=== PATIENT | female | born 1995 | race Caucasian/White ===

== ENCOUNTER 2019-03-20 17:41 | Outpatient (CLI) | payer OTHER, SELFPAY ==
[2018-10-11 09:32] VITALS: BMI 29.6
[2019-03-20 17:55] VITALS: BMI 35.3
--- NOTE | 2019-03-21 09:17 | OB.TRI.NOTE ---
History of Present Illness Was patient seen by the physician?: No Reason For Visit: CRAMPING Date of Service: 03/20/19 Final HAYES: 04/11/19 Gestational age: 37 Weeks and 0 Days Allergies animal dander Allergy (Mild, Verified 03/20/19 17:56) Unknown grass pollen Allergy (Mild, Verified 03/20/19 17:56) Unknown amoxicillin Allergy (Verified 03/20/19 17:54) Hives cephalexin [From Keflex] Allergy (Verified 03/20/19 17:54) Vomiting NST - FHR Rate Baby A Baseline: 120 Variability:: Moderate Accelerations:: 15 x 15 Decelerations:: None NST Reactive:: Yes Uterine Activity:: Irritability Impression/Plan Reactive NST for threatened PTL
== END 2019-03-20 18:20 | disposition home or self-care (01) ==
LOC: WPOUT 17:43 → WP 17:43
PROVIDERS: Referring Provider Obstetrics & Gynecology; Visit Provider Obstetrics & Gynecology
DX: O60.03 Preterm labor without delivery, third trimester (principal); Z3A.37 37 weeks gestation of pregnancy
CPT/HCPCS: 59050; 99218; G0378

== ENCOUNTER 2019-04-11 16:00 | Inpatient (IN) | payer OTHER, SELFPAY ==
[2018-10-11 09:32] VITALS: BMI 29.6
[2019-04-11 16:15] VITALS: BMI 34.7
[2019-04-11] MEDS: Lactated Ringers 1,000 ML 50 ML IV (16:25)
[2019-04-11 16:57] LABS: Absolute Lymphocyte Count 2.04 X10^3/uL (0.83-4.51); Absolute Neutrophil Count 10.8 X10^3/uL (2.0-7.7); Basophil# 0.05 X10^3/uL; Basophil% 0.4 % (0-1); Eosinophil# 0.08 X10^3/uL; Eosinophils% 0.6 % (0-5); Hematocrit 34.4 % (37-47); Hemoglobin 11.7 g/dL (12.0-15.0); Lymphocyte # 2.04 X10^3/ul (4.0); Lymphocyte % 14.8 % (19-41); Mean Corpuscular Hgb 29.5 pg (27.0-32.0); Mean Corpuscular Volume 86.9 fL (81-99); Mean Platelet Vol. 10.6 fl (6.2-12.0); Monocyte# 0.75 X10^3/uL; Monocyte% 5.4 % (0-10); NRBC Flagged by Analyzer 0 % (0-5); Neutrophil % 78.3 % (47-70); Platelet Count 191 K/mm3 (150-450); RBC Distribution Width CV 12.5 % (11.6-14.6); RBC Distribution Width SD 39.4 fl (35.1-43.9); Red Blood Count 3.96 M/mm3 (4.2-5.4); White Blood Count 13.8 K/mm3 (4.4-11.0)
[2019-04-11] MEDS: Oxytocin 30 units/NS 500 ml 30 UNITS/500 ML IV.SOLN IV (17:10)
[2019-04-11] MEDS: 0.9% Normal Saline 100 ML IV.SOLN. IY (17:33)
--- NOTE | 2019-04-11 17:38 | HP.PCM_ITS ---
History Date of Admission: 04/11/19 Final HAYES: 04/11/19 Gestational age: 40 Weeks and 0 Days History of this : This is a 23 year-old, G [], P [], at 40 weeks gestational age. Allergies animal dander Allergy (Mild, Verified 04/11/19 16:17) Unknown grass pollen Allergy (Mild, Verified 04/11/19 16:17) Unknown amoxicillin Allergy (Verified 04/11/19 16:17) Hives cephalexin [From Keflex] Allergy (Verified 04/11/19 16:17) Vomiting Home Medications: Home Medications Levothyroxine [Synthroid] 75 mcg PO DAILY 03/20/19 Vits [Prenatabs FA ] 1 tab PO DAILY 03/20/19 Smoking Status: Never smoker NST - FHR Rate Baby A Baseline: 120 Variability:: Moderate Accelerations:: 15 x 15 Decelerations:: Variable NST Reactive:: Yes Uterine Activity:: Irritability History Past Pregnancies: Past Pregnancies Delivery Date Name GA/ Weeks Outcome Route Wt Infant Sex Labor Length Anesthesia Delivery Location Provider FOB Labs: See [facility] H&P Physical Exam General: Alert, Oriented x3 Abdomen: Soft, Non Tender, Non-Distended, Gravid Extremities:: No edema Neurological: Cranial nerves II-XII grossly intact BUILDING ATTENDANT: Normal external genitalia Estimated gestational size: Appropriate for gestational size Cervix Dilation (cm): 1.5 Station: -3 Effacement (%): 70 Assessment/Plan All Active Problems Sinusitis, acute (Acute) This is a 23 year-old, G2, P0010, at 40 weeks gestational age. Admit to L&D Proceed with elective induction. Intracervical méndez placed. On pitocin. GBS negative EFW - less than 4500g, patient with adequate pelvis Pain - epidural as desired
[2019-04-12] MEDS: Nalbuphine 10 MG/ML Ampul IV ×2 (00:04→03:29)
[2019-04-12] MEDS: 0.9% Saline Lock 10 ML Syringe IV ×3 (00:05→04:43)
[2019-04-12] MEDS: Lactated Ringers 500 ML 999 ML IV ×2 (03:25→05:00)
[2019-04-12] MEDS: Ondansetron 4 MG/2 ML Vial IV (04:43)
[2019-04-12] MEDS: Lactated Ringers 1,000 ML 50 ML IV (05:13)
[2019-04-12] MEDS: fentaNYL-bupivacaine (epidural) 100 ML BAG EPIDURAL ×2 (06:13→10:33)
--- NOTE | 2019-04-12 07:22 | NURSING ---
pharmacy contacted to edit order for synthroid placed by this RN . pharmacy informed of verbal order from Dr Barragan for 75 mcg to be taken on mondays and fridays, and 150 mcg to be taken every other day in the AM, while fasting. pharmacy ([facility]) states she is currently editing the order for corrections. this passed along in bedside report to chart RN.
--- NOTE | 2019-04-12 09:03 | PCM.PN.BLA ---
Progress Note S: Patient comfortable with epidural O: cvx - 7//-1 fhts 115 with mod variability, accels tocos Q2-4 min A&P: continue pitocin
[2019-04-12] MEDS: Levothyroxine 150 MCG Tablet PO (09:43)
[2019-04-12] MEDS: Lactated Ringers 1,000 ML 200 ML IV (10:32)
[2019-04-12] MEDS: Oxytocin 30 units/NS 500 ml 30 UNITS/500 ML IV.SOLN 334 UNITS IV (14:40)
[2019-04-12] MEDS: Methylergonovine 0.2 MG/ML Ampul IM (14:55)
--- NOTE | 2019-04-12 15:06 | PCM.OPRPT ---
Vaginal Delivery Maternal Presentation: Elective Induction Method of Induction: Pitocin, Daly Bulb, Amniotomy Amniotic Membrane Rupture Type: Spontaneous Amniotic Fluid Description: Clear Final HAYES: 04/11/19 Gestational age: 40 Weeks and 1 Days Date of Procedure: 04/12/19 Pre-Operative Diagnosis: Elective induction Post-Operative Diagnosis: Same Surgery/ Procedure Performed: Spontaneous Vaginal Delivery Type of Anesthesia: Epidural Description of Procedure: Patient prepped & draped when C/C/+3. She pushed to deliver head. head gently guided to allow delivery of anterior and posterior shoulders. No excess traction placed on head. Body delivered and placed on maternal abdomen. 3VC clamped & cut in delayed fashion. Good uterine tone obtained. Presentation: ROP Placental Delivery Description: Expressed Placenta Disposition: [facility] Cord Vessel Description: 3 Vessels Cord Entanglement: Around neck x 1, loose Drain: Daly to straight drain Estimated Blood Loss: 400ml Infant A gender: Female (1 minute): 8 (5 minute): 9 Episiotomy Description: None Laceration: 1st degree - vaginal - repaired with 3-0 vicryl Medications given after delivery: IV Pitocin Complications: None
[2019-04-12] MEDS: Ibuprofen 600 MG Tablet PO (17:12)
[2019-04-12 18:31] VITALS: BP 113/57; PULSE 61; RESP 16; TEMP 36.6; O2SAT 97
[2019-04-12 20:35] VITALS: BP 120/61; PULSE 68; RESP 16; TEMP 36.1
[2019-04-12] MEDS: Acetaminophen 500 MG Tablet 1000 MG PO (22:36)
[2019-04-13 00:58] VITALS: BP 103/51; PULSE 58; RESP 16; TEMP 36.6
[2019-04-13] MEDS: Ibuprofen 600 MG Tablet PO ×2 (02:05→20:16)
[2019-04-13 04:30] VITALS: BP 98/41; PULSE 62; RESP 16; TEMP 36.4
[2019-04-13 09:00] VITALS: BP 108/69; PULSE 70; RESP 16; TEMP 36.6
[2019-04-13] MEDS: Levothyroxine 150 MCG Tablet PO (09:05)
[2019-04-13 14:50] VITALS: BP 118/70; PULSE 69; RESP 16; TEMP 36.4
--- NOTE | 2019-04-13 17:48 | PCM.PN.OB ---
Subjective: Denies complaints. - Physical Exam Vitals/I&O's: Vital Signs Temp Pulse Resp BP Pulse Ox 97.5 F L 69 16 118/70 97 04/13/19 14:50 04/13/19 14:50 04/13/19 14:50 04/13/19 14:50 04/12/19 18:31 Oxygen Delivery Method Room Air Weight: 189 lb 9.561 oz Body Mass Index (BMI) 34.7 Intake and Output for Last 24 Hours 04/11/19 04/12/19 04/13/19 23:59 23:59 23:59 Intake Total 442.64 / 442.64 5375.84 / 5375.84 Output Total 400 / 400 2100 / 2100 Balance 42.64 / 42.64 3275.84 / 3275.84 General: Alert, Oriented x3 Abdomen: Soft, Non Tender, Non-Distended - ff mid & below umb Extremities: No Calf Tenderness Neurological: Cranial nerves II-XII grossly intact Current Medications Acetaminophen (Tylenol) 1,000 mg PO Q8H PRN PRN PRN Reason: Pain Score 1-3/10 Last Admin: 04/12/19 22:36 Dose: 1,000 mg Documented by: Bisacodyl (Dulcolax) 10 mg RECTAL UD PRN PRN Reason: If no BM Dibucaine (Dibucaine) 1 applic TOPICAL TID PRN PRN; Protocol PRN Reason: Discomfort Hydrocortisone (Hytone) 1 applic TOPICAL TID PRN PRN; Protocol PRN Reason: Discomfort Ibuprofen (Motrin) 600 mg PO Q6H PRN PRN PRN Reason: Pain Score 1-3/10 Last Admin: 04/13/19 02:05 Dose: 600 mg Documented by: Levothyroxine Sodium (Synthroid) 75 mcg PO X1 ONE Stop: 04/14/19 06:01 Methylergonovine Maleate (Methergine) 0.2 mg IM X1 PRN PRN Reason: Excess bleeding/uterine atony Last Admin: 04/12/19 14:55 Dose: 0.2 mg Documented by: Ondansetron HCl (Zofran) 4 mg IV Q4H PRN PRN PRN Reason: Nausea Oxycodone HCl (Oxyir) 5 - 10 mg PO Q4H PRN PRN PRN Reason: Pain Score 4-10/10 Senna/Docusate Sodium (Senokot-S, [place]ore[place]-Colace) 1 - 2 tablet PO DAILY PRN PRN PRN Reason: Constipation Simethicone (Mylicon) 80 mg PO PCHS PRN PRN Reason: Indigestion/Stomach pain Sodium Chloride () 5 - 15 ml IV UD PRN PRN Reason: SALINE FLUSH Medical Necessity - Tobacco Use Smoking Status: Never smoker Assessment/Plan All Active Problems (Last Updated 04/11/19 @ 17:39 by Dariel Barragan) Sinusitis, acute (Acute) PPD#1 Routine care
[2019-04-13 19:54] VITALS: BP 100/45; PULSE 76; RESP 16; TEMP 36.6
[2019-04-13] MEDS: Senna/Docusate Sodium 1 Tablet PO (20:16)
[2019-04-14 02:29] VITALS: BP 110/50; PULSE 70; RESP 18; TEMP 36.3
[2019-04-14] MEDS: Levothyroxine 75 MCG Tablet PO (06:23)
--- NOTE | 2019-04-14 08:48 | PCM.PN.OB ---
Subjective: Doing well per patient and nursing staff. Ambulating and taking PO without difficulty. Voiding and passing flatus. Denies any chest pain, SOB, leg pain, or increased vaginal bleeding. well. Having some nipple soreness, working with for latch. Planning D/C home today. - Physical Exam Vitals/I&O's: Vital Signs Temp Pulse Resp BP Pulse Ox 97.3 F L 70 18 110/50 L 97 04/14/19 02:29 04/14/19 02:29 04/14/19 02:29 04/14/19 02:29 04/12/19 18:31 Oxygen Delivery Method Room Air Weight: 189 lb 9.561 oz Body Mass Index (BMI) 34.7 Intake and Output for Last 24 Hours 04/12/19 04/13/19 04/14/19 23:59 23:59 23:59 Intake Total 5375.84 / 5375.84 Output Total 2100 / 2100 Balance 3275.84 / 3275.84 General: Alert, Oriented x3, Cooperative HEENT: Atraumatic, Normocephalic Neck: Trachea Midline Lungs: Clear to auscultation, Normal air movement, No rhonchi, No wheeze Cardiovascular: Regular rate, Regular Rhythm, No murmurs Abdomen: Bowel Sounds Present, - - Fundus firm 2 below U Extremities: No edema, - - Jayson's negative bilaterally Psych/Mental Status: Normal Affect, Appropriate Current Medications Acetaminophen (Tylenol) 1,000 mg PO Q8H PRN PRN PRN Reason: Pain Score 1-3/10 Last Admin: 04/12/19 22:36 Dose: 1,000 mg Documented by: Bisacodyl (Dulcolax) 10 mg RECTAL UD PRN PRN Reason: If no BM Dibucaine (Dibucaine) 1 applic TOPICAL TID PRN PRN; Protocol PRN Reason: Discomfort Hydrocortisone (Hytone) 1 applic TOPICAL TID PRN PRN; Protocol PRN Reason: Discomfort Ibuprofen (Motrin) 600 mg PO Q6H PRN PRN PRN Reason: Pain Score 1-3/10 Last Admin: 04/13/19 20:16 Dose: 600 mg Documented by: Methylergonovine Maleate (Methergine) 0.2 mg IM X1 PRN PRN Reason: Excess bleeding/uterine atony Last Admin: 04/12/19 14:55 Dose: 0.2 mg Documented by: Ondansetron HCl (Zofran) 4 mg IV Q4H PRN PRN PRN Reason: Nausea Oxycodone HCl (Oxyir) 5 - 10 mg PO Q4H PRN PRN PRN Reason: Pain Score 4-10/10 Senna/Docusate Sodium (Senokot-S, [place]-Colace) 1 - 2 tablet PO DAILY PRN PRN PRN Reason: Constipation Last Admin: 04/13/19 20:16 Dose: 1 tablet Documented by: Simethicone (Mylicon) 80 mg PO PCHS PRN PRN Reason: Indigestion/Stomach pain Sodium Chloride () 5 - 15 ml IV UD PRN PRN Reason: SALINE FLUSH Medical Necessity - Tobacco Use Smoking Status: Never smoker Assessment/Plan All Active Problems (Last Updated 04/11/19 @ 17:39 by Dariel Barragan) Sinusitis, acute (Acute) A: PPD #2 P: 1) Routine care and instructions 2) Nipple cream sent for nipple discomfort. 3) Discharge home today. 4) Follow up at 2 weeks and 6 weeks
[2019-04-14 09:00] VITALS: BP 117/49; PULSE 68; RESP 18; TEMP 36.6
--- NOTE | 2019-04-14 09:02 | DCINST_ITS ---
Discharge Diet: No Restrictions Discharge Activity: Return to Normal Activity, May not drive while taking narcotic pain medications., May Shower, May Take a Tub Bath May resume sexual activity in: 4-6 weeks Weight Bearing Status: Full weight bearing Additional Activity Instructions:: Nothing in the vagina for 4-6 weeks. You may return to work/school in 6 weeks. Call your doctor if your incision/area has: Continuous Slow Oozing, Sudden Increased Bleeding, Increased Pain/ Swelling, Increased Redness, Foul Smelling Discharge Call your doctor if you observe: Fever of 101 or Higher, Inability to urinate, Using more than one pad per hour, Chest pain, Increased palpitations (irregular heartbeat), Calf discomfort, Uncontrolled pain Additional Instructions: If you experience any of the following, contact your healthcare provider. * Bleeding that soaks a pad every hour for 2 hours * Fever 100.4 or higher * Unrelieved incision or abdominal pain * Swelling, redness, discharge or bleeding from your incision or episiotomy site * Your incision begins to separate * Problems urinating (including inability to urinate or burning while urinating). * Visual changes * Severe headache * Flu-like symptoms * Pain or redness in one of both of your breasts * Pain, warmth, tenderness or swelling in your legs, especially the calf area * Frequent nausea and vomiting * Symptoms of depression or anxiety If you experience any of the following, call 911 or go to the nearest Emergency Room. * Chest pain * Problems breathing * Seizure activity * Partial or complete paralysis of a body part, slurred speech, weakness or drooping of the face, or a sudden inability to walk or hold your balance Allergies/Adverse Reactions: Allergies animal dander Allergy (Mild, Verified 04/11/19 16:17) Unknown grass pollen Allergy (Mild, Verified 04/11/19 16:17) Unknown amoxicillin Allergy (Verified 04/11/19 16:17) Hives cephalexin [From Keflex] Allergy (Verified 04/11/19 16:17) Vomiting Medications to take at Discharge Levothyroxine [Synthroid] 75 mcg PO DAILY 03/20/19 Vits [Prenatabs FA ] 1 tab PO DAILY 03/20/19 Fluticasone 0.05% [Flonase Nasal [place]] 1 spray NASAL DAILY 04/11/19 Please Follow Up With: Dariel Barragan When: Call to make an appointment with your doctor in 6 weeks. If you had elevated Blood Pressure or 4th degree laceration you will need to be seen in 2 weeks. Primary Care Physician: Care Physician,No Primary [Primary Care Provider] - Test Results: Test results from this visit will be discussed in further detail at your follow- up appointment, if applicable.
[2019-04-14] MEDS: Ibuprofen 600 MG Tablet PO (09:17)
== END 2019-04-14 12:40 | disposition home or self-care (01) | DRG 807 ==
PROVIDERS: Admitting Provider Obstetrics & Gynecology; Referring Provider Obstetrics & Gynecology; Visit Provider Obstetrics & Gynecology
DX: O70.0 First degree perineal laceration during delivery (principal); Z37.0 Single live birth; O48.0 Post-term pregnancy; O99.52 Diseases of the respiratory system complicating childbirth; J01.90 Acute sinusitis, unspecified; O69.81X0 Labor and delivery complicated by cord around neck, without compression, not applicable or unspecified; Z79.890 Hormone replacement therapy; Z3A.40 40 weeks gestation of pregnancy
CPT/HCPCS: 59025; 59050; 85025; 86850; 86900; 86901; 99218; J7120; A4216; G0378; J2405

== ENCOUNTER → 2019-05-27 08:21 | Outpatient (CLI) | payer OTHER, SELFPAY | PROVIDERS: Referring Provider Obstetrics & Gynecology; Visit Provider Obstetrics & Gynecology | DX: Z39.1 Encounter for care and examination of lactating mother (principal) | CPT/HCPCS: 96152 ==

== ENCOUNTER 2022-07-08 09:05 | Outpatient (CLI) | payer OTHER, SELFPAY ==
[2022-07-08 09:13] VITALS: BMI 35.0
[2022-07-08 09:27] VITALS: BP 109/62; PULSE 88; TEMP 37
[2022-07-08] MEDS: Lactated Ringers 1,000 ML 999 ML IV (09:27)
[2022-07-08 09:31] VITALS: O2SAT 98
[2022-07-08] MEDS: Ondansetron 4 MG/2 ML Vial IV (09:38)
[2022-07-08 09:42] LABS: Absolute Lymphocyte Count 0.48 X10^3/uL (0.83-4.51); Absolute Neutrophil Count 13.9 X10^3/uL (2.0-7.7); Basophil# 0.02 X10^3/uL; Basophil% 0.1 % (0-1); Eosinophil# 0.01 X10^3/uL; Eosinophils% 0.1 % (0-5); Hemoglobin 12.5 g/dL (12.0-15.0); Lymphocyte # 0.48 X10^3/ul (0.83-4.51); Lymphocyte % 3.2 % (19-41); Mean Corp Hgb Conc 33.8 g/dL (32-36); Mean Corpuscular Hgb 29.7 pg (27.0-32.0); Mean Corpuscular Volume 87.9 fL (81-99); Mean Platelet Vol. 10.6 fl (6.2-12.0); Monocyte# 0.44 X10^3/uL; Monocyte% 2.9 % (0-10); NRBC Flagged by Analyzer 0 % (0-5); Neutrophil # 13.91 X10^3/uL (2.7-7.7); POSITIVE DIFFERENTIAL YES; Platelet Count 199 K/mm3 (150-450); RBC Distribution Width CV 13.2 % (11.6-14.6); RBC Distribution Width SD 42.3 fl (35.1-43.9); Red Blood Count 4.21 M/mm3 (4.2-5.4)
[2022-07-08 09:49] LABS: Differential Indicated SCAN CRITERIA MET
[2022-07-08 10:13] LABS: ALB/GLOB Ratio 0.7 RATIO (0.9-2.4); AST(SGOT) 14 U/L (15-37); Alanine Aminotransfer ALT/SGPT 17 U/L (13-56); Alkaline Phosphatase 71 U/L (45-117); Anion Gap 9 (5-15); BUN 10 mg/dL (7-18); BUN/Creat Ratio 18.1 RATIO (10-20); Calcium,Total 9.1 mg/dL (8.5-10.1); Chloride 105 mmol/L (98-107); Creatinine, Serum 0.55 mg/dL (0.55-1.02); Differential Comment SCANNED; EST Glomerular Filtration Rate 140 mL/min (>60); Est Glom Filt Rate - Afr Amer 169 mL/min (>60); Estimated Creatinine Clearance 121.52 ml/min; Globulin 4.3 g/dL (2.2-4.2); Glucose 117 mg/dL (74-106); Potassium 3.5 mmol/L (3.5-5.1); Protein, Total 7.3 g/dL (6.4-8.2); Sodium Level 136 mmol/L (136-145)
[2022-07-08 10:23] LABS: Mucous, Urine 0 SEEN /hpf (<or=2+); Red Blood Cells-Urine 0 SEEN /hpf (0-5)
[2022-07-08 10:34] LABS: Color, Urine Yellow (Yellow); Glucose, Dipstick Normal (Normal); Leukocyte Esterase-Dipstick 25 /ul (Negative); Nitrite-Dipstick Negative (Negative); Occult Blood-Urine Negative /ul (Negative); Protein-Dipstick 30 mg/dl (Negative); Specific Gravity, Urine 1.025 (1.002-1.030); Urine Bilirubin Dipstick Negative (Negative); Urine Clarity Clear (Clear); Urine Urobilinogen Normal (Normal)
[2022-07-08 10:36] LABS: Ketone-Dipstick 150 mg/dl (Negative)
--- NOTE | 2022-07-08 10:45 | OB.TRI.PN ---
Progress Notes Progress Note: at 25 weeks . Presents to labor and delivery with concerns of gastrointestinal illness. Diarrhea 10 times in the last 24 hrs. Having some dizziness. Nausea and emesis x1. Good movement. No vaginal bleeding or leakage of fluid. Laboratory Studies: Laboratory Tests 07/08/22 07/08/22 07/08/22 Range/Units 10:15 09:25 09:25 WBC 15.0 H (4.4-11.0) K/mm3 RBC 4.21 (4.2-5.4) M/mm3 Hgb 12.5 (12.0-15.0) g/dL Hct 37.0 (37-47) % MCV 87.9 (81-99) fL MCH 29.7 (27.0-32.0) pg MCHC 33.8 (32-36) g/dL RDW Std Deviation 42.3 (35.1-43.9) fl RDW Coeff of Silvana 13.2 (11.6-14.6) % Plt Count 199 (150-450) K/mm3 MPV 10.6 (6.2-12.0) fl Immature Gran % (Auto) 0.700 (0.0-0.9) % Neut % (Auto) 93.0 H (47-70) % Lymph % (Auto) 3.2 L (19-41) % [place] % (Auto) 2.9 (0-10) % Eos % (Auto) 0.1 (0-5) % Baso % (Auto) 0.1 (0-1) % Absolute Neuts (auto) 13.9 H (2.0-7.7) X10^3/uL Absolute Lymphs (auto) 0.48 L (0.83-4.51) X10^3/uL Nucleated RBC % 0 (0-5) % Differential Comment SCANNED Sodium 136 (136-145) mmol/L Potassium 3.5 (3.5-5.1) mmol/L Chloride 105 (98-107) mmol/L Carbon Dioxide 22.0 (21.0-32.0) mmol/L Anion Gap 9 (5-15) BUN 10 (7-18) mg/dL Creatinine 0.55 (0.55-1.02) mg/dL Estim Creat Clear Calc 121.52 ml/min Est GFR (MDRD) Af Amer 169 (>60) mL/min Est GFR (MDRD) Non-Af 140 (>60) mL/min BUN/Creatinine Ratio 18.1 (10-20) RATIO Glucose 117 H (74-106) mg/dL Calcium 9.1 (8.5-10.1) mg/dL Total Bilirubin 0.60 (0.20-1.00) mg/dL AST 14 L (15-37) U/L ALT 17 (13-56) U/L Alkaline Phosphatase 71 (45-117) U/L Total Protein 7.3 (6.4-8.2) g/dL Albumin 3.0 L (3.2-5.0) g/dL Globulin 4.3 H (2.2-4.2) g/dL Albumin/Globulin Ratio 0.7 L (0.9-2.4) RATIO Urine Color Yellow (Yellow) Urine Clarity Clear (Clear) Urine pH 6.0 (5.0 - 8.0) Ur Specific [place] 1.025 (1.002-1.030) Urine Protein 30 H (Negative) mg/dl Urine Glucose (UA) Normal (Normal) mg/dl Urine Ketones 150 A* (Negative) mg/dl Urine Occult Blood Negative (Negative) /ul Urine Nitrite Negative (Negative) Urine Bilirubin Negative (Negative) mg/dL Urine Urobilinogen Normal (Normal) mg/dl Ur Leukocyte Esterase 25 H (Negative) /ul FHT 145, no contractions Assessment & Plan (1) Nausea and vomiting: (2) 25 weeks gestation of : (3) Viral illness: PLAN: Plan 1) 1 Liter LR x 1 2) Zofran 4mg IVP x 1. Will send a prescription to pharmacy 3) CMP and CBC 4) Increase hydration slowly. BRAT diet 5) Follow up in one week and to call if no improvement 6) D/C home
[2022-07-08 10:56] LABS: Bacteria 1+ /hpf (None Seen); Squamous Epithelial Cells - UA 5-10 SEEN /hpf (5-10); White Blood Cells 0-5 SEEN /hpf (0-5)
--- NOTE | 2022-07-08 11:20 | PCM.DC.SUM ---
Providers Primary Care Physician: No Primary Care Phys Reason For Visit: DEHYDRATION Medications at Discharge Home Medications levothyroxine 75 mcg tablet 125 mcg PO DAILY hypothryoidism 03/20/19 vits,calcium no.78-iron fumarate-folic acid 29 mg-1 mg tablet 1 tab PO DAILY 03/20/19 fluticasone propionate 50 mcg/actuation nasal spray,suspension 1 spray NASAL DAILY seasonal allergies 04/11/19 cetirizine 10 mg tablet 10 mg PO DAILY Check with primary doctor 07/08/22 ondansetron 4 mg disintegrating tablet 4 mg PO Q8H PRN PRN Nausea #30 tabs 07/08/22 Weight / BMI Weight Weight: 191 lb 12.835 oz Body Mass Index (BMI) 35.0 ABG / Lab / Microbiology Data Result Diagrams: 07/08/22 09:25 07/08/22 09:25 Laboratory: Laboratory Results - last 24 hr 07/08/22 09:25: WBC 15.0 H, RBC 4.21, Hgb 12.5, Hct 37.0, MCV 87.9, MCH 29.7, MCHC 33.8, RDW Std Deviation 42.3, RDW Coeff of Silvana 13.2, Plt Count 199, MPV 10.6, Immature Gran % (Auto) 0.700, Neut % (Auto) 93.0 H, Lymph % (Auto) 3.2 L, [place] % (Auto) 2.9, Eos % (Auto) 0.1, Baso % (Auto) 0.1, Absolute Neuts (auto) 13.9 H, Absolute Lymphs (auto) 0.48 L, Nucleated RBC % 0, Differential Comment SCANNED 07/08/22 09:25: Sodium 136, Potassium 3.5, Chloride 105, Carbon Dioxide 22.0, Anion Gap 9, BUN 10, Creatinine 0.55, Estim Creat Clear Calc 121.52, Est GFR (MDRD) Af Amer 169, Est GFR (MDRD) Non-Af 140, BUN/Creatinine Ratio 18.1, Glucose 117 H, Calcium 9.1, Total Bilirubin 0.60, AST 14 L, ALT 17, Alkaline Phosphatase 71, Total Protein 7.3, Albumin 3.0 L, Globulin 4.3 H, Albumin/Globulin Ratio 0.7 L 07/08/22 10:15: Urine Color Yellow, Urine Clarity Clear, Urine pH 6.0, Ur Specific [place] 1.025, Urine Protein 30 H, Urine Glucose (UA) Normal, Urine Ketones 150 A*, Urine Occult Blood Negative, Urine Nitrite Negative, Urine Bilirubin Negative, Urine Urobilinogen Normal, Ur Leukocyte Esterase 25 H, Urine RBC 0 SEEN, Urine WBC 0-5 SEEN, Ur Squamous Epith Cells 5-10 SEEN, Urine Bacteria 1+, Urine Mucus 0 SEEN Meaningful Use Info Meaningful Use Diagnoses (Choose all that apply): None applicable Discharge Plan Admission Reason For Visit: DEHYDRATION Attending Provider: Sylwia Moore Primary Care Provider: Care Physician,No Primary Discharge Date/Time: 07/08/22 11:50 Instructions Patient Instructions: Kick Counts, ED False Labor, OB Triage: Return to Hospital or Notify Physician if you Experience: Discharge Orders/Prescriptions Prescriptions: New ondansetron 4 mg Tablet,Disintegrating 4 mg PO Q8H PRN PRN (Reason: Nausea) Qty: 30 0RF No Action fluticasone propionate 1 SPRAY spray,suspension 1 spray NASAL DAILY levothyroxine 75 MCG tablet 125 mcg PO DAILY vit,[id number] 1 TABLET tablet 1 tab PO DAILY cetirizine 10 mg Tablet 10 mg PO DAILY Referrals / Follow Up: Care Physician,No Primary [Primary Care Provider] - Disposition Patient Disposition: Home, Self Care
== END 2022-07-08 11:50 | disposition home or self-care (01) ==
LOC: WPOUT 09:11 → WP 09:12
PROVIDERS: Visit Provider Advanced Practice Midwife
DX: O98.52 Other viral diseases complicating childbirth (principal); B34.9 Viral infection, unspecified; O21.9 Vomiting of pregnancy, unspecified; Z3A.25 25 weeks gestation of pregnancy
CPT/HCPCS: 96374; 96361; 36415; 59050; 80053; 81001; 85025; 87086; J7120; J2405

== ENCOUNTER 2022-10-13 07:05 | Inpatient (IN) | payer OTHER, SELFPAY ==
[2022-10-13] VITALS (48 sets, daily range): BP systolic 87–140; BP diastolic 51–92; PULSE 56–180; RESP 16; TEMP 36.3–36.9; O2SAT 83–100; BMI 37.3
[2022-10-13] MEDS: Lactated Ringers 1,000 ML 50 ML IV (07:50)
[2022-10-13 08:07] LABS: Hematocrit 37.2 % (37-47); Hemoglobin 12.3 g/dL (12.0-15.0); Mean Corp Hgb Conc 33.1 g/dL (32-36); Mean Corpuscular Hgb 28.9 pg (27.0-32.0); Mean Corpuscular Volume 87.5 fL (81-99); Mean Platelet Vol. 10.5 fl (6.2-12.0); Platelet Count 165 K/mm3 (150-450); RBC Distribution Width CV 13.8 % (11.6-14.6); RBC Distribution Width SD 43.8 fl (35.1-43.9); Red Blood Count 4.25 M/mm3 (4.2-5.4); White Blood Count 12.5 K/mm3 (4.4-11.0)
[2022-10-13 08:08] LABS: Absolute Lymphocyte Count 1.97 X10^3/uL (0.83-4.51); Absolute Neutrophil Count 9.5 X10^3/uL (2.0-7.7); Basophil# 0.04 X10^3/uL; Basophil% 0.3 % (0-1); Eosinophil# 0.11 X10^3/uL; Eosinophils% 0.9 % (0-5); Lymphocyte # 1.97 X10^3/ul (0.83-4.51); Lymphocyte % 15.7 % (19-41); Monocyte# 0.79 X10^3/uL; Monocyte% 6.3 % (0-10); NRBC Flagged by Analyzer 0 % (0-5); Neutrophil # 9.53 X10^3/uL (2.7-7.7); Neutrophil % 76.2 % (47-70)
[2022-10-13] MEDS: Oxytocin 15 Units/NS 250ml 15 UNITS/250 ML IV.SOLN 2 UNITS IV (08:32)
[2022-10-13] MEDS: 0.9% Normal Saline Single 100 ML IV.SOLN. INTRA-UTER (08:32)
[2022-10-13 08:38] LABS: Syphilis Antibodies Non-reactive
--- NOTE | 2022-10-13 08:59 | HP.PCM.OB_ITS ---
HPI - General General Date of Admission: 10/13/22 Date of Service: 10/13/22 Chief Complaint: induction of labor HPI Narrative NORA GUTIERREZ, is a 27 F who presents para 1-0-1-1 who presents at 39-3/7 weeks for induction of labor. Is an elective induction of labor for maternal discomfort. She is a multigravida with a Carrizales score of 6 or more. She denies any vaginal bleeding or leaking of fluid. She had some irregular contractions last night. This has been located to date by BMI of greater than 35. Estimated weight is less than 4500 g clinically and by ultrasound. Previous obstetrical history includes 1 previous spontaneous and 1 previous live 6 pounds 15 ounces without complications Past medical history significant for hypothyroidism, depression, eating disorder Medications include Synthroid, Flonase as needed and vitamin and MiraLAX as needed Maternal Data Information Final HAYES: 10/13/22 Gestational age: 39 3/7 [facility] Medical History (Updated 10/13/22 @ 09:[address] Noemi Wood MD) Anxiety Depression Encounter for screening for COVID-19 Impacted cerumen of both ears Thyroid disorder Home Medications levothyroxine 75 mcg tablet 125 mcg PO DAILY hypothryoidism 03/20/19 [History Last Taken 10/13/22 06:00] vits,calcium no.78-iron fumarate-folic acid 29 mg-1 mg tablet 1 tab PO DAILY 03/20/19 [History Last Taken 10/12/22 21:00] fluticasone propionate 50 mcg/actuation nasal spray,suspension 1 spray NASAL DAILY seasonal allergies 04/11/19 [History Last Taken 07/07/22 21:00] polyethylene glycol 3350 17 gram/dose oral powder (Miralax) 17 g PO DAILY hx of anal fissure 10/13/22 [History Last Taken Unknown] Allergy/AdvReac Type Severity Reaction Status Date / Time animal dander Allergy Mild Unknown Verified 10/13/22 07:48 grass pollen Allergy Mild Unknown Verified 10/13/22 07:48 amoxicillin Allergy Hives Verified 10/13/22 07:48 cephalexin [From Keflex] Allergy Vomiting Verified 10/13/22 07:48 Social History (Updated 10/11/18 @ 10:43 by Moe DESHPANDECHARLEE) Smoking Status: Never smoker History Elective abortions Hx Para 1 Spontaneous abortions Hx # Term Pregnancies Ectopic pregnancies Hx # Pregnancies Multiple births # of living children ROS Constitutional Constitutional: Denies fatigue, fever(s) or malaise Eyes Eyes: Denies change in vision ENT HEENT: Denies dizziness or headache(s) Cardiovascular Cardiovascular: Denies chest pain, dyspnea or lightheadedness Respiratory/Chest Respiratory/Chest: Denies cough or dyspnea Gastrointestinal Gastrointestinal: Denies change in bowel habits Genitourinary Genitourinary: Denies burning urination or genital lesions Integumentary Integumentary: Denies rash Neurologic Neurologic: Denies confusion, dizziness, headache(s), numbness or weakness Vital Signs Vital Signs Vital Signs: 10/13/22 07:44 10/13/22 07:44 10/13/22 07:44 Temperature Temperature Source Pulse Rate 78 Blood Pressure 114/60 BP Systolic 114 BP Diastolic 60 Pulse Ox 98 10/13/22 07:44 10/13/22 07:44 10/13/22 08:37 Temperature 98.0 F Temperature Source Temporal Pulse Rate Blood Pressure 118/66 BP Systolic 118 BP Diastolic 66 Pulse Ox 10/13/22 08:37 10/13/22 08:36 10/13/22 08:36 Temperature 97.8 F Temperature Source Temporal Pulse Rate 74 Blood Pressure BP Systolic BP Diastolic Pulse Ox Weight Weight: 92.59 kg Body Mass Index (BMI) 37.3 Physical Exam Const alert and no apparent distress General Appearance: cooperative HEENT normocephalic Resp normal respiratory effort Cardio regular rate GI soft to palpation GI Narrative: gravid, nontender, appropriate for gestational age Extremity no calf tenderness General Extremity: edema Skin no wounds Rashes: No rashes noted Psych activity/motor behavior normal Labs Labs Labs: Blood Type O POSITIVE Antibody Screen NEGATIVE Hct 37.2 % (37-47) Hgb 12.3 g/dL (12.0-15.0) Syphilis Total Ab Non-reactive Rhogam given: No Assessment & Plan (1) 39 weeks gestation of : PLAN: 27-year-old 3 para 1 at 39-3/7 weeks for induction of labor. Risk benefits and alternatives to induction labor him discussed with the patient, her questions were answered to her satisfaction she desires to proceed. Estimated weight is less than 4500 g clinically and by ultrasound and pelvis clinically adequate to expect vaginal delivery. Patient may have routine pain relieving options as indicated and desired. Will undergo Daly, Pitocin, artificial rupture membranes as needed induction of labor. Daly was placed over stylette through the internal cervical os in the usual sterile fashion without difficulty. The balloon was inflated to 30 cc and placement over the internal os was confirmed. Patient and fetus tolerated the procedure well. (2) High risk multigravida in third trimester: (3) BMI 35.0-35.9,adult: (4) Maternal obesity syndrome in third trimester:
[2022-10-13] MEDS: LACTATED RINGERS 500 ML 999 ML IV (11:08)
[2022-10-13] MEDS: fentaNYL-bupivacaine (epidural) 100 ML BAG EPIDURAL (11:58)
--- NOTE | 2022-10-13 14:36 | EX.PCM.OBRPT ---
Assessment & Plan (1) (spontaneous vaginal delivery): Maternal Data Information Final HAYES: 10/17/22 Gestational age: 39 3/7 Vaginal Delivery Maternal Presentation Maternal Presentation: Elective Induction Type of Induction: Pitocin, Daly Bulb and Amniotomy Operative Information Date of Procedure: 10/13/22 Pre-Operative Diagnosis: labor Post-Operative Diagnosis: same Surgery / Procedure Performed: Spontaneous Vaginal Delivery Type of Anesthesia: Epidural Special Medications: none Drain: Daly to straight drain Estimated Blood Loss: 300 Time of Delivery: 14:19 Findings Description of Procedure: A vigorous male infant was delivered MIKE over an intact perineum. The remainder the infant was delivered with maternal pushing and gentle traction only in less than 15 seconds. The Pitocin infusion was initiated for active management of the third stage. The cord was clamped and cut cord pulsations ceased. The was attended to by the waiting nursing staff. The placenta was delivered spontaneously and intact. The cervix and vagina were intact. Sponge and needle counts were correct. A vaginal sweep was completed by me. Presentation: MIKE Amniotic Membrane Rupture Type: Artificial Amniotic Fluid Description: Clear Placental Delivery Description: Spontaneous Placenta Disposition: [facility] Cord Vessel Description: 3 Vessels Cord Entanglement: None Infant A Gender: Male ([place]) (1 minute): 9 (5 minute): 9 Delayed Cord Clamping: Yes Post Vaginal Delivery Medications Given After Delivery: IV Pitocin Episiotomy Description: None Laceration: None Complication Complications: None
[2022-10-13] MEDS: Oxytocin 15 Units/NS 250ml 15 UNITS/250 ML IV.SOLN 83 UNITS IV (14:52)
[2022-10-13] MEDS: Ibuprofen 600 MG Tablet PO ×2 (17:13→23:35)
[2022-10-13] MEDS: Acetaminophen 500 MG Tablet 1000 MG PO (21:31)
[2022-10-13] MEDS: Senna/Docusate Sodium 1 Tablet PO (21:31)
[2022-10-13] MEDS: Polyethylene Glycol 3350 17 GM PACKET PO (21:31)
[2022-10-14 03:21] VITALS: O2SAT 97
[2022-10-14 03:22] VITALS: BP 106/65; PULSE 73; PULSE 75; RESP 14; TEMP 36.1; O2SAT 98
[2022-10-14] MEDS: Acetaminophen 500 MG Tablet 1000 MG PO ×2 (03:31→10:12)
[2022-10-14] MEDS: Ibuprofen 600 MG Tablet PO ×2 (06:03→12:13)
[2022-10-14] MEDS: Levothyroxine 125 MCG Tablet PO (06:03)
[2022-10-14 08:37] VITALS: BP 117/70; PULSE 71; RESP 16; TEMP 36.4
--- NOTE | 2022-10-14 10:00 | CASEMGMT ---
Social Work Assessment Labor and Delivery Unit Patient Address: [address] [place] [address] Phone number: [phone] Date of Referral: 10/13/22 Time of Referral:? 15:49 Referred By: Israel Date of Intervention: ??10/14/22 Time of Intervention:? 10 Reason for Referral:? hx mental health History obtained from: medical records and mother of baby (MOB) and father of baby (FOB) Household composition: MOB reports she and Fob own their home with their three year old daughter, Elidia. Patient's parent/guardian status: MOB and FOB, Casimiro, have been together for eight years and four years. FOB is active with NB and previous child and reports no other children, no hx of mental health, AOD or DV concerns. ? Medical History: RODRIGO was engaged in care with [facility] beginning around 4 weeks . RODRIGO has had three pregnancies that resulted in two births, daughter Elidia aged three and NB boy, Wicho, born 10/13/22, Apgars 9/9 and weight was 7 pounds 15 ounces. MOB reports she will be discussing control options at her six week appointment and is planning to continue using the IUD. MOB plans to breast feed NB. ?? Educational Status:? MOB reports bachelor?s degree, no learning concerns. ? 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 FOB is employed daytime babysitter with [employer]. No financial concerns reported. Supplies: MOB reports having all supplies needed including diapers, clothes, bassinet and car seat, no concerns regarding supplies. Childcare/Caregiver(s):? MOB explained their families don?t live close but are in town to visit and provide support. MOB explained they have friends and MOB will be off with until at least February. Transportation: MOB reports having two vehicles and no concerns with access to transportation. ?? Programs/Agencies Involved: No agency involvement, MOB declined referrals?? Children Services/Legal Issues:??? none reported Behavioral Health Issues: MOB reports history of PPD/A after the of her first child, Elidia, however, MOB explained she feels it was situational as the pandemic had just started, their families were unable to travel to visit them and MOB was having financial issues so she had to return to work early. 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 MOB has [facility] two [facility]. MOB explained she has been engaged in monthly sessions due to doctors appointments and her next counseling session is in two weeks. MOB reports no MH medications and plans to continue counseling services. No AOD concerns . Family/Social Stressors:? 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 MOB reports she plans to look into other positions while on maternity leave. MOB and FOB are also discussing moving to [place] within the year to be closer to family. Support Systems: MOB is supported by FOB, their families and friends. Depression/Shaken Baby/Safe Sleeping HALIMA educated MOB on depression/anxiety as well as shaken baby and safe sleep. MOB report NB will be sleeping in a basinet beside their bed but has a crib in his nursey to transition to when he is older. HALIMA provided MOB with educational information as well as resources on the topics. MOB report understanding and voice no other needs. SW encouraged MOB to contact OB or PCP if she is concerned with symptoms. ??? ASSESSMENT:? SW met with MOB and introduced herself and role as [facility] Note Specialist. MOB in agreement to speak with SW with FOB present. SW utilized open and close ended questions to gather information needed for an assessment. MOB report having supplies needed, identified supports and reports no current community agency, declined referrals. MOB report history of anxiety, depression and is engaged in counseling services but not prescribed medications. SW educated MOB on safe sleep, shaken baby and PPD/A. SW also provided local resources for [facility]. HALIMA updated RN of resources provided, no concerns. PLAN:? ?No other services requested or indicated. Kateryna Eden MSW, KARLI
[2022-10-14 12:14] VITALS: BP 127/58; PULSE 76; RESP 16; TEMP 36.7; O2SAT 98
[2022-10-14 12:15] VITALS: BP 127/58; PULSE 54
--- NOTE | 2022-10-14 12:52 | PN.OBGYN_ITS ---
Subjective Subjective Doing well per patient and nursing staff. Ambulating and taking PO without difficulty. Voiding and passing flatus. Pain controlled. , services for assistance. Denies headache, visual changes, chest pain, shortness of breath, leg pain or increased bleeding. Lochia normal. Objective Data Objective Data Vital Signs: Vital Signs Temp Pulse Resp BP Pulse Ox O2 Del Method 98.0 F 54 L 16 127/58 H 98 Room Air 10/14/22 12:14 10/14/22 12:15 10/14/22 12:14 10/14/22 12:15 10/14/22 12:14 10/14/22 12:14 Oxygen Delivery Method Room Air Weight: 204 lb 2 oz Body Mass Index (BMI) 37.3 Intake & Output: Intake and Output for Last 24 Hours 10/12/22 10/13/22 10/14/22 23:59 23:59 23:59 Intake Total 1614.80 / 1614.80 Output Total 1200 / 1200 Balance 414.80 / 414.80 Lab / Micro Data Result Diagrams: 10/13/22 07:41 ROS Constitutional Constitutional: Reports systems reviewed and no addt'l complaints, except as d ocumented; Denies headache(s) Eyes Eyes: Denies acute decrease in peripheral vision, blurry vision or change in vision ENT HEENT: Reports systems reviewed and no addt'l complaints, except as documented Cardiovascular Cardiovascular: Denies chest pain or dizziness Respiratory/Chest Respiratory/Chest: Denies cough, dyspnea, dyspnea on exertion, shortness of breath at rest or shortness of breath with exertion Gastrointestinal Gastrointestinal: Denies abdominal pain, diarrhea, nausea or vomiting Genitourinary Genitourinary: Denies abdominal discomfort Musculoskeletal Musculoskeletal: Denies limited range of motion Integumentary Integumentary: Reports systems reviewed and no addt'l complaints, except as documented Neurologic Neurologic: Reports systems reviewed and no addt'l complaints, except as documented Psychiatric Psychiatric: Reports systems reviewed and no addt'l complaints, except as documented Endocrine Endocrinology: Reports systems reviewed and no addt'l complaints, except as documented Hematologic/Lymphatic Hematologic/Lymphatic: Reports systems reviewed and no addt'l complaints, except as documented Allergic/Immunologic Allergic/Immunologic: Reports systems reviewed and no addt'l complaints, except as documented Physical Exam Const alert and oriented x3 General Appearance: cooperative Orientation / Consciousness: awake, oriented to person, oriented to place and oriented to time Exam Limitations: no limitations HEENT normocephalic Head and Scalp: normal to inspection, normocephalic and atraumatic Face and Sinus: normal facial exam Eyes General Eye: normal appearance of both eyes Neck full ROM Chest Chest: symmetrical chest wall rise Resp normal respiratory effort and normal air movement Auscultation: clear to auscultation bilaterally Cardio regular rate, regular rhythm, S1 normal heart sound, S2 normal heart sound, no murmurs, no rub, no gallops and no clicks GI normal to inspection, nondistended, normoactive bowel sounds and non-tender appearance of the vagina normal Bladder / Kidney Exam: no CVA tenderness Back/Spine normal ROM Extremity normal to inspection and full ROM Skin no rashes or lesions noted Neuro oriented x3, CN's II-XII intact bilaterally and moves all extremities Sensorium / Orientation: awake, alert and oriented to person Motor Exam: clonus absent Deep Tendon Reflexes: Rt Patellar (L4): 2+ and Lt Patellar (L4): 2+ Assessment & Plan (1) (spontaneous vaginal delivery): PLAN: Plan 1) PPD#1 2) Vitals stable 3) 4) D/C home today 5) Follow up in 2 weeks and 6 weeks
--- NOTE | 2022-10-14 12:54 | PCM.DC.SUM ---
Providers Date of Admission: 10/13/22 Primary Care Physician: Deedee Primary Care Phys Reason For Visit: VAG DELIVERY Diagnosis Discharge Diagnosis (1) (spontaneous vaginal delivery): Status: Acute Code(s): O80 - Encounter for full-term uncomplicated delivery Plan 1) PPD#1 2) Vitals stable 3) 4) D/C home today 5) Follow up in 2 weeks and 6 weeks Medications at Discharge Home Medications levothyroxine 75 mcg tablet 125 mcg PO DAILY hypothryoidism 03/20/19 vits,calcium no.78-iron fumarate-folic acid 29 mg-1 mg tablet 1 tab PO DAILY 03/20/19 fluticasone propionate 50 mcg/actuation nasal spray,suspension 1 spray NASAL DAILY seasonal allergies 04/11/19 acetaminophen 500 mg tablet 1,000 mg PO Q6H PRN PRN Pain 1-10 Or Fever #0 tabs 10/14/22 ibuprofen 600 mg tablet 600 mg PO Q6H PRN PRN Pain Score 1-3 #0 tabs 10/14/22 Weight / BMI Weight Weight: 204 lb 2 oz Body Mass Index (BMI) 37.3 ABG / Lab / Microbiology Data Result Diagrams: 10/13/22 07:41 Meaningful Use Info Meaningful Use Diagnoses (Choose all that apply): None applicable Discharge Plan Admission Admit Date/Time: 10/13/22 07:05 Primary Reason for Your Visit: Vaginal Delivery Attending Provider: Noemi Wood Primary Care Provider: Care PhysicianDeedee Primary Discharge Orders/Prescriptions Prescriptions: New acetaminophen 500 mg Tablet 1,000 mg PO Q6H PRN PRN (Reason: Pain 1-10 Or Fever) Qty: 0 0RF ibuprofen 600 mg Tablet 600 mg PO Q6H PRN PRN (Reason: Pain Score 1-3) Qty: 0 0RF Continued fluticasone propionate 1 SPRAY spray,suspension 1 spray NASAL DAILY levothyroxine 75 MCG tablet 125 mcg PO DAILY vit,[id number] 1 TABLET tablet 1 tab PO DAILY Discontinued polyethylene glycol 3350 [Miralax] 17 gram/dose Powder 17 g PO DAILY Referrals / Follow Up: Care Physician,No Primary [Primary Care Provider] - Disposition Disposition (needs filled in before D/C Order can be placed): Home, Self Care
== END 2022-10-14 16:45 | disposition home or self-care (01) | DRG 807 ==
PROVIDERS: Admitting Provider Obstetrics & Gynecology; Visit Provider Obstetrics & Gynecology
DX: O99.214 Obesity complicating childbirth (principal); Z37.0 Single live birth; E66.9 Obesity, unspecified; E03.9 Hypothyroidism, unspecified; O99.284 Endocrine, nutritional and metabolic diseases complicating childbirth; Z3A.39 39 weeks gestation of pregnancy; Z79.890 Hormone replacement therapy; Z79.899 Other long term (current) drug therapy
CPT/HCPCS: 59025; 59050; 85025; 86780; 86850; 86900; 86901; 99221; J7120; G0378

== ENCOUNTER 2024-11-04 07:21 | Inpatient (IN) | payer OTHER, SELFPAY ==
[2024-11-04] VITALS (55 sets, daily range): BP systolic 79–133; BP diastolic 46–88; PULSE 43–187; RESP 16; TEMP 35.7–36.9; O2SAT 94–100; BMI 37.1
--- OUTSIDE RECORDS SUMMARY | 2024-11-04 07:23 | XMS RPT_ITS | CCD ---
Author Organization [facility] Care Team Providers Care Client Reporting Associate Name Role Phone Violetta COST RECORDER.PAPERHANGER ASSISTANT, [facility] Primary Care Provider Care Physician, No Primary Referring Unava ilable Care Physician, No Primary Primary Care Unava ilable Fam LEYVA, Jennifer Attending Unavailable Care Physician, No Primary Primary Care Unava ilable Sylwia Moore Attending Unavailable Care Physician, No Primary Primary Care Unava ilable Celine Vazquez Attending Unavailable Celine Vazquez Admitting Unavailable Sylwia Moore Referring Unavailable Violetta COST RECORDER.PAPERHANGER ASSISTANT, [facility] Primary Care Provider Violetta COST RECORDER.PAPERHANGER ASSISTANT, [facility] Primary Care Provider Argueta COST RECORDER.PAPERHANGER ASSISTANT, Breana Roche Unavailable Yordy Arnett DO Unavailable VIOLETTA, JAYCE Referring Unavailable VIOLETTA, JAYCE Primary Care Unavailable VIOLETTA, JAYCE Primary Care Unavailable VIOLETTA, JAYCE Primary Care Unavailable VALENTIN BLOOD Attending Unavailable SELF Referring Unavailable VIOLETTA, JAYCE Primary Care Unavailable SYLWIA MOORE Attending Unavailable VIOLETTA, JAYCE Primary Care Unavailable LETICIA DOVE Attending Unavailable HELEN PEREZ Referring Unavailable VIOLETTA, JAYCE Primary Care Unavailable JORDIN ISAAC Referring Unavailable JORDIN ISAAC Attending Unavailable CAMILLA AGUILERA Attending Unavailable VIOLETTA, JAYCE Primary Care Unavailable VIOLETTA, JAYCE Primary Care Unavailable ESTER VALENCIA Attending Unavail able VIOLETTA, JAYCE Primary Care Unavailable VIOLETTA, JAYCE Primary Care Unavailable VIOLETTA, JAYCE Referring Unavailable VIOLETTA, JAYCE Primary Care Unavailable CAMILLA AGUILERA Referring Unavailable VIOLETTA, JAYCE Primary Care Unavailable PLOTTS, CAMILLA Attending Unavailable PLOTTS, CAMILLA Referring Unavailable VIOLETTA, JAYCE Referring Unavailable VIOLETTA, JAYCE Primary Care Unavailable VIOLETTA, JAYCE Primary Care Unavailable HELEN PERZE Attending Unavailable VIOLETTA, JAYCE Primary Care Unavailable PLOTTS, CAMILLA Attending Unavailable VIOLETTA, JAYCE Primary Care Unavailable HAJEREMIE, HELEN Referring Unavailable VIOLETTA, JAYCE Primary Care Unavailable FABIOLATS, CAMILLA Attending Unavailable VIOLETTA, JAYCE Attending Unavailable VIOLETTA, JAYCE Primary Care Unavailable CELINE VAZQUEZ Attending Unavailable VIOLETTA, JAYCE Primary Care Unavailable VIOLETTA, JAYCE Primary Care Unavailable BENTON CARCAMO Attending Unavailable VIOLETTA, JAYCE Primary Care Unavailable PLOTTS, CAMILLA Attending Unavailable VIOLETTA, JACYE Referring Unavailable VIOLETTA, JAYCE Primary Care Unavailable VIOLETTA, JAYCE Referring Unavailable VIOLETTA, JAYCE Primary Care Unavailable HELEN PEREZ Attending Unavailable VIOLETTA, JAYCE Primary Care Unavailable VIOLETTA, JAYCE Primary Care Unavailable BENTON CARCAMO Attending Unavailable VIOLETTA, JAYCE Primary Care Unavailable YANY FERNANDEZ Attending Unavailable VIOLETTA, JAYCE Primary Care Unavailable Allergies Allergy Classification Reported Allergen(s) Allergy Type Date of Onset Reaction(s) Facility (20 sources) Amoxicillin; Translations: [AMOXICILLIN] Drug Allergy 11-15-2017 [facility] (20 sources) Cephalexin; Translations: [CEPHALEXIN] Drug Allergy 11-15-2017 Vomiting [facility] (20 sources) Seasonal allergy; Translations: [SEASONAL ALLERGIES] Allergy to substance 11-15-2017 Itching [facility] (2 sources) Grass pollen; Translations: [grass pollen] Allergy to substance 07-08-2022 Unknown [facility] (2 sources) animal dander; Translations: [animal dander] Allergy to substance 07-08-2022 Unknown [facility] (1 source) Amoxicillin Drug Allergy 10-13-2022 [facility] (1 source) Cephalexin Drug Allergy 10-13-2022 [facility] Medications Current Medications Medication Drug Class(es) Dates Sig (Normalized) Sig (Original) aspirin 81 mg oral tablet (20 sources) Platelet Aggregation Inhibitor, Nonsteroidal Anti-inflammatory Drug Start: 05-29-2024 take 1 capsule by mouth once daily aspirin 81 mg cap Indications: Supervision of high risk in second trimester ([facility]) , 16 weeks gestation of ([facility]) , Hypothyroidism affecting in second trimester ([facility]) , Obesity affecting in second trimester, unspecified obesity type ([facility]) Take 81 mg by mouth once daily. 90 capsule 2 05/29/2024 Active azithromycin 250 mg oral tablet (2 sources) Macrolide Antimicrobial Start: 08-14-2022 End: 08-19-2022 azithromycin (ZITHROMAX Z-JOHN) 250 mg tablet Indications: Otalgia of both ears , Bilateral impacted cerumen Take 2 tablets day one, then, 1 tablet daily until gone. 6 tablet 0 08/14/2022 08/19/2022 Active Start: 10-11-2018 End: 10-11-2018 Azithromycin Discontinued 0 PO .COMPLEX 6 October 10, 2018 11:00pm October 11, 2018 8:40am take 500 mg today (day 1), then 250 mg for 4 days (days 2-5) PO Comment on above: Take 2 tablets day o ne, then, 1 tablet daily until gone. cetirizine hydrochloride 10 mg oral tablet (1 source) Histamine-1 Receptor Antagonist Start: take 10 mg by mouth once daily Cetirizine Active 10 MG PO DAILY July 08, 2022 12:00am Docusate (20 sources) docusate sodium (STOOL SOFTENER ORAL) Take by mouth. Active docusate sodium (STOOL SOFTENER ORAL) Take by mouth. 0 Active Comment on above: Take by mouth. ketorolac tromethamine 5 mg/ml ophthalmic solution (7 sources) Nonsteroidal Anti-inflammatory Drug, Cyclooxygenase Inhibitor Start: 08-07-19 take 1 drop(s) into the eye(s) four times daily keTORolac (ACULAR) 0.5 % ophthalmic solution Indications: Irritation of both eyes , Other conjunctivitis of both eyes Use 1 Drop in both eyes four times daily. 5 mL 08/06/2024 Active Lactobacillus acidophilus (20 sources) Lactobacillus acidophilus (PROBIOTIC ACIDOPHILUS ORAL) Take by mouth. Active levothyroxine sodium 0.112 mg oral tablet (20 sources) l-Thyroxine Start: 08-05-19 End: 10-09-19 take 1 tablet by mouth once daily, then take 1 tablet by mouth once daily levothyroxine (SYNTHROID) 112 mcg tablet Indications: Acquired hypothyroidism TAKE 1 TABLET BY MOUTH ONCE DAILY 5 DAYS PER WEEK AND 1 AND 1/2 TABLETS ONCE DAILY 2 DAYS PER WEEK 34 tablet 10/08/2024 Active Start: 05-13-2024 End: 08-04-2024 take 1 tablet by mouth every week, then take 1.5 tablets by mouth every week levothyroxine (SYNTHROID) 112 mcg tablet Indications: Acquired hypothyroidism Take 1 tablet by mouth 5 days per week, take 1.5 tablets 2 days per week 34 tablet 07/14/2024 08/04/2024 Discontinued Start: 04-17-2024 End: 05-13-2024 take 1 tablet by mouth once daily levothyroxine (SYNTHROID) 112 mcg tablet Indications: Acquired hypothyroidism Take 1 tablet by mouth once daily. 30 tablet 2 04/17/2024 05/13/2024 Discontinued (Adjust Sig - Block E-Cancel) Start: 02-08-2023 End: 04-02-2024 take 1 tablet by mouth every week, then take 0.5 tablet by mouth every week levothyroxine (SYNTHROID) 112 mcg tablet Indications: Acquired hypothyroidism Take 1 tablet by mouth five days per week. Take 1/2 tablet by mouth 2 days per week. 14 tablet 02/26/2024 04/02/2024 Discontinued Start: 12-11-2022 End: 02-08-2023 take 1 tablet by mouth once daily levothyroxine (SYNTHROID) 112 mcg tablet Indications: Acquired hypothyroidism Take 1 tablet by mouth once daily. 90 tablet 0 12/11/2022 02/08/2023 Discontinued Start: 05-12-2022 End: 12-11-2022 take 1 tablet by mouth once daily levothyroxine (SYNTHROID) 125 mcg tablet Indications: 17 weeks gestation of , Hypothyroidism, unspecified type Take 1 tablet by mouth once daily. 30 tablet 0 11/10/2022 12/11/2022 Discontinued Start: 03-03-2022 End: 05-12-2022 levothyroxine (SYNTHROID) 11 2 mcg tablet Indications: Acquired hypothyroidism take one tablet once daily 40 tablet 5 03/30/2022 05/12/2022 Discontinued Start: 05-10-2021 End: 03-03-2022 levothyroxine (SYNTHROID) 75 mcg tablet Take one tablet daily; take two tablets on Mondays, Wednesdays and Fridays 40 tablet 5 02/07/2022 03/03/2022 Discontinued Start: 03-20-2019 take 125 ug by mouth once daily Levothyroxine Active 125 MCG PO DAILY March 19, 2019 11:00pm Comment on above: Take 1 tablet by eugene th once daily. Take one tablet sera y; take two tablets on Mondays, Wednesdays and Fridays take one tablet sera y, take two tables on mondays, wednesdays, and fridays take one tablet once daily take 1 tablet by eugene th once daily Take 1 tablet by eugene th five days per week. Take 1/2 tablet by mouth 2 days per week. Magnesium (20 sources) MAGNESIUM ORAL T camila by mouth. Active nitrofurantoin, macrocrystals 25 mg / nitrofurantoin, monohydrate 75 mg oral capsule (1 source) Nitrofuran Antibacterial Start: End: take 1 capsule by mouth twice daily nitrofurantoin monohydrate and macrocrystal (MACROBID) 100 mg capsule Take 1 capsule by mouth two times a day for 5 days. 10 capsule 0 10/16/2023 10/21/2023 Active ondansetron 4 mg disintegrating oral tablet (1 source) Serotonin-3 Receptor Antagonist Start: take 4 mg by mouth every eight hours as needed Ondansetron Active 4 MG PO EVERY 8 HOURS NEEDED July 08, 2022 12:00am oseltamivir 75 mg oral capsule (1 source) Neuraminidase Inhibitor Start: End: take 1 capsule by mouth twice daily oseltamivir (TAMIFLU) 75 mg capsule Indications: Influenza A , 22 weeks gestation of Take 1 capsule by mouth two times a day for 5 days. 10 capsule 07/07/2024 07/12/2024 Active phentermine hydrochloride 37.5 mg oral tablet (13 sources) Sympathomimetic Amine Anorectic Start: End: take 1 tablet by mouth once daily Phentermine HCl 37.5 mg tablet Indications: Obesity, Class II, BMI 35-39.9 , Acquired hypothyroidism Take 1 tablet by mouth once daily for 60 days. BMI 31.83 30 tablet 1 11/08/2023 01/07/2024 Active Start: 07-04-2023 End: 09-01-2023 take 1 tablet by mouth once daily Phentermine HCl 37.5 mg tablet Indications: Obesity, Class II, BMI 35-39.9 , Acquired hypothyroidism Take 1 tablet by mouth once daily for 30 days. BMI 34.28 30 tablet 2 08/02/2023 09/01/2023 Active Start: 05-30-2023 End: 06-29-2023 take 1 tablet by mouth once daily Phentermine HCl 37.5 mg tablet Indications: Obesity, Class II, BMI 35-39.9 , Acquired hypothyroidism Take 1 tablet by mouth once daily for 30 days. BMI 34.28 30 tablet 2 05/30/2023 06/29/2023 Active Start: 04-18-2023 End: 05-18-2023 take 1 tablet by mouth once daily Phentermine HCl 37.5 mg tablet Indications: Obesity, Class II, BMI 35-39.9 , Acquired hypothyroidism Take 1 tablet by mouth once daily for 30 days. 30 tablet 0 04/18/2023 05/18/2023 Active Start: 03-14-2023 End: 04-13-2023 take 1 tablet by mouth once daily Phentermine HCl (ADIPEX-P) 37.5 mg tablet Indications: Obesity, Class II, BMI 35-39.9 , Acquired hypothyroidism Take 1 tablet by mouth once daily for 30 days. BMI 36.65 30 tablet 0 03/14/2023 04/13/2023 Active Comment on above: Take 1 tablet by eugene th once daily for 30 days. BMI 36.65 Take 1 tablet by eugene th once daily for 30 days. Take 1 tablet by eugene th once daily for 30 days. BMI 34.28 Polyethylene Glycols (20 sources) polyethylene gly col 3350 (MIRALAX ORAL) Take by mouth once daily. Active polyethylene gly col 3350 (MIRALAX ORAL) Take by mouth once daily. 0 Active polyethylene gly col 3350 (MIRALAX ORAL) Take by mouth. 0 Active Comment on above: Take by mouth. Take by mouth once d aily. Vit,[id number] (1 source) Start: 03-20-2019 take 1 tablet by mouth once daily Vit,[id number] Active 1 TABLET PO DAILY March 19, 2019 11:00pm prental multivitamin 27 mg iron- 800 mcg tablet (20 sources) take 1 tablet by mouth once daily prental multivitamin 27 mg iron- 800 mcg tablet Take 1 tablet by mouth once daily. Active take 1 tablet by mouth once sera y prental multivitamin 27 mg iron- 800 mcg tablet Take 1 tablet by mouth once daily. 0 Active Comment on above: [facility] sodium chloride 0.111 meq/ml nasal spray (2 sources) Start: 10-12-2021 End: 11-23-2021 sodium chloride (SALINE NASAL) 0.65 % nasal spray Use 2 Sprays in the nose as needed for cold/allergy symptoms. 50 mL 0 10/12/2021 11/23/2021 Discontinued Comment on above: Use 2 Sprays in the nose as needed for cold/allergy symptoms. Completed/Discontinued Medications Medication Drug Class(es) Dates Sig (Normalized) Sig (Original) doxycycline hyclate 100 mg oral capsule (18 sources) Tetracycline-cla ss Drug Start: 09-25-2023 End: 03-27-2024 take 1 capsule by mouth twice daily doxycycline hyclate (VIBRAMYCIN) 100 mg capsule Indications: Ingrowing toenail Take 1 capsule by mouth two times a day. 14 capsule 09/25/2023 03/27/2024 Discontinued Start: 10-12-2021 End: 10-19-2021 take 1 capsule by mouth twice daily doxycycline monohydrate (MONODOX) 100 mg capsule Take 1 capsule by mouth twice daily for 7 days. 14 capsule 0 10/12/2021 10/19/2021 Active Comment on above: Take 1 capsule by mo [facility] twice daily for 7 days. fluticasone propionate 0.05 mg/actuat metered dose nasal spray (20 sources) Corticosteroid Start: 2 End: take 2 spray(s) by mouth once daily fluticasone (FLONASE) 50 mcg/actuation nasal spray Indications: Sinus pain Use 2 Sprays in each nostril once daily. Rinse mouth after use. 1 Each 04/12/2022 04/02/2024 Discontinued (Discontinued by Patient) Start: 10-12-2021 End: 11-23-2021 take 1 spray(s) nasal route once daily at bedtime fluticasone (FLONASE) 50 mcg/actuation nasal spray Use 1 Compton in each nostril daily at bedtime. 15.8 mL 0 10/12/2021 11/23/2021 Discontinued Start: 05-05-2021 End: 10-12-2021 take 2 spray(s) by mouth once daily fluticasone (FLONASE) 50 mcg/actuation nasal spray Use 2 Sprays in each nostril once daily. Rinse mouth after use. 1 Each 0 05/05/2021 10/12/2021 Discontinued (Course of therapy completed) Start: 04-11-2019 Fluticasone Pr opionate Active 1 SPRAY NASAL DAILY April 11, 2019 12:00am Comment on above: Use 2 Sprays in each nostril once daily. Rinse mouth after use. Use 1 Compton in each nostril daily at bedtime. levonorgestrel 0.123495 mg/hr intrauterine system (20 sources) Progestin, Progestin-containing Intrauterine Device Start: 12-11-2022 End: 12-09-2030 levonorgestrel (MIRENA) 21 mcg/24 hours (8 yrs) 52 mg IUD Indications: Encounter for IUD insertion 1 Each by INTRAUTERINE route as directed. 1 Each 12/11/2022 03/27/2024 Discontinued Start: 06-18-2019 End: 09-08-2021 levonorgestrel (MIRENA) 20 m cg/24 hours (5 yrs) 52 mg IUD Indications: Encounter for insertion of mirena IUD , Encounter for IUD insertion 1 Each by INTRAUTERINE route as directed. 1 Each 0 06/18/2019 09/08/2021 Discontinued Comment on above: 1 Each by INTRAUTERI NE route as directed. Lidocaine (20 sources) Antiarrhythmic, Amide Local Anesthetic Start: 11-10-2022 End: 03-27-2024 lidocaine (CPD) 1 application by RECTAL route three times daily as needed. Comments for compounding pharmacy: Compound Nifedipine 0.2%, Diltiazem 2%, and Lidocaine 5% 30 Each 1 11/10/2022 03/27/2024 Discontinued Start: 11-10-2022 lidocaine (CPD ) 1 application by RECTAL route three times daily as needed. Comments for compounding pharmacy: Compound Nifedipine 0.2%, Diltiazem 2%, and Lidocaine 5% 30 Each 1 11/10/2022 Active Comment on above: 1 application by REC NEENA route three times daily as needed. Comments for compounding pharmacy: Compound Nifedipine 0.2%, Diltiazem 2%, and Lidocaine 5% Loratadine (20 sources) End: 04-02-2024 loratadine (CLARITIN ORAL) Take by mouth. 04/02/2024 Discontinued (Discontinued by Patient) loratadine (CLAR ITIN ORAL) Take by mouth. Active loratadine (CLAR ITIN ORAL) Take by mouth. 0 Active Comment on above: Take by mouth. 12 hr loratadine 5 mg / pseudoephedrine sulfate 120 mg extended release oral tablet (1 source) alpha-Adrenergic Agonist Start: 04-11-20 End: 04-14-20 Loratadine-Pseudoep hedrine Discontinued 1 EACH PO DAILY April 11, 2019 12:00am April 14, 2019 9:00am naproxen 500 mg oral tablet (2 sources) Nonsteroidal Anti-inflammatory Drug Start: 09-05-19 End: 09-19-19 take 1 tablet by mouth twice daily at mealtime naproxen (NAPROSYN) 500 mg tablet Indications: Ingrown toenail Take 1 tablet by mouth two times a day with meals for 14 days. Take with food. 28 tablet 09/05/2023 09/19/2023 Comment on above: Take 1 tablet by eugene th two times a day with meals for 14 days. Take with food. Problems Active Problems Problem Classification Problem Date Documented Da te Episodic/Chronic Anal and rectal conditions (3 sources) Anal fissure; Translations: [Anal fissure, unspecified] Episodic Contraceptive and procreative management (18 sources) Patient encounter status; Translations: [Encounter for removal of intrauterine contraceptive device] Episodic Immunizations and screening for infectious disease (3 sources) Needs influenza immunization; Translations: [Encounter for immunization] Episodic Inflammation; infection of eye (except that caused by tuberculosis or sexually transmitteddisease) (1 source) Bilateral conjunctivitis; Translations: [Other conjunctivitis] 08-06-2024 Episodic Influenza (2 sources) Influenza due to Influenza A virus; Translations: [Influenza due to other identified influenza virus with other respiratory manifestations] 07-07-2024 Episodic Menstrual disorders (1 source) Missed period; Translations: [Irregular menstruation, unspecified] Chronic Open wounds of extremities (1 source) Open wound of toe; Translations: [Unspecified open wound of unspecified toe(s) without damage to nail, initial encounter] 10-09-2023 Episodic Other and unspecified benign neoplasm (2 sources) Neuroma; Translations: [Benign neoplasm of peripheral nerves and autonomic nervous system, unspecified] 09-25-2023 Episodic Other complications of (20 sources) Maternal obesity complicating , childbirth and the puerperium, antepartum; Translations: [Obesity complicating , second trimester] Onset: 12-21-2022 Chronic Other complications of (20 sources) Obesity; Translations: [Obesity complicating , unspecified trimester] Onset: 12-21-2022 Chronic Other complications of (1 source) Obesity complicating , third trimester; Translations: [Obesity affecting in third trimester, unspecified obesity type (HCC)] Onset: 10-29-2024 Chronic Other complications of (1 source) Obesity complicating , second trimester; Translations: [Obesity affecting in second trimester, unspecified obesity type] Onset: 05-29-2024 Chronic Other complications of (1 source) Pain in female pelvis; Translations: [Other specified related conditions, unspecified trimester] Episodic Other complications of (20 sources) High risk ; Translations: [Supervision of high risk , unspecified, unspecified trimester] Onset: 04-02-2024 Episodic Other complications of (1 source) Hypothyroidism in ; Translations: [Endocrine, nutritional and metabolic diseases complicating , second trimester] 05-29-2024 Episodic Other complications of (1 source) Supervision of high risk , unspecified, third trimester; Translations: [Supervision of high risk in third trimester (HCC)] Onset: 10-29-2024 Episodic Other connective tissue disease (3 sources) Pain in left foot; Translations: [Pain in left foot] 09-05-2023 Episodic Other connective tissue disease (1 source) Metatarsalgia of left foot; Translations: [Metatarsalgia, left foot] 09-06-2023 Episodic Other ear and sense organ disorders (1 source) Impacted cerumen; Translations: [Impacted cerumen, bilateral] 05-30-2021 Episodic Other ear and sense organ disorders (1 source) Bilateral earache; Translations: [Otalgia, bilateral] Episodic Other ear and sense organ disorders (1 source) Impacted cerumen of bilateral ears; Translations: [Impacted cerumen, bilateral] Episodic Other ear and sense organ disorders (1 source) Ear pressure sensation; Translations: [Other specified disorders of ear, bilateral] 03-27-2024 Episodic Other eye disorders (1 source) Inflammatory disorder of the eye; Translations: [Other specified disorders of eye and adnexa] 08-06-2024 Episodic Other gastrointestinal disorders (1 source) Diarrhea, unspecified; Translations: [Diarrhea, unspecified] Onset: 11-01-2022 Episodic Other nutritional; endocrine; and metabolic disorders (5 sources) Obese class II; Translations: [Obesity, unspecified] 04-18-2023 Chronic Other skin disorders (4 sources) Ingrowing toenail; Translations: [Ingrowing nail] 09-05-2023 Episodic Other upper respiratory infections (3 sources) Acute sinusitis; Translations: [Other acute sinusitis] Episodic Otitis media and related conditions (1 source) Bilateral chronic serous otitis; Translations: [Chronic serous otitis media, bilateral] 03-27-2024 Chronic Residual codes; unclassified (2 sources) Gestation period, 7 weeks; Translations: [Less than 8 weeks gestation of ] Episodic Residual codes; unclassified (2 sources) Gestation period, 11 weeks; Translations: [11 weeks gestation of ] Episodic Residual codes; unclassified (1 source) Gestation period, 15 weeks; Translations: [15 weeks gestation of ] Episodic Residual codes; unclassified (4 sources) Gestation period, 17 weeks; Translations: [17 weeks gestation of ] Episodic Residual codes; unclassified (2 sources) Gestation period, 19 weeks; Translations: [19 weeks gestation of ] Episodic Residual codes; unclassified (1 source) Gestation period, 23 weeks; Translations: [23 weeks gestation of ] Episodic Residual codes; unclassified (2 sources) Gestation period, 28 weeks; Translations: [28 weeks gestation of ] Episodic Residual codes; unclassified (2 sources) Gestation period, 30 weeks; Translations: [30 weeks gestation of ] Episodic Residual codes; unclassified (2 sources) Gestation period, 32 weeks; Translations: [32 weeks gestation of ] Episodic Residual codes; unclassified (2 sources) Gestation period, 34 weeks; Translations: [34 weeks gestation of ] Episodic Residual codes; unclassified (1 source) Gestation period, 36 weeks; Translations: [36 weeks gestation of ] Episodic Residual codes; unclassified (2 sources) Gestation period, 37 weeks; Translations: [37 weeks gestation of ] Episodic Residual codes; unclassified (3 sources) Gestation period, 38 weeks; Translations: [38 weeks gestation of ] Episodic Residual codes; unclassified (1 source) Gestation period, 8 weeks; Translations: [8 weeks gestation of ] 04-02-2024 Episodic Residual codes; unclassified (2 sources) Gestation period, 12 weeks; Translations: [12 weeks gestation of ] 04-30-2024 Episodic Residual codes; unclassified (1 source) Gestation period, 16 weeks; Translations: [16 weeks gestation of ] 05-29-2024 Episodic Residual codes; unclassified (2 sources) Gestation period, 20 weeks; Translations: [20 weeks gestation of ] 06-27-2024 Episodic Residual codes; unclassified (1 source) Gestation period, 22 weeks; Translations: [22 weeks gestation of ] 07-07-2024 Episodic Residual codes; unclassified (1 source) Gestation period, 24 weeks; Translations: [24 weeks gestation of ] 07-24-2024 Episodic Residual codes; unclassified (1 source) 38 weeks gestation of ; Translations: [38 weeks gestation of (HCC)] Onset: 10-29-2024 Episodic Residual codes; unclassified (1 source) 37 weeks gestation of ; Translations: [37 weeks gestation of (HCC)] Onset: 10-22-2024 Episodic Residual codes; unclassified (1 source) 36 weeks gestation of ; Translations: [36 weeks gestation of (HCC)] Onset: 10-16-2024 Episodic Residual codes; unclassified (1 source) 34 weeks gestation of ; Translations: [34 weeks gestation of (HCC)] Onset: 10-01-2024 Episodic Residual codes; unclassified (1 source) 32 weeks gestation of ; Translations: [32 weeks gestation of (HCC)] Onset: 09-16-2024 Episodic Residual codes; unclassified (2 sources) 24 weeks gestation of ; Translations: [24 weeks gestation of (HCC)] Onset: 07-24-2024 Episodic Thyroid disorders (20 sources) Hypothyroidism; Translations: [Hypothyroidism, unspecified] Onset: 07-18-2018 07-18-2018 Chronic Unclassified (20 sources) [facility] - [facility] Onset: 04-02-2024 04-02-2024 Unclassified (20 sources) Education - [place] Onset: 04-02-2024 04-02-2024 Urinary tract infections (1 source) Acute cystitis; Translations: [Acute cystitis with hematuria] 10-16-2023 Episodic Past or Other Problems Problem Classification Problem Date Documented Da te Episodic/Chronic E Codes: Fall (20 sources) Fall; Translations: [Unspecified fall, initial encounter] Onset: 5 06-23-2024 Episodic Other complications of (20 sources) H/O: miscarriage; Translations: [Supervision of with other poor reproductive or obstetric history, unspecified trimester] Onset: 9 Resolved: 9 Episodic Other complications of (20 sources) size does not accord with dates; Translations: [Uterine size-date discrepancy, unspecified trimester] Onset: 9 Resolved: 9 10-16-2018 Episodic Other complications of (20 sources) Fatigue during ; Translations: [ related exhaustion and fatigue, first trimester] Onset: 4 04-02-2024 Episodic Other complications of (2 sources) Supervision of high risk , unspecified, second trimester; Translations: [Supervision of high risk in second trimester ([facility])] Onset: Episodic Other gastrointestinal disorders (20 sources) H/O: gastrointestinal disease; Translations: [Personal history of other diseases of the digestive system] Onset: 2 02-23-2022 Episodic Other nutritional; endocrine; and metabolic disorders (20 sources) H/O: thyroid disorder; Translations: [Personal history of other endocrine, nutritional and metabolic disease] Onset: 9 Resolved: 5 08-08-2018 Episodic Other and delivery including normal (15 sources) Normal ; Translations: [Encounter for supervision of other normal , first trimester] Onset: 3 Episodic Residual codes; unclassified (20 sources) Family history of hereditary disease; Translations: [Family history of other specified conditions] Onset: 9 08-08-2018 Episodic Residual codes; unclassified (1 source) 16 weeks gestation of ; Translations: [16 weeks gestation of ] Onset: 5 Episodic Residual codes; unclassified (1 source) 12 weeks gestation of ; Translations: [12 weeks gestation of ] Onset: 4 Episodic Screening and history of mental health and substance abuse codes (20 sources) H/O: depression; Translations: [Personal history of other mental and behavioral disorders] Onset: 9 08-08-2018 Episodic Results Test Name Value Interpretation Reference Range Facil ity URINE OB DIP B/Oon 5 Glucose Ql (U) Negative Neg mg/dL [facility] Interpretation and review of laboratory results Normal [facility] Protein.monoclonal (U) [Mass/Vol] Negative Neg mg/dL [facility] ROUTINE, GROUP B ST REPTOCOCCUS BY PCRon 10-16-2024 ROUTINE, GROUP B STREPTOCOCCUS BY PCR Not detected Normal [facility] Comment on above: Performed By: #### G BPCR ####[facility] LAB[facility] [id number] [place] [address] [place] CBC W Auto Differential pane l (Bld)on 08-22-2024 Basophils (Bld) [#/Vol] 0.04 10*3/uL Normal <0.11 [facility] Comment on above: Order Comment: Speci men Type: BLOOD SPECIMENOrdering Facility: [facility] Address: [address] [place] [address] Performed By: #### 5 7021-8 ####[facility] [id number] [place] [address] [place] Basophils/100 WBC (Bld) 0.4 % Normal C [facility] Comment on above: Order Comment: Speci men Type: BLOOD SPECIMENOrdering Facility: [facility] Address: [address] [place] [address] Performed By: #### 5 7021-8 ####[facility] [id number] [place] [address] [place] Differential cell count method Nom (Bld) Auto Normal [facility] Comment on above: Order Comment: Speci men Type: BLOOD SPECIMENOrdering Facility: [facility] Address: [address] [place] [address] Performed By: #### 5 7021-8 ####[facility] [id number] [place] [address] [place] Eosinophils (Bld) [#/Vol] 0.19 10*3/uL Normal <0.46 [facility] Comment on above: Order Comment: Speci men Type: BLOOD SPECIMENOrdering Facility: [facility] Address: [address] [place] [address] Performed By: #### 5 7021-8 ####[facility] [id number] [place] [address] [place] Eosinophils/100 WBC (Bld) 1.7 % Normal [facility] Comment on above: Order Comment: Speci men Type: BLOOD SPECIMENOrdering Facility: [facility] Address: [address] [place] [address] Performed By: #### 5 7021-8 ####[facility] [id number] [place] [address] [place] Erythrocyte distribution width (RBC) [Ratio] 13.2 % Normal 11.5-15.0 [facility] Comment on above: Order Comment: Speci men Type: BLOOD SPECIMENOrdering Facility: [facility] Address: [address] [place] [address] Performed By: #### 5 7021-8 ####[facility] [id number] [place] [address] [place] Hematocrit (Bld) [Volume fraction] 34.1 % Low 36.0-46.0 [facility] Comment on above: Order Comment: Speci men Type: BLOOD SPECIMENOrdering Facility: [facility] Address: [address] [place] [address] Performed By: #### 5 7021-8 ####[facility] [id number] [place] [address] [place] Hemoglobin (Bld) [Mass/Vol] 11.7 g/dL Normal 11.5-15.5 [facility] Comment on above: Order Comment: Speci men Type: BLOOD SPECIMENOrdering Facility: [facility] Address: [address] [place] [address] Performed By: #### 5 7021-8 ####[facility] [id number] [place] [address] [place] Immature granulocytes (Bld) [#/Vol] 0.07 10*3/uL Normal <0.10 [facility] Comment on above: Order Comment: Speci men Type: BLOOD SPECIMENOrdering Facility: [facility] Address: [address] [place] [address] Performed By: #### 5 7021-8 ####[facility] [id number] [place] [address] [place] Immature granulocytes/100 WBC (Bld) 0.6 % Normal [facility] Comment on above: Order Comment: Speci men Type: BLOOD SPECIMENOrdering Facility: [facility] Address: [address] [place] [address] Performed By: #### 5 7021-8 ####[facility] [id number] [place] [address] [place] Lymphocytes (Bld) [#/Vol] 1.57 10*3/uL Normal 1.00-4.00 [facility] Comment on above: Order Comment: Speci men Type: BLOOD SPECIMENOrdering Facility: [facility] Address: [address] [place] [address] Performed By: #### 5 7021-8 ####[facility] [id number] [address] [place] Lymphocytes/100 WBC (Bld) 13.8 % Normal [facility] Comment on above: Order Comment: Speci men Type: BLOOD SPECIMENOrdering Facility: [facility] Address: [address] [place] [address] Performed By: #### 5 7021-8 ####[facility] [id number] [place] [address] [place] MCH (RBC) [Entitic mass] 30.0 pg Normal 26.0-34.0 [facility] Comment on above: Order Comment: Speci men Type: BLOOD SPECIMENOrdering Facility: [facility] Address: [address] [place] [address] Performed By: #### 5 7021-8 ####[facility] [id number] [place] [address] [place] MCHC (RBC) [Mass/Vol] 34.3 g/dL Normal 30.5-36.0 [facility] Comment on above: Order Comment: Speci men Type: BLOOD SPECIMENOrdering Facility: [facility] Address: [address] [place] [address] Performed By: #### 5 7021-8 ####[facility] [id number] [place] [address] [place] MCV (RBC) [Entitic vol] 87.4 fL Normal 80.0-100.0 C [facility] Comment on above: Order Comment: Speci men Type: BLOOD SPECIMENOrdering Facility: [facility] Address: [address] [place] [address] Performed By: #### 5 7021-8 ####[facility] [id number] [place] [address] [place] Monocytes (Bld) [#/Vol] 0.64 10*3/uL Normal <0.87 [facility] Comment on above: Order Comment: Speci men Type: BLOOD SPECIMENOrdering Facility: [facility] Address: [address] [place] [address] Performed By: #### 5 7021-8 ####[facility] [id number] [place] [address] [place] Monocytes/100 WBC (Bld) 5.6 % Normal C [facility] Comment on above: Order Comment: Speci men Type: BLOOD SPECIMENOrdering Facility: [facility] Address: [address] [place] [address] Performed By: #### 5 7021-8 ####[facility]ENTEREDUARDA [id number] [place] [address] [place] Neutrophils (Bld) [#/Vol] 8.90 10*3/uL High 1.45-7.50 [facility] Comment on above: Order Comment: Speci men Type: BLOOD SPECIMENOrdering Facility: [facility] Address: [address] [place] [address] Performed By: #### 5 7021-8 ####[facility]ENTEREDUARDLIA [id number] [place] [address] [place] Neutrophils/100 WBC (Bld) 77.9 % Normal [facility] Comment on above: Order Comment: Speci men Type: BLOOD SPECIMENOrdering Facility: [facility] Address: [address] [place] [address] Performed By: #### 5 7021-8 ####[facility]EDUARDLIA [id number] [place] [address] [place] Nucleated RBC (Bld) [#/Vol] 10*3/uL Normal <0.01 [facility] Comment on above: Order Comment: Speci men Type: BLOOD SPECIMENOrdering Facility: [facility] Address: [address] [place] [address] Performed By: #### 5 7021-8 ####[facility] [id number] [place] [address] [place] Nucleated RBC/100 WBC (Bld) [Ratio] 0.0 /100 WBC Normal [facility] Comment on above: Order Comment: Speci men Type: BLOOD SPECIMENOrdering Facility: [facility] Address: [address] [place] [address] Performed By: #### 5 7021-8 ####[facility] [id number] [place] [address] [place] Platelet mean volume (Bld) [Entitic vol] 10.2 fL Normal 9.0-12.7 [facility] Comment on above: Order Comment: Speci men Type: BLOOD SPECIMENOrdering Facility: [facility] Address: [address] [place] [address] Performed By: #### 5 7021-8 ####[facility] [id number] [place] [address] [place] Platelets (Bld) [#/Vol] 190 10*3/uL Normal 150-400 [facility] Comment on above: Order Comment: Speci men Type: BLOOD SPECIMENOrdering Facility: [facility] Address: [address] [place] [address] Performed By: #### 5 7021-8 ####[facility] [id number] [place] [address] [place] RBC (Bld) [#/Vol] 3.90 10*6/uL Normal 3.90-5.20 [facility] Comment on above: Order Comment: Speci men Type: BLOOD SPECIMENOrdering Facility: [facility] Address: [address] [place] [address] Performed By: #### 5 7021-8 ####[facility] [id number] [place] [address] [place] WBC (Bld) [#/Vol] 11.41 10*3/uL High 3.70-11.00 [facility] Comment on above: Order Comment: Speci men Type: BLOOD SPECIMENOrdering Facility: [facility] Address: [address] [place] [address] Performed By: #### 5 7021-8 ####[facility] [id number] [place] [address] [place] GESTATIONAL GLUCOSE SCREEN, 1-HOUR, 50 GRAM, NON-FASTINGon 08-22-2024 Glucose [Mass/Vol] 116 mg/dL Normal 74-134 [facility] Comment on above: Order Comment: Speci men Type: BLOOD SPECIMENOrdering Facility: [facility] Address: [address] [place] [address] Result Comment: [facility] Congress of Obstetricians and Gynecologists (Maninder/Josesito) guidelines state a gestational diabetes mellitus positive screen is made, in women not previously diagnosed with overt diabetes, when the 1 hr plasma glucose level is equal to or above 140 mg/dL. [facility] Used [employer] Sales Representative and [facility] [employer] recommends a 135 mg/dL cutoff. Performed By: #### G LTGST ####[facility] [id number] [place] [address] [place] Reagin and Treponema pallidu m IgG and IgM [Interp]on 08-22-2024 T. pallidum IgG+IgM IA Ql (S) Non-Reactive Normal Nonreactive [facility] Comment on above: Order Comment: Speci men Type: BLOOD SPECIMEN [facility] Address: [address] [place] [address] Performed By: #### 7 3752-8 #### [facility] CLIA [id number] [address] [place] [address] [place] Reagin+T pallidum IgG+IgM Se rPl-Impon 08-22-2024 Reagin and Treponema pallidum IgG and IgM [Interp] Cannot exclude recent Treponemal infection if specimen collected within 7-10 days after appearance of suspect lesions or 2-3 weeks after an exposure. Clinical correlation is required. Normal [facility] Comment on above: Order Comment: Speci men Type: BLOOD SPECIMEN [facility] Address: [address] [place] [address] Performed By: #### 7 3752-8 #### [facility] CLIA [id number] [address] [place] [address] [place] T4 Free SerPl-mCncon 025 Free T4 [Mass/Vol] 1.1 ng/dL Normal 0.9-1.7 [facility] Comment on above: Order Comment: Speci men Type: BLOOD SPECIMEN [facility] Address: [address] [place] [address] Performed By: #### 1 6128-1 #### [facility] CLIA [id number] [address] [place] [address] [place] TSH SerPl-aCncon 08-22-2024 TSH Qn 3.320 m[IU]/L Normal 0.270-4.200 [facility] Comment on above: Order Comment: Speci men Type: BLOOD SPECIMEN [facility] Address: [address] [place] [address] Result Comment: If t he patient is , TSH reference range varies by gestational period: First Trimester (weeks 9-12): 0.180-2.990 mIU/L Second Trimester: 0.110-3.980 mIU/L Third Trimester: 0.480-4.710 mIU/L Matthew Sommer et al. A Practical Approach for the Verifications and Determination of Site- and Trimester-Specific Reference Intervals for Thyroid Function tests in . Thyroid, 2019:29:3:412-420. Sanju Horowitz, et al. 2017 Guidelines of the [place] [employer] for the Diagnosis and Management of Thyroid Disease during and the . Thyroid, 2017:27:3:315-389. Performed By: #### 1 6128-1 #### [facility] CLIA [id number] [address] [place] [address] [place] SEQUENTIAL SCN SECOND TRIMon 07-24-2024 AFP [Mass/Vol] 133.0 ng/mL Normal [facility] Comment on above: Order Comment: Speci men Type: BLOOD SPECIMEN [facility] Address: [address] [place] [address] Performed By: #### 1 6128-1 #### [facility] CLIA [id number] [address] [place] [address] [place] AFP adjusted [MoM] 1.97 Normal [facility] Comment on above: Order Comment: Speci men Type: BLOOD SPECIMEN [facility] Address: [address] [place] [address] Performed By: #### 1 6128-1 #### [facility] CLIA [id number] [address] [place] [address] [place] [age] Normal [facility] Comment on above: Order Comment: Speci men Type: BLOOD SPECIMEN [facility] Address: [address] [place] [address] Performed By: #### 1 6128-1 #### [facility] CLIA [id number] [address] [place] [address] [place] Collection date (Specimen) Date: Normal [facility] Comment on above: Order Comment: Speci men Type: BLOOD SPECIMEN [facility] Address: [address] [place] [address] Result Comment: 06/29 Performed By: #### 1 6128-1 #### [facility] CLIA [id number] [address] [place] [address] [place] E3.unconjugated [Mass/Vol] 2.93 ng/mL Normal [facility] Comment on above: Order Comment: Speci men Type: BLOOD SPECIMEN [facility] Address: [address] [place] [address] Performed By: #### 1 6128-1 #### [facility] CLIA [id number] [address] [place] [address] [place] E3.unconjugated adjusted [MoM] See Comments Normal [facility] Comment on above: Order Comment: Speci men Type: BLOOD SPECIMEN [facility] Address: [address] [place] [address] Performed By: #### 1 6128-1 #### [facility] CLIA [id number] [address] [place] [address] [place] Rump length US 57.7 mm Normal [facility] Comment on above: Order Comment: Speci men Type: BLOOD SPECIMEN [facility] Address: [address] [place] [address] Performed By: #### 1 6128-1 #### [facility] CLIA [id number] [address] [place] [address] [place] Nuchal fold [Multiple of the median] Thickness US 1.26 Normal [facility] Comment on above: Order Comment: Speci men Type: BLOOD SPECIMEN [facility] Address: [address] [place] [address] Performed By: #### 1 6128-1 #### [facility] CLIA [id number] [address] [place] [address] [place] Nuchal fold Thickness US 1.7 mm Normal [facility] Comment on above: Order Comment: Speci men Type: BLOOD SPECIMEN [facility] Address: [address] [place] [address] Performed By: #### 1 6128-1 #### [facility] CLIA [id number] [address] [place] [address] [place] First and Second trimester integrated maternal screen [Interp] Comment Normal [facility] Comment on above: Order Comment: Speci men Type: BLOOD SPECIMEN [facility] Address: [address] [place] [address] Result Comment: Scre en Negative for Open Spina Bifida. Comment Screen Negative for Down syndrome Comment Screen Negative for Trisomy 18 Performed By: #### 1 6128-1 #### [facility] CLIA [id number] [address] [place] [address] [place] FIRST TRIMESTER SAMPLE Comment Normal [facility] Comment on above: Order Comment: Speci men Type: BLOOD SPECIMEN [facility] Address: [address] [place] [address] Performed By: #### 1 6128-1 #### [facility] CLIA [id number] [address] [place] [address] [place] Gestational age 22.6 weeks Normal [facility] Comment on above: Order Comment: Speci men Type: BLOOD SPECIMEN [facility] Address: [address] [place] [address] Performed By: #### 1 6128-1 #### [facility] CLIA [id number] [address] [place] [address] [place] HCG adjusted [MoM] See Comments Normal [facility] Comment on above: Order Comment: Speci men Type: BLOOD SPECIMEN [facility] Address: [address] [place] [address] Performed By: #### 1 6128-1 #### [facility] CLIA [id number] [address] [place] [address] [place] HCG Qn 7.0 IU/mL Normal [facility] Comment on above: Order Comment: Speci men Type: BLOOD SPECIMEN [facility] Address: [address] [place] [address] Performed By: #### 1 6128-1 #### [facility] CLIA [id number] [address] [place] [address] [place] Inhibin A [Mass/Vol] 195.1 pg/mL Normal [facility] Comment on above: Order Comment: Speci men Type: BLOOD SPECIMEN [facility] Address: [address] [place] [address] Performed By: #### 1 6128-1 #### [facility] CLIA [id number] [address] [place] [address] [place] Inhibin A adjusted [MoM] See Comments Normal [facility] Comment on above: Order Comment: Speci men Type: BLOOD SPECIMEN [facility] Address: [address] [place] [address] Performed By: #### 1 6128-1 #### [facility] CLIA [id number] [address] [place] [address] [place] Insulin dependent diabetes mellitus Ql Comment Normal [facility] Comment on above: Order Comment: Speci men Type: BLOOD SPECIMEN [facility] Address: [address] [place] [address] Result Comment: Not provided. Not adjusted for insulin dependent diabetes. Performed By: #### 1 6128-1 #### [facility] CLIA [id number] [address] [place], [place] [id number] [place] Laboratory comment Danilo (Report) Comment Normal [facility] Comment on above: Order Comment: Speci men Type: BLOOD SPECIMEN [facility] Address: [address] [place] [address] Result Comment: Clin ical information is missing. Maternal weight, race, diabetic status and type are used to calculate risks for Down syndrome, trisomy 18 and/or open spina bifida. When not provided, defaults of 150 pounds, non-, non-IDDM and weaver gestation are used. For a revised risk assessment, please contact the number listed below with the missing information. The second trimester specimen was obtained at a gestational age >21.9 weeks. The risk assessment for Trisomy 18 and/or Down Syndrome is based on maternal age and first trimester markers only. The detection rate is decreased. Open Spina Bifida screening is performed between 15.0 and 23.9 weeks gestation. The [place] [employer] recommends that all women be counseled regarding the differences between screening and invasive diagnostic testing. This is a corrected report. The previously reported result(s) were: Test Result Date First Reported Updates reported on: 07/29/2024 10:34 AM Results 07/28/2024 3:03 PM Report This is an amended/corrected report. Performed By: #### 1 6128-1 #### [facility] CLIA [id number] [address] [place] [address] [place] Mother's race Normal [facility] Comment on above: Order Comment: Speci men Type: BLOOD SPECIMEN [facility] Address: [address] [place] [address] Performed By: #### 1 6128-1 #### [facility] CLIA [id number] [address] [place] [address] [place] Neural tube defect risk Qn (fetus) Screening Risk: Normal [facility] Comment on above: Order Comment: Speci men Type: BLOOD SPECIMEN [facility] Address: [address] [place] [address] Result Comment: 1 in 810 Performed By: #### 1 6128-1 #### [facility] CLIA [id number] [address] [place] [address] [place] NOTE: Comment Normal [facility] Comment on above: Order Comment: Speci men Type: BLOOD SPECIMEN [facility] Address: [address] [place] [address] Result Comment: Edwige rivas verify all clinical data used in this risk assessment and call [phone] with any corrections. Dilcia Montgomery, Ph.D., [facility] Director References: Available upon request Open Spina Bifida (OSB) MoM Cutoffs Weaver 2.5 Black 2.8 IDD 2.0 Twins 4.5 Risk Cutoffs Down Syndrome (DS) cutoff 1:270 Trisomy 18 (T18) cutoff 1:100 For further inquiries contact [employer] Customer Service at [phone]. This test was developed and its performance characteristics determined by [employer]. It has not been cleared or approved by the Food and Drug Administration. Performed By: #### 1 6128-1 #### [facility] CLIA [id number] [address] [place] [address] [place] Number of fetuses by US 1 Normal C [facility] Comment on above: Order Comment: Speci men Type: BLOOD SPECIMEN Ordering Facility: [facility] Address: [address] [place] [address] Performed By: #### 1 6128-1 #### [facility] CLIA [id number] [address] [place] [address] [place] associated plasma protein A [Mass/Vol] 2348.6 ng/mL Normal [facility] Comment on above: Order Comment: Speci men Type: BLOOD SPECIMEN Ordering Facility: [facility] Address: [address] [place] [address] Performed By: #### 1 6128-1 #### [facility] CLIA [id number] [address] [place] [address] [place] associated plasma protein A adjusted [MoM] 3.27 Normal [facility] Comment on above: Order Comment: Speci men Type: BLOOD SPECIMEN Ordering Facility: [facility] Address: [address] [place] [address] Performed By: #### 1 6128-1 #### [facility] CLIA [id number] [address] [place] [address] [place] RESULTS Comment Normal [facility] Comment on above: Order Comment: Speci men Type: BLOOD SPECIMEN Ordering Facility: [facility] Address: [address] [place] [address] Result Comment: The MOM and risk factors of this report have been modified based on new information supplied to us by the client or their designated medical claims representative. Performed By: #### 1 6128-1 #### [facility] CLIA [id number] [address] [place] [address] [place] SECOND TRIMESTER SAMPLE Comment Normal C [facility] Comment on above: Order Comment: Speci men Type: BLOOD SPECIMEN Ordering Facility: [facility] Address: [address] [place] [address] Performed By: #### 1 6128-1 #### [facility] CLIA [id number] [address] [place] [address] [place] Intelligence Chief [Identifier] [id number] Normal [facility] Comment on above: Order Comment: Speci men Type: BLOOD SPECIMEN Ordering Facility: [facility] Address: [address] [place] [address] Performed By: #### 1 6128-1 #### [facility] CLIA [id number] [address] [place] [address] [place] Trisomy 18 risk Based on maternal age Qn (fetus) Age Risk: Normal [facility] Comment on above: Order Comment: Speci men Type: BLOOD SPECIMEN Ordering Facility: [facility] Address: [address] [place] [address] Result Comment: [id number] Performed By: #### 1 6128-1 #### [facility] CLIA [id number] [address] [place] [address] [place] Trisomy 18 risk Qn (fetus) Screening Risk: Normal [facility] Comment on above: Order Comment: Speci men Type: BLOOD SPECIMEN Ordering Facility: [facility] Address: [address] [place] [address] Result Comment: <1 i n [id number] Performed By: #### 1 6128-1 #### [facility] CLIA [id number] [address] [place] [address] [place] Trisomy 21 risk Based on maternal age Qn (fetus) Age Risk: Normal [facility] Comment on above: Order Comment: Speci men Type: BLOOD SPECIMEN Ordering Facility: [facility] Address: [address] [place] [address] Result Comment: Performed By: #### 1 6128-1 #### [facility] CLIA [id number] [address] [place] [address] [place] Trisomy 21 risk Qn (fetus) Screening Risk: Normal [facility] Comment on above: Order Comment: Speci men Type: BLOOD SPECIMEN Ordering Facility: [facility] Address: [address] [place] [address] Result Comment: <1 [place] n [id number] Performed By: #### 1 6128-1 #### [facility] CLIA [id number] [address] [place] [address] [place] Ultrasound date Date: Normal [facility] Comment on above: Order Comment: Speci men Type: BLOOD SPECIMEN Ordering Facility: [facility] Address: [address] [place] [address] Result Comment: 04/27 Performed By: #### 1 6128-1 #### [facility] CLIA [id number] [address] [place] [address] [place] T4 Free SerPl-mCncon 025 Free T4 [Mass/Vol] 1.0 ng/dL Normal 0.9-1.7 [facility] Comment on above: Order Comment: Cheo lara Type: BLOOD SPECIMEN Ordering Facility: [facility] Address: [address] [place] [address] Performed By: #### 1 6128-1 #### [facility] CLIA [id number] [address] [place] [address] [place] TSH SerPl-aCncon 07-24-2024 TSH Qn 3.010 m[IU]/L Normal 0.270-4.200 [facility] Comment on above: Order Comment: Cheo lara Type: BLOOD SPECIMEN Ordering Facility: [facility] Address: [address] [place] [address] Result Comment: If t he patient is , TSH reference range varies by gestational period: First Trimester (weeks 9-12): 0.180-2.990 mIU/L Second Trimester: 0.110-3.980 mIU/L Third Trimester: 0.480-4.710 mIU/L Matthew Sommer et al. A Practical Approach for the Verifications and Determination of Site- and Trimester-Specific Reference Intervals for Thyroid Function tests in . Thyroid, 2019:29:3:412-420. Sanju Horowitz, et al. 2017 Guidelines of the [place] [employer] Association for the Diagnosis and Management of Thyroid Disease during and the . Thyroid, 2017:27:3:315-389. Performed By: #### 1 6128-1 #### [facility] CLIA [id number] [address] [place] [address] [place] CNOVon 07-07-2024 CNOV Office Visit (UCWSTR) VEGA SINCLAIR ([id number]) 1995 F Date Time Provider Department 07/07/24 9:00 AM [facility] During your visit today, we recorded the following information about you: Temperature Pulse Respiration Blood pressure 98.5 degrees 83/minute 18/minute 110/64 Weight 87.6 kg Pj Benjamin MD 07/07/2024 9:42 AM Signed Patient presents with: Cough: Cough, sinus, congestion, cough, ST, VÁSQUEZ and chills x 3 days HPI: Feeling sick since last night. Nasal congestion has been chronic during ; cough started 2 days ago. Positive symptoms: Cough, Sore throat, Sinus pressure, Nasal Congestion, Rhinorrhea, Chills, Malaise, Headache, Fatigue, dyspnea Negative symptoms: Vomiting, Diarrhea, OTC: claritin, saline 22 weeks . MEDICATIONS: Current Outpatient Medications Medication Sig aspirin 81 mg cap Take 81 mg by mouth once daily. levothyroxine (SYNTHROID) 112 mcg tablet Take 1 tablet by mouth 5 days per week, take 1.5 tablets 2 days per week Lactobacillus acidophilus (PROBIOTIC ACIDOPHILUS ORAL) Take by mouth. MAGNESIUM ORAL Take by mouth. prental multivitamin 27 mg iron- 800 mcg tablet Take 1 tablet by mouth once daily. polyethylene glycol 3350 (MIRALAX ORAL) Take by mouth once daily. docusate sodium (STOOL SOFTENER ORAL) Take by mouth. No current facility-administere d medications for this visit. ALLERGIES: ALLERGIES Allergen Reactions Amoxicillin Hives Keflex [Cephalexin] Vomiting Seasonal Allergies Itching VITALS: BP 110/64 Pulse 83 Temp 36.9 ?C (98.5 ?F) Resp 18 Wt 87.6 kg (193 lb 2 oz) LMP 02/05/2024 (Exact Date) SpO2 100% BMI 34.01 kg/m? PHYSICAL EXAM: GEN: mildly ill appearing HEENT: PERRL, EOMI, conjunctiva clear Ears: canals with small soft cerumen. TMs without erythema, bulge, or effusion Sinuses: non-tender frontal sinus, non-tender maxillary sinuses Throat: moist mucous membranes, mild erythema, no exudate Neck: supple, no thyromegaly, no lymphadenopathy HEART: regular rate, regular rhythm, no murmurs LUNGS: clear to auscultation, no wheezes or crackles, no increased WOB ASSESSMENT/PLAN: 1. Influenza A - ICD9: 487.1, ICD10: J10.1 (primary diagnosis) 2. Influenza-like illness - ICD9: 487.1, ICD10: J11.1 3. 22 weeks gestation of - ICD9: V22.2, ICD10: Z3A.22 - INFLUENZA AANDB MOLECULAR (POC) - Influenza A positive. - OSELTAMIVIR 75 MG CAPSULE - Discussed supportive care treatment with rest, OB approved cough medicine, and analgesia. Pj Benjamin MD Allergies As of Date: 07/07/2024 Noted Allergy Reaction AMOXICILLIN 11/15/2017 4 - Hives KEFLEX (CEPHALEXIN) 11/15/2017 11 - Vomiting SEASONAL ALLERGIES 11/15/2017 9 - Itching Date Reviewed: 07/07/2024 Reviewed by: Marce Sandoval LPN - Fully Assessed Reason for Visit: Cough [28] Cmt: Cough, sinus, congestion, cough, ST, VÁSQUEZ and chills x 3 days Primary Visit Diagnosis:Influenza A [J10.1] Other Visit Diagnoses:Influenza- like illness [J11.1] 22 weeks gestation of [Z3A.22] Order(s):INFLUENZA AANDB MOLECULAR (POC) [4322359] Order #: [id number] #:[id number] oseltamivir (TAMIFLU) 75 mg capsuleTake 1 capsule by mouth two times a day for 5 days.Disp: 10 capsuleRfl: 0 Prescriptions as of 07/07/2024 - oseltamivir (TAMIFLU) 75 mg capsule Take 1 capsule by mouth two times a day for 5 days. - aspirin 81 mg cap Take 81 mg by mouth once daily. - levothyroxine (SYNTHROID) 112 mcg tablet Take 1 tablet by mouth 5 days per week, take 1.5 tablets 2 days per week - Lactobacillus acidophilus (PROBIOTIC ACIDOPHILUS ORAL) Take by mouth. - MAGNESIUM ORAL Take by mouth. - prental multivitamin 27 mg iron- 800 mcg tablet Take 1 tablet by mouth once daily. - polyethylene glycol 3350 (MIRALAX ORAL) Take by mouth once daily. - docusate sodium (STOOL SOFTENER ORAL) Take by mouth. Problem List As Of Date 07/07/2024 Noted Resolved Hypothyroidism [E03.9] 07/18/2018 Current in first trimester with histo*08/08/2018 10/16/2018 History of thyroid disorder [Z86.39] 08/08/2018 History of depression [Z86.59] 08/08/2018 Family history of genetic disease [Z84.89] 08/08/2018 size inconsistent with dates [O26.849] 08/22/2018 10/16/2018 History of depression [Z87.59, Z86.5*02/23/2022 History of bulimia [Z86.59] 02/23/2022 History of anal fissures [Z87.19] 02/23/2022 Obesity complicating , second trimeste*12/21/2022 related exhaustion and fatigue, first*04/02/2024 Supervision of high risk in second tr*04/02/2024 Fall [W19.XXXA] 06/23/2024 Prescriptions ordered this encounter Disp Refills Start End OSELTAMIVIR 75 MG CAPSULE 10 c* 0 07/07/2024 07/12/2024 Route: ORAL Sig: Take 1 capsule by mouth two times a day for 5 days. Letter Text Encounter Number: (more content not included)... Normal [facility] INFLUENZA A&B MOLECULAR (POC )on 07-07-2024 Flu A (POCT) Positive Abnormal Negative [facility] Comment on above: Location:[address], [address] Interpretation and review of laboratory results Abnormal [facility] Procedural Control Valid [facility] Location:[address] POINT OF CARE [facility] Examination level ultrasound on 06-27-2024 Indication Detailed anatomic survey Maternal obesity, BMI >30 Impression REMOTE READ The patient is referred for a detailed anatomic survey. - Single, live, intrauterine . - biometry is consistent with the established gestational age. - No malformations were visualized on a complete detailed anatomic survey. - The amniotic fluid volume is normal amount. - The placenta is anterior, fundal. - The Transabdominal cervical length measures 45.7 mm with no evidence of funneling or other dynamic changes. - Not all structural malformations can be detected by ultrasound examination. Recommendations Additional follow-up as clinically indicated. Maternal Assessment Height 158 cm Height (ft) 5 ft Height (in) 2 in Physical Exam Initial weight (lb) 173 lb Initial BMI 31.63 kg/m Maternal assessment other: 4 Para 2 Method Transabdominal ultrasound examination. View: Adequate visualization Weaver . Number of fetuses: 1 Dating LMP on: 02/05/2024 GA by LMP 20 w + 3 d HAYES by LMP: 11/11/2024 GA by prior assessment 20 w + 3 d HAYES by prior assessment: 11/11/2024 Ultrasound examination on: 06/27/2024 GA by U/S based upon: AC, BPD, Femur, HC GA by U/S 20 w + 6 d HAYES by U/S: 11/08/2024 Assigned: based on stated HAYES, selected on 06/27/2024 Assigned GA 20 w + 3 d Assigned HAYES: 11/11/2024 General Evaluation Cardiac activity present. FHR 148 bpm. movements: present. Presentation: cephalic Placenta: Placental site: anterior, fundal Umbilical cord: Cord vessels: 3 vessel cord Amniotic fluid: Amount of AF: normal amount. MVP 5.8 cm Growth Overview Exam date GA BPD (mm) HC (mm) AC (mm) FL (mm) HL (mm) EFW (g) 06/27/2024 20w 3d 48.2 56% 180.4 51% 163.4 75% 33.9 72% 31.1 47% 389 73% Biometry Standard BPD 48.2 mm 20w 4d 56% Hadlock OFD 64.0 mm 20w 3d 72% Nicolaides HC 180.4 mm 20w 3d 51% Tito Cerebellum tr 19.8 mm 19w 1d 24% Hill Nuchal fold 4.8 mm AC 163.4 mm 21w 3d 75% Hadlock Femur 33.9 mm 20w 6d 72% Tito Humerus 31.1 mm 20w 2d 47% Tito EFW 389 g 20w 6d 73% Hadlock EFW (lb) 0 lb EFW (oz) 14 oz EFW by: Hadlock (HC-AC-FL) [employer] Systems Management Consultant 6.1 mm CM 4.1 mm 19% Nicolaides Extremities / Bony Struc FL / HC 0.19 55% Hadlock Other Structures FHR 148 bpm Anatomy Cranium: normal Lateral ventricles: normal Choroid plexus: normal Midline falx: normal Cavum septi pellucidi: normal Cerebellum: normal Cisterna magna: normal Head / Neck Vermis: normal Neck: normal Nuchal fold: normal Lips: normal Profile: normal Nose: normal Face Maxilla: normal Mandible: normal Orbits: normal Lens: normal 4-chamber view: normal RVOT view: normal LVOT view: normal 3-vessel view: normal 3-srtdpq-ljbyytp view: normal Heart / Thorax Situs: situs solitus (normal) Aortic arch view: normal SVC: normal IVC: normal Cardiac axis: normal Rt lung: normal Lt lung: normal Diaphragm: normal Cord insertion: normal Stomach: normal Kidneys: normal Bladder: normal Genitals: normal Abdomen Abdom. wall: normal Cervical spine: normal Thoracic spine: normal Lumbar spine: normal Sacral spine: normal Arms: normal Legs: normal Rt upper arm: normal Rt forearm: normal Rt hand: normal Rt fingers: normal Lt upper arm: normal Lt forearm: normal Lt hand: normal Lt fingers: normal Rt upper leg: normal Rt lower leg: normal Rt foot: normal Lt upper leg: normal Lt lower leg: normal Lt foot: normal Gender: Unspecified Wants to know sex: no Maternal Structures Uterus / Cervix Uterus: Visualized Cervix: Visualized Approach: Transabdominal Cervical length 45.7 mm Other: Patient declined transvaginal ultrasound for cervical length. Ovaries / Tubes / Adnexa Rt ovary: Visualized Lt ovary: Not visualized Performed By: Heather Palma RDMS, RVT Read By: Karolina Laguna M.D. MATERNAL MEDICINE [facility] Radiology Study observation (narrative) [facility] T4 Free SerPl-mCncon 025 Free T4 [Mass/Vol] 1.1 ng/dL Normal 0.9-1.7 [facility] Comment on above: Order Comment: Speci men Type: BLOOD SPECIMENOrdering Facility: [facility] Address: [address] [place] [address] Performed By: #### 3 024-7, 3016-3 ####[facility] [id number] [place] [address] [place] TSH SerPl-aCncon 06-27-2024 TSH Qn 2.560 m[IU]/L Normal 0.270-4.200 [facility] Comment on above: Order Comment: Speci men Type: BLOOD SPECIMENOrdering Facility: [facility] Address: [address] [place] [address] Result Comment: If t he patient is , TSH reference range varies by gestational period: First Trimester (weeks 9-12): 0.180-2.990 mIU/L Second Trimester: 0.110-3.980 mIU/L Third Trimester: 0.480-4.710 mIU/L Matthew Sommer et al. A Practical Approach for the Verifications and Determination of Site- and Trimester-Specific Reference Intervals for Thyroid Function tests in . Thyroid, 2019:29:3:412-420. Sanju Horowitz, et al. 2017 Guidelines of the [place] Thyroid Association for the Diagnosis and Management of Thyroid Disease during and the . Thyroid, 2017:27:3:315-389. Performed By: #### 3 024-7, 3016-3 ####[facility] [id number] LATASHASharon [facility] [id number] [id number] [place] [facility] Michael 06-23-2024 CNPN Telephone (OBGYWM) VEGA SINCLAIR ([id number]) 1995 F Date Time Provider Department 06/23/24 SYLWIA MOORE During your visit today, we recorded the following information about you: Yany Montejo RN 06/23/2024 8:17 AM Signed 19w6d Patient tripped fell on Sunday in a parking lot while in [place], [place]. Her right hand and knee took the brunt of the fall. States it happened so quick she wasn't sure if her abdomen was impacted. Had a ÁVSQUEZ afterwards. Having some mild discomfort around her umbilicus, but no cramping, bleeding, or leaking of fluid. Her sister is a Family Med physician and went over things with her. Patient has an anatomy on 06/27 and wanted to make sure that we didn't need to see her sooner. EVELYNE Lisa Jessica, APRN.MARIA LUISA 06/23/2024 1:47 PM Signed If thinks she hit her abdomen we can see her but if not ok to wait till appointment on 06/27. If increased pain, bleeding or discomfort to come for visit. DUSTY Ba Lindsey, RN 06/23/2024 2:03 PM Signed Patient called and notified of below. Patient states the right side of her abdomen is sore today and she does believe she hit her abdomen when she fell. Appointment given per request. Heather Roche RN Allergies As of Date: 06/23/2024 Noted Allergy Reaction AMOXICILLIN 11/15/2017 4 - Hives KEFLEX (CEPHALEXIN) 11/15/2017 11 - Vomiting SEASONAL ALLERGIES 11/15/2017 9 - Itching Date Reviewed: 05/29/2024 Reviewed by: Helen Preez APRN.PAPERHANGER ASSISTANT - Fully Assessed Reason for Visit: OB Fall [Other] Prescriptions as of 06/23/2024 - aspirin 81 mg cap Take 81 mg by mouth once daily. - levothyroxine (SYNTHROID) 112 mcg tablet Take 1 tablet by mouth 5 days per week, take 1.5 tablets 2 days per week - Lactobacillus acidophilus (PROBIOTIC ACIDOPHILUS ORAL) Take by mouth. - MAGNESIUM ORAL Take by mouth. - prental multivitamin 27 mg iron- 800 mcg tablet Take 1 tablet by mouth once daily. - polyethylene glycol 3350 (MIRALAX ORAL) Take by mouth once daily. - docusate sodium (STOOL SOFTENER ORAL) Take by mouth. Problem List As Of Date 06/23/2024 Noted Resolved Hypothyroidism [E03.9] 07/18/2018 Current in first trimester with histo*08/08/2018 10/16/2018 History of thyroid disorder [Z86.39] 08/08/2018 History of depression [Z86.59] 08/08/2018 Family history of genetic disease [Z84.89] 08/08/2018 size inconsistent with dates [O26.849] 08/22/2018 10/16/2018 History of depression [Z87.59, Z86.5*02/23/2022 History of bulimia [Z86.59] 02/23/2022 History of anal fissures [Z87.19] 02/23/2022 Obesity complicating , second trimeste*12/21/2022 related exhaustion and fatigue, first*04/02/2024 Supervision of high risk in second tr*04/02/2024 Encounter Status:Closed by HEATHER ROCHE on 06/23/24 [facility] CNPAlthea 05-30-2024 CNPN Telephone (OBGYWM) VEGA SINCLAIR ([id number]) 1995 F Date Time Provider Department 05/30/24 HELEN PEREZ During your visit today, we recorded the following information about you: Guillaume Conteh MA 05/30/2024 9:00 AM Signed PA requested for patients Aspirin, submitted and received response from patients insurance that PA was denied. Guillaume Conteh MA Allergies As of Date: 05/30/2024 Noted Allergy Reaction AMOXICILLIN 11/15/2017 4 - Hives KEFLEX (CEPHALEXIN) 11/15/2017 11 - Vomiting SEASONAL ALLERGIES 11/15/2017 9 - Itching Date Reviewed: 05/29/2024 Reviewed by: Helen Perez APRN.PAPERHANGER ASSISTANT - Fully Assessed Reason for Visit: Insurance Authorization [[id number]] Prescriptions as of 05/30/2024 - aspirin 81 mg cap Take 81 mg by mouth once daily. - levothyroxine (SYNTHROID) 112 mcg tablet Take 1 tablet by mouth 5 days per week, take 1.5 tablets 2 days per week - Lactobacillus acidophilus (PROBIOTIC ACIDOPHILUS ORAL) Take by mouth. - MAGNESIUM ORAL Take by mouth. - prental multivitamin 27 mg iron- 800 mcg tablet Take 1 tablet by mouth once daily. - polyethylene glycol 3350 (MIRALAX ORAL) Take by mouth once daily. - docusate sodium (STOOL SOFTENER ORAL) Take by mouth. Problem List As Of Date 05/30/2024 Noted Resolved Hypothyroidism [E03.9] 07/18/2018 Current in first trimester with histo*08/08/2018 10/16/2018 History of thyroid disorder [Z86.39] 08/08/2018 History of depression [Z86.59] 08/08/2018 Family history of genetic disease [Z84.89] 08/08/2018 size inconsistent with dates [O26.849] 08/22/2018 10/16/2018 History of depression [Z87.59, Z86.5*02/23/2022 History of bulimia [Z86.59] 02/23/2022 History of anal fissures [Z87.19] 02/23/2022 Obesity complicating , second trimeste*12/21/2022 related exhaustion and fatigue, first*04/02/2024 Supervision of high risk in second tr*04/02/2024 Encounter Status:Closed by GUILLAUME CONTEH on 05/30/24 [facility] 05-13-2024 [facility]MONIKA[facility] VEGA SINCLAIR ([id number]) 1995 F Date Time Provider Department 05/13/24 [facility] During your visit today, we recorded the following information about you: Jayce Shipley APRN.PAPERHANGER ASSISTANT 05/13/2024 7:28 AM Signed Please let her know that her Tsh level is at the higher end of normal and I would like to increase her levothyroxine a little bit. Then continue with our normal monthly checks. She'll continue with the levothyroxine 112mg pills, but I would like her to take 1 pill 5 days/week and 1.5 pills 2 days/week. The following approved medication requests have been transmitted electronically. Requested Prescriptions Signed Prescriptions Disp Refills levothyroxine (SYNTHROID) 112 mcg tablet 34 tablet 0 Sig: Take 1 tablet by mouth 5 days per week, take 1.5 tablets 2 days per week Authorizing Provider: JAYCE SHIPLEY APRN.CNP Holiday, [place], [place] 05/13/2024 7:32 AM Signed Pt informed via [employer] message Juliet Lanier MA Allergies As of Date: 05/13/2024 Noted Allergy Reaction AMOXICILLIN 11/15/2017 4 - Hives KEFLEX (CEPHALEXIN) 11/15/2017 11 - Vomiting SEASONAL ALLERGIES 11/15/2017 9 - Itching Date Reviewed: 04/30/2024 Reviewed by: Guillaume Conteh MA - Fully Assessed Reason for Visit: Results [95] Visit Diagnosis:Acquired hypothyroidism [E03.9] Order(s):levothyroxi ne (SYNTHROID) 112 mcg tabletTake 1 tablet by mouth 5 days per week, take 1.5 tablets 2 days per weekDisp: 34 tabletRfl: 0 Prescriptions as of 05/13/2024 - levothyroxine (SYNTHROID) 112 mcg tablet Take 1 tablet by mouth 5 days per week, take 1.5 tablets 2 days per week - Lactobacillus acidophilus (PROBIOTIC ACIDOPHILUS ORAL) Take by mouth. - MAGNESIUM ORAL Take by mouth. - prental multivitamin 27 mg iron- 800 mcg tablet Take 1 tablet by mouth once daily. - polyethylene glycol 3350 (MIRALAX ORAL) Take by mouth once daily. - docusate sodium (STOOL SOFTENER ORAL) Take by mouth. Problem List As Of Date 05/13/2024 Noted Resolved Hypothyroidism [E03.9] 07/18/2018 Current in first trimester with histo*08/08/2018 10/16/2018 History of thyroid disorder [Z86.39] 08/08/2018 History of depression [Z86.59] 08/08/2018 Family history of genetic disease [Z84.89] 08/08/2018 Patient request for diagnostic testing [Z01.89] 08/08/2018 size inconsistent with dates [O26.849] 08/22/2018 10/16/2018 History of depression [Z87.59, Z86.5*02/23/2022 History of bulimia [Z86.59] 02/23/2022 History of anal fissures [Z87.19] 02/23/2022 Pre-op evaluation [Z01.818] 12/21/2022 Obese [E66.9] 12/21/2022 related exhaustion and fatigue, first*04/02/2024 Supervision of high risk in first tri*04/02/2024 Prescriptions ordered this encounter Disp Refills Start End LEVOTHYROXINE 112 MCG TABLET 34 t* 0 05/13/2024 Class: Med Update Sig: Take 1 tablet by mouth 5 days per week, take 1.5 tablets 2 days per week Medications Discontinued During This Encounter Prescriptions - levothyroxine (SYNTHROID) 112 mcg tablet (Discontinued) Take 1 tablet by mouth once daily. Encounter Status:Closed by JAYCE SHIPLEY on 05/13/24 Normal [facility] SEQUENTIAL SCN FIRST TRIMTOMMY Rodriguez 05-12-[birth year]24 [age] Normal [facility] Comment on above: Order Comment: Speci men Type: BLOOD SPECIMENOrdering Facility: [facility] Address: [address] [place] [address] Performed By: #### S EQ1 ####[facility] LABCLIA [id number] [place] [address] [place] Rump length US 57.7 mm Normal [facility] Comment on above: Order Comment: Speci men Type: BLOOD SPECIMENOrdering Facility: [facility] Address: [address] [place] [address] Performed By: #### S EQ1 ####[facility] LABCLIA [id number] [place] [address] Nuchal fold [Multiple of the median] Thickness US 1.26 Normal [facility] Comment on above: Order Comment: Speci men Type: BLOOD SPECIMENOrdering Facility: [facility] Address: [address] [place] [address] Performed By: #### S EQ1 ####[facility] LABCLIA [id number] [place] [address] Nuchal fold Thickness US 1.7 mm Normal [facility] Comment on above: Order Comment: Speci men Type: BLOOD SPECIMENOrdering Facility: [facility] Address: [address] [place] [address] Performed By: #### S EQ1 ####[facility] LABCLIA [id number] [place] [address] First and Second trimester integrated maternal screen [Interp] Comment Normal [facility] Comment on above: Order Comment: Speci men Type: BLOOD SPECIMENOrdering Facility: [facility] Address: [address] [place] [address] Result Comment: The risk for Down syndrome is less than the 1:45 cutoff. Comment The risk for trisomy 18 is less than the 1:100 cutoff. Performed By: #### S EQ1 ####[facility] LABCLIA [id number] [place] [address] Gestational age 12.1 weeks Normal [facility] Comment on above: Order Comment: Speci men Type: BLOOD SPECIMENOrdering Facility: [facility] Address: [address] [place] [address] Performed By: #### S EQ1 ####[facility] LABCLIA [id number] [place] [address] HCG adjusted [MoM] 0.56 Normal [facility] Comment on above: Order Comment: Speci men Type: BLOOD SPECIMENOrdering Facility: [facility] Address: [address] [place] [address] Performed By: #### S EQ1 ####[facility] LABCLIA [id number] [place] [address] HCG Qn 50.7 IU/mL Normal [facility] Comment on above: Order Comment: Speci men Type: BLOOD SPECIMENOrdering Facility: [facility] Address: [address] [place] [address] Performed By: #### S EQ1 ####[facility] LABCLIA [id number] [place] [address] Laboratory comment Danilo (Report) Comment Normal [facility] Comment on above: Order Comment: Speci men Type: BLOOD SPECIMENOrdering Facility: [facility] Address: [address] [place] [address] Result Comment: Edwige rivas submit a second trimester sample between 15.0 - 21.9 weeks gestation to complete risk assessment for Down syndrome, trisomy 18 and open spina bifida. The [place] [employer] recommends that all women be counseled regarding the differences between screening and invasive diagnostic testing. Performed By: #### S EQ1 ####[facility] LABCLIA [id number] [place] [address] Mother's race Normal [facility] Comment on above: Order Comment: Speci men Type: BLOOD SPECIMENOrdering Facility: [facility] Address: [address] [place] [address] Performed By: #### S EQ1 ####[facility] LABCLIA [id number] [place] [id number] NOTE: Comment Normal [facility] Comment on above: Order Comment: Speci jane Type: BLOOD SPECIMENOrdering Facility: [facility] Address: [address] [place] [address] Result Comment: Edwige rivas verify all clinical data used in this risk assessment and call [phone] with any corrections. Dilcia Montgomery, Ph.D., [facility] Director References: Available upon request Open Spina Bifida (OSB) MoM Cutoffs Weaver 2.5 Black 2.8 IDD 2.0 Twins 4.5 Risk Cutoffs Down Syndrome (DS) cutoff 1:270 Trisomy 18 (T18) cutoff 1:100 For further inquiries contact [employer] Customer Service at [phone]. This test was developed and its performance characteristics determined by [employer]. It has not been cleared or approved by the Food and Drug Administration. Performed By: #### S EQ1 ####[facility] LABCLIA [id number] [place] [address] Number of fetuses by US 1 Normal [facility] Comment on above: Order Comment: Speci men Type: BLOOD SPECIMENOrdering Facility: [facility] Address: [address] [place] [address] Performed By: #### S EQ1 ####[facility] LABCLIA [id number] [place] [address] associated plasma protein A [Mass/Vol] 2348.6 ng/mL Normal [facility] Comment on above: Order Comment: Speci men Type: BLOOD SPECIMENOrdering Facility: [facility] Address: [address] [place] [address] Performed By: #### S EQ1 ####[facility] LABCLIA [id number] [place] [address] associated plasma protein A adjusted [MoM] 3.27 Normal [facility] Comment on above: Order Comment: Speci men Type: BLOOD SPECIMENOrdering Facility: [facility] Address: [address] [place] [address] Performed By: #### S EQ1 ####[facility] LABCLIA [id number] [place] [address] RESULTS Report Normal [facility] Comment on above: Order Comment: Speci men Type: BLOOD SPECIMENOrdering Facility: [facility] Address: [address] [place] [address] Performed By: #### S EQ1 ####[facility] LABCLIA [id number] [place] [address] Intelligence Chief [Identifier] [id number] Normal [facility] Comment on above: Order Comment: Speci men Type: BLOOD SPECIMENOrdering Facility: [facility] Address: [address] [place] [address] Performed By: #### S EQ1 ####[facility] LABCLIA [id number] [place] [address] SUBMIT PART 2 SAMPLE USING Date: Normal [facility] Comment on above: Order Comment: Speci men Type: BLOOD SPECIMENOrdering Facility: [facility] Address: [address] [place] [address] Result Comment: Sequ ential 2 Test Code [id number] Based on gest age provided, draw sample after: 06/01/2024 Performed By: #### S EQ1 ####[facility] LABCLIA [id number] [place] [address] Trisomy 18 risk Based on maternal age Qn (fetus) Age Risk: Normal [facility] Comment on above: Order Comment: Speci men Type: BLOOD SPECIMENOrdering Facility: [facility] Address: [address] [place] [address] Result Comment: 1 in 9 Performed By: #### S EQ1 ####[facility] LABCLIA [id number] [place] [address] Trisomy 18 risk Qn (fetus) Screening Risk: Normal [facility] Comment on above: Order Comment: Speci men Type: BLOOD SPECIMENOrdering Facility: [facility] Address: [address] [place] [address] Result Comment: <1 [place] [id number] Performed By: #### S EQ1 ####[facility] LABCLIA [id number] [place] [address] Trisomy 21 risk Based on maternal age Qn (fetus) Age Risk: Normal [facility] Comment on above: Order Comment: Speci men Type: BLOOD SPECIMENOrdering Facility: [facility] Address: [address] [place] [address] Result Comment: in Performed By: #### S EQ1 ####[facility] LABCLIA [id number] [place] [address] Trisomy 21 risk Qn (fetus) Screening Risk: Normal [facility] Comment on above: Order Comment: Speci men Type: BLOOD SPECIMENOrdering Facility: [facility] Address: [address] [place] [address] Result Comment: <1 [place] [id number] Performed By: #### S EQ1 ####[facility] LABCLIA [id number] [place] [address] Ultrasound date Date: Normal [facility] Comment on above: Order Comment: Speci men Type: BLOOD SPECIMENOrdering Facility: [facility] Address: [address] [place] [address] Result Comment: 04/27 Performed By: #### S EQ1 ####[facility] LABCLIA [id number] [place] [address] T4 Free SerPl-mCncon 024 Free T4 [Mass/Vol] 1.2 ng/dL Normal 0.9-1.7 [facility] Comment on above: Order Comment: Speci men Type: BLOOD SPECIMENOrdering Facility: [facility] Address: [address] [place] [address] [place] [address] Performed By: #### 3 016-3, 302-7 ####[facility] LABCLIA [id number] [address] STATES OF [facility] TSH SerPl-aCncon 05-12-2024 TSH Qn 3.020 m[IU]/L Normal 0.270-4.200 [facility] Comment on above: Order Comment: Speci men Type: BLOOD SPECIMENOrdering Facility: [facility] Address: [address] [place] [address] Result Comment: If t he patient is , TSH reference range varies by gestational period: First Trimester (weeks 9-12): 0.180-2.990 mIU/L Second Trimester: 0.110-3.980 mIU/L Third Trimester: 0.480-4.710 mIU/L Matthew Sommer et al. A Practical Approach for the Verifications and Determination of Site- and Trimester-Specific Reference Intervals for Thyroid Function tests in . Thyroid, 2019:29:3:412-420. Sanju E, et al. 2017 Guidelines of the [place] [employer] for the Diagnosis and Management of Thyroid Disease during and the . Thyroid, 2017:27:3:315-389. Performed By: #### 3 016-3, 3024-7 ####[facility] LABCLIA [id number] [place] [id number] [place] CNCOon 05-01-2024 CNCO Letter Text Normal [facility] nuchal translucency me asured by on 04-30-2024 Indication First trimester anatomic survey Maternal obesity, BMI >30 Impression REMOTE READ The patient is referred for a first trimester anatomy scan including nuchal translucency measurement as clinically indicated. - Single, live, intrauterine . - [place] rump length measurement is consistent with the established gestational age. - No malformations visualized on a complete first trimester anatomic assessment. - The nuchal translucency measurement is 1.7 mm. - Not all structural malformations can be detected by ultrasound examination. Maternal Structures: Right Ovary: Size 27 mm x 17 mm x 12 mm Recommendations - A standard anatomic survey at 16 weeks can be offered and a detailed exam at 20 weeks is recommended for increased risk. Maternal Assessment Height 158 cm Height (ft) 5 ft Height (in) 2 in Physical Exam Initial weight (lb) 173 lb Initial BMI 31.63 kg/m Maternal assessment other: 4 Para 2 Method Transabdominal ultrasound examination Weaver . Number of fetuses: 1 Dating LMP on: 02/05/2024 GA by LMP 12 w + 1 d HAYES by LMP: 11/11/2024 GA by prior assessment 12 w + 1 d HAYES by prior assessment: 11/11/2024 Ultrasound examination on: 04/30/2024 GA by U/S based upon: CRL GA by U/S 12 w + 2 d HAYES by U/S: 11/10/2024 Assigned: based on stated HAYES, selected on 04/30/2024 Assigned GA 12 w + 1 d Assigned HAYES: 11/11/2024 General Evaluation Cardiac activity present Placenta: anterior Cord vessels: 3 vessel cord Amniotic fluid: normal amount Biometry Standard FHR 164 bpm CRL 57.7 mm 12w 2d 48% Hadlock NT 1.70 mm First Trimester Anatomy Calvarium: normal Falx cerebri: normal Choroid plexus: normal Profile: normal Nasal bone: normal Retronasal triangle: normal Maxilla: normal Mandible: normal Nuchal translucency: Unremarkable Situs: normal Cardiac position: normal Cardiac axis: normal 4-chamber view: normal 4-chamber view with color: normal [id number] view: normal Abdominal cord insertion: normal Stomach: normal Kidneys: normal Bladder: normal Color doppler of perivesical umbilical arteries: normal Vertebral alignment: normal Arms: normal Hands: normal Legs: normal Feet: normal Maternal Structures Uterus / Cervix Uterus: Visualized Uterus length 182 mm Uterus width 100 mm Uterus height 65 mm Uterus Vol 619.2 cm Ovaries / Tubes / Adnexa Rt ovary: Visualized Rt ovary D1 27 mm Rt ovary D2 17 mm Rt ovary D3 12 mm Rt ovary Vol 2.9 cm Lt ovary: Not visualized Performed By: Heather Palma, DIONICIO, RVT Read By: Karolina Laguna M.D. MATERNAL MEDICINE [facility] Radiology Study observation (narrative) [facility] Bacteria Ur Culton Bacteria identified Cx Nom (U) CULTURE, URINE: No growth (<1,000 CFU/ml) Normal [facility] Comment on above: Performed By: #### 6 30-4 ####[facility] LABCLIA [id number] [place] [address] [place] C. trachomatis+N. gonorrhoea e DNA DEVONTE+probe Ql (Unsp spec)on 04-02-2024 C. trachomatis rRNA DEVONTE+probe Ql (Unsp spec) Negative Normal Negative for Chlamydia trachomatis by amplificaton [facility] Comment on above: Order Comment: Speci men Type: SWABOrdering Facility: [facility] Address: [address] [place] [address] Performed By: #### 3 6902-5 ####[facility] LABCLIA [id number] [place] [address] [place] N. gonorrhoeae rRNA DEVONTE+probe Ql (Unsp spec) Negative Normal Negative for Neisseria gonorrhoeae by amplification [facility] Comment on above: Order Comment: Speci men Type: SWABOrdering Facility: [facility] Address: [address] [place] [address] Performed By: #### 3 6902-5 ####[facility] LABCLIA [id number] [place] [address] [place] HBV surface Ag Ser Qlon 11- HBV surface Ag Ql (S) Negative Normal Negative [facility] Comment on above: Order Comment: Speci men Type: BLOOD SPECIMENOrdering Facility: [facility] Address: [address] [place] [address] Performed By: #### 3 1201-7, 14258-4, 5-3 ####[facility] LABCLIA [id number] [place] [address] [place] HCV Ab Ser Qlon 04-02-2024 HCV Ab Ql (S) Negative Normal Negative [facility] Comment on above: Order Comment: Speci men Type: BLOOD SPECIMEN [facility] Address: [address] [place] [address] Result Comment: The result suggests no evidence of active infection with Hepatitis C virus. Should recent infection be suspected, repeat testing may be considered 4-6 weeks after this draw. Performed By: #### 1 6128-1 #### [facility] CLIA [id number] [address] [place] [address] [place] HIV 1+2 Ab IA Qlon HIV 1 and 2 Ab IA.rapid Nom (S/P/Bld) Normal [facility] Comment on above: Order Comment: Speci men Type: BLOOD SPECIMENOrdering Facility: [facility] Address: [address] [place] [address] Result Comment: Test not indicated. Performed By: #### 3 1201-7, 87250-3, 53 ####[facility] LABCLIA [id number] [place] [address] [place] HIV 1+2 Ab+HIV1 p24 Ag IA Ql Non-Reactive Normal Nonreactive [facility] Comment on above: Order Comment: Speci men Type: BLOOD SPECIMENOrdering Facility: [facility] Address: [address] [place] [address] Performed By: #### 3 1201-7, 81282-0, 5-3 ####[facility] LABCLIA [id number] [place] HIV immunoassay testing algorithm interpretation (S/P/Bld) [Interp] Normal [facility] Comment on above: Order Comment: Speci men Type: BLOOD SPECIMENOrdering Facility: [facility] Address: [address] [place] [address] Result Comment: No e vidence of HIV-1 or HIV-2 infection. Should recent infection be suspected, repeat testing may be considered 2-3 weeks after this draw. [place] Rev. Code 3701.243(E): This information has been disclosed to you from confidential records protected from disclosure by state law. ???You shall make no further disclosure of this information without the specific, written, and informed release of the individual to whom it pertains or as otherwise permitted by state law. A general authorization for the release of medical or other information is not sufficient for the purpose of the release of HIV test results or diagnoses. Performed By: #### 3 1201-7, 30304-3, 5195-3 ####[facility] LABCLIA [id number] [address] [place] No Panel Informationon 04-02 Interpretation and review of laboratory results Normal [facility] RUBELLA IGG ANTIBODYon 04-02 RUBELLA IGG AB, QUAL Positive Normal Positive [facility] Comment on above: Order Comment: Speci men Type: BLOOD SPECIMEN [facility] Address: [address] [place] [address] Result Comment: The result suggests recent or past exposure to Rubella virus or history of Rubella vaccination. Positive result may also be seen due to presence of passively-transferred antibodies. Please correlate with patient's history. Performed By: #### 1 6128-1 #### [facility] CLIA [id number] [address] [place] [address] [place] Reagin and Treponema pallidu m IgG and IgM [Interp]on 04-02-2024 T. pallidum IgG+IgM IA Ql (S) Non-Reactive Normal Nonreactive [facility] Comment on above: Order Comment: Speci men Type: BLOOD SPECIMENOrdering Facility: [facility] Address: [address] [place] [address] Performed By: #### 3 1201-7, 45282-6, 5195-3 ####[facility] LABCLIA [id number] [place] [address] [place] Reagin+T pallidum IgG+IgM Se rPl-Impon 04-02-2024 Reagin and Treponema pallidum IgG and IgM [Interp] Cannot exclude recent Treponemal infection if specimen collected within 7-10 days after appearance of suspect lesions or 2-3 weeks after an exposure. Clinical correlation is required. Normal [facility] Comment on above: Order Comment: Speci men Type: BLOOD SPECIMENOrdering Facility: [facility] Address: [address] [place] [address] Performed By: #### 3 1201-7, 54804-8, 5195-3 ####[facility] LABCLIA [id number] [place] [address] [place] T4 FREE/FREE THYROXINEon Free T4 [Mass/Vol] 1.5 ng/dL 0.9 - 1.7 ng/dL [facility] T4 Free [facility]-ncon 024 Free T4 [Mass/Vol] 1.5 ng/dL Normal 0.9-1.7 [facility] Comment on above: Order Comment: Speci men Type: BLOOD SPECIMENOrdering Facility: [facility] Address: [address] [place] [address] Performed By: #### 3 016-3, 3024-7 ####[facility] LABCLIA [id number] [place] [address] [place] THYROID STIMULATING HORMONEo n 04-02-2024 TSH Qn 1.460 m[IU]/L [facility] Comment on above: If the patient is pr egnant, TSH reference range varies by gestational period: First Trimester (weeks 9-12): 0.180-2.990 mIU/L Second Trimester: 0.110-3.980 mIU/L Third Trimester: 0.480-4.710 mIU/L Matthew Sommer et al. A Practical Approach for the Verifications and Determination of Site- and Trimester-Specific Reference Intervals for Thyroid Function tests in . Thyroid, 2019:29:3:412-420. Sanju Horowitz et al. 2017 Guidelines of the [place] Thy[employer] Association for the Diagnosis and Management of Thyroid Disease during and the . Thyroid, 2017:27:3:315-389. TSH SerPl-aCncon 04-02-2024 TSH Qn 1.460 m[IU]/L Normal 0.270-4.200 [facility] Comment on above: Order Comment: Cheo lara Type: BLOOD SPECIMENOrdering Facility: [facility] Address: [address] [place] [address] Result Comment: If t he patient is , TSH reference range varies by gestational period: First Trimester (weeks 9-12): 0.180-2.990 mIU/L Second Trimester: 0.110-3.980 mIU/L Third Trimester: 0.480-4.710 mIU/L Matthew Sommer et al. A Practical Approach for the Verifications and Determination of Site- and Trimester-Specific Reference Intervals for Thyroid Function tests in . Thyroid, 2019:29:3:412-420. Sanju Horowitz et al. 2017 Guidelines of the [place] Thy[employer] Association for the Diagnosis and Management of Thyroid Disease during and the . Thyroid, 2017:27:3:315-389. Performed By: #### 3 016-3, 3024-7 ####[facility] LABCLIA [id number] [place] [address] [place] TYPE + SCREEN PRENATALon ABO O Normal [facility] Comment on above: Order Comment: Cheo lara Type: BLOOD SPECIMENOrdering Facility: [facility] Address: [address] [place] [address] Performed By: #### T SPN ####[facility] BLOOD BANKCLIA [id number] [place] [address] [place] Rh Nom (Bld) Positive Normal [facility] Comment on above: Order Comment: Speci men Type: BLOOD SPECIMENOrdering Facility: [facility] Address: [address] [place] [address] [place] [address] Performed By: #### T SPN ####[facility] BANKCLIA [id number] [address] [place] TYPE AND SCREEN EXPIRATION 04/05/2024 23:59 Normal [facility] Comment on above: Order Comment: Speci men Type: BLOOD SPECIMENOrdering Facility: [facility] Address: [address] [place], [place] [address] [address] Performed By: #### T SPN ####[facility] BLOOD BANKCLIA [id number] [address] CNOVon 03-27-2024 [facility] DOTTIE,VEGA Ruff ([id number]) 1995 F Date Time Provider Department 03/27/24 7:40 AM [facility] During your visit today, we recorded the following information about you: Pulse Respiration Blood pressure Weight 64/minute 16/minute 118/78 79.4 kg Height 1.605 m Jayce Shipley APRN.PAPERHANGER ASSISTANT 04/03/2024 8:01 AM Signed Chief Complaint Patient presents with: Physical: Bon ear pain, sinus/allergies, early , check thyroid. Taking levo 1 tab daily started 03/15 Vega Estradaon is a 28 year old female who presents here today for Above Complaints. New -this will be her 3rd child, is due in October. Is very fatigued. Had her IUD removed in January-not 100% sure of LMP d/t IUD present-was a little bit of a surprise that it happened so quickly. Bilateral chronic ear pain. Mother has hx of needing to have her sinuses cleared out. Claritin D does help. Gets intermittent pain like an ear infection but is more just adjustment of the fluid in her ears. Claritin does help a little bit. Has never had tubes in her ears before, but as a child had chronic strep and ear infections. Past medical history, appointments, medications, allergies reviewed. Previous Medical History PAST MEDICAL HISTORY Diagnosis Date Anal fissure Anemia Bulimia Gallstone Hypothyroidism Mental disorder depression Previous Surgical History PAST SURGICAL HISTORY Procedure Laterality Date NAIL REMOVAL PROCEDURE (W NOTE) PAST SURGICAL HISTORY OF wisdom teeth SPHINCTEROTOMY 12/2022 TONSILLECTOMY AND ADENOIDECTOMY HX childhood Family History FAMILY HISTORY Problem Relation Age of Onset Migraines Mother Anxiety disorder Mother anxiety/depression Hypertension Father Anxiety disorder Sister anxiety depression Anxiety disorder Sister anxiety /depression No Known Problems Maternal Grandmother Prostate Cancer Maternal Grandfather Thyroid Paternal Grandmother No Known Problems Paternal Grandfather other (digeorge) Other No Known Problems Daughter Patient Allergies ALLERGIES Allergen Reactions Amoxicillin Hives Keflex [Cephalexin] Vomiting Seasonal Allergies Itching Current Medications Current Outpatient Medications on File Prior to Visit Medication Sig Lactobacillus acidophilus (PROBIOTIC ACIDOPHILUS ORAL) Take by mouth. levothyroxine (SYNTHROID) 112 mcg tablet Take 1 tablet by mouth five days per week. Take 1/2 tablet by mouth 2 days per week. (Patient taking differently: Take 1 tablet by mouth five days per week. Take 1/2 tablet by mouth 2 days per week.) MAGNESIUM ORAL Take by mouth. fluticasone (FLONASE) 50 mcg/actuation nasal spray Use 2 Sprays in each nostril once daily. Rinse mouth after use. prental multivitamin 27 mg iron- 800 mcg tablet Take 1 tablet by mouth once daily. polyethylene glycol 3350 (MIRALAX ORAL) Take by mouth once daily. docusate sodium (STOOL SOFTENER ORAL) Take by mouth. loratadine (CLARITIN ORAL) Take by mouth. No current facility-administere d medications on file prior to visit. Social History Social History Tobacco Use Smoking status: Never Smokeless tobacco: Never Vaping Use Vaping status: Never Used Substance Use Topics Alcohol use: Not Currently Comment: Socially Drug use: No Review of Symptoms REVIEW OF SYSTEMS See HPI, otherwise negative EXAM: BP 118/78 (BP Site: Left Arm, BP Position: Sitting, BP Cuff Size: Regular Adult) Pulse 64 Resp 16 Ht 160.5 cm (5' 3.19) Wt 79.4 kg (175 lb 0.7 oz) LMP 02/05/2024 (Exact Date) SpO2 100% BMI 30.82 kg/m? General Appearance: Well appearing, alert, in no acute distress, well-hydrated, well nourished.. Ears: clear fluid bubbles posterior to bilateral TMs. Neck: Supple, no adenopathy; thyroid symmetric, normal size, no bruits. Lungs: Lungs clear to auscultation. No wheezing, rhonchi, rales.. Heart: RRR without murmur, gallop, or rubs. No ectopy. Psychiatric: pleasant, cooperative. Health Maintenance List Depression Screening Never done Anxiety Screening Never done Hepatitis B Vaccine(1 of 3 - 19+ 3-dose series) Never done Influenza Vaccine(1) due on 01/27/2024 Covid-19 Vaccine(2023- season) due on 01/27/2024 Cervical Cancer Screening due on 06/01/2024 Annual PCP Team Chronic Disease Visit due on 03/27/2025 DTaP,Tdap,Td Vaccine(4 - Td or Tdap) due on 07/27/2032 Hepatitis C Screening Completed HIV Screening Completed HPV Vaccine Aged Out Data reviewed Previous records, office notes ASSESSMENT/PLAN: 1. Early stage of - ICD9: V22.2, ICD10: Z34.90 (primary diagnosis) Will monitor her thyroid on a monthly basis throughout . - HCG QUANTITATIVE - THYROID STIMULATING HORMONE - T4 FREE/FREE THYROXINE 2. Acquired hypothyroidism - ICD9: 244.9, ICD10: E03.9 Will monitor her thy (more content not included)... Normal [facility] CBC panel Auto (Bld)on 03-15 Erythrocyte distribution width (RBC) [Ratio] 12.6 % Normal 11.5-15.0 [facility] Comment on above: Order Comment: Speci men Type: BLOOD SPECIMEN Ordering Facility: [facility] Address: [address] [place] [address] Performed By: #### 1 6128-1 #### [facility] CLIA [id number] [address] [place] [address] [place] [address] [place] Hematocrit (Bld) [Volume fraction] 40.3 % Normal 36.0-46.0 [facility] Comment on above: Order Comment: Speci men Type: BLOOD SPECIMEN Ordering Facility: [facility] Address: [address] [place] [address] Performed By: #### 1 6128-1 #### [facility] CLIA [id number] [address] [place] [address] [place] Hemoglobin (Bld) [Mass/Vol] 13.6 g/dL Normal 11.5-15.5 [facility] Comment on above: Order Comment: Speci men Type: BLOOD SPECIMEN Ordering Facility: [facility] Address: [address] [place] [address] Performed By: #### 1 6128-1 #### [facility] CLIA [id number] [address] [place] [address] [place] MCH (RBC) [Entitic mass] 29.4 pg Normal 26.0-34.0 [facility] Comment on above: Order Comment: Speci men Type: BLOOD SPECIMEN Ordering Facility: [facility] Address: [address] [place] [address] Performed By: #### 1 6128-1 #### [facility] CLIA [id number] [address] [place] [address] [place] MCHC (RBC) [Mass/Vol] 33.7 g/dL Normal 30.5-36.0 [facility] Comment on above: Order Comment: Speci men Type: BLOOD SPECIMEN Ordering Facility: [facility] Address: [address] [place] [address] Performed By: #### 1 6128-1 #### [facility] CLIA [id number] [address] [place] [address] [place] MCV (RBC) [Entitic vol] 87.0 fL Normal 80.0-100.0 C [facility] Comment on above: Order Comment: Speci men Type: BLOOD SPECIMEN Ordering Facility: [facility] Address: [address] [place] [address] Performed By: #### 1 6128-1 #### [facility] CLIA [id number] [address] [place] [address] [place] Nucleated RBC (Bld) [#/Vol] 10*3/uL Normal <0.01 [facility] Comment on above: Order Comment: Speci men Type: BLOOD SPECIMEN Ordering Facility: [facility] Address: [address] [place] [address] Performed By: #### 1 6128-1 #### [facility] CLIA [id number] [address] [place] [address] [place] Platelet mean volume (Bld) [Entitic vol] 10.8 fL Normal 9.0-12.7 [facility] Comment on above: Order Comment: Speci men Type: BLOOD SPECIMEN Ordering Facility: [facility] Address: [address] [place] [address] Performed By: #### 1 6128-1 #### [facility] CLIA [id number] [address] [place] [address] [place] Platelets (Bld) [#/Vol] 227 10*3/uL Normal 150-400 [facility] Comment on above: Order Comment: Speci men Type: BLOOD SPECIMEN Ordering Facility: [facility] Address: [address] [place] [address] Performed By: #### 1 6128-1 #### [facility] CLIA [id number] [address] [place] [address] [place] RBC (Bld) [#/Vol] 4.63 10*6/uL Normal 3.90-5.20 [facility] Comment on above: Order Comment: Speci men Type: BLOOD SPECIMEN Ordering Facility: [facility] Address: [address] [place] [address] Performed By: #### 1 6128-1 #### [facility] CLIA [id number] [address] [place], [place] [address] [address] [place] WBC (Bld) [#/Vol] 6.11 10*3/uL Normal 3.70-11.00 [facility] Comment on above: Order Comment: Speci men Type: BLOOD SPECIMEN Ordering Facility: [facility] Address: [address] [place] [address] Performed By: #### 1 6128-1 #### [facility] CLIA [id number] [address] [place] [address] [place] CNPAlthea 03-15-2024 JEREL Telephone (MONIKA) VEGA SINCLAIR ([id number]) 1995 F Date Time Provider Department 03/15/24 JAYCE SHIPLEY During your visit today, we recorded the following information about you: Naima Hardin RN 03/15/2024 8:59 AM Addendum Pt called in and reports she was supposed to see Jayce Shipley NP on 03/06/24. Her appointment was moved to 03/27/24. Pt was given a weeks worth of Synthroid to get her through until appointment, but now is out. Pt states she is and doesn't want to be out in her early . Pt is asking for another 2 weeks of Synthroid be sent in for her. Pt just got her labs done today, so couldn't make adjustments. Please call and advise. Naima Hardin RN 03/15/2024 9:[address] Yordy Arnett and let her know Pts situations she gave the verbal order to call in Synthroid 112 mcg Take 1 tablet by mouth five days per week. Take 1/2 tablet by mouth 2 days per week. She said to call in 30 tablets with no refills. Called Marianne at [facility] and gave her providers verbal orders for Synthroid. Called and let Pt know that medication was called in. Allergies As of Date: 03/15/2024 Noted Allergy Reaction AMOXICILLIN 11/15/2017 4 - Hives KEFLEX (CEPHALEXIN) 11/15/2017 11 - Vomiting SEASONAL ALLERGIES 11/15/2017 9 - Itching Date Reviewed: 02/21/2024 Reviewed by: Guillaume Conteh MA - Fully Assessed Reason for Visit: Medication Problem [65] Visit Diagnosis:Acquired hypothyroidism [E03.9] Prescriptions as of 03/15/2024 - levothyroxine (SYNTHROID) 112 mcg tablet Take 1 tablet by mouth five days per week. Take 1/2 tablet by mouth 2 days per week. - MAGNESIUM ORAL Take by mouth. - doxycycline hyclate (VIBRAMYCIN) 100 mg capsule Take 1 capsule by mouth two times a day. - levonorgestrel (MIRENA) 21 mcg/24 hours (8 yrs) 52 mg IUD 1 Each by INTRAUTERINE route as directed. - lidocaine (CPD) 1 application by RECTAL route three times daily as needed. Comments for compounding pharmacy: Compound Nifedipine 0.2%, Diltiazem 2%, and Lidocaine 5% - fluticasone (FLONASE) 50 mcg/actuation nasal spray Use 2 Sprays in each nostril once daily. Rinse mouth after use. - prental multivitamin 27 mg iron- 800 mcg tablet Take 1 tablet by mouth once daily. - polyethylene glycol 3350 (MIRALAX ORAL) Take by mouth once daily. - docusate sodium (STOOL SOFTENER ORAL) Take by mouth. - loratadine (CLARITIN ORAL) Take by mouth. Problem List As Of Date 03/15/2024 Noted Resolved Hypothyroidism [E03.9] 07/18/2018 Current in first trimester with histo*08/08/2018 10/16/2018 History of thyroid disorder [Z86.39] 08/08/2018 History of depression [Z86.59] 08/08/2018 Family history of genetic disease [Z84.89] 08/08/2018 Patient request for diagnostic testing [Z01.89] 08/08/2018 size inconsistent with dates [O26.849] 08/22/2018 10/16/2018 History of depression [Z87.59, Z86.5*02/23/2022 History of bulimia [Z86.59] 02/23/2022 History of anal fissures [Z87.19] 02/23/2022 Pre-op evaluation [Z01.818] 12/21/2022 Obese [E66.9] 12/21/2022 Encounter Status:Closed by NAIMA HARDIN on 03/15/24 Normal [facility] Comprehensive metabolic 2000 panelon 03-15-2024 Albumin [Mass/Vol] 4.2 g/dL Normal 3.9-4.9 [facility] Comment on above: Order Comment: Speci men Type: BLOOD SPECIMEN Ordering Facility: [facility] Address: [address] [place] [address] Performed By: #### 1 6128-1 #### [facility] CLIA [id number] [address] [place] [address] [place] ALP [Catalytic activity/Vol] 57 U/L Normal 34-123 [facility] Comment on above: Order Comment: Speci men Type: BLOOD SPECIMEN Ordering Facility: [facility] Address: [address] [place] [address] Performed By: #### 1 6128-1 #### [facility] CLIA [id number] [address] [place] [address] [place] ALT [Catalytic activity/Vol] 24 U/L Normal 7-38 [facility] Comment on above: Order Comment: Speci men Type: BLOOD SPECIMEN Ordering Facility: [facility] Address: [address] [place] [address] Performed By: #### 1 6128-1 #### [facility] CLIA [id number] [address] [place] [address] [place] Anion gap [Moles/Vol] 9 mmol/L Normal 8-15 [facility] Comment on above: Order Comment: Speci men Type: BLOOD SPECIMEN Ordering Facility: [facility] Address: [address] [place] [address] Performed By: #### 1 6128-1 #### [facility] CLIA [id number] [address] [place] [address] [place] AST [Catalytic activity/Vol] 22 U/L Normal 13-35 [facility] Comment on above: Order Comment: Speci men Type: BLOOD SPECIMEN Ordering Facility: [facility] Address: [address] [place] [address] Performed By: #### 1 6128-1 #### [facility] CLIA [id number] [address] [place] [address] [place] Bilirubin [Mass/Vol] 0.4 mg/dL Normal 0.2-1.3 [facility] Comment on above: Order Comment: Speci men Type: BLOOD SPECIMEN Ordering Facility: [facility] Address: [address] [place] [address] Performed By: #### 1 6128-1 #### [facility] CLIA [id number] [address] [place] [address] [place] Calcium [Mass/Vol] 9.4 mg/dL Normal 8.5-10.2 [facility] Comment on above: Order Comment: Speci men Type: BLOOD SPECIMEN Ordering Facility: [facility] Address: [address] [place] [address] Performed By: #### 1 6128-1 #### [facility] CLIA [id number] [address] [place] [address] [place] Chloride [Moles/Vol] 103 mmol/L Normal 98-107 [facility] Comment on above: Order Comment: Speci men Type: BLOOD SPECIMEN Ordering Facility: [facility] Address: [address] [place] [address] Performed By: #### 1 6128-1 #### [facility] CLIA [id number] [address] [place] [address] [place] CO2 [Moles/Vol] 22 mmol/L Normal 22-30 [facility] Comment on above: Order Comment: Speci men Type: BLOOD SPECIMEN Ordering Facility: [facility] Address: [address] [place] [address] Performed By: #### 1 6128-1 #### [facility] CLIA [id number] [address] [place] [address] [place] Creatinine [Mass/Vol] 0.67 mg/dL Normal 0.58-0.96 [facility] Comment on above: Order Comment: Speci men Type: BLOOD SPECIMEN Ordering Facility: [facility] Address: [address] [place] [address] Performed By: #### 1 6128-1 #### [facility] CLIA [id number] [address] [place] [address] [place] Creatinine and Glomerular filtration rate.predicted panel (S/P/Bld) 122 mL/min/1.73m??? Normal >=60 [facility] Comment on above: Order Comment: Speci men Type: BLOOD SPECIMEN Ordering Facility: [facility] Address: [address] [place] [address] Result Comment: Katelyn mated Glomerular Filtration Rate (eGFR) is calculated using the 2020 CKD-EPI creatinine equation. This equation utilizes serum creatinine, sex, and age as parameters. The creatinine assay has traceable calibration to isotope dilution-mass spectrometry. Refer to KDIGO guidelines for clinical interpretation. In patients with unstable renal function, e.g. those with acute kidney injury, the eGFR may not accurately reflect actual GFR. Performed By: #### 1 6128-1 #### [facility] CLIA [id number] [address] [place] [address] [place] Glucose [Mass/Vol] 90 mg/dL Normal 74-99 [facility] Comment on above: Order Comment: Speci men Type: BLOOD SPECIMEN Ordering Facility: [facility] Address: [address] [place] [address] Result Comment: The [place] Diabetes Association (ADA) provides guidance for cutoff values for fasting glucose and random glucose. The ADA defines fasting as no caloric intake for at least 8 hours. Fasting plasma glucose results between 100 to 125 mg/dL indicate increased risk for diabetes (prediabetes). Fasting plasma glucose results greater than or equal to 126 mg/dL meet the criteria for diagnosis of diabetes. In the absence of unequivocal hyperglycemia, results should be confirmed by repeat testing. In a patient with classic symptoms of hyperglycemia or hyperglycemic crisis, random plasma glucose results greater than or equal to 200 mg/dL meet the criteria for diagnosis of diabetes. Reference: Standards of Medical Care in Diabetes 2016, [place] Diabetes Association. Diabetes Care. 2016.39(Suppl 1). Performed By: #### 1 6128-1 #### [facility] CLIA [id number] [address] [place] [address] [place] Potassium [Moles/Vol] 4.2 mmol/L Normal 3.7-5.1 [facility] Comment on above: Order Comment: Speci men Type: BLOOD SPECIMEN Ordering Facility: [facility] Address: [address] [place] [address] Performed By: #### 1 6128-1 #### [facility] CLIA [id number] [address] [place] [address] [place] Protein [Mass/Vol] 7.2 g/dL Normal 6.3-8.0 [facility] Comment on above: Order Comment: Speci men Type: BLOOD SPECIMEN Ordering Facility: [facility] Address: [address] [place] [address] Performed By: #### 1 6128-1 #### [facility] CLIA [id number] [address] [place] [address] [place] Sodium [Moles/Vol] 134 mmol/L Low 136-144 [facility] Comment on above: Order Comment: Speci men Type: BLOOD SPECIMEN Ordering Facility: [facility] Address: [address] [place] [address] Performed By: #### 1 6128-1 #### [facility] CLIA [id number] [address] [place] [address] [place] Urea nitrogen [Mass/Vol] 11 mg/dL Normal 7-21 [facility] Comment on above: Order Comment: Cheo lara Type: BLOOD SPECIMEN Ordering Facility: [facility] Address: [address] [place] [address] Performed By: #### 1 6128-1 #### [facility] CLIA [id number] [address] [place] [address] [place] HbA1c (Bld)on 03-15-2024 Average glucose Estimated from glycated hemoglobin (Bld) [Mass/Vol] 100 mg/dL Normal [facility] Comment on above: Order Comment: Cheo lara Type: BLOOD SPECIMENOrdering Facility: [facility] Address: [address] [place] [address] Result Comment: eAG: (Estimated average glucose) is a calculated value from HgbA1c and is medical claims representative of the average blood glucose level in the last 2-3 month period. Performed By: #### 5 5454-3 ####[facility] [id number] [place] [address] [place] HbA1c (Bld) [Mass fraction] 5.1 % Normal 4.3-5.6 [facility] Comment on above: Order Comment: Cheo lara Type: BLOOD SPECIMENOrdering Facility: [facility] Address: [address] [place] [address] Result Comment: [place] Diabetes Association guidelines indicate that patients with HgbA1c in the range 5.7-6.4% are at increased risk for development of diabetes, and intervention by lifestyle modification may be beneficial. HgbA1c greater or equal to 6.5% is considered diagnostic of diabetes. Performed By: #### 5 5454-3 ####[facility] [id number] [place] [address] [place] Lipid 1996 panelon 4 Cholesterol [Mass/Vol] 145 mg/dL Normal <200 [facility] Comment on above: Order Comment: Speci men Type: BLOOD SPECIMENOrdering Facility: [facility] Address: [address] [place] [address] Result Comment: <200 mg/dL, Desirable 200-239 mg/dL, Borderline high >239 mg/dL, High Performed By: #### 2 4331-1, 79244-6, 3015-3 ####[facility] [id number] [facility] [place] [address] [place] Cholesterol in HDL [Mass/Vol] 55 mg/dL Normal >39 [facility] Comment on above: Order Comment: Speci men Type: BLOOD SPECIMENOrdering Facility: [facility] Address: [address] [place] [address] Result Comment: 40-5 9 mg/dL, Acceptable >59 mg/dL, High: Negative risk factor for coronary heart disease <40 mg/dL, Low: Positive risk factor for coronary heart disease Performed By: #### 2 4331-1, 51247-4, 3 ####[facility] [id number] [facility] [address] [place] Cholesterol in LDL [Mass/Vol] 80 mg/dL Normal <100 [facility] Comment on above: Order Comment: Speci men Type: BLOOD SPECIMENOrdering Facility: [facility] Address: [address] [place] [address] Result Comment: <100 mg/dL, Optimal 100-129 mg/dL, Near optimal/above optimal 130-159 mg/dL, Borderline high 160-189 mg/dL, High >189 mg/dL, Very high Secondary prevention optimal LDL Cholesterol levels are recommended to be < 70 mg/dL Performed By: #### 2 4331-1, 85129-2, 3015-3 ####[facility] [id number] [facility] [address] [address] [place] Cholesterol in LDL/Cholesterol in HDL [Mass ratio] 1.45 {ratio} Normal <2.54 [facility] Comment on above: Order Comment: Leydai men Type: BLOOD SPECIMENOrdering Facility: [facility] Address: [address] [place] [address] Result Comment: Yuliana mc: 1. National Cholesterol Education Program ATP III Guideline At-A-Glance Quick Desk Reference: National Heart, Lung, and Blood Blue Bell. National Institutes of Health. 2001: NIH Publication No. 01-3305. 2. An International Atherosclerosis Society position paper: global recommendations for the management of dyslipidemia: executive summary, Atherosclerosis. 2014: 232(2):410-413. Performed By: #### 2 4331-1, 47648-5, 6-3 ####[facility] [id number] [place] [address] [place] Cholesterol in VLDL [Mass/Vol] 10 mg/dL Normal <30 [facility] Comment on above: Order Comment: Leydai men Type: BLOOD SPECIMENOrdering Facility: [facility] Address: [address] [place] [address] Performed By: #### 2 4331-1, 63532-6, 3015-3 ####[facility] [id number] [place] [address] [place] Cholesterol non HDL [Mass/Vol] 90 mg/dL Normal <130 [facility] Comment on above: Order Comment: Cheo lara Type: BLOOD SPECIMENOrdering Facility: [facility] Address: [address] [place] [address] Result Comment: <130 mg/dL, Optimal 130-159 mg/dL, Near optimal/above optimal 160-189 mg/dL, Borderline high 190-219 mg/dL, High >219 mg/dL, Very high Secondary prevention optimal non HDL Cholesterol levels are recommended to be <100 mg/dL Performed By: #### 2 4331-1, 51756-8, 6-3 ####[facility] [id number] [address] [address] [place] Cholesterol.total/Sadaf sterol in HDL [Mass ratio] 2.64 {ratio} Normal <5.10 [facility] Comment on above: Order Comment: Speci men Type: BLOOD SPECIMENOrdering Facility: [facility] Address: [address] [place] [address] Performed By: #### 2 4331-1, 95837-7, 3 ####[facility] [id number] [place] [address] [place] FASTING TIME 14 hrs Normal [facility] Comment on above: Order Comment: Speci men Type: BLOOD SPECIMENOrdering Facility: [facility] Address: [address] [place] [address] Performed By: #### 2 4331-1, , 3 ####[facility] [id number] [place] [address] [place] Triglyceride [Mass/Vol] 48 mg/dL Normal <150 [facility] Comment on above: Order Comment: Speci men Type: BLOOD SPECIMENOrdering Facility: [facility] Address: [address] [place] [address] Result Comment: <150 mg/dL, Normal 150-199 mg/dL, Borderline high 200-499 mg/dL, High >499 mg/dL, Very high Performed By: #### 2 4331-1, 81282-2, 3 ####[facility] [id number] [place] [address] [place] TSH SerPl-aCncon 03-15-2024 TSH Qn 2.350 m[IU]/L Normal 0.270-4.200 [facility] Comment on above: Order Comment: Speci men Type: BLOOD SPECIMENOrdering Facility: [facility] Address: [address] [place] [address] Result Comment: If t he patient is , TSH reference range varies by gestational period: First Trimester (weeks 9-12): 0.180-2.990 mIU/L Second Trimester: 0.110-3.980 mIU/L Third Trimester: 0.480-4.710 mIU/L Matthew Sommer et al. A Practical Approach for the Verifications and Determination of Site- and Trimester-Specific Reference Intervals for Thyroid Function tests in . Thyroid, 2019:29:3:412-420. Sanju Horowitz, et al. 2017 Guidelines of the [place] Thyroid Association for the Diagnosis and Management of Thyroid Disease during and the . Thyroid, 2017:27:3:315-389. Performed By: #### 2 4331-1, 71806-0, 3016-3 ####[facility] [id number] [address] [facility] CNOVon 02-21-2024 CNOV Office Visit (OBGYWM) VEGA SINCLAIR ([id number]) 1995 F Date Time Provider Department 02/21/24 4:00 PM CAMILLA AGUILERA OBESTELLE During your visit today, we recorded the following information about you: Blood pressure Weight Height Last Period 110/68 78.9 kg 1.575 m 02/05/24 Camilla Aguilera APRN.CNM 02/21/2024 4:33 PM Signed Algebra Teacher offered: Patient declines. Ferrari is a 28 year old who presents for an annual gynecologic exam without complaints. Menses: cycles every month but very light. 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 PAST MEDICAL HISTORY Diagnosis Date Anal fissure Anemia Bulimia Gallstone Hypothyroidism Mental disorder depression PAST SURGICAL HISTORY Procedure Laterality Date PAST SURGICAL HISTORY OF wisdom teeth SPHINCTEROTOMY 12/2022 TONSILLECTOMY AND ADENOIDECTOMY HX childhood FAMILY HISTORY Problem Relation Age of Onset Migraines Mother Anxiety disorder Mother anxiety/depression Hypertension Father Anxiety disorder Sister anxiety depression Anxiety disorder Sister anxiety /depression No Known Problems Maternal Grandmother Prostate Cancer Maternal Grandfather Thyroid Paternal Grandmother No Known Problems Paternal Grandfather other (digeorge) Other No Known Problems Daughter SOCIAL HISTORY Social History Tobacco Use Smoking status: Never Smokeless tobacco: Never Vaping Use Vaping status: Never Used Substance Use Topics Alcohol use: Not Currently Comment: Socially Drug use: No REVIEW OF SYSTEMS Abdomen: No abdominal pain, nausea, vomiting, diarrhea, or constipation. No bloating, early satiety, indigestion, or increased flatulence. Bladder: No dysuria, gross hematuria, urinary frequency, urinary urgency, or incontinence. Breast: No breast lumps, nipple d/c, overlying skin changes, redness or skin retraction. Allergies and current medication updated:Yes SENSITIVE EXAM: The sensitive examination was discussed with the Patient or Patient's Authorized 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 Strategist. As applicable, any other physician, advance practice provider, medical student, or other health professional student that will be observing or involved in the sensitive examination for educational or training purposes was discussed with the Patient or Authorized 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 Strategist. The Patient or Authorized 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 Strategist has agreed to proceed with the sensitive examination. (Sensitive examination includes inspection and/or palpation of the breasts, pelvis, prostate and anorectal regions). EXAM: LMP 12/25/2022 GENERAL: pleasant, female in no apparent distress HEENT: Normocephalic, atraumatic, mucus membranes moist, and no lesions NECK: Supple and full range of motion DERMATOLOGY: Normal and without lesions BREAST: soft, non-tender, symmetric, no dominant mass, normal nipple-areolar complex, no lymphadenopathy, no nipple discharge, and fibrocystic changes CHEST: Normal inspiratory effort ABDOMEN: soft, non-tender, and no masses PELVIC: external genitalia normal, normal Bartholin's glands, urethra, [place]'s glands, no vulvar lesions, no cervical lesions, good vaginal support, physiologic discharge present, normal appearing perineal body and perianal region BIMANUAL: uterus normal size, shape and consistency, no adnexal masses, non-tender, and no cervical motion tenderness RECTOVAGINAL: deferred. NEURO: alert and oriented x3,exam grossly non-focal EXTREMITIES: normal ASSESSMENT/PLAN: 1) Health maintenance: Pap/HPV up to date. Nutrition, exercise and routine health maintenance exams reviewed. 2) Contraception: none. Desires Taking vitamin 3) STD screening: Declined STD check. 4) Follow up one year or sooner as needed Camilla Aguilera APRN.CNM Allergies As of Date: 02/21/2024 Noted Allergy Reaction AMOXICILLIN 11/15/2017 4 - Hives KEFLEX (CEPHALEXIN) 11/15/2017 11 - Vomiting SEASONAL ALLERGIES 11/15/2017 9 - Itching Date Reviewed: 02/21/2024 Reviewed by: Guillaume Conteh MA - Fully Assessed Reason for Visit: Well Woman [1463] Primary Visit Diagnosis:Encounter for gynecological examination (general) (routine) without abnormal findings [Z01.419] Prescriptions as of 02/21/2024 - MAGNESIUM ORAL Take by mouth. - levothyroxine (SYNTHROID) 112 mcg tablet Take 1 tablet by mouth five days per week. Take 1/2 tablet by mouth 2 day (more content not included)... Normal [facility] CNOVon 02-12-2024 CNOV Office Visit (PODIWS) VEGA SINCLAIR ([id number]) 1995 F Date Time Provider Department 02/12/24 3:45 PM JORDIN ISAAC PODIWS During your visit today, we recorded the following information about you: Radha Alvarez LPN 02/12/2024 7:06 PM Signed AMB ROOMING INTAKE FLOWSHEET DATA Patient presents with: Left Foot - Established Patient, Follow Up, Ingrown Toenail Right Foot - Established Patient, Follow Up, Ingrown Toenail EDU Ragland Amelia, LPN 02/12/2024 4:33 PM Signed Post-Op Nail Instructions Minimize activity until the anesthesia wears off (about 2-8 hours). Increase activity to tolerance Remove bandage tomorrow Soak affected toe/foot in epsom salts for 15-20 minutes twice daily After soaking, apply antibiotic ointment (OTC Neosporin) to affected toe and re bandage OTC Ibuprofen if having pain, provided you have no allergies or intolerance to NSAIDS Mild drainage, redness, and blood is expected, but if you expeirence severe pain, increase in drainage, swelling, or red streaking please contact our office immediately Feel free to contact office as well if you have any questions/concerns [phone], ask for Podiatry Nurse Naima Haro RN 02/12/2024 7:06 PM Signed UNIVERSAL PROTOCOL / SAFETY CHECKLIST Procedure to be Performed: Partial nail chemical matrixectomy of bilateral hallux medial and lateral nail border Sign In: A Moment of CARE was completed. Personnel directly involved with the procedure wore the appropriate PPE (Personal Protective Equipment). Special equipment: nail kit Patient/Surrogate Stated/Verified: PATIENT VERIFIED(optional for EMERGENT procedures): Patient name, Date of , Relevant allergies, and The intended procedure Time Out Communication: Intended patient and procedure match the source documents. Consent documented and matches the intended procedure. No relevant labs, photos, and/or imaging studies were applicable for review. Correct side/site marked and visible. Medications required for procedure verified. No fire risk assessment and interventions applicable. No implant(s) inserted. Sign Out: SIGN OUT (optional for EMERGENT procedures): No specimen collected. All instruments, equipment, possible retained foreign bodies accounted for. Post-procedure follow-up management communicated and Plan of Care Visit completed when applicable. EVELYNE ReyesCarlita carterew 02/12/2024 7:06 PM Signed FOLLOW UP PODIATRIC OFFICE VISIT Chief Complaint: This 28 year old who presents for follow up:b/l hallux ingrowing toenail Patient presents to clinic for follow-up b/l hallux ingrowing toenail. She complains of pain to medial and lateral nail border of b/l hallux. She is interested in doing a procedure to b/l hallux medial and lateral nail border PAIN EVALUATION No data found in the last 1 encounters. No results found for: HBA1C PCP: Jayce Shipley APRN.CNP PAST MEDICAL HISTORY Diagnosis Date Anal fissure Anemia Bulimia Gallstone Hypothyroidism Mental disorder depression Current Outpatient Medications Medication Sig levothyroxine (SYNTHROID) 112 mcg tablet Take 1 tablet by mouth five days per week. Take 1/2 tablet by mouth 2 days per week. doxycycline hyclate (VIBRAMYCIN) 100 mg capsule Take 1 capsule by mouth two times a day. (Patient not taking: Reported on 10/09/2023) levonorgestrel (MIRENA) 21 mcg/24 hours (8 yrs) 52 mg IUD 1 Each by INTRAUTERINE route as directed. lidocaine (CPD) 1 application by RECTAL route three times daily as needed. Comments for compounding pharmacy: Compound Nifedipine 0.2%, Diltiazem 2%, and Lidocaine 5% (Patient not taking: Reported on 03/12/2023) fluticasone (FLONASE) 50 mcg/actuation nasal spray Use 2 Sprays in each nostril once daily. Rinse mouth after use. prental multivitamin 27 mg iron- 800 mcg tablet Take 1 tablet by mouth once daily. polyethylene glycol 3350 (MIRALAX ORAL) Take by mouth once daily. docusate sodium (STOOL SOFTENER ORAL) Take by mouth. loratadine (CLARITIN ORAL) Take by mouth. No current facility-administere d medications for this visit. ALLERGIES Allergen Reactions Amoxicillin Hives Keflex [Cephalexin] Vomiting Seasonal Allergies Itching PAST SURGICAL HISTORY Procedure Laterality Date PAST SURGICAL HISTORY OF wisdom teeth SPHINCTEROTOMY 12/2022 TONSILLECTOMY AND ADENOIDECTOMY HX childhood Physical Exam: OBJECTIVE: Constitutional: Pt is a well developed 28 year old female who is alert, oriented, cooperative and in no apparent distress. Eyes: Following during examination. No redness or drainage. Respiratory: RR normal and nonlabored. Even breathing. No evidence of distress. Psychology: Patient is engaged during conversation. Normal affect and mood. Does not appear depressed or anxious. Vascular: DP and PT pu (more content not included)... Normal [facility] CNOVon 02-08-2024 CNOV Office Visit (OBGYWM) VEGA SINCLAIR ([id number]) 1995 F Date Time Provider Department 02/08/24 4:00 PM BENTON CARCAMO OBGYWSaran During your visit today, we recorded the following information about you: Blood pressure Weight 98/58 78.9 kg Benton Carcamo MD 02/08/2024 4:17 PM Signed Vega presents for removal of IUD due to desire for . UNIVERSAL PROTOCOL / SAFETY CHECKLIST Procedure to be Performed: IUD removal Sign In: A Moment of CARE was completed. Personnel directly involved with the procedure wore the appropriate PPE (Personal Protective Equipment). Patient/Surrogate Stated/Verified: PATIENT VERIFIED(optional for EMERGENT procedures): Patient name, Date of , Relevant allergies, and The intended procedure Time Out Communication: Intended patient and procedure match the source documents. Consent documented and matches the intended procedure. Sign Out: SIGN OUT (optional for EMERGENT procedures): No specimen collected. All instruments, equipment, possible retained foreign bodies accounted for. Post-procedure follow-up management communicated and Plan of Care Visit completed when applicable. Benton Carcamo MD PROCEDURE: Speculum placed in vagina, IUD string visualized and grasped with ring forceps. ASSESSMENT/PLAN: IUD removed without difficulty, intact, and patient tolerated procedure well. Contraception plans: none Reviewed pre-conception guidelines including folic acid supplementation. Benton Carcamo MD Referring Provider: CAMILLA AGUILERA [[id number]] Allergies As of Date: 02/08/2024 Noted Allergy Reaction AMOXICILLIN 11/15/2017 4 - Hives KEFLEX (CEPHALEXIN) 11/15/2017 11 - Vomiting SEASONAL ALLERGIES 11/15/2017 9 - Itching Date Reviewed: 02/08/2024 Reviewed by: Benton Carcamo MD - Fully Assessed Reason for Visit: IUD Removal [1950] Primary Visit Diagnosis:Encounter for IUD removal [Z30.432] Prescriptions as of 02/08/2024 - levothyroxine (SYNTHROID) 112 mcg tablet Take 1 tablet by mouth five days per week. Take 1/2 tablet by mouth 2 days per week. - doxycycline hyclate (VIBRAMYCIN) 100 mg capsule Take 1 capsule by mouth two times a day. - levonorgestrel (MIRENA) 21 mcg/24 hours (8 yrs) 52 mg IUD 1 Each by INTRAUTERINE route as directed. - lidocaine (CPD) 1 application by RECTAL route three times daily as needed. Comments for compounding pharmacy: Compound Nifedipine 0.2%, Diltiazem 2%, and Lidocaine 5% - fluticasone (FLONASE) 50 mcg/actuation nasal spray Use 2 Sprays in each nostril once daily. Rinse mouth after use. - prental multivitamin 27 mg iron- 800 mcg tablet Take 1 tablet by mouth once daily. - polyethylene glycol 3350 (MIRALAX ORAL) Take by mouth once daily. - docusate sodium (STOOL SOFTENER ORAL) Take by mouth. - loratadine (CLARITIN ORAL) Take by mouth. Problem List As Of Date 02/08/2024 Noted Resolved Hypothyroidism [E03.9] 07/18/2018 Current in first trimester with histo*08/08/2018 10/16/2018 History of thyroid disorder [Z86.39] 08/08/2018 History of depression [Z86.59] 08/08/2018 Family history of genetic disease [Z84.89] 08/08/2018 Patient request for diagnostic testing [Z01.89] 08/08/2018 size inconsistent with dates [O26.849] 08/22/2018 10/16/2018 History of depression [Z87.59, Z86.5*02/23/2022 History of bulimia [Z86.59] 02/23/2022 History of anal fissures [Z87.19] 02/23/2022 Pre-op evaluation [Z01.818] 12/21/2022 Obese [E66.9] 12/21/2022 Encounter Status:Closed by BENTON CARCAMO on 02/08/24 [facility] Michael 02-04-2024 JEREL Telephone (OBGYWM) VEGA SINCLAIR ([id number]) 1995 F Date Time Provider Department 02/04/24 CAMILLA AGUILERA During your visit today, we recorded the following information about you: Marcia Mccord RN 02/04/2024 2:20 PM Signed Patient scheduled for annual with 02/21/24. She also wants her IUD removed to try to conceive again. Asking if you can do at her annual appt or if this needs to be separate? Please file order. EVELYNE Beach Trisha, RN 02/04/2024 2:57 PM Signed Please file order so she can schedule. EVELYNE Beach Courtney, APRN.[facility] 02/04/2024 4:02 PM Signed Order placed! Thank you. Camilla Aguilera APRN.[facility] Marcia Mccord RN 02/04/2024 4:11 PM Signed Left message for patient to call office or check Logentries message. Marcia Mccord RN Allergies As of Date: 02/04/2024 Noted Allergy Reaction AMOXICILLIN 11/15/2017 4 - Hives KEFLEX (CEPHALEXIN) 11/15/2017 11 - Vomiting SEASONAL ALLERGIES 11/15/2017 9 - Itching Date Reviewed: 10/16/2023 Reviewed by: Tristian Kirk APRN.PAPERHANGER ASSISTANT - Fully Assessed Reason for Visit: Patient Question [1477] Primary Visit Diagnosis:Encounter for IUD removal [Z30.432] Order(s):REMOVE INTRAUTERINE DEVICE [2139033] Order #: [id number] Prescriptions as of 02/04/2024 - levothyroxine (SYNTHROID) 112 mcg tablet Take 1 tablet by mouth five days per week. Take 1/2 tablet by mouth 2 days per week. - doxycycline hyclate (VIBRAMYCIN) 100 mg capsule Take 1 capsule by mouth two times a day. - levonorgestrel (MIRENA) 21 mcg/24 hours (8 yrs) 52 mg IUD 1 Each by INTRAUTERINE route as directed. - lidocaine (CPD) 1 application by RECTAL route three times daily as needed. Comments for compounding pharmacy: Compound Nifedipine 0.2%, Diltiazem 2%, and Lidocaine 5% - fluticasone (FLONASE) 50 mcg/actuation nasal spray Use 2 Sprays in each nostril once daily. Rinse mouth after use. - prental multivitamin 27 mg iron- 800 mcg tablet Take 1 tablet by mouth once daily. - polyethylene glycol 3350 (MIRALAX ORAL) Take by mouth once daily. - docusate sodium (STOOL SOFTENER ORAL) Take by mouth. - loratadine (CLARITIN ORAL) Take by mouth. Problem List As Of Date 02/04/2024 Noted Resolved Hypothyroidism [E03.9] 07/18/2018 Current in first trimester with histo*08/08/2018 10/16/2018 History of thyroid disorder [Z86.39] 08/08/2018 History of depression [Z86.59] 08/08/2018 Family history of genetic disease [Z84.89] 08/08/2018 Patient request for diagnostic testing [Z01.89] 08/08/2018 size inconsistent with dates [O26.849] 08/22/2018 10/16/2018 History of depression [Z87.59, Z86.5*02/23/2022 History of bulimia [Z86.59] 02/23/2022 History of anal fissures [Z87.19] 02/23/2022 Pre-op evaluation [Z01.818] 12/21/2022 Obese [E66.9] 12/21/2022 Encounter Status:Closed by CAMILLA AGUILERA on 02/04/24 Normal [facility] ABSCESS AND WOUND CULTURE WI TH GRAM STAINOrdered By: Meredith Woodruff on 09-28-2023 Bacteria identified Cx Nom (Wound) Moderate Staphylococcus lugdunensis Abnormal [facility] Bacteria identified Cx Nom (Wound) Rare Aeromonas hydrophila Abnormal [facility] Comment on above: No further workup Bacteria identified Cx Nom (Wound) Few skin su [facility] Bacteria identified Cx Nom ( Wound)Ordered By: Meredith Woodruff on 09-28-2023 Interpretation and review of laboratory results Abnormal [facility] Microscopic observation Smear Nom (Unsp spec) Positive Abnormal [facility] Microscopic observation Smear Nom (Unsp spec) No Polymorphonuclear Leukocytes Abnormal [facility] This test was developed and its performance characteristics determined by the [facility]'s [facility] [place] ([facility] It has not been cleared or approved by the FDA. [facility] is regulated under CLIA as qualified to perform high-complexity testing. This test is used for clinical purposes. It should not be regarded as investigational or for research. [facility] XR Toes - left 3 Viewson IMPRESSION: No acute osseous abnormality [employer] Account Manager: PSCGaetano Transcribe Date/Time: Sep 28 2023 4:25P Dictated by : EVELIA IRVING MD This examination was interpreted and the report reviewed and electronically signed by: EVELIA IRVING MD on Sep 28 2023 4:26PM [facility] DIVISION OF RADIOLOGY * * *Final Report* * * DATE OF EXAM: Sep 25 2023 10:29AM [id number] - XR TOE 3V AP/LAT/OBL LT / PROCEDURE REASON: Ingrowing toenail * * * * Physician Interpretation * * * * EXAMINATION: XR TOE 3V AP/LAT/OBL LT CLINICAL HISTORY: Left first toe pain Technique: XR TOE 3V AP/LAT/OBL LT -- LEFT with 3 views on 3 images Comparison: X-ray left foot 09/05/2023 RESULT: No acute fracture or dislocation. Joint spaces are maintained. No periarticular erosions. DIVISION OF RADIOLOGY Provider, [facility] [place] - 09/28/2023 * * *Final Report* * * DATE OF EXAM: Sep 25 2023 10:29AM [id number] - XR TOE 3V AP/LAT/OBL LT / PROCEDURE REASON: Ingrowing toenail * * * * Physician Interpretation * * * * EXAMINATION: XR TOE 3V AP/LAT/OBL LT CLINICAL HISTORY: Left first toe pain Technique: XR TOE 3V AP/LAT/OBL LT -- LEFT with 3 views on 3 images Comparison: X-ray left foot 09/05/2023 RESULT: No acute fracture or dislocation. Joint spaces are maintained. No periarticular erosions. IMPRESSION IMPRESSION: No acute osseous abnormality [employer] Account Manager: PSCB Transcribe Date/Time: Sep 28 2023 4:25P Dictated by : EVELIA IRVING MD This examination was interpreted and the report reviewed and electronically signed by: EVELIA IRVING MD on Sep 28 2023 4:26PM EST [facility] XR Toes - left 3 ViewsOrdere d By: Cc Provider on 09-28-2023 [facility] XR Toes - left 3 Viewson Radiology Study observation (narrative) [facility] XR Foot - bilateral AP and L ateral and obliqueon 09-05-2023 IMPRESSION: No acute radiographic abnormalities seen in the bilateral feet. [employer] Account Manager: PSCB Transcribe Date/Time: Sep 05 2023 1:13P Dictated by : JOE YUNG MD This examination was interpreted and the report reviewed and electronically signed by: JOE YUNG MD on Sep 05 2023 1:23PM [facility] DIVISION OF RADIOLOGY * * *Final Report* * * DATE OF EXAM: Sep 05 2023 1:12PM [id number] - XR FOOT 3V AP/LAT/OBL BON / PROCEDURE REASON: Foot pain, left * * * * Physician Interpretation * * * * EXAM TITLE: XR FOOT 3V AP/LAT/OBL BON EXAM DATE/TIME: 09/05/2023 1:12 PM COMPARISON: None CLINICAL INDICATION/HISTORY: Injury. TECHNIQUE: AP, lateral and oblique views of both feet are presented. FINDINGS: No acute fractures or subluxations are noted. No bony erosions are seen. The joint spaces are well preserved. The mineralization of the bones is normal. There is no significant soft tissue swelling. DIVISION OF RADIOLOGY Provider, [facility] [place] - 09/05/2023 * * *Final Report* * * DATE OF EXAM: Sep 05 2023 1:12PM [id number] - XR FOOT 3V AP/LAT/OBL BON / PROCEDURE REASON: Foot pain, left * * * * Physician Interpretation * * * * EXAM TITLE: XR FOOT 3V AP/LAT/OBL BON EXAM DATE/TIME: 09/05/2023 1:12 PM COMPARISON: None CLINICAL INDICATION/HISTORY: Injury. TECHNIQUE: AP, lateral and oblique views of both feet are presented. FINDINGS: No acute fractures or subluxations are noted. No bony erosions are seen. The joint spaces are well preserved. The mineralization of the bones is normal. There is no significant soft tissue swelling. IMPRESSION IMPRESSION: No acute radiographic abnormalities seen in the bilateral feet. [employer] Account Manager: PSCB Transcribe Date/Time: Sep 05 2023 1:13P Dictated by : JOE YUNG MD This examination was interpreted and the report reviewed and electronically signed by: JOE YUNG MD on Sep 05 2023 1:23PM EST [facility] Radiology Study observation (narrative) [facility] XR Foot - bilateral AP and L ateral and obliqueOrdered By: Ccf Provider on 09-05-2023 [facility] STREP A MOLECULAR (POC)on Procedural Control Valid [facility] Strep A (POCT) Negative Negative [facility] HCG QUAL UR B/Oon 12-11-2022 status Negative neg - pos [facility] Quality Check Yes [facility] MR/BMS.BBCon 10-16-2022 MR/BMS.BBC [facility] [address] [place] [address] OFFICE VISIT Date of Service: 10/16/22 MR#: [id number] Acct: [id number] Name: VEGA SINCLAIR Rep #: [id number] : 1995 Provider: AUTUMN malin Age/Sex: 27/F [place] [facility] [place] Status: Signed Intake Vital Signs 10/13/22 07:23 10/16/22 16:36 Height 5 ft 2 in 5 ft 2 in Intake Visit Reasons: assessment Chief Complaint: assessment, nipple pain Accompanied by: Allergies animal dander Allergy (Mild, Verified 10/13/22 07:48) Unknown grass pollen Allergy (Mild, Verified 10/13/22 07:48) Unknown amoxicillin Allergy (Verified 10/13/22 07:48) Hives cephalexin [From Keflex] Allergy (Verified 10/13/22 07:48) Vomiting : Yes PFSH PFSH Medical History (Updated 10/13/22 @ 14:[address] Celine Vazquez MD) Anxiety Depression Encounter for screening for COVID-19 Impacted cerumen of both ears Thyroid disorder Social History (Updated 10/11/18 @ 10:43 by Moe DESHPANDE, PA) Smoking Status: Never smoker History Elective abortions Hx Para 1 Spontaneous abortions Hx # Term Pregnancies Ectopic pregnancies Hx # Pregnancies Multiple births # of living children HPI HPI HPI: VEGA SINCLAIR, is a 27 F who presents to the office today for assessment, nipple pain. History provided by the patient. ROS ROS Const Constitutional: Denies fever(s) or lethargy : Denies nipple discharge Skin Skin/Breast: Denies breast pain, breast skin changes or nipple discharge Details: brestfeeding q2-3 hours, 30 minutes per side, feels like breasts are starting to get heavier, baby is tongue/lip tied and patient having discomfort with nursing, worse at the start of the feed but slightly improves as the feed continue- but still painful, other child was lip/tongue tied and had extended pain and decreased supply Exam Maternal Assessment Breast Assessment Bilateral Breasts: Soft Nipple Assessment Bilateral Nipples: Everted Areolar Tissue Areolar Tissue: Pliable Assessment Baby Feeding History Is your baby latching onto the breast: Yes Number of Breast Feedings in 24 hours: 8-12 Minutes per breast: First Breast: 30 Minutes per breast: Second Breast: 30 Supplements Supplement Type:: None Breast Pumping Type of Breast Pump: [place], Spectra, [place] Frequency: has not started pumping Goals Breast Feeding Goals: Exclusive Exam Const General: comfortable and no acute distress Orientation: alert and oriented x3 Chest Breast inspection: normal inspection of the breasts Breast palpation: normal palpation of the breasts Other: bilateral nipples reddened Resp Effort Inspection: normal respiratory effort Skin General: no rashes or lesions noted Psych Appearance: grossly normal Mental Status: mental status grossly normal Affect: normal affect Assessment and Plan Assessment and Plan (1) nipple pain: Plan: Assisted patient to get deeper latch for baby to prevent further nipple breakdown. Will refer to dentist Dr. Obrien - que to get in EDUIN for nipple pain/transfer concerns. Can order combination cream as needed. Follow up if no improvement or for any new/worsening symptoms. (2) Care and examination of lactating mother: Plan: Educated on feeding on demand, pumping, ways to help milk supply. Follow up after tongue tie procedure or sooner as needed. Coding Level of Care Code Off vis,est,level 3 Diagnoses nipple pain O92.29 Care and examination of lactating mother Z39.1 11/06/22 1245 Date Jennifer Otto INSTRUMENT REPAIRER [employer] INSTRUMENT REPAIRER [employer]-C Cosigner Signature: Date (if applicable) CC: Normal [facility] CBC W/Diff, Automatedon 05- Absolute Lymph 1.97 X10 3/uL Normal 0.83-4.51 [facility] Comment on above: Performed By: #### L 100.0100, BTS #### [facility] [address] [place], [address] Absolute Neut 9.5 X10 3/uL High 2.0-7.7 [facility] Comment on above: Performed By: #### L 100.0100, BTS #### [facility] [address] [place], [address] Basophils/100 WBC (Bld) 0.3 % Normal 0-1 [facility] Comment on above: Performed By: #### L 100.0100, BTS #### [facility] [address] [place], [address] Eosinophils/100 WBC (Bld) 0.9 % Normal 0-5 [facility] Comment on above: Performed By: #### L 100.0100, BTS #### [facility] [address] [place], [address] IG% 0.600 Normal 0.0-0.9 [facility] Comment on above: Result Comment: IG% - Immature Granulocytes (promyelocytes, myelocytes and metamyelocytes) > 1% indicates that a LEFT SHIFT is Present. Performed By: #### L 100.0100, BTS #### [facility] [address] [place], [address] Lymphocytes/100 WBC (Bld) 15.7 % Low 19-41 [facility] Comment on above: Performed By: #### L 100.0100, BTS #### [facility] [address] [place], [address] Monocytes/100 WBC (Bld) 6.3 % Normal 0-10 [facility] Comment on above: Performed By: #### L 100.0100, BTS #### [facility] [address] [place], [address] Neutrophils/100 WBC (Bld) 76.2 % High 47-70 [facility] Comment on above: Performed By: #### L 100.0100, BTS #### [facility] [address] [place], [address] Nucleated RBC (Bld) [#/Vol] 0 10*3/uL Normal 0-5 [facility] Comment on above: Performed By: #### L 100.0100, BTS #### [facility] [address] [place], [address] Erythrocyte distribution width (RBC) [Ratio] 13.8 % Normal 11.6-14.6 [facility] Comment on above: Performed By: #### L 100.0100, BTS #### [facility] [address] [place], [address] Hematocrit (Bld) [Volume fraction] 37.2 % Normal 37-47 [facility] Comment on above: Performed By: #### L 100.0100, BTS #### [facility] [address] [place], [address] Hemoglobin (Bld) [Mass/Vol] 12.3 g/dL Normal 12.0-15.0 [facility] Comment on above: Performed By: #### L 100.0100, BTS #### [facility] [address] [place], [address] MCH (RBC) [Entitic mass] 28.9 pg Normal 27.0-32.0 [facility] Comment on above: Performed By: #### L 100.0100, BTS #### [facility] [address] [place], [address] MCHC (RBC) [Mass/Vol] 33.1 g/dL Normal 32-36 [facility] Comment on above: Performed By: #### L 100.0100, BTS #### [facility] [address] [place], [address] MCV (RBC) [Entitic vol] 87.5 fL Normal 81-99 [facility] Comment on above: Performed By: #### L 100.0100, BTS #### [facility] [address] [place], [address] Platelet mean volume (Bld) [Entitic vol] 10.5 fL Normal 6.2-12.0 [facility] Comment on above: Performed By: #### L 100.0100, BTS #### [facility] [address] [place], [address] Platelets (Bld) [#/Vol] 165 10*3/uL Normal 150-450 [facility] Comment on above: Performed By: #### L 100.0100, BTS #### [facility] [address] [place], [address] RBC (Bld) [#/Vol] 4.25 10*6/uL Normal 4.2-5.4 [facility] Comment on above: Performed By: #### L 100.0100, BTS #### [facility] [address] [place], [address] RDW SD 43.8 fl Normal 35.1-43.9 [facility] Comment on above: Performed By: #### L 100.0100, BTS #### [facility] [address] [place], [address] WBC (Bld) [#/Vol] 12.5 10*3/uL High 4.4-11.0 [facility] Comment on above: Performed By: #### L 100.0100, BTS #### [facility] [address] [place], [address] H AND P Exam - OB/GYNon 09-25 H&P Exam - [employer]IG[employer]TE [employer]ACHINE F[employer]ER [facility] Medical Records Department [address] [address] H P Exam - [employer] 10/13/22 0859 MR#: [id number] Acct: [id number] Name: VEGA SINCLAIR Rep #: [id number] : 1995 27 From: Celine Vazquez MD PCP: Care Physician,No Primary Status:ADM IN Location: [place] [id number] HPI - General General Date of Admission: 10/13/22 Date of Service: 10/13/22 Chief Complaint: induction of labor HPI Narrative VEGA SINCLAIR, is a 27 F who presents para 1-0-1-1 who presents at 39-3/7 weeks for induction of labor. Is an elective induction of labor for maternal discomfort. She is a multigravida with a Carrizales score of 6 or more. She denies any vaginal bleeding or leaking of fluid. She had some irregular contractions last night. This has been located to date by BMI of greater than 35. Estimated weight is less than 4500 g clinically and by ultrasound. Previous obstetrical history includes 1 previous spontaneous and 1 previous live 6 pounds 15 ounces without complications Past medical history significant for hypothyroidism, depression, eating disorder Medications include Synthroid, Flonase as needed and vitamin and MiraLAX as needed Maternal Data Information Final HAYES: 10/13/22 Gestational age: 39 3/7 [facility] Medical History (Updated 10/13/22 @ 09:[address] Celine Vazquez MD) Anxiety Depression Encounter for screening for COVID-19 Impacted cerumen of both ears Thyroid disorder Home Medications levothyroxine 75 mcg tablet 125 mcg PO DAILY hypothryoidism 03/20/19 [History Last Taken 10/13/22 06:00] vits,calcium no.78-iron fumarate-folic acid 29 mg-1 mg tablet 1 tab PO DAILY 03/20/19 [History Last Taken 10/12/22 21:00] fluticasone propionate 50 mcg/actuation nasal spray,suspension 1 spray NASAL DAILY seasonal allergies 04/11/19 [History Last Taken 07/07/22 21:00] polyethylene glycol 3350 17 gram/dose oral powder (Miralax) 17 g PO DAILY hx of anal fissure 10/13/22 [History Last Taken Unknown] Allergy/AdvReac Type Severity Reaction Status Date / Time animal dander Allergy Mild Unknown Verified 10/13/22 07:48 grass pollen Allergy Mild Unknown Verified 10/13/22 07:48 amoxicillin Allergy Hives Verified 10/13/22 07:48 cephalexin [From Keflex] Allergy Vomiting Verified 10/13/22 07:48 Social History (Updated 10/11/18 @ 10:43 by Moe DESHPANDE, PA) Smoking Status: Never smoker History Elective abortions Hx Para 1 Spontaneous abortions Hx # Term Pregnancies Ectopic pregnancies Hx # Pregnancies Multiple births # of living children ROS Constitutional Constitutional: Denies fatigue, fever(s) or malaise Eyes Eyes: Denies change in vision ENT HEENT: Denies dizziness or headache(s) Cardiovascular Cardiovascular: Denies chest pain, dyspnea or lightheadedness Respiratory/Chest Respiratory/Chest: Denies cough or dyspnea Gastrointestinal Gastrointestinal: Denies change in bowel habits Genitourinary Genitourinary: Denies burning urination or genital lesions Integumentary Integumentary: Denies rash Neurologic Neurologic: Denies confusion, dizziness, headache(s), numbness or weakness Vital Signs Vital Signs Vital Signs: 10/13/22 07:44 10/13/22 07:44 10/13/22 07:44 Temperature Temperature Source Pulse Rate 78 Blood Pressure 114/60 BP Systolic 114 BP Diastolic 60 Pulse Ox 98 10/13/22 07:44 10/13/22 07:44 10/13/22 08:37 Temperature 98.0 F Temperature Source Temporal Pulse Rate Blood Pressure 118/66 BP Systolic 118 BP Diastolic 66 Pulse Ox 10/13/22 08:37 10/13/22 08:36 10/13/22 08:36 Temperature 97.8 F Temperature Source Temporal Pulse Rate 74 Blood Pressure BP Systolic BP Diastolic Pulse Ox Weight Weight: 92.59 kg Body Mass Index (BMI) 37.3 Physical Exam Const alert and no apparent distress General Appearance: cooperative HEENT normocephalic Resp normal respiratory effort Cardio regular rate GI soft to palpation GI Narrative: gravid, nontender, appropriate for gestational age Extremity no calf tenderness General Extremity: edema Skin no wounds Rashes: No rashes noted Psych activity/motor behavior normal Labs Labs Labs: Blood Type O POSITIVE Antibody Screen NEGATIVE Hct 37.2 % (37-47) Hgb 12.3 g/dL (12.0-15.0) Syphilis Total Ab Non-reactive Rhogam given: No Assessment Plan (1) 39 weeks gestation of : PLAN: 27-year-old 3 para 1 at 39-3/7 weeks for induction of labor. Risk benefits and alternatives to induction labor him discussed with the patient, her questions were answered to her satisfact (more content not included)... Normal [facility] L509.8000on 10-13-2022 Syphilis Abs Non-Reactive Normal [facility] Comment on above: Performed By: #### L 509.8000 #### [facility] [address] [place], [address] Operative Reporton 3 Operative Report [facility] Medical Records Department [address] [place] [address] Operative Report 10/13/22 1436 MR#: [id number] Acct: [id number] Name: VEGA SINCLAIR Rep #: [id number] : 1995 27 From: Celine Vazquez MD PCP: Care Physician,No Primary Status:ADM IN Location: [id number] Assessment Plan (1) (spontaneous vaginal delivery): Maternal Data Information Final HAYES: 10/17/22 Gestational age: 39 3/7 Vaginal Delivery Maternal Presentation Maternal Presentation: Elective Induction Type of Induction: Pitocin, Daly Bulb and Amniotomy Operative Information Date of Procedure: 10/13/22 Pre-Operative Diagnosis: labor Post-Operative Diagnosis: same Surgery / Procedure Performed: Spontaneous Vaginal Delivery Type of Anesthesia: Epidural Special Medications: none Drain: Daly to straight drain Estimated Blood Loss: 300 Time of Delivery: 14:19 Findings Description of Procedure: A vigorous male infant was delivered MIKE over an intact perineum. The remainder the was delivered with maternal pushing and gentle traction only in less than 15 seconds. The Pitocin infusion was initiated for active management of the third stage. The cord was clamped and cut cord pulsations ceased. The infant was attended to by the waiting nursing staff. The placenta was delivered spontaneously and intact. The cervix and vagina were intact. Sponge and needle counts were correct. A vaginal sweep was completed by me. Presentation: MIKE Amniotic Membrane Rupture Type: Artificial Amniotic Fluid Description: Clear Placental Delivery Description: Spontaneous Placenta Disposition: [facility] Cord Vessel Description: 3 Vessels Cord Entanglement: None Infant A Gender: Male ([place]) (1 minute): 9 (5 minute): 9 Delayed Cord Clamping: Yes Post Vaginal Delivery Medications Given After Delivery: IV Pitocin Episiotomy Description: None Laceration: None Complication Complications: None 10/13/22 1439 Cosigner Signature (if applicable): CC: Dr. Celine Vazquez MD; No Primary Care Physician Signed [facility] Type AND Screenon 10-13-2022 Ab SCREEN GEL PENDING [facility] Comment on above: Order Comment: Labor Performed By: #### L 100.0100, BTS #### [facility] [address] [place], [place], [address] ABO and Rh group Nom (Bld) Blood group O Rh(D) positive [facility] Comment on above: Order Comment: Labor Performed By: #### L 100.0100, BTS #### [facility] [address] [place], [place], [address] URINE OB DIP B/Oon 3 Glucose Ql (U) Negative Neg mg/dL [facility] Protein.monoclonal (U) [Mass/Vol] Negative Neg mg/dL [facility] URINE OB DIP B/Oon 3 Glucose Ql (U) Negative Neg mg/dL [facility] Protein.monoclonal (U) [Mass/Vol] Negative Neg mg/dL [facility] URINE OB DIP B/Oon 3 Glucose Ql (U) Negative Neg mg/dL [facility] Protein.monoclonal (U) [Mass/Vol] Negative Neg mg/dL [facility] URINE OB DIP B/Oon 3 Glucose Ql (U) Negative Neg mg/dL [facility] Protein.monoclonal (U) [Mass/Vol] Negative Neg mg/dL [facility] OBSTETRIC ULTRASOUND WHIon 0 08-24-2022 [facility] URINE OB DIP B/Oon 3 Glucose Ql (U) Negative Neg mg/dL [facility] Protein.monoclonal (U) [Mass/Vol] Negative Neg mg/dL [facility] URINE OB DIP B/Oon 3 Glucose Ql (U) Negative Neg mg/dL [facility] Protein.monoclonal (U) [Mass/Vol] Negative Neg mg/dL [facility] CBC W/Diff, Automatedon 06-28 PATH REV N/A Normal [facility] Comment on above: Result Comment: AMENDED REPORT 07/09/22 0013 PATH REV previously reported as: September tristan Performed By: #### L 100.0100 #### [facility] [address] [address] [facility] [address] [place], [place], [id number] Urine Cultureon 07-09-2022 URC Culture exhibits no growth. Normal [facility] Comment on above: Performed By: #### M 100.2200 #### [facility] [address] [place], [place], [id number] Absolute lymphocyte countOrd ered By: Sylwia Moore on 07-08-2022 Lymphocytes Auto (Unsp spec) [#/Vol] 0.48 10*3/uL 0.83-4.51 [facility] Basophil percentageOrdered B y: Sylwia Moore on 07-08-2022 Basophil percentage 0-5 SEEN /hpf 0-5 [facility] Basophils/100 WBC (Bld) 0.1 % 0-1 [facility] Bilirubin [Mass/Vol] 0.60 mg/dL 0.20-1.00 [facility] Comment on above: For patients on eltr ombopag therapy, use of Dimension Garvin TBIL is not recommended. Chloride [Moles/Vol] 105 mmol/L 98-107 [facility] Eosinophils/100 WBC (Bld) 0.1 % 0-5 [facility] Glucose [Mass/Vol] 117 mg/dL 74-106 [facility] Comment on above: Fasting Glucose resu lt from 100 to 125 mg/dL suggests IMPAIRED HOMEOSTASIS per A.D.A. criteria. Neutrophils (Bld) [#/Vol] 13.9 10*3/uL 2.0-7.7 [facility] Neutrophils/100 WBC (Bld) 93.0 % 47-70 [facility] Potassium [Moles/Vol] 3.5 mmol/L 3.5-5.1 [facility] Protein [Mass/Vol] 7.3 g/dL 6.4-8.2 [facility] Sodium [Moles/Vol] 136 mmol/L 136-145 [facility] WBC (Bld) [#/Vol] 15.0 10*3/uL 4.4-11.0 [facility] Bilirubin Test strip Ql (U)O rdered By: Sylwia Moore on 07-08-2022 Bilirubin Ql (U) Negative Negative [facility] Blood erythrocytes count (nu mber/volume)Ordered By: Sylwia Moore on 07-08-2022 RBC (Bld) [#/Vol] 4.21 10*6/uL 4.2-5.4 [facility] Blood hemoglobin measurement (mass/volume)Ordered By: Sylwia Moore on 07-08-2022 Hemoglobin (Bld) [Mass/Vol] 12.5 g/dL 12.0-15.0 [facility] Blood lymphocytes/100 leukoc ytesOrdered By: Sylwia Moore on 07-08-2022 Lymphocytes/100 WBC (Bld) 3.2 % 19-41 [facility] Blood manual differential co mment interpretation (narrative result)Ordered By: Sylwia Moore on 07-08-2022 Manual differential comment Danilo (Bld) [Interp] SCANNED [facility] Blood monocytes/100 leukocyt esOrdered By: Sylwia Moore on 07-08-2022 Monocytes/100 WBC (Bld) 2.9 % 0-10 [facility] Blood platelet mean volumeOr dered By: Sylwia Moore on 07-08-2022 Platelet mean volume (Bld) [Entitic vol] 10.6 fL 6.2-12.0 [facility] Comprehensive Metabolic Prof ilon 07-08-2022 Albumin [Mass/Vol] 3.0 g/dL Low 3.2-5.0 [facility] Comment on above: Performed By: #### L 400.0001, L500.4050 #### [facility] [address] [place], [address] Albumin/Globulin [Mass ratio] 0.7 {ratio} Low 0.9-2.4 [facility] Comment on above: Performed By: #### L 400.0001, L500.4050 #### [facility] [address] [place], [address] ALK P 71 U/L Normal 45-117 [facility] Comment on above: Performed By: #### L 400.0001, L500.4050 #### [facility] [address] [place], [address] ALT [Catalytic activity/Vol] 17 U/L Normal 13-56 [facility] Comment on above: Performed By: #### L 400.0001, L500.4050 #### [facility] [address] [place], [address] AST [Catalytic activity/Vol] 14 U/L Low 15-37 [facility] Comment on above: Performed By: #### L 400.0001, L500.4050 #### [facility] [address] [place], [address] Bilirubin [Mass/Vol] 0.60 mg/dL Normal 0.20-1.00 [facility] Comment on above: Result Comment: For patients on eltrombopag therapy, use of Dimension Garvin TBIL is not recommended. Performed By: #### L 400.0001, L500.4050 #### [facility] [address] [place], [address] BUN/CRE 18.1 RATIO Normal 10-20 [facility] Comment on above: Performed By: #### L 400.0001, L500.4050 #### [facility] [address] [place], [address] CA,Total 9.1 mg/dL Normal 8.5-10.1 [facility] Comment on above: Performed By: #### L 400.0001, L500.4050 #### [facility] [address] [place], [address] Chloride [Moles/Vol] 105 mmol/L Normal 98-107 [facility] Comment on above: Performed By: #### L 400.0001, L500.4050 #### [facility] [address] [place], [address] CO2 [Moles/Vol] 22.0 mmol/L Normal 21.0-32.0 [facility] Comment on above: Performed By: #### L 400.0001, L500.4050 #### [facility] [address] [place], [address] Creatinine [Mass/Vol] 0.55 mg/dL Normal 0.55-1.02 [facility] Comment on above: Result Comment: The validity of the calculated GFR GFRAA in patients over 70 years has not been determined. Clinical correlation is essential. Performed By: #### L 400.0001, L500.4050 #### [facility] [address] [place], [address] ECRCL 121.52 ml/min Normal [facility] Comment on above: Performed By: #### L 400.0001, L500.4050 #### [facility] [address] [place], [address] EST GFR - AA 169 mL/min Normal >60 [facility] Comment on above: Result Comment: Afri can Uzbek GFR Calc Performed By: #### L 400.0001, L500.4050 #### [facility] [address] [place], [address] GAP 9 Normal 5-15 [facility] Comment on above: Performed By: #### L 400.0001, L500.4050 #### [facility] [address] [place], [address] GFR/1.73 sq M.predicted among non-blacks MDRD (S/P/Bld) [Vol rate/Area] 140 mL/min/{1.73_m2} Normal >60 [facility] Comment on above: Result Comment: Non- GFR Calc Performed By: #### L 400.0001, L500.4050 #### [facility] [address] [place], [address] Globulin (S) [Mass/Vol] 4.3 g/dL High 2.2-4.2 [facility] Comment on above: Performed By: #### L 400.0001, L500.4050 #### [facility] [address] [place], [address] Glucose [Mass/Vol] 117 mg/dL High 74-106 [facility] Comment on above: Result Comment: Fast ing Glucose result from 100 to 125 mg/dL suggests IMPAIRED HOMEOSTASIS per A.D.A. criteria. Performed By: #### L 400.0001, L500.4050 #### [facility] [address] [place], [address] Potassium [Moles/Vol] 3.5 mmol/L Normal 3.5-5.1 [facility] Comment on above: Performed By: #### L 400.0001, L500.4050 #### [facility] [address] [place], [address] Sodium [Moles/Vol] 136 mmol/L Normal 136-145 [facility] Comment on above: Performed By: #### L 400.0001, L500.4050 #### [facility] [address] [place], [address] T PROT 7.3 g/dL Normal 6.4-8.2 [facility] Comment on above: Performed By: #### L 400.0001, L500.4050 #### [facility] [address] [place], [address] Urea nitrogen [Mass/Vol] 10 mg/dL Normal 7-18 [facility] Comment on above: Performed By: #### L 400.0001, L500.4050 #### [facility] [address] [place], [address] Determination of erythrocyte mean corpuscular volume (MCV)Ordered By: Sylwia Moore on 07-08-2022 MCV (RBC) [Entitic vol] 87.9 fL 81-99 [facility] Hematocrit Auto (Bld) [Volum e fraction]Ordered By: Sylwia Moore on 07-08-2022 Hematocrit (Bld) [Volume fraction] 37.0 % 37-47 [facility] Ketones Test strip Ql (U)Ord ered By: Sylwia Moore on 07-08-2022 Ketones Ql (U) 150 mg/dl Negative [facility] Comment on above: CRITICAL VALUE *HCRI TICAL VALUE VERIFIED. CALLED TO FRANCHESKA BRUMFIELD07/08/22 Donald Pruitt.RESULTS READ BACK BY SAME . Laboratory - Chemistry and C hemistry - challengeOrdered By: Sylwia Moore on 07-08-2022 ALP [Catalytic activity/Vol] 71 U/L 45-117 [facility] ALT [Catalytic activity/Vol] 17 U/L 13-56 [facility] CO2 [Moles/Vol] 22.0 mmol/L 21.0-32.0 [facility] Globulin (S) [Mass/Vol] 4.3 g/dL 2.2-4.2 [facility] Urea nitrogen/Creatinine [Mass ratio] 18.1 mg/mg 10-20 [facility] - Hematology and Cell countsOrdered By: Sylwia Moore on 07-08-2022 Erythrocyte distribution width (RBC) [Entitic vol] 42.3 fL 35.1-43.9 [facility] Erythrocyte distribution width (RBC) [Ratio] 13.2 % 11.6-14.6 [facility] Immature granulocytes/100 WBC (Bld) 0.700 % 0.0-0.9 [facility] Comment on above: IG% - Immature Granu locytes (promyelocytes, myelocytes and metamyelocytes) > 1% indicates that a LEFT SHIFT is Present. MCH (RBC) [Entitic mass] 29.7 pg 27.0-32.0 [facility] Nucleated RBC/100 WBC (Bld) [Ratio] 0 % 0-5 [facility] MCHC Auto (RBC) [Mass/Vol]Or dered By: Sylwia Moore on 07-08-2022 MCHC (RBC) [Mass/Vol] 33.8 g/dL 32-36 [facility] Mucus LM Ql (Urine sed)Order ed By: Sylwia Moore on 07-08-2022 Mucus Ql (Urine sed) 0 SEEN /hpf [facility] Nitrite Test strip Ql (U)Ord ered By: Sylwia Moore on 07-08-2022 Nitrite Ql (U) Negative Negative [facility] No Panel InformationOrdered By: Sylwia Moore on 07-08-2022 Estimated Creatinine Clearance Calc 121.52 ml/min [facility] Estimated GFR (MDRD) Amer 169 mL/min >60 [facility] Comment on above: GFR Calc Estimated GFR (MDRD) Non-Af Amer 140 mL/min >60 [facility] Comment on above: Non- GFR Calc OB Triage Progress Noteon OB Triage Progress Note [facility] Medical Records Department [address] [facility] [place] [address] OB Triage Progress Note 07/08/22 1045 MR#: [id number] Acct: [id number] Name: VEGA SINCLAIR Rep #: [id number] : 1995 26 From: Sylwia Moore CNM PCP: Care Physician,No Primary Status:DEP CLI Y DOS: Location: [facility] Progress Notes Progress Note: at 25 weeks . Presents to labor and delivery with concerns of gastrointestinal illness. Diarrhea 10 times in the last 24 hrs. Having some dizziness. Nausea and emesis x1. Good movement. No vaginal bleeding or leakage of fluid. Laboratory Studies: Laboratory Tests 07/08/22 07/08/22 07/08/22 Range/Units 10:15 09:25 09:25 WBC 15.0 H (4.4-11.0) K/mm3 RBC 4.21 (4.2-5.4) M/mm3 Hgb 12.5 (12.0-15.0) g/dL Hct 37.0 (37-47) % MCV 87.9 (81-99) fL MCH 29.7 (27.0-32.0) pg MCHC 33.8 (32-36) g/dL RDW Std Deviation 42.3 (35.1-43.9) fl RDW Coeff of Silvana 13.2 (11.6-14.6) % Plt Count 199 (150-450) K/mm3 MPV 10.6 (6.2-12.0) fl Immature Gran % (Auto) 0.700 (0.0-0.9) % Neut % (Auto) 93.0 H (47-70) % Lymph % (Auto) 3.2 L (19-41) % [place] % (Auto) 2.9 (0-10) % Eos % (Auto) 0.1 (0-5) % Baso % (Auto) 0.1 (0-1) % Absolute Neuts (auto) 13.9 H (2.0-7.7) X10 3/uL Absolute Lymphs (auto) 0.48 L (0.83-4.51) X10 3/uL Nucleated RBC % 0 (0-5) % Differential Comment SCANNED Sodium 136 (136-145) mmol/L Potassium 3.5 (3.5-5.1) mmol/L Chloride 105 (98-107) mmol/L Carbon Dioxide 22.0 (21.0-32.0) mmol/L Anion Gap 9 (5-15) BUN 10 (7-18) mg/dL Creatinine 0.55 (0.55-1.02) mg/dL Estim Creat Clear Calc 121.52 ml/min Est GFR (MDRD) Af Amer 169 (>60) mL/min Est GFR (MDRD) Non-Af 140 (>60) mL/min BUN/Creatinine Ratio 18.1 (10-20) RATIO Glucose 117 H (74-106) mg/dL Calcium 9.1 (8.5-10.1) mg/dL Total Bilirubin 0.60 (0.20-1.00) mg/dL AST 14 L (15-37) U/L ALT 17 (13-56) U/L Alkaline Phosphatase 71 (45-117) U/L Total Protein 7.3 (6.4-8.2) g/dL Albumin 3.0 L (3.2-5.0) g/dL Globulin 4.3 H (2.2-4.2) g/dL Albumin/Globulin Ratio 0.7 L (0.9-2.4) RATIO Urine Color Yellow (Yellow) Urine Clarity Clear (Clear) Urine pH 6.0 (5.0 - 8.0) Ur Specific Seymour 1.025 (1.002-1.030) Urine Protein 30 H (Negative) mg/dl Urine Glucose (UA) Normal (Normal) mg/dl Urine Ketones 150 A* (Negative) mg/dl Urine Occult Blood Negative (Negative) /ul Urine Nitrite Negative (Negative) Urine Bilirubin Negative (Negative) mg/dL Urine Urobilinogen Normal (Normal) mg/dl Ur Leukocyte Esterase 25 H (Negative) /ul FHT 145, no contractions Assessment Plan (1) Nausea and vomiting: (2) 25 weeks gestation of : (3) Viral illness: PLAN: Plan 1) 1 Liter LR x 1 2) Zofran 4mg IVP x 1. Will send a prescription to pharmacy 3) CMP and CBC 4) Increase hydration slowly. BRAT diet 5) Follow up in one week and to call if no improvement 6) D/C home 07/09/22 0954 Date Sylwia Moore CNM Cosigner Signature (if applicable): Date _ CC: MARIA LUISA Moore; No Primary Care Physician Signed Normal [facility] Platelets bldOrdered By: Aurora Moore on 07-08-2022 Platelets (Bld) [#/Vol] 199 10*3/uL 150-450 [facility] Protein Test strip Ql (U)Ord ered By: Sylwia Moore on 07-08-2022 Protein Ql (U) 30 mg/dl Negative [facility] Serum or plasma albumin henry urement (mass/volume)Ordered By: Sylwia Moore on 07-08-2022 Albumin [Mass/Vol] 3.0 g/dL 3.2-5.0 [facility] Serum or plasma albumin/glob ulin mass ratioOrdered By: Sylwia Moore on 07-08-2022 Albumin/Globulin [Mass ratio] 0.7 {ratio} 0.9-2.4 [facility] Serum or plasma calcium henry urement (mass/volume)Ordered By: Sylwia Moore on 07-08-2022 Calcium [Mass/Vol] 9.1 mg/dL 8.5-10.1 [facility] Serum or plasma creatinine m easurement (mass/volume)Ordered By: Sylwia Moore on 07-08-2022 Creatinine [Mass/Vol] 0.55 mg/dL 0.55-1.02 [facility] Comment on above: The validity of the calculated GFR & GFRAA in patients over 70 years has not been determined. Clinical correlation is essential. Serum or plasma urea nitroge n measurement (mass/volume)Ordered By: Sylwia Moore on 07-08-2022 Urea nitrogen [Mass/Vol] 10 mg/dL 7-18 [facility] Squamous epithelial cells de tection in urine sediment by light microscopyOrdered By: Sylwia Moore on 07-08-2022 Epithelial cells.squamous LM Ql (Urine sed) 5-10 SEEN /hpf 5-10 [facility] Thin prep Papanicolaou smear with manual screeningOrdered By: Sylwia Moore on 07-08-2022 Thin prep Papanicolaou smear with manual screening 14 U/L 15-37 [facility] Thin prep Papanicolaou smear with manual screening 9 5-15 [facility] Urinalysis, Completeon 07-08 BACTERIA 1+ /hpf Normal None Seen [facility] Comment on above: Order Comment: CARLOS CTOR TO SPECIFY Performed By: #### L 400.0001, L500.4050 #### [facility] [address] [place], [address] EPI,SQUAMOUS 5-10 SEEN Normal 5-10 [facility] Comment on above: Order Comment: CARLOS CTOR TO SPECIFY Performed By: #### L 400.0001, L500.4050 #### [facility] [address] [place], [address] WBC 0-5 SEEN Normal 0-5 [facility] Comment on above: Order Comment: CARLOS CTOR TO SPECIFY Performed By: #### L 400.0001, L500.4050 #### [facility] [address] [place], [address] Mucus Ql (Urine sed) 0 SEEN Normal [facility] Comment on above: Order Comment: CARLOS CTOR TO SPECIFY Performed By: #### L 400.0001, L500.4050 #### [facility] [address] [place], [address] RBC 0 SEEN Normal 0-5 [facility] Comment on above: Order Comment: CARLOS CTOR TO SPECIFY Performed By: #### L 400.0001, L500.4050 #### [facility] [address] [place], [address] Urine blood detectionOrdered By: Sylwia Moore on 07-08-2022 RBC Ql (U) Negative Negative [facility] RBC Ql (U) 0 SEEN /hpf 0-5 [facility] Urine clarityOrdered By: Aurora Moore on 07-08-2022 Clarity (U) Clear Clear [facility] Urine color determinationOrd ered By: Sylwia Moore on 07-08-2022 Color (U) Yellow Yellow [facility] Urine glucose detectionOrder ed By: Sylwia Moore on 07-08-2022 Glucose Ql (U) Normal mg/dl Normal [facility] Urine leukocyte esterase det ection by dipstickOrdered By: Sylwia Moore on 07-08-2022 Leukocyte esterase Test strip Ql (U) 25 /ul Negative [facility] Urine pHOrdered By: Sylwia Moore on 07-08-2022 pH (U) 6.0 [pH] 5.0 - 8.0 [facility] Urine sediment bacteria coun t by microscopy (number/high power field)Ordered By: Sylwia Moore on 07-08-2022 Bacteria LM.HPF (Urine sed) [#/Area] 1 /[HPF] None Seen [facility] Urine specific gravity measu rementOrdered By: Sylwia Moore on 07-08-2022 Specific gravity (U) [Rel density] 1.025 1.002-1.030 [facility] Urobilinogen Auto test strip Ql (U)Ordered By: Sylwia Moore on 07-08-2022 Urobilinogen Ql (U) Normal mg/dl Normal [facility] URINE OB DIP B/Oon 3 Glucose Ql (U) Negative Neg mg/dL [facility] Protein.monoclonal (U) [Mass/Vol] Negative Neg mg/dL [facility] OBSTETRIC ULTRASOUND WHIon 1 [facility] URINE OB DIP B/Oon 2 Glucose Ql (U) Negative Neg mg/dL [facility] Protein.monoclonal (U) [Mass/Vol] Negative Neg mg/dL [facility] URINE OB DIP B/Oon 2 Glucose Ql (U) Negative Neg mg/dL [facility] Protein.monoclonal (U) [Mass/Vol] Negative Neg mg/dL [facility] NUCHAL TRANSLUCENCY WHIon [facility] URINE OB DIP B/Oon 2 Glucose Ql (U) Negative Neg mg/dL [facility] Protein.monoclonal (U) [Mass/Vol] Negative Neg mg/dL [facility] URINE CULTUREon 03-04-2022 Bacteria identified Cx Nom (U) <10,000 CFU/ml Normal urogenital su [facility] C. trachomatis+N. gonorrhoea e DNA DEVONTE+probe Ql (Unsp spec)on 03-03-2022 C. trachomatis DNA DEVONTE+probe Ql (Unsp spec) Negative Negative for Chlamydia trachomatis by amplificaton [facility] N. gonorrhoeae DNA DEVONTE+probe Ql (Unsp spec) Negative Negative for Neisseria gonorrhoeae by amplification [facility] Vital Signs Date Time Vital Sign Value Performing Clinician Facility 10-29-2024 16:22-0400 Body mass index (BMI) [Ratio] 35.75 kg/m2 Ester Bartlett MD Work Phone: [facility] 10-29-2024 16:22-0400 Body weight 92.08 kg Ester Bartlett MD Work Phone: [facility] 10-29-2024 16:22-0400 Diastolic blood pressure 78 mm[Hg] Ester Bartlett MD Work Phone: [facility] 10-29-2024 16:22-0400 Systolic blood pressure 106 mm[Hg] Ester Bartlett MD Work Phone: [facility] 10-22-2024 16:13-0400 Body mass index (BMI) [Ratio] 35.57 kg/m2 Celine Vazquez MD Work Phone: [facility] 10-22-2024 16:13-0400 Body weight 91.63 kg Celine Vazquez MD Work Phone: [facility] 10-22-2024 16:13-0400 Diastolic blood pressure 62 mm[Hg] Celine Vazquez MD Work Phone: [facility] 10-22-2024 16:13-0400 Systolic blood pressure 108 mm[Hg] Celine Vazquez MD Work Phone: [facility] 10-01-2024 15:59-0400 Body mass index (BMI) [Ratio] 35.08 kg/m2 Yany Fernandez MD Work Phone: [facility] 10-01-2024 15:59-0400 Body weight 90.36 kg Yany Fernandez MD Work Phone: [facility] 10-01-2024 15:59-0400 Diastolic blood pressure 60 mm[Hg] Yany Fernandez MD Work Phone: [facility] 10-01-2024 15:59-0400 Systolic blood pressure 112 mm[Hg] Yany Fernandez MD Work Phone: [facility] 09-16-2024 15:54-0400 Body mass index (BMI) [Ratio] 35.75 kg/m2 Benton Carcamo MD Work Phone: [facility] 09-16-2024 15:54-0400 Body weight 92.08 kg Benton Carcamo MD Work Phone: [facility] 09-16-2024 15:54-0400 Diastolic blood pressure 60 mm[Hg] Benton Carcamo MD Work Phone: [facility] 09-16-2024 15:54-0400 Systolic blood pressure 102 mm[Hg] Benton Carcamo MD Work Phone: [facility] 09-02-2024 15:17-0400 Body mass index (BMI) [Ratio] 35.04 kg/m2 Sylwia Moore APRN.CNM Work Phone: [facility] 09-02-2024 15:17-0400 Body weight 90.27 kg Sylwia Oscar COST RECORDER.CNM Work Phone: [facility] 09-02-2024 15:17-0400 Diastolic blood pressure 60 mm[Hg] Sylwia Moore COST RECORDER.CNM Work Phone: [facility] 09-02-2024 15:17-0400 Systolic blood pressure 104 mm[Hg] Sylwia Moore COST RECORDER.CNM Work Phone: [facility] 08-22-2024 11:46-0400 Body mass index (BMI) [Ratio] 34.34 kg/m2 Valentin Blood MD Work Phone: [facility] 08-22-2024 11:46-0400 Body weight 88.45 kg Valentin Blood MD Work Phone: [facility] 08-22-2024 11:46-0400 Diastolic blood pressure 64 mm[Hg] Valentin Blood MD Work Phone: [facility] 08-22-2024 11:46-0400 Systolic blood pressure 110 mm[Hg] Valentin Blood MD Work Phone: [facility] 07-24-2024 16:11-0500 Body weight 79.8336 kg [facility] Comment on above: Order Comment: Specimen Type: BLOOD SPEC IMEN Ordering Facility: [facility] Address: [address] [place] [address] Performed By: #### 1 [id number] #### [facility] CLIA [id number] [address] [place] [address] [place] 07-24-2024 15:50-0500 Body mass index (BMI) [Ratio] 34.86 kg/m2 Helen Perez COST RECORDER.PAPERHANGER ASSISTANT Work Phone: [facility] 07-24-2024 15:50-0500 Body weight 89.81 kg Helen Perez COST RECORDER.PAPERHANGER ASSISTANT Work Phone: [facility] 07-24-2024 15:50-0500 Diastolic blood pressure 60 mm[Hg] Helen Hajeremie COST RECORDER.PAPERHANGER ASSISTANT Work Phone: [facility] 07-24-2024 15:50-0500 Systolic blood pressure 106 mm[Hg] Helen Haury COST RECORDER.PAPERHANGER ASSISTANT Work Phone: [facility] 07-07-2024 09:01-0500 Body mass index (BMI) [Ratio] 34.01 kg/m2 jP Benjamin MD Work Phone: [facility] 07-07-2024 09:01-0500 Body temperature 98.49 [degF] Pj Benjamin MD Work Phone: [facility] 07-07-2024 09:01-0500 Body weight 87.6 kg Pj Benjamin MD Work Phone: [facility] 07-07-2024 09:01-0500 Diastolic blood pressure 64 mm[Hg] Pj Benjamin MD Work Phone: [facility] 07-07-2024 09:01-0500 Heart rate 83 /min Pj Benjamin MD Work Phone: [facility] 07-07-2024 09:01-0500 Respiratory rate 18 /min Pj Benjamin MD Work Phone: [facility] 07-07-2024 09:01-0500 SaO2% (BldA) [Mass fraction] 100 % Pj Benjamin MD Work Phone: [facility] 07-07-2024 09:01-0500 Systolic blood pressure 110 mm[Hg] Pj Herrera Work Phone: [facility] 06-27-2024 11:30-0500 Body mass index (BMI) [Ratio] 33.1 kg/m2 Leticia Dove MD Work Phone: [facility] 06-27-2024 11:30-0500 Body weight 85.28 kg Leticia Dove MD Work Phone: [facility] 06-27-2024 11:30-0500 Diastolic blood pressure 60 mm[Hg] Leticia Dove MD Work Phone: [facility] 06-27-2024 11:30-0500 Systolic blood pressure 100 mm[Hg] Leticia Dove MD Work Phone: [facility] 06-23-2024 14:48-0500 Body mass index (BMI) [Ratio] 33.81 kg/m2 Camilla Aguilera APRN.CNM Work Phone: [facility] 06-23-2024 14:48-0500 Body weight 87.09 kg Camilla Aguilera APRN.CNM Work Phone: [facility] 06-23-2024 14:48-0500 Diastolic blood pressure 72 mm[Hg] Camilla Plotts COST RECORDER.CNM Work Phone: [facility] 06-23-2024 14:48-0500 Systolic blood pressure 98 mm[Hg] Camilla Plotts COST RECORDER.CNM Work Phone: [facility] 05-29-2024 08:46-0500 Body mass index (BMI) [Ratio] 33.1 kg/m2 Helen Haury COST RECORDER.PAPERHANGER ASSISTANT Work Phone: [facility] 05-29-2024 08:46-0500 Body weight 85.28 kg Helen Haury COST RECORDER.PAPERHANGER ASSISTANT Work Phone: [facility] 05-29-2024 08:46-0500 Diastolic blood pressure 64 mm[Hg] Helen Haury COST RECORDER.PAPERHANGER ASSISTANT Work Phone: [facility] 05-29-2024 08:46-0500 Systolic blood pressure 104 mm[Hg] Helen Haury COST RECORDER.PAPERHANGER ASSISTANT Work Phone: [facility] 05-12-2024 16:16-0500 Body weight 79.8336 kg JAYCE SHIPLEY [facility] Comment on above: Order Comment: Specimen Type: BLOOD SPEC IMENOrdering Facility: [facility] Address: [address] [place] [address] Performed By: #### S EQ1 ####[facility] [id number] [place] [address] 04-30-2024 11:18-0500 Body mass index (BMI) [Ratio] 30.99 kg/m2 Camilla Plotts COST RECORDER.CNM Work Phone: [facility] 04-30-2024 11:18-0500 Body weight 79.83 kg Camilla Plotts COST RECORDER.CNM Work Phone: [facility] 04-30-2024 11:18-0500 Diastolic blood pressure 66 mm[Hg] Camilla Plotts COST RECORDER.CNM Work Phone: [facility] 04-30-2024 11:18-0500 Systolic blood pressure 98 mm[Hg] Camilla Plotts COST RECORDER.CNM Work Phone: [facility] 04-02-2024 08:42-0500 Body mass index (BMI) [Ratio] 30.53 kg/m2 Camilla Plotts COST RECORDER.CNM Work Phone: [facility] 04-02-2024 08:42-0500 Body weight 78.65 kg Camilla Plotts COST RECORDER.CNM Work Phone: [facility] 04-02-2024 08:42-0500 Diastolic blood pressure 62 mm[Hg] Camilla Plotts COST RECORDER.CNM Work Phone: [facility] 04-02-2024 08:42-0500 Systolic blood pressure 108 mm[Hg] Camilla Plotts COST RECORDER.CNM Work Phone: [facility] 03-27-2024 07:54-0400 Body height 160.5 cm Jayce Violetta COST RECORDER.PAPERHANGER ASSISTANT Work Phone: [facility] 03-27-2024 07:54-0400 Body mass index (BMI) [Ratio] 30.82 kg/m2 Jayce Violetta COST RECORDER.PAPERHANGER ASSISTANT Work Phone: [facility] 03-27-2024 07:54-0400 Body weight 79.4 kg Jayce Violetta COST RECORDER.PAPERHANGER ASSISTANT Work Phone: [facility] 03-27-2024 07:54-0400 Diastolic blood pressure 78 mm[Hg] Jayce Stutzma n COST RECORDER.PAPERHANGER ASSISTANT Work Phone: [facility] 03-27-2024 07:54-0400 Heart rate 64 /min Jayce Violetta COST RECORDER.PAPERHANGER ASSISTANT Work Phone: [facility] 03-27-2024 07:54-0400 Respiratory rate 16 /min Jayce Violetta COST RECORDER.PAPERHANGER ASSISTANT Work Phone: [facility] 03-27-2024 07:54-0400 SaO2% (BldA) [Mass fraction] 100 % Jaycestuart Zuñigaman COST RECORDER.PAPERHANGER ASSISTANT Work Phone: [facility] 03-27-2024 07:54-0400 Systolic blood pressure 118 mm[Hg] Jaycebrennen Zuñigaman COST RECORDER.PAPERHANGER ASSISTANT Work Phone: [facility] 02-21-2024 16:07-0400 Body height 157.5 cm Camilla Plotts COST RECORDER.CNM Work Phone: [facility] 02-21-2024 16:07-0400 Body mass index (BMI) [Ratio] 31.83 kg/m2 Camilla Plotts COST RECORDER.CNM Work Phone: [facility] 02-21-2024 16:07-0400 Body weight 78.93 kg Camilla Plotts COST RECORDER.CNM Work Phone: [facility] 02-21-2024 16:07-0400 Diastolic blood pressure 68 mm[Hg] Camilla Plotts COST RECORDER.CNM Work Phone: [facility] 02-21-2024 16:07-0400 Systolic blood pressure 110 mm[Hg] Camilla Plotts COST RECORDER.CNM Work Phone: [facility] 02-08-2024 15:57-0400 Body mass index (BMI) [Ratio] 31.83 kg/m2 Benton Carcamo MD Work Phone: [facility] 02-08-2024 15:57-0400 Body weight 78.93 kg Benton Carcamo MD Work Phone: [facility] 02-08-2024 15:57-0400 Diastolic blood pressure 58 mm[Hg] Benton Carcamo MD Work Phone: [facility] 02-08-2024 15:57-0400 Systolic blood pressure 98 mm[Hg] Benton Carcamo MD Work Phone: [facility] 09-05-2023 12:07-0400 Body weight 78.93 kg Jaycestuart Shipley COST RECORDER.PAPERHANGER ASSISTANT Work Phone: [facility] 09-05-2023 12:07-0400 Diastolic blood pressure 80 mm[Hg] Jayce Stutzma n COST RECORDER.PAPERHANGER ASSISTANT Work Phone: [facility] 09-05-2023 12:07-0400 Heart rate 78 /min Jayce Violetta COST RECORDER.PAPERHANGER ASSISTANT Work Phone: [facility] 09-05-2023 12:07-0400 Respiratory rate 16 /min Jayce Violetta COST RECORDER.PAPERHANGER ASSISTANT Work Phone: [facility] 09-05-2023 12:07-0400 SaO2% (BldA) [Mass fraction] 100 % Jayce Violetta COST RECORDER.PAPERHANGER ASSISTANT Work Phone: [facility] 09-05-2023 12:07-0400 Systolic blood pressure 110 mm[Hg] Jayce Violetta COST RECORDER.PAPERHANGER ASSISTANT Work Phone: [facility] 03-12-2023 12:34-0400 Body temperature 97.81 [degF] Sylwia William COST RECORDER.PAPERHANGER ASSISTANT Work Phone: [facility] 03-12-2023 12:34-0400 Body weight 90.9 kg Sylwia William COST RECORDER.PAPERHANGER ASSISTANT Work Phone: [facility] 03-12-2023 12:34-0400 Diastolic blood pressure 60 mm[Hg] Sylwia William COST RECORDER.PAPERHANGER ASSISTANT Work Phone: [facility] 03-12-2023 12:34-0400 Heart rate 70 /min Sylwia William COST RECORDER.PAPERHANGER ASSISTANT Work Phone: [facility] 03-12-2023 12:34-0400 Respiratory rate 21 /min Sylwia William COST RECORDER.PAPERHANGER ASSISTANT Work Phone: [facility] 03-12-2023 12:34-0400 SaO2% (BldA) [Mass fraction] 98 % Sylwia William COST RECORDER.PAPERHANGER ASSISTANT Work Phone: [facility] 03-12-2023 12:34-0400 Systolic blood pressure 96 mm[Hg] Sylwia William COST RECORDER.PAPERHANGER ASSISTANT Work Phone: [facility] 12-21-2022 10:33-0400 Body height 157.5 cm [facility] 12-21-2022 10:33-0400 Body weight 88.45 kg [facility] 12-14-2022 11:29-0400 Body height 157.5 cm Jamar Malin MD Work Phone: [facility] 12-14-2022 11:29-0400 Body weight 88.45 kg Jamar Malin MD Work Phone: [facility] 12-14-2022 11:29-0400 Diastolic blood pressure 77 mm[Hg] Jamar Herrera Work Phone: [facility] 12-14-2022 11:29-0400 Heart rate 65 /min Jamar Malin MD Work Phone: [facility] 12-14-2022 11:29-0400 Respiratory rate 16 /min Jamar Malin MD Work Phone: [facility] 12-14-2022 11:29-0400 Systolic blood pressure 116 mm[Hg] Jamar Malin MD Work Phone: [facility] 12-11-2022 12:23-0400 Diastolic blood pressure 76 mm[Hg] Madison Eric COST RECORDER.PAPERHANGER ASSISTANT Work Phone: [facility] 12-11-2022 12:23-0400 Heart rate 70 /min Madison Eric COST RECORDER.PAPERHANGER ASSISTANT Work Phone: [facility] 12-11-2022 12:23-0400 SaO2% (BldA) [Mass fraction] 97 % Madison Askov COST RECORDER.PAPERHANGER ASSISTANT Work Phone: [facility] 12-11-2022 12:23-0400 Systolic blood pressure 102 mm[Hg] Madison Askov COST RECORDER.PAPERHANGER ASSISTANT Work Phone: [facility] 12-11-2022 11:40-0400 Body weight 89.81 kg Madison Askov COST RECORDER.PAPERHANGER ASSISTANT Work Phone: [facility] 11-24-2022 10:39-0400 Body height 157.5 cm Camilla Aguilera COST RECORDER.CNM Work Phone: [facility] 11-24-2022 10:39-0400 Body weight 88 kg Camilla Aguilera COST RECORDER.CNM Work Phone: [facility] 11-24-2022 10:39-0400 Diastolic blood pressure 62 mm[Hg] Camilla Aguilera COST RECORDER.CNM Work Phone: [facility] 11-24-2022 10:39-0400 Systolic blood pressure 104 mm[Hg] Camilla Aguilera COST RECORDER.CNM Work Phone: [facility] 11-10-2022 15:13-0400 Body weight 86.95 kg Benton Carcamo MD Work Phone: [facility] 11-10-2022 15:13-0400 Diastolic blood pressure 72 mm[Hg] Benton Carcamo MD Work Phone: [facility] 11-10-2022 15:13-0400 Systolic blood pressure 98 mm[Hg] Benton Carcamo MD Work Phone: [facility] 10-09-2022 16:19-0400 Body weight 94.35 kg Ester Bartlett MD Work Phone: [facility] 10-09-2022 16:19-0400 Diastolic blood pressure 80 mm[Hg] Ester Bartlett MD Work Phone: [facility] 10-09-2022 16:19-0400 Systolic blood pressure 122 mm[Hg] Ester Bartlett MD Work Phone: [facility] 10-05-2022 16:26-0400 Body weight 93.89 kg Celine Vazquez MD Work Phone: [facility] 10-05-2022 16:26-0400 Diastolic blood pressure 70 mm[Hg] Celine Vazquez MD Work Phone: [facility] 10-05-2022 16:26-0400 Systolic blood pressure 102 mm[Hg] Celine Vazquez MD Work Phone: [facility] 09-28-2022 16:12-0400 Body weight 94.8 kg Benton Carcamo MD Work Phone: [facility] 09-28-2022 16:12-0400 Diastolic blood pressure 74 mm[Hg] Benton Carcamo MD Work Phone: [facility] 09-28-2022 16:12-0400 Systolic blood pressure 112 mm[Hg] Benton Carcamo MD Work Phone: [facility] 09-20-2022 16:25-0400 Body weight 94.8 kg Celine Vazquez MD Work Phone: [facility] 09-20-2022 16:25-0400 Diastolic blood pressure 72 mm[Hg] Celine Vazquez MD Work Phone: [facility] 09-20-2022 16:25-0400 Systolic blood pressure 106 mm[Hg] Celine Vazquez MD Work Phone: [facility] 09-07-2022 15:55-0400 Body weight 92.08 kg Camilla Plotts COST RECORDER.CNM Work Phone: [facility] 09-07-2022 15:55-0400 Diastolic blood pressure 60 mm[Hg] Camilla Plotts COST RECORDER.CNM Work Phone: [facility] 09-07-2022 15:55-0400 Systolic blood pressure 96 mm[Hg] Camilla Plotts COST RECORDER.CNM Work Phone: [facility] 08-14-2022 07:47-0400 Body temperature 97.59 [degF] Jayce Violetta COST RECORDER.PAPERHANGER ASSISTANT Work Phone: [facility] 08-14-2022 07:47-0400 Body weight 91.26 kg Jayce Shipley COST RECORDER.PAPERHANGER ASSISTANT Work Phone: [facility] 08-14-2022 07:47-0400 Diastolic blood pressure 64 mm[Hg] Jayce Munson n COST RECORDER.PAPERHANGER ASSISTANT Work Phone: [facility] 08-14-2022 07:47-0400 Heart rate 92 /min Jayce Shipley COST RECORDER.PAPERHANGER ASSISTANT Work Phone: [facility] 08-14-2022 07:47-0400 Respiratory rate 16 /min Jayce Shipley COST RECORDER.PAPERHANGER ASSISTANT Work Phone: [facility] 08-14-2022 07:47-0400 SaO2% (BldA) [Mass fraction] 99 % Jayce Shipley COST RECORDER.PAPERHANGER ASSISTANT Work Phone: [facility] 08-14-2022 07:47-0400 Systolic blood pressure 110 mm[Hg] Jayce Shipley COST RECORDER.PAPERHANGER ASSISTANT Work Phone: [facility] 08-10-2022 16:02-0400 Body weight 90.22 kg Ester Bartlett MD Work Phone: [facility] 08-10-2022 16:02-0400 Diastolic blood pressure 72 mm[Hg] Ester Bartlett MD Work Phone: [facility] 08-10-2022 16:02-0400 Systolic blood pressure 118 mm[Hg] Ester Bartlett MD Work Phone: [facility] 07-27-2022 09:19-0500 Body weight 90.72 kg Celine Vazquez MD Work Phone: [facility] 07-27-2022 09:19-0500 Diastolic blood pressure 62 mm[Hg] Celine Vazquez MD Work Phone: [facility] 07-27-2022 09:19-0500 Systolic blood pressure 100 mm[Hg] Celine Vazquez MD Work Phone: [facility] 07-08-2022 09:31-0500 SaO2% (BldA) [Mass fraction] 98 % [facility] 07-08-2022 09:27-0500 Body temperature 98.6 [degF] [facility] 07-08-2022 09:27-0500 Diastolic blood pressure 62 mm[Hg] [facility] 07-08-2022 09:27-0500 Heart rate 88 /min [facility] 07-08-2022 09:27-0500 Systolic blood pressure 109 mm[Hg] [facility] 07-08-2022 09:13-0500 Body height 157.48 cm [facility] 07-08-2022 09:130500 Body mass index (BMI) [Ratio] 35 kg/m2 [facility] 07-08-2022 09:13-0500 Body weight 87 kg [facility] 06-23-2022 13:[id number] Body weight 90.99 kg Camilla Aguilera COST RECORDER.CNM Work Phone: [facility] 06-23-2022 13:03-0500 Diastolic blood pressure 68 mm[Hg] Camilla Plotchelle COST RECORDER.CNM Work Phone: [facility] 06-23-2022 13:03-0500 Systolic blood pressure 102 mm[Hg] Camilla Aguilera COST RECORDER.CNM Work Phone: [facility] 05-25-2022 15:00-0500 Body weight 88 kg Benton Carcamo MD Work Phone: [facility] 05-25-2022 15:00-0500 Diastolic blood pressure 62 mm[Hg] Benton Carcamo MD Work Phone: [facility] 05-25-2022 15:00-0500 Systolic blood pressure 98 mm[Hg] Benton Carcamo MD Work Phone: [facility] 04-27-2022 16:20-0500 Body weight 87.64 kg Leticia Dove MD Work Phone: [facility] 04-27-2022 16:20-0500 Diastolic blood pressure 70 mm[Hg] Leticia Dove MD Work Phone: [facility] 04-27-2022 16:20-0500 Systolic blood pressure 102 mm[Hg] Leticia Dove MD Work Phone: [facility] 03-30-2022 09:01-0400 Body weight 82.28 kg Leticia Dove MD Work Phone: [facility] 03-30-2022 09:01-0400 Diastolic blood pressure 68 mm[Hg] Leticia Dove MD Work Phone: [facility] 03-30-2022 09:01-0400 Systolic blood pressure 100 mm[Hg] Leticia Dove MD Work Phone: [facility] 03-02-2022 15:06-0400 Body height 157.5 cm Leticia Dove MD Work Phone: [facility] 03-02-2022 [id number] Body weight 83.1 kg Leticia Dove MD Work Phone: [facility] 03-02-2022 15:[id number] Diastolic blood pressure 62 mm[Hg] Leticia Dove MD Work Phone: [facility] 03-02-2022 15:060400 Systolic blood pressure 102 mm[Hg] Leticia Dove MD Work Phone: [facility] Encounters Encounter Date Encounter Type Care Provider Facility Start: 10-29-2024 End: 10-29-2024 Patient encounter procedure Ester Bartlett MD Work Phone: OB/Gynecology Comment on above: Supervision of high risk in third trimester (HCC) (Primary Dx); Hypothyroidism, unspecified type; Obesity affecting in third trimester, unspecified obesity type (HCC); 38 weeks gestation of (HCC) Start: 10-29-2024 End: 10-29-2024 ambulatory ESTER BARTLETT Facility:[facility] Start: 10-22-2024 End: 10-22-2024 Patient encounter procedure Celine Vazquez MD Work Phone: OB/Gynecology Comment on above: Supervision of high risk in third trimester (HCC) (Primary Dx); Hypothyroidism, unspecified type; Obesity affecting in third trimester, unspecified obesity type (HCC); 37 weeks gestation of (HCC) Start: 10-22-2024 End: 10-22-2024 ambulatory CELINE VAZQUEZ Facility:[facility] Start: 10-16-2024 End: 10-16-2024 [facility] Start: 10-08-2024 End: 10-08-2024 Refill Breana Argueta APRN.PAPERHANGER ASSISTANT Work Phone: [facility] Comment on above: Refill Request Start: 10-01-2024 End: 10-01-2024 Patient encounter procedure Yany Fernandez MD Work Phone: OB/Gynecology Comment on above: 34 weeks gestation o f (HCC) (Primary Dx); Supervision of high risk in third trimester (HCC); Hypothyroidism, unspecified type Start: 10-01-2024 End: 10-01-2024 [facility] Facility:[facility] Start: 09-16-2024 End: 09-16-2024 [facility] Facility:[facility] Start: 09-16-2024 End: 09-16-2024 Patient encounter procedure Benton Carcamo MD Work Phone: OB/Gynecology Comment on above: 32 weeks gestation o f (HCC) (Primary Dx); Supervision of high risk in third trimester (HCC); Obesity affecting in third trimester, unspecified obesity type (HCC) Start: 09-04-2024 End: 09-05-2024 Refill Breana Argueta APRN.PAPERHANGER ASSISTANT Work Phone: [facility] Comment on above: Refill Request Start: 09-02-2024 End: 09-02-2024 [facility] Facility:[facility] Start: 09-02-2024 End: 09-02-2024 Patient encounter procedure Sylwia Moore APRN.CNM Work Phone: OB/Gynecology Comment on above: Supervision of high risk in third trimester (HCC) (Primary Dx); 30 weeks gestation of (HCC); Hypothyroidism, unspecified type; Obesity affecting in third trimester, unspecified obesity type (HCC); History of depression Start: 08-22-2024 End: 08-22-2024 Patient encounter procedure Valentin Blood MD Work Phone: OB/Gynecology Comment on above: Supervision of high risk in third trimester (Primary Dx); Need for vaccination; Hypothyroidism, unspecified type; 28 weeks gestation of Start: 08-22-2024 End: 08-22-2024 [facility] Facility:[facility] Start: 08-06-2024 End: 08-06-2024 Telemedicine consultation with patient Rehan Muñoz ISRRAEL.PAPERHANGER ASSISTANT Work Phone: Telemedicine Comment on above: Irritation of both e yes (Primary Dx); Other conjunctivitis of both eyes Start: 08-06-2024 End: 08-06-2024 [facility] Facility:[facility] Start: 08-03-2024 End: 08-04-2024 Refill Breana Argueta APRN.CNP Work Phone: [facility] [place] Comment on above: Refill Request Start: 07-28-2024 End: 09-27-2024 Follow-up encounter Helen Perez APRN.CNP Work Phone: OB/Gynecology Start: 07-25-2024 End: 09-24-2024 Follow-up encounter Jayce Shipley APRN.CNP Work Phone: [facility] [place] Start: 07-24-2024 End: 07-24-2024 [facility] Start: 07-24-2024 End: 07-24-2024 Patient encounter procedure Helen Perez APRN.PAPERHANGER ASSISTANT Work Phone: OB/Gynecology Comment on above: Supervision of high risk in second trimester (Primary Dx); 24 weeks gestation of ; Hypothyroidism, unspecified type; Obesity affecting in second trimester, unspecified obesity type Start: 07-14-2024 End: 07-14-2024 Refill Jayce Shipley APRN.PAPERHANGER ASSISTANT Work Phone: [facility] [place] Comment on above: Refill Request Start: 07-07-2024 End: 07-07-2024 ambulatory [facility] Facility:[facility] Start: 07-07-2024 End: 07-07-2024 Patient encounter procedure Pj Benjamin MD Work Phone: [facility] Comment on above: Influenza A (Primary Dx); Influenza-like illness; 22 weeks gestation of Start: 06-27-2024 End: 06-27-2024 [facility] Start: 06-27-2024 End: 06-27-2024 [facility] Start: 06-27-2024 End: 06-27-2024 Patient encounter procedure [employer] [facility] Comment on above: Encounter for anatomic survey (Primary Dx); 20 weeks gestation of ; Obesity affecting in second trimester, unspecified obesity type Supervision of high risk in second trimester (Primary Dx); 20 weeks gestation of ; Obesity affecting in second trimester, unspecified obesity type; Hypothyroidism, unspecified type Start: 06-23-2024 End: 06-23-2024 [facility] Start: 06-23-2024 End: 06-23-2024 Patient encounter procedure Camilla Aguilera APRN.CNM Work Phone: OB/Gynecology Comment on above: Supervision of high risk in second trimester (Primary Dx); 19 weeks gestation of ; Fall, initial encounter Start: 06-23-2024 End: 06-23-2024 Telephone encounter Sylwia Moore APRN.CNM Work Phone: OB/Gynecology Comment on above: OB Fall Start: 05-30-2024 End: 05-30-2024 Telephone encounter Helen Perez APRN.PAPERHANGER ASSISTANT Work Phone: OB/Gynecology Comment on above: Insurance Authorizat ion Start: 05-29-2024 End: 05-29-2024 [facility] Start: 05-29-2024 End: 05-29-2024 Patient encounter procedure Helen Perez APRN.PHI Work Phone: OB/Gynecology Comment on above: Supervision of high risk in second trimester (Primary Dx); 16 weeks gestation of ; Hypothyroidism affecting in second trimester; Obesity affecting in second trimester, unspecified obesity type Start: 05-13-2024 End: 05-13-2024 Telephone encounter Jayce Shipley APRN.CNP Work Phone: [facility] [place] Comment on above: Results Start: 05-12-2024 End: 05-12-2024 [facility] Start: 04-30-2024 End: 04-30-2024 [facility] Start: 04-30-2024 End: 04-30-2024 Patient encounter procedure Camilla Aguilera COST RECORDER.MARIA LUISA Work Phone: OB/Gynecology Comment on above: Acquired hypothyroid ism (Primary Dx); Supervision of high risk in second trimester; 12 weeks gestation of Encounter for antena neena screening for malformation using ultrasound (Primary Dx); Encounter for (NT) nuchal translucency scan; 12 weeks gestation of Start: 04-17-2024 End: 04-17-2024 Refill Jayce Shipley APRN.CNP Work Phone: [facility] Comment on above: Refill Request Start: 04-02-2024 End: 04-02-2024 [facility] Start: 04-02-2024 End: 04-02-2024 Patient encounter procedure Camilla Aguilera COST RECORDER.MARIA LUISA Work Phone: OB/Gynecology Comment on above: with uncer tain dates in first trimester (Primary Dx); 8 weeks gestation of ; History of thyroid disorder; related exhaustion and fatigue, first trimester; Acquired hypothyroidism; Supervision of high risk in first trimester; History of depression Start: 03-27-2024 End: 03-27-2024 [facility] Start: 03-27-2024 End: 03-27-2024 Office outpatient visit 25 minutes Jayce Shipley APRN.CNP Work Phone: [facility] [place] Comment on above: Early stage of pregn irene (Primary Dx); Acquired hypothyroidism; Bilateral chronic serous otitis media; Ear pressure, bilateral; Encounter for screening examination for other mental health and behavioral disorders; Screening for depression; Encounter for immunization Start: 03-15-2024 End: 03-15-2024 Telephone encounter Jayce Shipley APRN.CNP Work Phone: [facility] [place] Comment on above: Medication Problem Start: 03-15-2024 End: 03-15-2024 ambulatory [facility] Facility[facility] Start: 03-15-2024 Encounter for genera l adult medical examination without abnormal findings JAYCE SHIPLEY [facility] Start: 02-26-2024 End: 02-26-2024 Patient encounter status Jayce Shipley APRN.CNP Work Phone: [facility] Start: 02-26-2024 End: 02-26-2024 Refill Jayce Shipley APRN.CNP Work Phone: [facility] Comment on above: Refill Request; Lab Orders Start: 02-25-2024 End: 02-26-2024 Refill Breana Argueta APRN.CNP Work Phone: [facility] Comment on above: Refill Request Start: 02-21-2024 End: 02-21-2024 [facility] Start: 02-21-2024 Encounter for gynecological examination (general) (routine) without abnormal findings [facility] Start: 02-21-2024 End: 02-21-2024 Patient encounter procedure Camilla Aguilera COST RECORDER.CNSaran Work Phone: OB/Gynecology Comment on above: Encounter for gyneco logical examination (general) (routine) without abnormal findings (Primary Dx) Start: 02-21-2024 End: 02-21-2024 Patient encounter status Camilla Aguilera APRN.CNM Work Phone: [facility] Start: 02-12-2024 End: 02-12-2024 ambulatory [facility] Facility:[facility] Start: 02-12-2024 End: 02-12-2024 Patient encounter procedure Jordin Isaac Work Phone: Podiatry Comment on above: Ingrowing toenail (P rimary Dx) Start: 02-08-2024 End: 02-08-2024 ambulatory JAYEC SHIPLEY Facility:[facility] Start: 02-08-2024 End: 02-08-2024 Patient encounter procedure Benton Carcamo MD Work Phone: OB/Gynecology Comment on above: Encounter for IUD re moval (Primary Dx) Start: 02-06-2024 End: 02-06-2024 ambulatory Benton Carcamo MD Work Phone: OB/Gynecology Comment on above: IUD removal Start: 02-04-2024 End: 02-04-2024 Telephone encounter Camilla Plotchelle MONTANO Work Phone: OB/Gynecology Comment on above: Patient Question Start: 11-08-2023 Refill Breana Argueta APRN.PAPERHANGER ASSISTANT Work Phone: [facility] [place] Comment on above: Refill Request Start: 10-28-2023 Refill Breana Argueta COST RECORDER.PAPERHANGER ASSISTANT Work Phone: [facility] [place] Comment on above: Refill Request Start: 10-16-2023 End: 10-16-2023 Telemedicine consultation with patient Tristian Kirk COST RECORDER.PAPERHANGER ASSISTANT Work Phone: Telemedicine Comment on above: Acute cystitis with hematuria (Primary Dx) Start: 10-09-2023 End: 10-09-2023 Refill Jayce Shipley APRN.PAPERHANGER ASSISTANT Work Phone: [facility] [place] Comment on above: Refill Request Open wound of toe, i nitial encounter (Primary Dx); Neuroma Start: 09-25-2023 End: 09-25-2023 Subsequent hospital visit by physician Rod [facility] [place] Velásquez Work Phone: Radiology Comment on above: Ingrowing toenail [L 60.0] Start: 09-25-2023 End: 09-25-2023 Patient encounter procedure Jordin Isaac Work Phone: Podiatry Comment on above: Neuroma (Primary Dx) ; Foot pain, left; Ingrowing toenail Start: 09-05-2023 End: 09-05-2023 Subsequent hospital visit by physician [facility] [place] Work Phone: Radiology Comment on above: Foot pain, left [M79 .672] Start: 09-05-2023 End: 09-05-2023 Patient encounter procedure Jayce Shipley COST RECORDER.PAPERHANGER ASSISTANT Work Phone: [facility] Comment on above: Foot pain, left (Leandra mansi Dx); Metatarsalgia of left foot; Ingrown toenail Start: 08-02-2023 Refill Yordy Quan son DO Work Phone: [facility] [place] Comment on above: Refill Request Start: 07-02-2023 Refill Jayce seals COST RECORDER.PAPERHANGER ASSISTANT Work Phone: [facility] [place] Comment on above: Refill Request Start: 06-29-2023 Refill Breana Argueta COST RECORDER.PAPERHANGER ASSISTANT Work Phone: [facility] [place] Comment on above: Refill Request Start: 04-17-2023 Refill Jayce seals COST RECORDER.PAPERHANGER ASSISTANT Work Phone: [facility] [place] Comment on above: Refill Request Start: 03-19-2023 Refill Jayce seals COST RECORDER.PAPERHANGER ASSISTANT Work Phone: [facility] [place] Comment on above: Refill Request Start: 03-13-2023 ambulatory Jayce seals COST RECORDER.PAPERHANGER ASSISTANT Work Phone: [facility] [place] Comment on above: Weight management Start: 03-12-2023 End: 03-12-2023 Patient encounter procedure Sylwia William COST RECORDER.PAPERHANGER ASSISTANT Work Phone: [facility] Comment on above: URI, acute (Primary Dx) Start: 02-08-2023 Telephone encounter Jayce Daily COST RECORDER.PAPERHANGER ASSISTANT Work Phone: [facility] [place] Comment on above: Results Start: 12-21-2022 End: 12-[facility] Start: 12-21-2022 End: 12-21-2022 ambulatory [facility] Pre Anesthesia Comment on above: Pre-op evaluation (P rimary Dx); Acquired hypothyroidism; History of depression; Obesity, unspecified classification, unspecified obesity type, unspecified whether serious comorbidity present Start: 12-21-2022 End: 12-21-2022 [facility] Start: 12-14-2022 End: 12-14-2022 Orders Only Jamar Malin MD Work Phone: Colorectal Surgery Comment on above: Anal fissure (Primar y Dx) Start: 12-11-2022 End: 12-11-2022 ambulatory Fatimah Do MD Work Phone: Endocrinology Comment on above: Acquired hypothyroid ism (Primary Dx) Start: 12-11-2022 End: 12-11-2022 Telemedicine consultation with patient Fatimah Do MD Work Phone: [facility] Start: 12-11-2022 End: 12-11-2022 Patient encounter procedure Madison Reyes COST RECORDER.PAPERHANGER ASSISTANT Work Phone: OB/Gynecology Comment on above: Encounter for IUD in sertion (Primary Dx) Start: 12-06-2022 Refill Sylwia Moore COST RECORDER.CNM Work Phone: OB/Gynecology Comment on above: Refill Request Start: 11-24-2022 End: 11-24-2022 Patient encounter procedure Camilla Aguilera COST RECORDER.CNM Work Phone: OB/Gynecology Comment on above: care and examination (Primary Dx); Encounter for IUD insertion; care and examination of lactating mother; Anal fissure Start: 11-10-2022 End: 11-10-2022 Patient encounter procedure Benton Carcamo MD Work Phone: OB/Gynecology Comment on above: Anal fissure (Primar y Dx) Start: 11-09-2022 Refill Leticia Herrera Work Phone: OB/Gynecology Comment on above: Refill Request Start: 11-07-2022 Telephone encounter Jamar caro MD Work Phone: Colorectal Surgery Comment on above: Returning Patient's Call Start: 10-27-2022 End: 10-27-2022 Patient encounter procedure Sylwia Moore APRN.CNM Work Phone: OB/Gynecology Comment on above: Encounter for screen ing for maternal depression (Primary Dx); Lactating mother Start: 10-16-2022 End: 10-17-2022 ambulatory No Primary Care Physician [facility] Start: 10-13-2022 End: 10-14-2022 Evaluation and management of inpatient No Primary Care Physician Facility:[facility] Start: 10-09-2022 End: 10-09-2022 Patient encounter procedure Ester Bartlett MD Work Phone: OB/Gynecology Comment on above: Encounter for superv ision of other normal in third trimester (Primary Dx); 38 weeks gestation of Start: 10-05-2022 End: 10-05-2022 Patient encounter procedure Celine Vazquez MD Work Phone: OB/Gynecology Comment on above: Encounter for superv ision of other normal in third trimester (Primary Dx); 38 weeks gestation of Start: 09-28-2022 End: 09-28-2022 Patient encounter procedure Benton Carcamo MD Work Phone: OB/Gynecology Comment on above: 37 weeks gestation o f (Primary Dx); Encounter for supervision of other normal , third trimester Start: 09-21-2022 Telephone encounter Celine Vazquez MD Work Phone: OB/Gynecology Comment on above: FMLA Paperwork Start: 09-20-2022 End: 09-20-2022 Patient encounter procedure Celine Vazquez MD Work Phone: OB/Gynecology Comment on above: 36 weeks gestation o f (Primary Dx); Obesity complicating , third trimester; Encounter for supervision of other normal , third trimester Start: 09-07-2022 End: 09-07-2022 Patient encounter procedure Camilla Plotts COST RECORDER.CNM Work Phone: OB/Gynecology Comment on above: 34 weeks gestation o f (Primary Dx); Obesity complicating , third trimester Start: 08-24-2022 End: 08-24-2022 Patient encounter procedure Karolina Laguna MD Work Phone: Maternal Medicine Comment on above: Obesity in (Primary Dx); 32 weeks gestation of Start: 08-24-2022 Telephone encounter Celine Vazquez MD Work Phone: OB/Gynecology Comment on above: Breast Pump Start: 08-14-2022 End: 08-14-2022 Patient encounter procedure Jayce Shipley APRN.PAPERHANGER ASSISTANT Work Phone: Family [facility] Comment on above: Otalgia of both ears (Primary Dx); Bilateral impacted cerumen Start: 08-10-2022 End: 08-10-2022 Patient encounter procedure Ester Bartlett MD Work Phone: OB/Gynecology Comment on above: Encounter for superv ision of other normal in third trimester (Primary Dx); Obesity in ; 30 weeks gestation of Start: 08-10-2022 ambulatory Jayce seals APRN.PAPERHANGER ASSISTANT Work Phone: [facility] Comment on above: Ear pain Start: 08-05-2022 Refill Leticia Herrera Work Phone: OB/Gynecology Comment on above: Refill Request Start: 07-27-2022 End: 07-27-2022 Patient encounter procedure Celine Vazquez MD Work Phone: OB/Gynecology Comment on above: 28 weeks gestation o f (Primary Dx); Encounter for supervision of other normal in third trimester; Need for vaccination Start: 07-08-2022 End: 07-08-2022 ambulatory No Primary Care Physician Facility:[facility] Start: 07-08-2022 End: 07-08-2022 ambulatory [facility] Work Phone: Start: 07-08-2022 End: 07-08-2022 Patient encounter procedure [facility] Start: 06-23-2022 End: 06-23-2022 Patient encounter procedure Camilla Aguilera COST RECORDER.CNM Work Phone: OB/Gynecology Comment on above: 23 weeks gestation o f (Primary Dx) Start: 05-25-2022 End: 05-25-2022 Patient encounter procedure Benton Carcamo MD Work Phone: OB/Gynecology Comment on above: Encounter for superv ision of other normal in second trimester (Primary Dx); 19 weeks gestation of Start: 05-25-2022 End: 05-25-2022 Patient encounter procedure Arvind Goff MD Work Phone: Maternal Medicine Comment on above: Encounter for anatomic survey (Primary Dx); History of miscarriage, currently ; 7 weeks gestation of ; Obesity complicating , second trimester Start: 05-12-2022 ambulatory Leticia Herrera Work Phone: OB/Gynecology Comment on above: Thyroid medicine Start: 05-12-2022 Telephone encounter Sylwia carrillo COST RECORDER.CNM Work Phone: OB/Gynecology Comment on above: Question (OB Questio n) Start: 04-27-2022 End: 04-27-2022 Patient encounter procedure Leticia Dove MD Work Phone: OB/Gynecology Comment on above: 15 weeks gestation o f (Primary Dx); History of miscarriage, currently Start: 03-31-2022 Telephone encounter Karolina torres MD Work Phone: Maternal Medicine Comment on above: First Seq Results Start: 03-30-2022 End: 03-30-2022 Patient encounter procedure Leticia Dove MD Work Phone: OB/Gynecology Comment on above: 11 weeks gestation o f (Primary Dx); History of miscarriage, currently ; Encounter for screening for nuchal translucency; Acquired hypothyroidism Encounter for (NT) n uchal translucency scan (Primary Dx); History of miscarriage, currently ; 11 weeks gestation of Start: 03-03-2022 Orders Only Fatimah Carlos ms, MD Work Phone: Endocrinology Comment on above: Acquired hypothyroid ism (Primary Dx) Results, Lab Start: 03-02-2022 End: 03-02-2022 Patient encounter procedure Leticia Dove MD Work Phone: OB/Gynecology Comment on above: 7 weeks gestation of (Primary Dx); History of miscarriage, currently ; Need for influenza vaccination; Encounter for supervision of other normal in first trimester Start: 02-23-2022 End: 02-23-2022 [facility] Work Phone: [facility] Comment on above: Supervision of high risk , antepartum (Primary Dx); History of thyroid disorder; History of depression; History of depression; History of bulimia; History of anal fissures; Patient request for diagnostic testing Start: 02-23-2022 End: 02-23-2022 Patient requested procedure Nurse [facility] Work Phone: [facility] Work Phone: Start: 02-23-2022 Telephone encounter Ester Bartlett MD Work Phone: OB/Gynecology Comment on above: Patient Update Start: 02-08-2022 ambulatory Leticia Herrera Work Phone: OB/Gynecology Comment on above: bloodwork Start: 02-07-2022 Orders Only Fatimah Carlos ms, MD Work Phone: Endocrinology Comment on above: Acquired hypothyroid ism (Primary Dx) Start: 11-23-2021 End: 11-23-2021 ambulatory Madison Eric COST RECORDER.PAPERHANGER ASSISTANT Work Phone: OB/Gynecology Comment on above: Encounter for contra ceptive management, unspecified type (Primary Dx) Start: 11-23-2021 End: 11-23-2021 Telemedicine consultation with patient Madison Eric COST RECORDER.PAPERHANGER ASSISTANT Work Phone: [facility] Start: 10-12-2021 ambulatory Meet Mayorga COST RECORDER.PAPERHANGER ASSISTANT Work Phone: Telemedicine Comment on above: Acute non-recurrent sinusitis of other sinus (Primary Dx) Start: 09-08-2021 End: 09-08-2021 Patient encounter procedure Madison Reeys APRN.PAPERHANGER ASSISTANT Work Phone: OB/Gynecology Comment on above: Encounter for IUD re moval (Primary Dx) Procedures Date Procedure Procedure Detail Performing Clinician Start: 10-29-2024 Urnls dip stick/tabl et rgnt non-auto w/o micrscp Ester Malinda Bartlett MD Work Phone: Start: 07-07-2024 INFLUENZA A&B MOLECU LAR (POC) Pj Benjamin MD Work Phone: Start: 06-27-2024 Us preg uterus after 1st trimest 1/ gestation Helen Perez COST RECORDER.PAPERHANGER ASSISTANT Work Phone: Start: 04-30-2024 Us nuchal corbin slucency 1st gestation Camilla Aguilera COST RECORDER.CNM Work Phone: Start: 04-02-2024 Antibody screen JAYCE SHIPLEY Comment on above: Order Comment: Speci men Type: BLOOD SPECIMENOrdering Facility: [facility] Address: [address] [place] [address] Performed By: #### T SPN ####CC MAIN BLOOD BANKCLIA [id number] [place] [address] [place] Start: 03-27-2024 Adult depression scr eening assessment Camilla Aguilera COST RECORDER.CNM Work Phone: Start: 09-25-2023 Cul bact xcpt urine blood/stool aerobic isol Jordin Testrake Work Phone: Start: 09-05-2023 Radex foot complete minimum 3 views Jayce Shipley COST RECORDER.PAPERHANGER ASSISTANT Work Phone: Start: 03-12-2023 STREP A MOLECULAR (POC) Sylwia William COST RECORDER.PAPERHANGER ASSISTANT Work Phone: Start: 12-11-2022 Urine test visual color cmprsn meths Madison Hernandezcalf COST RECORDER.PAPERHANGER ASSISTANT Work Phone: Start: 10-09-2022 URINE OB DIP B/O Ester Bartlett MD Work Phone: Start: 10-05-2022 URINE OB DIP B/O Monica Vazquez MD Work Phone: Start: 09-28-2022 URINE OB DIP B/O Benton Carcamo MD Work Phone: Start: 09-20-2022 URINE OB DIP B/O Monica Vazquez MD Work Phone: Start: 08-24-2022 Us preg uterus after 1st trimest 05/28 gestation Ester Bartlett MD Work Phone: Start: 08-10-2022 URINE OB DIP B/O Ester Bartlett MD Work Phone: Start: 07-27-2022 URINE OB DIP B/O Woodyc eleni Vazquez MD Work Phone: Start: 06-23-2022 URINE OB DIP B/O Jamel Aguilera COST RECORDER.CNM Work Phone: Start: 05-25-2022 Us preg uterus after 1st trimest / gestation Leticia Dove MD Work Phone: Start: 05-25-2022 URINE OB DIP B/O Benton Carcamo MD Work Phone: Start: 04-27-2022 URINE OB DIP B/O Leticia quiles MD Work Phone: Start: 03-30-2022 URINE OB DIP B/O Leticia quiles MD Work Phone: Start: 03-30-2022 Us nuchal corbin slucency 1st gestation Leticia Dove MD Work Phone: Start: 03-02-2022 Iadna chlamydia trac homatis amplified probe tq Leticia Dove MD Work Phone: Start: 03-02-2022 INFLUENZA VACCINE QUADRIVALENT 6 MO - 64 YRS IM Leticia Dove MD Work Phone: Plan of Treatment Date Care Activity Detail Author Start: 08-22-2034 Urine microalbumin profile DTaP,Tdap,Td Vaccine (5 - Td or Tdap) [facility] Start: 07-27-2032 Urine microalbumin profile [facility] Start: 01-24-2029 Urine microalbumin profile DTAP,TDAP,TD (2 - Td or Tdap) [facility] Start: 03-27-2025 Annual PCP Team Chronic Disease Visit Annual PCP Team Chronic Disease Visit [facility] Start: 03-27-2025 Anxiety Screening Anxiety Screening [facility] Start: 03-27-2025 Depression Screening Depression Screening [facility] Start: 11-10-2024 End: 11-10-2024 Patient encounter procedure 11/10/2024 4:30 PM EDT Routine Office Visit OB/Gynecology [address] [place] [address] Sylwia Moore APRN.CNM [address] [place] [address] OB OB/Gynecology Comment on above: OB Start: 11-05-2024 End: 11-05-2024 Patient encounter procedure 11/05/2024 4:30 PM EDT Routine Office Visit OB/Gynecology [address] [place] [address] Sylwia Moore APRN.CNM [address] [place] [address] (Fax) OB OB/Gynecology Comment on above: OB Start: 11-05-2024 End: 11-05-2024 Patient encounter procedure 11/05/2024 11:15 AM EDT Routine Office Visit OB/Gynecology [address] [place] [address] Camilla Aguilera APRN.CNM [address] [place] [address] (Fax) OB OB/Gynecology Comment on above: OB Start: 10-29-2024 End: 10-29-2024 Patient encounter procedure 10/29/2024 4:20 PM EDT Routine Office Visit OB/Gynecology [address] [place] [address] Ester Valencia MD [address] [place] [address] OB OB/Gynecology Comment on above: OB Start: 10-22-2024 End: 10-22-2024 Patient encounter procedure 10/22/2024 4:20 PM EDT Routine Office Visit OB/Gynecology [address] [place] [address] Celine Vazquez MD [address] [place] [address] OB OB/Gynecology Comment on above: OB Start: 10-16-2024 End: 10-16-2024 Patient encounter procedure 10/16/2024 8:00 AM EDT Routine Office Visit OB/Gynecology [address] [place] [address] Camilla Aguilera APRN.CNM [address] [place] [address] OB OB/Gynecology Comment on above: OB Start: 10-15-2024 End: 10-15-2024 Patient encounter procedure 10/15/2024 4:30 PM EDT Routine Office Visit OB/Gynecology [address] [place] [address] Sylwia Moore APRN.CNM [address] [place] [address] OB OB/Gynecology Comment on above: OB Start: 10-01-2024 End: 10-01-2024 Patient encounter procedure 10/01/2024 4:00 PM EDT Routine Office Visit OB/Gynecology [address] [place] [address] Yany Fernandez MD [address] [place] [address] OB OB/Gynecology Comment on above: OB Start: 09-16-2024 End: 09-16-2024 Patient encounter procedure 09/16/2024 3:50 PM EDT Routine Office Visit OB/Gynecology [address] [place] [address] Benton Carcamo MD [address] [place] [address] (Fax) OB OB/Gynecology Comment on above: OB Start: 09-04-2024 Annual PCP Team Chronic Disease Visit Annual PCP Team Chronic Disease Visit [facility] Start: 09-02-2024 End: 09-02-2024 Patient encounter procedure 09/02/2024 3:15 PM EDT Routine Office Visit OB/Gynecology [address] [place] [address] Sylwia Moore APRN.CNM [address] [place] [address] (Fax) OB OB/Gynecology Comment on above: OB Start: 08-20-2024 End: 08-20-2024 Patient encounter procedure 08/20/2024 1:40 PM EDT Routine Office Visit OB/Gynecology [address] [place] [address] Ester Valencia MD [address] [place] [address] OB Routine OB/Gynecology Comment on above: OB Routine Start: 07-24-2024 End: 07-24-2024 Patient encounter procedure 07/24/2024 3:45 PM EST Routine Office Visit OB/Gynecology [address] [place] [address] Helen Perez, COST RECORDER.PAPERHANGER ASSISTANT [address] [place] [address] OB Routine OB/Gynecology Comment on above: OB Routine Start: 07-24-2024 End: 10-23-2024 ANEMIA REFLEX PANEL ANEMIA REFLEX PANEL Lab Routine Supervision of high risk in second trimester 24 weeks gestation of Expected: 07/24/2024, Expires: 10/23/2024 [facility] Comment on above: Expected: 07/24/2024, Expires: Start: 07-24-2024 End: 07-24-2025 GESTATIONAL GLUCOSE SCREEN, 1-HOUR, 50 GRAM, NON-FASTING GESTATIONAL GLUCOSE SCREEN, 1-HOUR, 50 GRAM, NON-FASTING Lab Routine Supervision of high risk in second trimester 24 weeks gestation of Expected: 07/24/2024, Expires: 07/24/2025 [facility] Work Phone: Comment on above: Expected: 07/24/2024, Expires: Start: 07-24-2024 End: 10-23-2024 SEQUENTIAL [facility] Comment on above: Expected: 07/24/2024, Expires: Start: 07-24-2024 End: 07-24-2025 SYPHILIS TREPONEMAL W/REFLEX SYPHILIS TREPONEMAL W/REFLEX Lab Routine Supervision of high risk in second trimester 24 weeks gestation of Expected: 07/24/2024, Expires: 07/24/2025 [facility] Comment on above: Expected: 07/24/2024, Expires: Start: 07-24-2024 End: 10-23-2024 Thyrotropin [Units/volume] in Serum or Plasma THYROID STIMULATING HORMONE Lab Routine Hypothyroidism, unspecified type Expected: 07/24/2024, Expires: 10/23/2024 [facility] Comment on above: Expected: 07/24/2024, Expires: Start: 07-24-2024 End: 10-23-2024 Thyroxine (T4) free [Mass/volume] in Serum or Plasma T4 FREE/FREE THYROXINE Lab Routine Hypothyroidism, unspecified type Expected: 07/24/2024, Expires: 10/23/2024 [facility] Comment on above: Expected: 07/24/2024, Expires: Start: 06-27-2024 End: 06-27-2024 Patient encounter procedure [facility] Comment on above: Anatomy Anatomy/OB Start: 06-01-2024 PAP TESTING PAP TESTING [facility] Start: 06-01-2024 Screening for malignant neoplasm of cervix [facility] Start: 05-30-2024 Annual PCP Team Chronic Disease Visit Annual PCP Team Chronic Disease Visit [facility] Start: 05-29-2024 End: 05-29-2025 OBSTETRIC ULTRASOUND WHI OBSTETRIC ULTRASOUND WHI Anc Imaging Routine Supervision of high risk in second trimester 16 weeks gestation of Expected: 05/29/2024, Expires: 05/29/2025 [facility] Work Phone: Comment on above: Expected: 05/29/2024, Expires: Start: 05-29-2024 End: 05-29-2024 Patient encounter procedure 05/29/2024 8:45 AM EST Routine Office Visit OB/Gynecology [address] [place], [place] [id number] Helen Perez APRN.PAPERHANGER ASSISTANT [address] [place] [address] OB OB/Gynecology Comment on above: OB Start: 04-30-2024 End: 07-30-2024 SEQUENTIAL SCN FIRST TRIMESTER SEQUENTIAL SCN FIRST TRIMESTER Lab Routine Acquired hypothyroidism Supervision of high risk in second trimester 12 weeks gestation of Expected: 04/30/2024, Expires: 07/30/2024 [facility] Work Phone: Comment on above: Expected: 04/30/2024, Expires: Start: 04-30-2024 End: 07-30-2024 SEQUENTIAL SCN SECOND TRIM SEQUENTIAL SCN SECOND TRIM Lab Routine Acquired hypothyroidism Supervision of high risk in second trimester 12 weeks gestation of Expected: 04/30/2024, Expires: 07/30/2024 [facility] Comment on above: Expected: 04/30/2024, Expires: Start: 04-30-2024 End: 04-30-2024 Patient encounter procedure Maternal Medicine Comment on above: Nuchal Nuchal/ est New OB Start: 04-23-2024 End: 04-23-2024 Patient encounter procedure Maternal Medicine Comment on above: Nuchal Nuchal/ est New OB Start: 04-02-2024 End: 07-02-2024 Hepatitis B virus surface Ag [Presence] in Serum [facility] Comment on above: Expected: 04/02/2024, Expires: Start: 04-02-2024 End: 07-02-2024 Hepatitis C virus Ab [Presence] in Serum [facility] Comment on above: Expected: 04/02/2024, Expires: Start: 04-02-2024 End: 07-02-2024 HIV 1+2 Ab [Presence] in Serum or Plasma by Immunoassay [facility] Comment on above: Expected: 04/02/2024, Expires: Start: 04-02-2024 End: 04-02-2025 NUCHAL TRANSLUCENCY WHI NUCHAL TRANSLUCENCY WHI Anc Imaging Routine with uncertain dates in first trimester Expected: 04/02/2024, Expires: 04/02/2025 [facility] Comment on above: Expected: 04/02/2024, Expires: Start: 04-02-2024 End: 07-02-2024 RUBELLA IGG ANTIBODY [facility] Comment on above: Expected: 04/02/2024, Expires: Start: 04-02-2024 End: 07-02-2024 SYPHILIS TREPONEMAL W/REFLEX [facility] Comment on above: Expected: 04/02/2024, Expires: Start: 04-02-2024 End: 07-02-2024 TYPE + SCREEN [facility] Comment on above: Expected: 04/02/2024, Expires: Start: 04-02-2024 End: 04-02-2024 Patient encounter procedure 04/02/2024 8:45 AM EST Initial Office Visit OB/Gynecology [address] [place] [address] Camilla Aguilera APRN.CN [address] [place] [address] NOB - LMP around 02/04 OB/Gynecology Comment on above: NOB - LMP around 02/04 Start: 03-27-2024 End: 06-26-2024 Choriogonadotropin.beta subunit [Units/volume] in Serum or Plasma HCG QUANTITATIVE Lab Routine Early stage of Expected: 03/27/2024, Expires: 06/26/2024 [facility] Work Phone: Comment on above: Expected: 03/27/2024, Expires: Start: 03-27-2024 End: 03-27-2024 Patient encounter procedure 03/27/2024 7:40 AM EDT Office Visit Family [facility] [address] [facility] [place] [address] Jayce Shipley, COST RECORDER.PAPERHANGER ASSISTANT [address] [place] [address] pysical check thyroid [facility] Comment on above: pysical check thyroid Start: 03-06-2024 End: 03-06-2024 Patient encounter procedure 03/06/2024 7:40 AM EDT Office Visit [facility] [address] [facility] [place] [address] Jayce Shipley, COST RECORDER.PAPERHANGER ASSISTANT [address] [facility] [address] Check thyroid levels and check up [facility] Comment on above: Check thyroid levels and check up Start: 02-26-2024 End: 05-27-2024 CBC panel - Blood by Automated count COMPLETE BLOOD COUNT Lab Routine Well adult exam Expected: 02/26/2024, Expires: 05/27/2024 [facility] Comment on above: Expected: 02/26/2024, Expires: Start: 02-26-2024 End: 05-27-2024 Comprehensive metabolic 2000 panel - Serum or Plasma COMPREHENSIVE METABOLIC PANEL Lab Routine Well adult exam Expected: 02/26/2024, Expires: 05/27/2024 [facility] Work Phone: Comment on above: Expected: 02/26/2024, Expires: Start: 02-26-2024 End: 05-27-2024 Hemoglobin A1c in Blood HEMOGLOBIN A1C Lab Routine Well adult exam Expected: 02/26/2024, Expires: 05/27/2024 [facility] Comment on above: Expected: 02/26/2024, Expires: 4 Start: 02-26-2024 End: 05-27-2024 Lipid 1996 panel - Serum or Plasma LIPID PANEL BASIC Lab Routine Well adult exam Expected: 02/26/2024, Expires: 05/27/2024 [facility] Comment on above: Expected: 02/26/2024, Expires: Start: 02-26-2024 End: 05-27-2024 Thyrotropin [Units/volume] in Serum or Plasma THYROID STIMULATING HORMONE Lab Routine Acquired hypothyroidism Well adult exam Expected: 02/26/2024, Expires: 05/27/2024 [facility] Comment on above: Expected: 02/26/2024, Expires: Start: 02-21-2024 End: 02-21-2024 Patient encounter procedure 02/21/2024 4:00 PM EDT Office Visit OB/Gynecology [address] [place] [address] Camilla Aguilera APRN.[facility] [address] [place] [address] annual OB/Gynecology Comment on above: annual Start: 02-12-2024 End: 02-12-2024 Patient encounter procedure Podiatry Comment on above: 4mo follow up 4mo follow up Proced ure [facility] Start: 02-08-2024 End: 02-08-2024 Patient encounter procedure 02/08/2024 4:00 PM EDT Office Visit OB/Gynecology [address] [place] [address] Benton Carcamo MD [address] [place] [address] IUD removal OB/Gynecology Comment on above: IUD removal Start: 02-08-2024 Annual PCP Team Chronic Disease Visit Annual PCP Team Chronic Disease Visit [facility] Start: 02-08-2024 Covid-19 Vaccine () Covid-19 Vaccine () [facility] Comment on above: Postponed from 01/26/2023 (Declined at t his time) Start: 02-08-2024 Covid-19 Vaccine (4 - Pfizer series) Covid-19 Vaccine (4 - Pfizer series) [facility] Comment on above: Postponed from 06/30/2021 (Declined at t his time) Start: 01-27-2024 Covid-19 Vaccine () Covid-19 Vaccine () [facility] Start: 01-27-2024 Covid-19 Vaccine () Covid-19 Vaccine () [facility] Start: 01-27-2024 Influenza vaccination [facility] Start: 10-09-2023 End: 10-09-2023 Patient encounter procedure 10/09/2023 11:15 AM EDT Office Visit Podiatry [address] [place] [address] Jordin Isaac [address] [place] [address] 2 week follow up Podiatry Comment on above: 2 week follow up Start: 08-15-2023 ANNUAL PCP TEAM CHRONIC DISEASE VISIT ANNUAL PCP TEAM CHRONIC DISEASE VISIT [facility] Start: 05-28-2023 Behavioral Health Screening Behavioral Health Screening [facility] Start: 05-28-2023 Depression Assessment Depression Assessment [facility] Start: 05-10-2023 End: 07-10-2023 Thyrotropin [Units/volume] in Serum or Plasma TSH BLD Lab Routine Acquired hypothyroidism Expected: 05/10/2023, Expires: 07/10/2023 [facility] Work Phone: Comment on above: Expected: 05/10/2023, Expires: 4 Start: 05-10-2023 End: 07-10-2023 Thyroxine (T4) free [Mass/volume] in Serum or Plasma T4 FREE/FREE THYROX Lab Routine Acquired hypothyroidism Expected: 05/10/2023, Expires: 07/10/2023 [facility] Work Phone: Comment on above: Expected: 05/10/2023, Expires: 4 Start: 05-10-2023 End: 07-10-2023 Triiodothyronine (T3) [Mass/volume] in Serum or Plasma T3 BLD Lab Routine Acquired hypothyroidism Expected: 05/10/2023, Expires: 07/10/2023 [facility] Work Phone: Comment on above: Expected: 05/10/2023, Expires: 4 Start: 01-26-2023 Influenza vaccination [facility] Start: 01-22-2023 End: 03-24-2023 Thyrotropin [Units/volume] in Serum or Plasma TSH BLD Lab Routine Acquired hypothyroidism Expected: 01/22/2023, Expires: 03/24/2023 [facility] Work Phone: Comment on above: Expected: 01/22/2023, Expires: 3 Start: 01-22-2023 End: 03-24-2023 Thyroxine (T4) free [Mass/volume] in Serum or Plasma T4 FREE/FREE THYROX Lab Routine Acquired hypothyroidism Expected: 01/22/2023, Expires: 03/24/2023 [facility] Work Phone: Comment on above: Expected: 01/22/2023, Expires: 3 Start: 08-10-2022 End: 08-11-2023 OBSTETRIC ULTRASOUND WHI OBSTETRIC ULTRASOUND WHI Anc Imaging Routine 30 weeks gestation of Encounter for supervision of other normal in third trimester Obesity in Expected: 08/10/2022, Expires: 08/11/2023 [facility] Work Phone: Comment on above: Expected: 08/10/2022, Expires: 4 Start: 07-27-2022 End: 07-28-2023 OBSTETRIC ULTRASOUND WHI OBSTETRIC ULTRASOUND WHI Anc Imaging Routine 28 weeks gestation of Expected: 07/27/2022, Expires: 07/28/2023 [facility] Work Phone: Comment on above: Expected: 07/27/2022, Expires: 4 Start: 07-08-2022 [facility] Start: 07-08-2022 Auscultation of the heart [facility] Start: 07-08-2022 Nonstress test [facility] Start: 07-08-2022 Obstetric monitoring [facility] Start: 07-08-2022 Vital signs measurements [facility] Start: 07-08-2022 [facility] Start: 07-08-2022 Patient discharge [facility] Start: 06-23-2022 End: 08-23-2022 CBC W Auto Differential panel - Blood CBC + DIFF Lab Routine 23 weeks gestation of Expected: 06/23/2022, Expires: 08/23/2022 [facility] Work Phone: Comment on above: Expected: 06/23/2022, Expires: 3 Start: 06-23-2022 End: 08-23-2022 GEST GLUC SCREEN, 1-HR, 50 GM, NON-FASTING GEST GLUC SCREEN, 1-HR, 50 GM, NON-FASTING Lab Routine 23 weeks gestation of Expected: 06/23/2022, Expires: 08/23/2022 [facility] Work Phone: Comment on above: Expected: 06/23/2022, Expires: 3 Start: 06-23-2022 End: 08-23-2022 SYPHILIS TOTAL W/REFLEX SYPHILIS TOTAL W/REFLEX Lab Routine 23 weeks gestation of Expected: 06/23/2022, Expires: 08/23/2022 [facility] Work Phone: Comment on above: Expected: 06/23/2022, Expires: 3 Start: 05-28-2022 DEPRESSION ASSESSMENT DEPRESSION ASSESSMENT [facility] Start: 04-14-2022 End: 06-14-2022 Thyrotropin [Units/volume] in Serum or Plasma TSH BLD Lab Routine Acquired hypothyroidism Expected: 04/14/2022, Expires: 06/14/2022 [facility] Work Phone: Comment on above: Expected: 04/14/2022, Expires: 3 Start: 04-14-2022 End: 06-14-2022 Thyroxine (T4) free [Mass/volume] in Serum or Plasma T4 FREE/FREE THYROX Lab Routine Acquired hypothyroidism Expected: 04/14/2022, Expires: 06/14/2022 [facility] Work Phone: Comment on above: Expected: 04/14/2022, Expires: 3 Start: 04-13-2022 End: 06-08-2022 SEQUENTIAL SCRN SCND TRIMESTER SEQUENTIAL SCRN SCND TRIMESTER Lab Routine Encounter for screening for nuchal translucency Expected: 04/13/2022 (Approximate), Expires: 06/08/2022 [facility] Work Phone: Comment on above: Expected: 04/13/2022 (Approximate), Expi res: 06/08/2022 Start: 03-30-2022 End: 05-30-2022 SEQUENTIAL SCRN FRST TRIMESTER [facility] Work Phone: Comment on above: Expected: 03/30/2022, Expires: 3 Start: 03-02-2022 End: 05-02-2022 CBC panel - Blood by Automated count CBC Lab Routine History of miscarriage, currently 7 weeks gestation of Expected: 03/02/2022, Expires: 05/02/2022 [facility] Work Phone: Comment on above: Expected: 03/02/2022, Expires: 2 Start: 03-02-2022 End: 05-02-2022 Hepatitis B virus surface Ab [Presence] in Serum by Immunoassay HEP B SURF AG SCRN Lab Routine History of miscarriage, currently 7 weeks gestation of Expected: 03/02/2022, Expires: 05/02/2022 [facility] Work Phone: Comment on above: Expected: 03/02/2022, Expires: 2 Start: 03-02-2022 End: 05-02-2022 Hepatitis C virus Ab [Presence] in Serum HEP C AB IA W/CONF SCRN Lab Routine History of miscarriage, currently 7 weeks gestation of Expected: 03/02/2022, Expires: 05/02/2022 [facility] Work Phone: Comment on above: Expected: 03/02/2022, Expires: 2 Start: 03-02-2022 End: 05-02-2022 HIV 1+2 Ab [Presence] in Serum or Plasma by Immunoassay HIV 1 2 COMBO(AG/AB),WITH REFLEX TO DIFFERENTIATION Lab Routine History of miscarriage, currently 7 weeks gestation of Expected: 03/02/2022, Expires: 05/02/2022 [facility] Work Phone: Comment on above: Expected: 03/02/2022, Expires: 2 Start: 03-02-2022 End: 03-02-2023 NUCHAL TRANSLUCENCY WHI NUCHAL TRANSLUCENCY WHI Anc Imaging Routine History of miscarriage, currently 7 weeks gestation of Expected: 03/02/2022, Expires: 03/02/2023 [facility] Work Phone: Comment on above: Expected: 03/02/2022, Expires: 3 Start: 03-02-2022 End: 03-02-2023 OBSTETRIC ULTRASOUND WHI OBSTETRIC ULTRASOUND WHI Anc Imaging Routine History of miscarriage, currently 7 weeks gestation of Expected: 03/02/2022, Expires: 03/02/2023 [facility] Work Phone: Comment on above: Expected: 03/02/2022, Expires: 3 Start: 03-02-2022 End: 05-02-2022 RUBELLA IGG AB RUBELLA IGG AB Lab Routine History of miscarriage, currently 7 weeks gestation of Expected: 03/02/2022, Expires: 05/02/2022 [facility] Work Phone: Comment on above: Expected: 03/02/2022, Expires: 2 Start: 03-02-2022 End: 05-02-2022 SYPHILIS TOTAL W/REFLEX SYPHILIS TOTAL W/REFLEX Lab Routine History of miscarriage, currently 7 weeks gestation of Expected: 03/02/2022, Expires: 05/02/2022 [facility] Work Phone: Comment on above: Expected: 03/02/2022, Expires: 2 Start: 03-02-2022 End: 05-02-2022 TYPE + SCREEN TYPE + SCREEN Blood Bank Routine History of miscarriage, currently 7 weeks gestation of Expected: 03/02/2022, Expires: 05/02/2022 [facility] Work Phone: Comment on above: Expected: 03/02/2022, Expires: 2 Start: 02-23-2022 End: 04-25-2022 Choriogonadotropin.beta subunit [Units/volume] in Serum or Plasma HCG QUANTITATIVE Lab Routine History of miscarriage, currently Expected: 02/23/2022, Expires: 04/25/2022 [facility] Work Phone: Comment on above: Expected: 02/23/2022, Expires: 2 Start: 02-08-2022 End: 04-10-2022 Choriogonadotropin.beta subunit [Units/volume] in Serum or Plasma HCG QUANTITATIVE Lab Routine Missed menses Expected: 02/08/2022, Expires: 04/10/2022 [facility] Work Phone: Comment on above: Expected: 02/08/2022, Expires: 2 Start: 01-26-2022 Influenza vaccination [facility] Start: 06-30-2021 COVID-19 VACCINE (4 - Booster for Pfizer series) COVID-19 VACCINE (4 - Booster for Pfizer series) [facility] Start: 06-30-2021 COVID-19 VACCINE (4 - Pfizer series) COVID-19 VACCINE (4 - Pfizer series) [facility] Start: 05-28-2021 DEPRESSION ASSESSMENT DEPRESSION ASSESSMENT [facility] Start: 06-25-2020 ANNUAL PCP TEAM CHRONIC DISEASE VISIT ANNUAL PCP TEAM CHRONIC DISEASE VISIT [facility] Start: 2013 Hepatitis B Vaccine (1 of 3 - 19+ 3-dose series) Hepatitis B Vaccine (1 of 3 - 19+ 3-dose series) [facility] Start: 2012 Anxiety Screening Anxiety Screening [facility] Start: 2012 Depression Screening Depression Screening [facility] Start: 2012 HEPATITIS C SCREENING HEPATITIS C SCREENING [facility] Start: 2006 Adult depression screening assessment DEPRESSION SCREENING [facility] Start: 1994 HEPATITIS B (1 of 3 - 3-dose series) HEPATITIS B (1 of 3 - 3-dose series) [facility] Start: 1994 Hepatitis B Vaccine (1 of 3 - 3-dose series) Hepatitis B Vaccine (1 of 3 - 3-dose series) [facility] Bacteria identified in Urine by Culture Urine Culture [facility] Bacteria identified in Urine by Culture URINE CULTURE Microbiology Routine with uncertain dates in first trimester 04/02/2024 9:48 AM [facility] Chlamydia trachomatis+Neisseria gonorrhoeae DNA [Presence] in Unspecified specimen by DEVONTE with probe detection GONORRHEA/CHLAMYDIA NAAT Lab Routine with uncertain dates in first trimester 04/02/2024 9:48 AM [facility] Insertion intrauteri ne device iud INSERT INTRAUTERINE DEVICE Procedures Routine care and examination Encounter for IUD insertion care and examination of lactating mother Ordered: 11/24/2022 [facility] Work Phone: Comment on above: Ordered: 11/24/2022 Patient Education Kick Counts ED False Labor OB Triage: Return to Hospital or Notify Physician if you Experience: [facility] Work Phone: Patient referral [facility] Work Phone: POC PACU NURSE ULTRASOUND POC PACU NURSE ULTRASO UND Anc Imaging Routine with uncertain dates in first trimester Ordered: 04/02/2024 [facility] Work Phone: Comment on above: Ordered: 04/02/2024 Removal intrauterine device iud REMOVE INTRAUTERINE DEVICE Procedures Routine Encounter for IUD removal Ordered: 02/04/2024 [facility] Work Phone: Comment on above: Ordered: 02/04/2024 ROUTINE, GR OUP B STREP PCR ROUTINE, GROUP B STREP PCR Microbiology Routine 36 weeks gestation of Obesity complicating , third trimester Encounter for supervision of other normal , third trimester Ordered: 09/20/2022 [facility] Work Phone: Comment on above: Ordered: 09/20/2022 End: 02-07-2023 Thyrotropin [Units/volume] in Serum or Plasma TSH BLD Lab Routine Acquired hypothyroidism Once per month for 10 Occurrences starting 02/07/2022 until 02/07/2023 [facility] Work Phone: Comment on above: Once per month for 10 Occurrences starti ng 02/07/2022 until 02/07/2023 End: 03-03-2023 Thyrotropin [Units/volume] in Serum or Plasma TSH BLD Lab Routine Acquired hypothyroidism Once per month for 10 Occurrences starting 03/03/2022 until 03/03/2023 [facility] Work Phone: Comment on above: Once per month for 10 Occurrences starti ng 03/03/2022 until 03/03/2023 End: 05-12-2023 Thyrotropin [Units/volume] in Serum or Plasma TSH BLD Lab Routine 17 weeks gestation of Hypothyroidism, unspecified type Once per month for 4 Occurrences starting 05/12/2022 until 05/12/2023 [facility] Work Phone: Comment on above: Once per month for 4 Occurrences startin g 05/12/2022 until 05/12/2023 End: 03-27-2025 Thyrotropin [Units/volume] in Serum or Plasma THYROID STIMULATING HORMONE Lab Routine Early stage of Acquired hypothyroidism Once per month for 12 Occurrences starting 03/27/2024 until 03/27/2025, 1 completed [facility] Comment on above: Once per month for 12 Occurrences starti ng 03/27/2024 until 03/27/2025, 1 completed End: 02-07-2023 Thyroxine (T4) free [Mass/volume] in Serum or Plasma T4 FREE/FREE THYROX Lab Routine Acquired hypothyroidism Once per month for 10 Occurrences starting 02/07/2022 until 02/07/2023 [facility] Work Phone: Comment on above: Once per month for 10 Occurrences starti ng 02/07/2022 until 02/07/2023 End: 03-03-2023 Thyroxine (T4) free [Mass/volume] in Serum or Plasma T4 FREE/FREE THYROX Lab Routine Acquired hypothyroidism Once per month for 10 Occurrences starting 03/03/2022 until 03/03/2023 [facility] Work Phone: Comment on above: Once per month for 10 Occurrences starti ng 03/03/2022 until 03/03/2023 End: 03-27-2025 Thyroxine (T4) free [Mass/volume] in Serum or Plasma T4 FREE/FREE THYROXINE Lab Routine Early stage of Acquired hypothyroidism Once per month for 12 Occurrences starting 03/27/2024 until 03/27/2025, 1 completed [facility] Comment on above: Once per month for 12 Occurrences starti ng 03/27/2024 until 03/27/2025, 1 completed URINE OB DIP B/O URINE OB DIP B/ O Lab Routine Supervision of high risk in third trimester (HCC) Hypothyroidism, unspecified type Obesity affecting in third trimester, unspecified obesity type (HCC) 37 weeks gestation of (HCC) Ordered: 10/22/2024 [facility] Work Phone: Comment on above: Ordered: 10/22/2024 XR Toes - left 3 Views XR TOE AP /LAT/OBL LEFT Radiology Routine Ingrowing toenail 09/25/2023 10:29 AM EDT [facility] Work Phone[facility] Immun[facility] Immunization Date Immunization Notes Care Provider Joey hall 08-22-2024 tetanus toxoid, reduced diphtheria toxoid, and acellular pertussis vaccine, adsorbed Valentin Blood MD Work Phone: [facility] 03-27-2024 influenza, seasonal, injectable, preservative free Valentin Blood MD Work Phone: [facility] 07-27-2022 tetanus toxoid, reduced diphtheria toxoid, and acellular pertussis vaccine, adsorbed Celine Vazquez MD Work Phone: [facility] 03-02-2022 influenza, injectabl e, quadrivalent, contains preservative Fatimah Do MD Work Phone: [facility] 03-02-2022 influenza virus vaccine, unspecified formulation Jayce Violetta COST RECORDER.PAPERHANGER ASSISTANT Work Phone: [facility] 02-28-2019 Influenza virus vaccine [facility] 02-28-2019 influenza, seasonal, injectable, preservative free Valentin Blood MD Work Phone: [facility] 02-20-2019 tetanus toxoid, reduced diphtheria toxoid, and acellular pertussis vaccine, adsorbed [facility] 02-07-2019 influenza, injectabl e, quadrivalent, contains preservative Madison Askov COST RECORDER.PAPERHANGER ASSISTANT Work Phone: [facility] 01-24-2019 tetanus toxoid, reduced diphtheria toxoid, and acellular pertussis vaccine, adsorbed Madison Eric COST RECORDER.PAPERHANGER ASSISTANT Work Phone: [facility] NEGATED: Highlighted row has not occurred!02-07-2023 hepatitis B vaccine, adult dosage Jayce Violetta COST RECORDER.PAPERHANGER ASSISTANT Work Phone: [facility] Work Phone: Comment on above: Deferred: Postponed NEGATED: Highlighted row has not occurred!02-07-2023 influenza, injectable, quadrivalent, contains preservative Jayce Violetta COST RECORDER.PAPERHANGER ASSISTANT Work Phone: [facility] Work Phone: Comment on above: Deferred: Postponed Payers Date Payer Category Payer Self-pay [id number] 2019 Private Health Insurance MMO SUP [employer] PPO [id number] 2019 Unknown MMO MMO [employer]US [id number] 2019-Present [phone] [address] [place] [id number] PPO [id number] 2019 Unknown [id number] 2019 Unknown [id number] Unknown [id number] Unknown [id number] Unknown [id number] Social History Date Type Detail Facility Start: 07-18-2018 End: 03-02-2022 Tobacco smoking status NHIS Never smoked tobacco [facility] Start: 07-18-2018 End: 03-02-2022 Tobacco use and exposure Smokeless tobacco non-user [facility] Start: 09-08-2021 End: 10-22-2024 Alcohol intake Ex-drinker (finding) [facility] Start: 07-18-2018 History SDOH Alcohol Comment Socially [facility] Start: 1995 Sex Assigned At Not on file [facility] Start: 08-29-2021 End: 04-12-2022 Exposure to SARS-CoV-2 (event) Not sure [facility] Start: 02-23-2022 Education 17 [facility] Start: 01-24-2022 [facility] Start: 05-30-2021 Tobacco smoking stat us [facility] Unknown if ever smoked [facility] Start: 1995 Sex Assigned At Female W [facility] Start: 11-24-2022 End: 02-07-2023 History of Social function [facility] Start: 11-24-2022 End: 02-07-2023 Tobacco use panel [facility] National Score (1-10 0), lower number is lower risk 70 [facility] Goals Date Patient Goal Desired Activity /State Personal health goal Personal health goal Clinical Notes 08-22-2018 to 10-31-2024 Quick Notes - Ester Valencia MD - 10/29/2024 4:37 PM EDTPrenatal Quick Notes - Ester Valencia MD - 10/29/2024 4:37 PM EDTPatient InstructionsPatient Instructions Note Date & Type Note Facility 10-31-2024 Note HNO ID: [id number] Author: NAIMA GREY MA Service: ? Author Type: Branch Office Manager Type: Progress Notes Filed: 10/31/2024 10:10 Note Text: POPULATION HEALTH NAVIGATION OUTREACH Action/FYI 2nd attempt: Called and left message to call back. Reason for Outreach Medicaid OB/Peds Care Gaps due: N/A Patient Contacted: Unable or unnecessary to reach patient: Unable to reach patient Left message Navigation Signature: Naima Turner MA October 31, 2024 10:10 AM [facility] 10-29-2024 Progress note Formatting of t his note might be different from the original. DM-Pt doing well. Denies vaginal Bleeding, Leaking fluid, or regular Contractions. Pt reports good movement Physical Exam: Gen: female in no apparent distress Abd: soft, Gravid. Non tender to palpation. See flow sheet Participation of a fellow, resident, medical student, or advanced practice provider student in performing the sensitive examination was discussed with the patient or authorized medical claims representative. The patient or authorized medical claims representative has agreed to proceed with the sensitive examination. @ 38.1 weeks Assessment & Plan Supervision of high risk in third trimester (HCC) Orders: URINE OB DIP B/O Hypothyroidism, unspecified type Orders: URINE OB DIP B/O Obesity affecting in third trimester, unspecified obesity type (HCC) Orders: URINE OB DIP B/O 38 weeks gestation of (HCC) - kick counts and labor reviewed IOL scheduled 39 week patient request Orders: URINE OB DIP B/O Ester Schultz MD [facility] 10-29-2024 Miscellaneous Notes DM-Pt doing well. Denies vaginal Bleeding, Leaking fluid, or regular Contractions. Pt reports good movement Physical Exam: Gen: female in no apparent distress Abd: soft, Gravid. Non tender to palpation. See flow sheet Participation of a fellow, resident, medical student, or advanced practice provider student in performing the sensitive examination was discussed with the patient or authorized medical claims representative. The patient or authorized medical claims representative has agreed to proceed with the sensitive examination. @ 38.1 weeks Assessment & Plan Supervision of high risk in third trimester (HCC) Orders: URINE OB DIP B/O Hypothyroidism, unspecified type Orders: URINE OB DIP B/O Obesity affecting in third trimester, unspecified obesity type (HCC) Orders: URINE OB DIP B/O 38 weeks gestation of (HCC) - kick counts and labor reviewed IOL scheduled 39 week patient request Orders: URINE OB DIP B/O Ester Schultz MD documented in this encounter [facility] 10-29-2024 Instructions Markell Peterson MA - 10/29/2024 4:18 PM EDT SEQUENTIAL SCREENINGS The [facility] offers sequential screenings for women who are interested in screenings for chromosomal abnormalities and certain defects during a . The sequential screen combines ultrasound and blood tests to determine the risk of chromosomal abnormalities, including Down's Syndrome (Trisomy 21) and Trisomy 18, as well as open neural tube defects including spina bifida. Ultrasound examination is performed between 11 weeks and 13 weeks gestational age. Blood tests are drawn after the ultrasound and again later in the between 15 and 21 weeks gestational age. Please let your physician know if you are interested in this testing. It will require an appointment with our cath lab radiology technician. This is not an ultrasound performed by a physician in our office during a routine visit. SIGNS AND SYMPTOMS OF LABOR 1. Contractions every 10 minutes or more often 2. Clear, pink, or brownish fluid (water) leaking from vagina 3. Feeling that baby is pushing down, pressure 4. Low, dull backache 5. Cramps that feel like a period 6. Cramps with or without diarrhea If you notice any of the above symptoms, contact our office at [phone] and ask to speak with a nurse. After hours, you can call doctors registry at [phone] OR call [facility] at [phone] and ask to have the doctor instructional design specialist paged. If you consider this an emergency, dial [phone] or go to your nearest emergency department. NEED HELP? Are you dealing with a violent or abusive relationship? Are you a victim of rape or sexual assult? Call [facility] ([place]) 24 hour Crisis Hotline: 459.330.3160 or 870-377-2159. MANUAL Your Guide to a Healthy manual is now on-line. Visit [email or web address] to download your free copy documented in this encounter [facility] 10-29-2024 Note HNO ID: [id number] Author: NAIMA GREY MA Service: ? Author Type: Branch Office Manager Type: Progress Notes Filed: 10/29/2024 08:30 Note Text: POPULATION HEALTH NAVIGATION OUTREACH Action/ 1st attempt: Called and left message to call back to discuss mason tender restoration labor. message sent. Reason for Outreach Medicaid OB/Peds Care Gaps due: N/A Patient Contacted: Unable or unnecessary to reach patient: Unable to reach patient Left message [employer] message sent Navigation Signature: Naima Turner MA October 29, 2024 8:30 AM [facility] 10-29-2024 Note Patient Outreach (NE TNAV) VEGA SINCLAIR ([id number]) 1995 F Date Time Provider Department 10/29/24 NAIMA GREY During your visit today, we recorded the following information about you: Naima Grey MA 10/29/2024 8:30 AM Signed POPULATION HEALTH NAVIGATION OUTREACH Action/ 1st attempt: Called and left message to call back to discuss mason tender restoration labor. message sent. Reason for Outreach Medicaid OB/Peds Care Gaps due: N/A Patient Contacted: Unable or unnecessary to reach patient: Unable to reach patient Left message [employer] message sent Navigation Signature: Naima Turner MA October 29, 2024 8:30 AM Naima Grey MA 10/31/2024 10:10 AM Signed POPULATION HEALTH NAVIGATION OUTREACH Action/ 2nd attempt: Called and left message to call back. Reason for Outreach Medicaid OB/Peds Care Gaps due: N/A Patient Contacted: Unable or unnecessary to reach patient: Unable to reach patient Left message Navigation Signature: Naima Turner MA October 31, 2024 10:10 AM Allergies As of Date: 10/29/2024 Noted Allergy Reaction AMOXICILLIN 11/15/2017 4 - Hives KEFLEX (CEPHALEXIN) 11/15/2017 11 - Vomiting SEASONAL ALLERGIES 11/15/2017 9 - Itching Date Reviewed: 10/29/2024 Reviewed by: Markell Peterson MA - Fully Assessed Reason for Visit: Population Health Navigation Outreach [3910] Cmt: Ob/peds Prescriptions as of 10/31/2024 - levothyroxine (SYNTHROID) 112 mcg tablet TAKE 1 TABLET BY MOUTH ONCE DAILY 5 DAYS PER WEEK AND 1 AND 1/2 TABLETS ONCE DAILY 2 DAYS PER WEEK - aspirin 81 mg cap Take 81 mg by mouth once daily. - Lactobacillus acidophilus (PROBIOTIC ACIDOPHILUS ORAL) Take by mouth. - MAGNESIUM ORAL Take by mouth. - prental multivitamin 27 mg iron- 800 mcg tablet Take 1 tablet by mouth once daily. - polyethylene glycol 3350 (MIRALAX ORAL) Take by mouth once daily. - docusate sodium (STOOL SOFTENER ORAL) Take by mouth. Problem List As Of Date 10/29/2024 Noted Resolved Hypothyroidism [E03.9] 07/18/2018 Current in first trimester with histo*08/08/2018 10/16/2018 History of thyroid disorder [Z86.39] 08/08/2018 09/02/2024 History of depression [Z86.59] 08/08/2018 Family history of genetic disease [Z84.89] 08/08/2018 size inconsistent with dates [O26.849] 08/22/2018 10/16/2018 History of depression [Z87.59, Z86.5*02/23/2022 History of bulimia [Z86.59] 02/23/2022 History of anal fissures [Z87.19] 02/23/2022 Obesity complicating , second trimeste*12/21/2022 related exhaustion and fatigue, first*04/02/2024 Supervision of high risk in second tr*04/02/2024 Fall [W19.XXXA] 06/23/2024 Encounter Status:Closed by NAIMA GREY on 10/29/24 [facility] 10-22-2024 Progress note Formatting of t his note might be different from the original. RR- VB No. LOF No. CTXS intermittent. Movement: present. Other c/o: lots of pressure Medication list reviewed. SENSITIVE EXAM: Sensitive exam not performed. Physical Exam See Flow Sheet Abd: soft, nontender, gravid Ext: edema: Trace A/P 37w1d Estimated Date of Delivery: 11/11/24 Assessment & Plan Supervision of high risk in third trimester (HCC) Orders: URINE OB DIP B/O Hypothyroidism, unspecified type Orders: URINE OB DIP B/O Obesity affecting in third trimester, unspecified obesity type (HCC) Orders: URINE OB DIP B/O 37 weeks gestation of ([facility]) Orders: URINE OB DIP B/O Celine Vazquez M.D. \ [facility] 10-22-2024 Miscellaneous Notes RR- VB No. LOF No. CTXS intermittent. Movement: present. Other c/o: lots of pressure Medication list reviewed. SENSITIVE EXAM: Sensitive exam not performed. Physical Exam See Flow Sheet Abd: soft, nontender, gravid Ext: edema: Trace A/P 37w1d Estimated Date of Delivery: 11/11/24 Assessment & Plan Supervision of high risk in third trimester (HCC) Orders: URINE OB DIP B/O Hypothyroidism, unspecified type Orders: URINE OB DIP B/O Obesity affecting in third trimester, unspecified obesity type ([facility]) Orders: URINE OB DIP B/O 37 weeks gestation of ([facility]) Orders: URINE OB DIP B/O Celine Vazquez M.D. \ documented in this encounter [facility] 10-22-2024 Instructions Wanda Lim MA - 10/22/2024 4:14 PM EDT SEQUENTIAL SCREENINGS The [facility] offers sequential screenings for women who are interested in screenings for chromosomal abnormalities and certain defects during a . The sequential screen combines ultrasound and blood tests to determine the risk of chromosomal abnormalities, including Down's Syndrome (Trisomy 21) and Trisomy 18, as well as open neural tube defects including spina bifida. Ultrasound examination is performed between 11 weeks and 13 weeks gestational age. Blood tests are drawn after the ultrasound and again later in the between 15 and 21 weeks gestational age. Please let your physician know if you are interested in this testing. It will require an appointment with our cath lab radiology technician. This is not an ultrasound performed by a physician in our office during a routine visit. SIGNS AND SYMPTOMS OF LABOR 1. Contractions every 10 minutes or more often 2. Clear, pink, or brownish fluid (water) leaking from vagina 3. Feeling that baby is pushing down, pressure 4. Low, dull backache 5. Cramps that feel like a period 6. Cramps with or without diarrhea If you notice any of the above symptoms, contact our office at [phone] and ask to speak with a nurse. After hours, you can call doctors registry at [phone] OR call [facility] at [phone] and ask to have the doctor instructional design specialist paged. If you consider this an emergency, dial [phone] or go to your nearest emergency department. NEED HELP? Are you dealing with a violent or abusive relationship? Are you a victim of rape or sexual assult? Call [facility] ([place]) 24 hour Crisis Hotline: 868.150.6756 or 380-421-5500. MANUAL Your Guide to a Healthy manual is now on-line. Visit [email or web address] to download your free copy documented in this encounter [facility] 10-08-2024 Telephone encounter Note Prescription Refill Information The patient has been identified by name and date of : Yes Caregiver verified no other encounters exist for this prescription request: Yes Caregiver confirmed with patient/requestor that no other refills are due, in the near future, with this provider at this time: Yes The last office visit in the department: 03/27/24 Does the patient have a future office visit with this provider/department: No Requested Prescriptions Pending Prescriptions Disp Refills levothyroxine (SYNTHROID) 112 mcg tablet [Pharmacy Med Name: LEVOTHYROXINE 112 MCG TABLET] 34 tablet 0 Sig: TAKE 1 TABLET BY MOUTH ONCE DAILY 5 DAYS PER WEEK AND 1 AND 1/2 TABLETS ONCE DAILY 2 DAYS PER WEEK Allison Thrasher MA October 08, 2024 1:50 PM [facility] 10-08-2024 Miscellaneous Notes Prescription Refill Information The patient has been identified by name and date of : Yes Caregiver verified no other encounters exist for this prescription request: Yes Caregiver confirmed with patient/requestor that no other refills are due, in the near future, with this provider at this time: Yes The last office visit in the department: 03/27/24 Does the patient have a future office visit with this provider/department: No Requested Prescriptions Pending Prescriptions Disp Refills levothyroxine (SYNTHROID) 112 mcg tablet [Pharmacy Med Name: LEVOTHYROXINE 112 MCG TABLET] 34 tablet 0 Sig: TAKE 1 TABLET BY MOUTH ONCE DAILY 5 DAYS PER WEEK AND 1 AND 1/2 TABLETS ONCE DAILY 2 DAYS PER WEEK Allison Thrasher MA October 08, 2024 1:50 PM documented in this encounter [facility] 10-01-2024 Progress note Formatting of t his note might be different from the original. S: Vega Sinclair is a 29 year old female who presents at 11/11/2024, by Last Menstrual Period for a routine visit. Denies headache, visual changes, chest pain, shortness of breath, vaginal bleeding, leakage of fluid, or dysuria. Feeling well, no complaints. Good movement, No contractions O: See flow sheet Gen: No apparent distress Abd: Gravid, nontender ASSESSMENT/PLAN: 1. 34 weeks gestation of ([facility]) - ICD9: V22.2, ICD10: Z3A.34 (primary diagnosis) PTL precautions 2. Supervision of high risk in third trimester ([facility]) - ICD9: V23.9, ICD10: O09.93 3. Hypothyroidism, unspecified type - ICD9: 244.9, ICD10: E03.9 Labs 08/22 Yany Fernandez MD [facility] 10-01-2024 Miscellaneous Notes S: Vega Sinclair is a 29 year old female who presents at 11/11/2024, by Last Menstrual Period for a routine visit. Denies headache, visual changes, chest pain, shortness of breath, vaginal bleeding, leakage of fluid, or dysuria. Feeling well, no complaints. Good movement, No contractions O: See flow sheet Gen: No apparent distress Abd: Gravid, nontender ASSESSMENT/PLAN: 1. 34 weeks gestation of (HCC) - ICD9: V22.2, ICD10: Z3A.34 (primary diagnosis) PTL precautions 2. Supervision of high risk in third trimester (HCC) - ICD9: V23.9, ICD10: O09.93 3. Hypothyroidism, unspecified type - ICD9: 244.9, ICD10: E03.9 Labs 08/22 Yany Fernandez MD documented in this encounter [facility] 10-01-2024 Instructions Bina Kurtz LPN - 10/01/2024 3:52 PM EDT SEQUENTIAL SCREENINGS The [facility] offers sequential screenings for women who are interested in screenings for chromosomal abnormalities and certain defects during a . The sequential screen combines ultrasound and blood tests to determine the risk of chromosomal abnormalities, including Down's Syndrome (Trisomy 21) and Trisomy 18, as well as open neural tube defects including spina bifida. Ultrasound examination is performed between 11 weeks and 13 weeks gestational age. Blood tests are drawn after the ultrasound and again later in the between 15 and 21 weeks gestational age. Please let your physician know if you are interested in this testing. It will require an appointment with our cath lab radiology technician. This is not an ultrasound performed by a physician in our office during a routine visit. SIGNS AND SYMPTOMS OF LABOR 1. Contractions every 10 minutes or more often 2. Clear, pink, or brownish fluid (water) leaking from vagina 3. Feeling that baby is pushing down, pressure 4. Low, dull backache 5. Cramps that feel like a period 6. Cramps with or without diarrhea If you notice any of the above symptoms, contact our office at [phone] and ask to speak with a nurse. After hours, you can call doctors registry at [phone] OR call [facility] at [phone] and ask to have the doctor instructional design specialist paged. If you consider this an emergency, dial or go to your nearest emergency department. NEED HELP? Are you dealing with a violent or abusive relationship? Are you a victim of rape or sexual assult? Call [facility] ([place]) 24 hour Crisis Hotline: 875.678.4087 or 893-238-2767. MANUAL Your Guide to a Healthy manual is now on-line. Visit [email or web address] to download your free copy documented in this encounter [facility] 09-16-2024 Progress note Formatting of t his note might be different from the original. S: Vega denies LOF or vaginal bleeding. She reports some mild ctxs. She had to do a hug hold of a kindergarten student today. Patient denies abdominal trauma. O: 32w0d, see flow sheet SENSITIVE EXAM: Sensitive exam not performed. A/P: Assessment & Plan 32 weeks gestation of (HCC) Supervision of high risk in third trimester (HCC) Obesity affecting in third trimester, unspecified obesity type (HCC) Discussed possible work restrictions if needed. Reviewed PTL & FM precautions Benton Carcamo MD [facility] 09-16-2024 Miscellaneous Notes S: Vega denies LOF or vaginal bleeding. She reports some mild ctxs. She had to do a hug hold of a kindergarten student today. Patient denies abdominal trauma. O: 32w0d, see flow sheet SENSITIVE EXAM: Sensitive exam not performed. A/P: Assessment & Plan 32 weeks gestation of (HCC) Supervision of high risk in third trimester (HCC) Obesity affecting in third trimester, unspecified obesity type (HCC) Discussed possible work restrictions if needed. Reviewed PTL & FM precautions Benton Carcamo MD documented in this encounter [facility] 09-16-2024 Instructions Naima Otero MA - 09/16/2024 3:53 PM EDT SEQUENTIAL SCREENINGS The [facility] offers sequential screenings for women who are interested in screenings for chromosomal abnormalities and certain defects during a . The sequential screen combines ultrasound and blood tests to determine the risk of chromosomal abnormalities, including Down's Syndrome (Trisomy 21) and Trisomy 18, as well as open neural tube defects including spina bifida. Ultrasound examination is performed between 11 weeks and 13 weeks gestational age. Blood tests are drawn after the ultrasound and again later in the between 15 and 21 weeks gestational age. Please let your physician know if you are interested in this testing. It will require an appointment with our cath lab radiology technician. This is not an ultrasound performed by a physician in our office during a routine visit. SIGNS AND SYMPTOMS OF LABOR 1. Contractions every 10 minutes or more often 2. Clear, pink, or brownish fluid (water) leaking from vagina 3. Feeling that baby is pushing down, pressure 4. Low, dull backache 5. Cramps that feel like a period 6. Cramps with or without diarrhea If you notice any of the above symptoms, contact our office at [phone] and ask to speak with a nurse. After hours, you can call doctors registry at [phone] OR call [facility] at [phone] and ask to have the doctor instructional design specialist paged. If you consider this an emergency, dial 1-8 or go to your nearest emergency department. NEED HELP? Are you dealing with a violent or abusive relationship? Are you a victim of rape or sexual assult? Call [facility] ([place]) 24 hour Crisis Hotline: 922.136.2958 or 965-851-2010. MANUAL Your Guide to a Healthy manual is now on-line. Visit [email or web address] to download your free copy documented in this encounter [facility] 09-05-2024 Telephone encounter Note Prescription Refill Information The patient has been identified by name and date of : Yes Caregiver verified no other encounters exist for this prescription request: Yes Caregiver confirmed with patient/requestor that no other refills are due, in the near future, with this provider at this time: Yes The last office visit in the department: 03/27/24 Does the patient have a future office visit with this provider/department: No Requested Prescriptions Pending Prescriptions Disp Refills levothyroxine (SYNTHROID) 112 mcg tablet [Pharmacy Med Name: LEVOTHYROXINE 112 MCG TABLET] 34 tablet 0 Sig: TAKE 1 TABLET BY MOUTH ONCE DAILY 5 DAYS PER WEEK AND 1 AND 1/2 TABLETS ONCE DAILY 2 DAYS PER WEEK Allison Thrasher MA September 05, 2024 9:10 AM [facility] 09-05-2024 Miscellaneous Notes Prescription Refill Information The patient has been identified by name and date of : Yes Caregiver verified no other encounters exist for this prescription request: Yes Caregiver confirmed with patient/requestor that no other refills are due, in the near future, with this provider at this time: Yes The last office visit in the department: 03/27/24 Does the patient have a future office visit with this provider/department: No Requested Prescriptions Pending Prescriptions Disp Refills levothyroxine (SYNTHROID) 112 mcg tablet [Pharmacy Med Name: LEVOTHYROXINE 112 MCG TABLET] 34 tablet 0 Sig: TAKE 1 TABLET BY MOUTH ONCE DAILY 5 DAYS PER WEEK AND 1 AND 1/2 TABLETS ONCE DAILY 2 DAYS PER WEEK Allison Thrasher MA September 05, 2024 9:10 AM documented in this encounter [facility] 09-02-2024 Progress note Formatting of t his note might be different from the original. KHRIS-S: Vega Sinclair is a 28 year old female who presents at 30w0d with HAYES:11/11/2024, by Last Menstrual Period for a routine visit. Denies headache, visual changes, chest pain, shortness of breath, vaginal bleeding, leakage of fluid, or dysuria. Feeling well, no complaints. O: See flow sheet Gen: No apparent distress Abd: Gravid, nontender ASSESSMENT/PLAN: 1. Supervision of high risk in third trimester -Continue PNV and ASA 2. 30 weeks gestation of 3. Hypothyroidism, unspecified type -Continue Synthroid 112mcg PO once daily -Thyroid studies completed on 08/22 4. Obesity affecting in third trimester, unspecified obesity type -Pregravid BMI 30, no testing 5. History of depression -No medication, coping at this time PTL precautions reviewed and when to call RTO in 2 weeks Sylwia Moore APRN.CNM [facility] 09-02-2024 Miscellaneous Notes KHRIS-S: Vega Sinclair is a 28 year old female who presents at 30w0d with HAYES:11/11/2024, by Last Menstrual Period for a routine visit. Denies headache, visual changes, chest pain, shortness of breath, vaginal bleeding, leakage of fluid, or dysuria. Feeling well, no complaints. O: See flow sheet Gen: No apparent distress Abd: Gravid, nontender ASSESSMENT/PLAN: 1. Supervision of high risk in third trimester -Continue PNV and ASA 2. 30 weeks gestation of 3. Hypothyroidism, unspecified type -Continue Synthroid 112mcg PO once daily -Thyroid studies completed on 08/22 4. Obesity affecting in third trimester, unspecified obesity type -Pregravid BMI 30, no testing 5. History of depression -No medication, coping at this time PTL precautions reviewed and when to call RTO in 2 weeks Sylwia Moore APRN.CNM documented in this encounter [facility] 09-02-2024 Instructions Wanda Lim MA - 09/02/2024 3:15 PM EDT SEQUENTIAL SCREENINGS The [facility] offers sequential screenings for women who are interested in screenings for chromosomal abnormalities and certain defects during a . The sequential screen combines ultrasound and blood tests to determine the risk of chromosomal abnormalities, including Down's Syndrome (Trisomy 21) and Trisomy 18, as well as open neural tube defects including spina bifida. Ultrasound examination is performed between 11 weeks and 13 weeks gestational age. Blood tests are drawn after the ultrasound and again later in the between 15 and 21 weeks gestational age. Please let your physician know if you are interested in this testing. It will require an appointment with our cath lab radiology technician. This is not an ultrasound performed by a physician in our office during a routine visit. SIGNS AND SYMPTOMS OF LABOR 1. Contractions every 10 minutes or more often 2. Clear, pink, or brownish fluid (water) leaking from vagina 3. Feeling that baby is pushing down, pressure 4. Low, dull backache 5. Cramps that feel like a period 6. Cramps with or without diarrhea If you notice any of the above symptoms, contact our office at [phone] and ask to speak with a nurse. After hours, you can call doctors registry at [phone] OR call [facility] at [phone] and ask to have the doctor instructional design specialist paged. If you consider this an emergency, dial 6-6-6 or go to your nearest emergency department. NEED HELP? Are you dealing with a violent or abusive relationship? Are you a victim of rape or sexual assult? Call [facility] ([place]) 24 hour Crisis Hotline: 747.458.5308 or 748-283-7281. MANUAL Your Guide to a Healthy manual is now on-line. Visit [email or web address] to download your free copy documented in this encounter [facility] 08-22-2024 Progress note Formatting of t his note might be different from the original. Multip at 28w3d w/o complaints Interested in Mirena after delivery Denies VÁSQUEZ, vision changes or bleeding Throid and GTT today No edema, nl DTR. Doing well Throid / labs today rto 2 weeks Valentin Blood MD [facility] Work Phone: 08-22-2024 Miscellaneous Notes Multip at 28w3d w/o complaints Interested in Mirena after delivery Denies VÁSQUEZ, vision changes or bleeding Throid and GTT today No edema, nl DTR. Doing well Throid / labs today rto 2 weeks Valentin Blood MD documented in this encounter [facility] 08-22-2024 Note HNO ID: [id number] Author: WANDA LIM MA Service: ? Author Type: Branch Office Manager Type: Progress Notes Filed: 08/25/2024 10:48 Note Text: Patient identified by name and date of . Vega Sinclair presents today for a vaccination of Tdap. Patient denies an allergy to latex: yes Patient denies a severe (life-threatening) allergy to a previous dose of Tdap, DTP, DTaP, DT or Td vaccine. Yes Patient denies history of epilepsy or neurological problems: Yes Patient is afebrile and denies being moderately or severely ill: Yes Patient denies history of Guillain-Triangle Syndrome (a severe paralytic illness): Yes Tdap Adacel injection was given without incident. See immunizations for details of immunizations administered today. VIS sheet provided: Yes Provider Dr Blood was present in office at time of injection. [facility] 08-22-2024 History of Presen t illness Narrative Patient identified by name and date of . Vega Sinclair presents today for a vaccination of Tdap. Patient denies an allergy to latex: yes Patient denies a severe (life-threatening) allergy to a previous dose of Tdap, DTP, DTaP, DT or Td vaccine. Yes Patient denies history of epilepsy or neurological problems: Yes Patient is afebrile and denies being moderately or severely ill: Yes Patient denies history of Guillain-Triangle Syndrome (a severe paralytic illness): Yes Tdap Adacel injection was given without incident. See immunizations for details of immunizations administered today. VIS sheet provided: Yes Provider Dr Blood was present in office at time of injection. documented in this encounter [facility] 08-22-2024 Instructions Wanda Lim MA - 08/22/2024 11:46 AM EDT SEQUENTIAL SCREENINGS The [facility] offers sequential screenings for women who are interested in screenings for chromosomal abnormalities and certain defects during a . The sequential screen combines ultrasound and blood tests to determine the risk of chromosomal abnormalities, including Down's Syndrome (Trisomy 21) and Trisomy 18, as well as open neural tube defects including spina bifida. Ultrasound examination is performed between 11 weeks and 13 weeks gestational age. Blood tests are drawn after the ultrasound and again later in the between 15 and 21 weeks gestational age. Please let your physician know if you are interested in this testing. It will require an appointment with our cath lab radiology technician. This is not an ultrasound performed by a physician in our office during a routine visit. SIGNS AND SYMPTOMS OF LABOR 1. Contractions every 10 minutes or more often 2. Clear, pink, or brownish fluid (water) leaking from vagina 3. Feeling that baby is pushing down, pressure 4. Low, dull backache 5. Cramps that feel like a period 6. Cramps with or without diarrhea If you notice any of the above symptoms, contact our office at [phone] and ask to speak with a nurse. After hours, you can call doctors registry at [phone] OR call [facility] at [phone] and ask to have the doctor instructional design specialist paged. If you consider this an emergency, dial 3-2-3 or go to your nearest emergency department. NEED HELP? Are you dealing with a violent or abusive relationship? Are you a victim of rape or sexual assult? Call [facility] ([place]) 24 hour Crisis Hotline: 528.520.7181 or 788-953-4634. MANUAL Your Guide to a Healthy manual is now on-line. Visit [email or web address] to download your free copy documented in this encounter [facility] 08-06-2024 Instructions Rehan Muñoz APRN.PHI - 08/06/2024 7:24 AM EDT Ketorolac 1 drop four times daily each eye for 7 days Consider artificial tear or visine to hydrate the eye Cool compress or eye wash for discomfort Avoid rubbing or touching as much as possible Good handwashing Avoid eye make up until symptoms have resolved Follow up if fail to improve or worsen as discussed documented in this encounter [facility] 08-06-2024 Note HNO ID: [id number] Author: REHAN MUÑOZ APRN.CNP Service: ? Author Type: Nurse Practitioner Type: Progress Notes Filed: 08/06/2024 07:24 Note Text: Telemedicine Visit - Distance Health Virtual Visit Note Patient seen on [employer] Video Visit platform. Location of patient: [place] I have communicated my name and active licensure. The patient's identity and physical location were verified at the time of this visit. Either the patient or their legal medical claims representative has been informed of the risks and benefits of -- and alternatives to -- treatment through a remote evaluation and consents to proceed with the evaluation remotely. History of Present Illness: Vega Sinclair is a 28 year old female with a history of bilateral eye symptoms that started 1 weeks ago. Per patient she believed she was getting pink eye and started a previous rx of polymyxin drops; however, eyes have only worsened and not improved. Positive for: Redness, Itching, Ocular discharge n/a, Watery, and Crusting in AM Negative for: Change in vision, Bumps/Styes, Foreign body sensation, Pain, Injury, Fevers, and Chills/Sweats Hx of seasonal allergies: Yes /Lactating: : Yes: Lactating: No PAST MEDICAL HISTORY Diagnosis Date Anal fissure Anemia Bulimia Gallstone Hypothyroidism Mental disorder depression PAST SURGICAL HISTORY Procedure Laterality Date NAIL REMOVAL PROCEDURE (W NOTE) PAST SURGICAL HISTORY OF wisdom teeth SPHINCTEROTOMY 12/2022 TONSILLECTOMY AND ADENOIDECTOMY HX childhood FAMILY HISTORY Problem Relation Age of Onset Migraines Mother Anxiety disorder Mother anxiety/depression Hypertension Father Anxiety disorder Sister anxiety depression Anxiety disorder Sister anxiety /depression No Known Problems Maternal Grandmother Prostate Cancer Maternal Grandfather Thyroid Paternal Grandmother No Known Problems Paternal Grandfather other (digeorge) Other No Known Problems Daughter Social History Tobacco Use Smoking status: Never Smokeless tobacco: Never Vaping Use Vaping status: Never Used Substance Use Topics Alcohol use: Not Currently Comment: Socially Drug use: No Current Outpatient Medications Medication Sig levothyroxine (SYNTHROID) 112 mcg tablet TAKE 1 TABLET BY MOUTH ONCE DAILY 5 DAYS PER WEEK AND 1 AND 1/2 TABLETS ONCE DAILY 2 DAYS PER WEEK aspirin 81 mg cap Take 81 mg by mouth once daily. Lactobacillus acidophilus (PROBIOTIC ACIDOPHILUS ORAL) Take by mouth. MAGNESIUM ORAL Take by mouth. prental multivitamin 27 mg iron- 800 mcg tablet Take 1 tablet by mouth once daily. polyethylene glycol 3350 (MIRALAX ORAL) Take by mouth once daily. docusate sodium (STOOL SOFTENER ORAL) Take by mouth. No current facility-administered medications for this visit. ALLERGIES Allergen Reactions Amoxicillin Hives Keflex [Cephalexin] Vomiting Seasonal Allergies Itching VIDEO EXAMINATION (Examination performed via Video enabled technology) General Appearance: Well in appearance Alert, oriented, pleasant, in NAD: Yes Ill appearing: No Lethargic appearing: No Respiratory distress: No Eyes: Normal Pupil Size EOMI Right: Conjunctival injection, Debris on eyelid margins, Scleral injection, No ocular discharge, No eyelid edema, No periorbital edema, and No periorbital tenderness Left: Scleral injection, No conjunctival injection, No ocular discharge, No eyelid edema, No periorbital edema, and No periorbital tenderness ASSESSMENT/PLAN: 1. Irritation of both eyes - ICD9: 379.99, ICD10: H57.89 (primary diagnosis) - Suspect eye symptoms were never bacterial from the beginning and adding the abx drops only worsened the progression of symptoms causing an allergic response this discussed. Pt instructed to stop the abx drops. - Will initiate Ketorolac drops for inflammation/irritation - Recommend artifical tears/saline drops to hydrate - Cool/Tepid compresses/rinses - Avoid rubbing or touching the eyes - Good handwashing and overall allow eye symptoms to self-resolve - KETOROLAC 0.5 % EYE DROPS 2. Other conjunctivitis of both eyes - ICD9: 372.39, ICD10: H10.89 - KETOROLAC 0.5 % EYE DROPS PLAN: All questions answered Follow up in person in 3-5 days if symptoms do not improve or earlier for worsening symptoms Needs in person evaluation if: develops high fever, develops periorbital redness or swelling, eye pain, visual changes, concerns or if symptoms persist Rehan Muñoz APRN.[facility] 08-06-2024 History of Presen t illness Narrative Images from the original note were not included. Telemedicine Visit - Distance Health Virtual Visit Note Patient seen on [employer] Video Visit platform. Location of patient: [place] I have communicated my name and active licensure. The patient's identity and physical location were verified at the time of this visit. Either the patient or their legal medical claims representative has been informed of the risks and benefits of -- and alternatives to -- treatment through a remote evaluation and consents to proceed with the evaluation remotely. History of Present Illness: Vega Sinclair is a 28 year old female with a history of bilateral eye symptoms that started 1 weeks ago. Per patient she believed she was getting pink eye and started a previous rx of polymyxin drops; however, eyes have only worsened and not improved. Positive for: Redness, Itching, Ocular discharge n/a, Watery, and Crusting in AM Negative for: Change in vision, Bumps/Styes, Foreign body sensation, Pain, Injury, Fevers, and Chills/Sweats Hx of seasonal allergies: Yes /Lactating: : Yes: Lactating: No PAST MEDICAL HISTORY Diagnosis Date Anal fissure Anemia Bulimia Gallstone Hypothyroidism Mental disorder depression PAST SURGICAL HISTORY Procedure Laterality Date NAIL REMOVAL PROCEDURE (W NOTE) PAST SURGICAL HISTORY OF wisdom teeth SPHINCTEROTOMY 12/2022 TONSILLECTOMY AND ADENOIDECTOMY HX childhood FAMILY HISTORY Problem Relation Age of Onset Migraines Mother Anxiety disorder Mother anxiety/depression Hypertension Father Anxiety disorder Sister anxiety depression Anxiety disorder Sister anxiety /depression No Known Problems Maternal Grandmother Prostate Cancer Maternal Grandfather Thyroid Paternal Grandmother No Known Problems Paternal Grandfather other (digeorge) Other No Known Problems Daughter Social History Tobacco Use Smoking status: Never Smokeless tobacco: Never Vaping Use Vaping status: Never Used Substance Use Topics Alcohol use: Not Currently Comment: Socially Drug use: No Current Outpatient Medications Medication Sig levothyroxine (SYNTHROID) 112 mcg tablet TAKE 1 TABLET BY MOUTH ONCE DAILY 5 DAYS PER WEEK AND 1 AND 1/2 TABLETS ONCE DAILY 2 DAYS PER WEEK aspirin 81 mg cap Take 81 mg by mouth once daily. Lactobacillus acidophilus (PROBIOTIC ACIDOPHILUS ORAL) Take by mouth. MAGNESIUM ORAL Take by mouth. prental multivitamin 27 mg iron- 800 mcg tablet Take 1 tablet by mouth once daily. polyethylene glycol 3350 (MIRALAX ORAL) Take by mouth once daily. docusate sodium (STOOL SOFTENER ORAL) Take by mouth. No current facility-administered medications for this visit. ALLERGIES Allergen Reactions Amoxicillin Hives Keflex [Cephalexin] Vomiting Seasonal Allergies Itching VIDEO EXAMINATION (Examination performed via Video enabled technology) General Appearance: Well in appearance Alert, oriented, pleasant, in NAD: Yes Ill appearing: No Lethargic appearing: No Respiratory distress: No Eyes: Normal Pupil Size EOMI Right: Conjunctival injection, Debris on eyelid margins, Scleral injection, No ocular discharge, No eyelid edema, No periorbital edema, and No periorbital tenderness Left: Scleral injection, No conjunctival injection, No ocular discharge, No eyelid edema, No periorbital edema, and No periorbital tenderness ASSESSMENT/PLAN: 1. Irritation of both eyes - ICD9: 379.99, ICD10: H57.89 (primary diagnosis) - Suspect eye symptoms were never bacterial from the beginning and adding the abx drops only worsened the progression of symptoms causing an allergic response this discussed. Pt instructed to stop the abx drops. - Will initiate Ketorolac drops for inflammation/irritation - Recommend artifical tears/saline drops to hydrate - Cool/Tepid compresses/rinses - Avoid rubbing or touching the eyes - Good handwashing and overall allow eye symptoms to self-resolve - KETOROLAC 0.5 % EYE DROPS 2. Other conjunctivitis of both eyes - ICD9: 372.39, ICD10: H10.89 - KETOROLAC 0.5 % EYE DROPS PLAN: All questions answered Follow up in person in 3-5 days if symptoms do not improve or earlier for worsening symptoms Needs in person evaluation if: develops high fever, develops periorbital redness or swelling, eye pain, visual changes, concerns or if symptoms persist Rehan Muñoz APRN.PAPERHANGER ASSISTANT documented in this encounter [facility] 08-04-2024 Telephone encounter Note Prescription Refill Information The patient has been identified by name and date of : Yes Caregiver verified no other encounters exist for this prescription request: Yes Caregiver confirmed with patient/requestor that no other refills are due, in the near future, with this provider at this time: Yes The last office visit in the department: 03/27/24 Does the patient have a future office visit with this provider/department: No Requested Prescriptions Pending Prescriptions Disp Refills levothyroxine (SYNTHROID) 112 mcg tablet [Pharmacy Med Name: LEVOTHYROXINE 112 MCG TABLET] 34 tablet 0 Sig: TAKE 1 TABLET BY MOUTH ONCE DAILY 5 DAYS PER WEEK AND 1 AND 1/2 TABLETS ONCE DAILY 2 DAYS PER WEEK [place] LPN August 04, 2024 10:11 AM [facility] 08-04-2024 Miscellaneous Notes Prescription Refill Information The patient has been identified by name and date of : Yes Caregiver verified no other encounters exist for this prescription request: Yes Caregiver confirmed with patient/requestor that no other refills are due, in the near future, with this provider at this time: Yes The last office visit in the department: 03/27/24 Does the patient have a future office visit with this provider/department: No Requested Prescriptions Pending Prescriptions Disp Refills levothyroxine (SYNTHROID) 112 mcg tablet [Pharmacy Med Name: LEVOTHYROXINE 112 MCG TABLET] 34 tablet 0 Sig: TAKE 1 TABLET BY MOUTH ONCE DAILY 5 DAYS PER WEEK AND 1 AND 1/2 TABLETS ONCE DAILY 2 DAYS PER WEEK [place] LPN August 04, 2024 10:11 AM documented in this encounter [facility] 07-24-2024 Progress note Formatting of t his note might be different from the original. EH - S: Vega is a 28 year old female who presents at 24w2d for a routine visit. Feeling movement. Denies headache, visual changes, chest pain, shortness of breath, vaginal bleeding, leakage of fluid, or dysuria. Feeling well, no complaints. O: See flow sheet Gen: No apparent distress Abd: Gravid, nontender, S=D ASSESSMENT/PLAN: 1. Supervision of high risk in second trimester - ICD9: V23.9, ICD10: O09.92 (primary diagnosis) - Continue PNV and LDA - Recovering from influenza A, congestion not resolving. Reviewed safe medications to take during and when to be further evaluated. 2. 24 weeks gestation of - ICD9: V22.2, ICD10: Z3A.24 - GTT, CBC, RPR next visit 3. Hypothyroidism, unspecified type - ICD9: 244.9, ICD10: E03.9 - Thyroid labs ordered 4. Obesity affecting in second trimester, unspecified obesity type - ICD9: 649.13, ICD10: O99.212 - Pre BMI 30 PTL precautions and kick counts reviewed. RTO in 2 weeks or sooner as needed. Helen Perez APRN.PAPERHANGER ASSISTANT [facility] 07-24-2024 Miscellaneous Notes EH - S: Vega is a 28 year old female who presents at 24w2d for a routine visit. Feeling movement. Denies headache, visual changes, chest pain, shortness of breath, vaginal bleeding, leakage of fluid, or dysuria. Feeling well, no complaints. O: See flow sheet Gen: No apparent distress Abd: Gravid, nontender, S=D ASSESSMENT/PLAN: 1. Supervision of high risk in second trimester - ICD9: V23.9, ICD10: O09.92 (primary diagnosis) - Continue PNV and LDA - Recovering from influenza A, congestion not resolving. Reviewed safe medications to take during and when to be further evaluated. 2. 24 weeks gestation of - ICD9: V22.2, ICD10: Z3A.24 - GTT, CBC, RPR next visit 3. Hypothyroidism, unspecified type - ICD9: 244.9, ICD10: E03.9 - Thyroid labs ordered 4. Obesity affecting in second trimester, unspecified obesity type - ICD9: 649.13, ICD10: O99.212 - Pre BMI 30 PTL precautions and kick counts reviewed. RTO in 2 weeks or sooner as needed. Helen Perez APRN.PAPERHANGER ASSISTANT documented in this encounter [facility] 07-24-2024 Instructions Karen Cartwright MA - 07/24/2024 3:47 PM EST SEQUENTIAL SCREENINGS The [facility] offers sequential screenings for women who are interested in screenings for chromosomal abnormalities and certain defects during a . The sequential screen combines ultrasound and blood tests to determine the risk of chromosomal abnormalities, including Down's Syndrome (Trisomy 21) and Trisomy 18, as well as open neural tube defects including spina bifida. Ultrasound examination is performed between 11 weeks and 13 weeks gestational age. Blood tests are drawn after the ultrasound and again later in the between 15 and 21 weeks gestational age. Please let your physician know if you are interested in this testing. It will require an appointment with our cath lab radiology technician. This is not an ultrasound performed by a physician in our office during a routine visit. SIGNS AND SYMPTOMS OF LABOR 1. Contractions every 10 minutes or more often 2. Clear, pink, or brownish fluid (water) leaking from vagina 3. Feeling that baby is pushing down, pressure 4. Low, dull backache 5. Cramps that feel like a period 6. Cramps with or without diarrhea If you notice any of the above symptoms, contact our office at [phone] and ask to speak with a nurse. After hours, you can call doctors registry at [phone] OR call [facility] at [phone] and ask to have the doctor instructional design specialist paged. If you consider this an emergency, dial 9-1-2 or go to your nearest emergency department. NEED HELP? Are you dealing with a violent or abusive relationship? Are you a victim of rape or sexual assult? Call [facility] ([facility] 24 hour Crisis Hotline: 752.601.3241 or 041-895-5633. MANUAL Your Guide to a Healthy manual is now on-line. Visit [email or web address] to download your free copy documented in this encounter [facility] 07-14-2024 Telephone encounter Note Prescription Refill Information The patient has been identified by name and date of : Yes Caregiver verified no other encounters exist for this prescription request: Yes Caregiver confirmed with patient/requestor that no other refills are due, in the near future, with this provider at this time: Yes The last office visit in the department: 02/2024 Does the patient have a future office visit with this provider/department: No Requested Prescriptions Pending Prescriptions Disp Refills levothyroxine (SYNTHROID) 112 mcg tablet 34 tablet 0 Sig: Take 1 tablet by mouth 5 days per week, take 1.5 tablets 2 days per week Karen Carcamo MA July 14, 2024 9:32 AM ' [facility] 07-14-2024 Miscellaneous Notes Prescription Refill Information The patient has been identified by name and date of : Yes Caregiver verified no other encounters exist for this prescription request: Yes Caregiver confirmed with patient/requestor that no other refills are due, in the near future, with this provider at this time: Yes The last office visit in the department: 02/2024 Does the patient have a future office visit with this provider/department: No Requested Prescriptions Pending Prescriptions Disp Refills levothyroxine (SYNTHROID) 112 mcg tablet 34 tablet 0 Sig: Take 1 tablet by mouth 5 days per week, take 1.5 tablets 2 days per week Karen Carcamo MA July 14, 2024 9:32 AM ' documented in this encounter [facility] 07-07-2024 Note HNO ID: [id number] Author: PJ BENJAMIN MD Service: ? Author Type: Physician Type: Progress Notes Filed: 07/07/2024 09:42 Note Text: Patient presents with: Cough: Cough, sinus, congestion, cough, ST, VÁSQUEZ and chills x 3 days HPI: Feeling sick since last night. Nasal congestion has been chronic during ; cough started 2 days ago. Positive symptoms: Cough, Sore throat, Sinus pressure, Nasal Congestion, Rhinorrhea, Chills, Malaise, Headache, Fatigue, dyspnea Negative symptoms: Vomiting, Diarrhea, OTC: claritin, saline 22 weeks . MEDICATIONS: Current Outpatient Medications Medication Sig aspirin 81 mg cap Take 81 mg by mouth once daily. levothyroxine (SYNTHROID) 112 mcg tablet Take 1 tablet by mouth 5 days per week, take 1.5 tablets 2 days per week Lactobacillus acidophilus (PROBIOTIC ACIDOPHILUS ORAL) Take by mouth. MAGNESIUM ORAL Take by mouth. prental multivitamin 27 mg iron- 800 mcg tablet Take 1 tablet by mouth once daily. polyethylene glycol 3350 (MIRALAX ORAL) Take by mouth once daily. docusate sodium (STOOL SOFTENER ORAL) Take by mouth. No current facility-administered medications for this visit. ALLERGIES: ALLERGIES Allergen Reactions Amoxicillin Hives Keflex [Cephalexin] Vomiting Seasonal Allergies Itching VITALS: BP 110/64 Pulse 83 Temp 36.9 ?C (98.5 ?F) Resp 18 Wt 87.6 kg (193 lb 2 oz) LMP 02/05/2024 (Exact Date) SpO2 100% BMI 34.01 kg/m? PHYSICAL EXAM: GEN: mildly ill appearing HEENT: PERRL, EOMI, conjunctiva clear Ears: canals with small soft cerumen. TMs without erythema, bulge, or effusion Sinuses: non-tender frontal sinus, non-tender maxillary sinuses Throat: moist mucous membranes, mild erythema, no exudate Neck: supple, no thyromegaly, no lymphadenopathy HEART: regular rate, regular rhythm, no murmurs LUNGS: clear to auscultation, no wheezes or crackles, no increased WOB ASSESSMENT/PLAN: 1. Influenza A - ICD9: 487.1, ICD10: J10.1 (primary diagnosis) 2. Influenza-like illness - ICD9: 487.1, ICD10: J11.1 3. 22 weeks gestation of - ICD9: V22.2, ICD10: Z3A.22 - INFLUENZA AANDB MOLECULAR (POC) - Influenza A positive. - OSELTAMIVIR 75 MG CAPSULE - Discussed supportive care treatment with rest, OB approved cough medicine, and analgesia. Pj Benjamin MD [facility] 07-07-2024 History of Presen t illness Narrative Patient presents with: Cough: Cough, sinus, congestion, cough, ST, VÁSQUEZ and chills x 3 days HPI: Feeling sick since last night. Nasal congestion has been chronic during ; cough started 2 days ago. Positive symptoms: Cough, Sore throat, Sinus pressure, Nasal Congestion, Rhinorrhea, Chills, Malaise, Headache, Fatigue, dyspnea Negative symptoms: Vomiting, Diarrhea, OTC: claritin, saline 22 weeks . MEDICATIONS: Current Outpatient Medications Medication Sig aspirin 81 mg cap Take 81 mg by mouth once daily. levothyroxine (SYNTHROID) 112 mcg tablet Take 1 tablet by mouth 5 days per week, take 1.5 tablets 2 days per week Lactobacillus acidophilus (PROBIOTIC ACIDOPHILUS ORAL) Take by mouth. MAGNESIUM ORAL Take by mouth. prental multivitamin 27 mg iron- 800 mcg tablet Take 1 tablet by mouth once daily. polyethylene glycol 3350 (MIRALAX ORAL) Take by mouth once daily. docusate sodium (STOOL SOFTENER ORAL) Take by mouth. No current facility-administered medications for this visit. ALLERGIES: ALLERGIES Allergen Reactions Amoxicillin Hives Keflex [Cephalexin] Vomiting Seasonal Allergies Itching VITALS: BP 110/64 Pulse 83 Temp 36.9 C (98.5 F) Resp 18 Wt 87.6 kg (193 lb 2 oz) LMP 02/05/2024 (Exact Date) SpO2 100% BMI 34.01 kg/m PHYSICAL EXAM: GEN: mildly ill appearing HEENT: PERRL, EOMI, conjunctiva clear Ears: canals with small soft cerumen. TMs without erythema, bulge, or effusion Sinuses: non-tender frontal sinus, non-tender maxillary sinuses Throat: moist mucous membranes, mild erythema, no exudate Neck: supple, no thyromegaly, no lymphadenopathy HEART: regular rate, regular rhythm, no murmurs LUNGS: clear to auscultation, no wheezes or crackles, no increased WOB ASSESSMENT/PLAN: 1. Influenza A - ICD9: 487.1, ICD10: J10.1 (primary diagnosis) 2. Influenza-like illness - ICD9: 487.1, ICD10: J11.1 3. 22 weeks gestation of - ICD9: V22.2, ICD10: Z3A.22 - INFLUENZA A&B MOLECULAR (POC) - Influenza A positive. - OSELTAMIVIR 75 MG CAPSULE - Discussed supportive care treatment with rest, OB approved cough medicine, and analgesia. Pj Benjamin MD documented in this encounter [facility] 06-27-2024 Progress note Formatting of t his note might be different from the original. SW- pt doing well. No pain, vb, lof. +FM PE: Gen- NAD, well appearing Abd- Gravid See flowsheet A/p 20 wk gestation - Anatomy US today and final report pending - Second trimester sequential screen to be completed today - TSH today - RTO 4 wks Leticia Dove DO [facility] 06-27-2024 Miscellaneous Notes SW- pt doing well. No pain, vb, lof. +FM PE: Gen- NAD, well appearing Abd- Gravid See flowsheet A/p 20 wk gestation - Anatomy US today and final report pending - Second trimester sequential screen to be completed today - TSH today - RTO 4 wks Leticia Dove DO documented in this encounter [facility] 06-27-2024 Instructions Naima Otero MA - 06/27/2024 11:06 AM EST SEQUENTIAL SCREENINGS The [facility] offers sequential screenings for women who are interested in screenings for chromosomal abnormalities and certain defects during a . The sequential screen combines ultrasound and blood tests to determine the risk of chromosomal abnormalities, including Down's Syndrome (Trisomy 21) and Trisomy 18, as well as open neural tube defects including spina bifida. Ultrasound examination is performed between 11 weeks and 13 weeks gestational age. Blood tests are drawn after the ultrasound and again later in the between 15 and 21 weeks gestational age. Please let your physician know if you are interested in this testing. It will require an appointment with our cath lab radiology technician. This is not an ultrasound performed by a physician in our office during a routine visit. SIGNS AND SYMPTOMS OF LABOR 1. Contractions every 10 minutes or more often 2. Clear, pink, or brownish fluid (water) leaking from vagina 3. Feeling that baby is pushing down, pressure 4. Low, dull backache 5. Cramps that feel like a period 6. Cramps with or without diarrhea If you notice any of the above symptoms, contact our office at [phone] and ask to speak with a nurse. After hours, you can call doctors registry at [phone] OR call [facility] at [phone] and ask to have the doctor instructional design specialist paged. If you consider this an emergency, dial 9-1-2 or go to your nearest emergency department. NEED HELP? Are you dealing with a violent or abusive relationship? Are you a victim of rape or sexual assult? Call [facility] ([place]) 24 hour Crisis Hotline: 570.801.5724 or 877-440-8240. MANUAL Your Guide to a Healthy manual is now on-line. Visit [email or web address] to download your free copy documented in this encounter [facility] 06-23-2024 Progress note Formatting of t his note might be different from the original. S: Vega Sinclair is a 28 year old female who presents at 19 weeks gestation as an add on visit for s/p fall. Patient tripped and fell in parking lot last weekend. Reports she put her hands down and fell to the side. Thinks she still hit her stomach. No bleeding or pain. Feels sore today. Positive movements. O: See flow sheet Gen: No apparent distress Abd: Gravid, non tender with moderate palpation ASSESSMENT/PLAN: 1. Supervision of high risk in second trimester 2. 19 weeks gestation of 3. Fall, initial encounter - Discussed importance of monitoring during initial 4 hours after a fall - Support provided - Precautions reviewed with patient - RTO this week for already scheduled anatomy US Camilla Aguilera APRN.CNM [facility] 06-23-2024 Miscellaneous Notes S: Vega Sinclair is a 28 year old female who presents at 19 weeks gestation as an add on visit for s/p fall. Patient tripped and fell in parking lot last weekend. Reports she put her hands down and fell to the side. Thinks she still hit her stomach. No bleeding or pain. Feels sore today. Positive movements. O: See flow sheet Gen: No apparent distress Abd: Gravid, non tender with moderate palpation ASSESSMENT/PLAN: 1. Supervision of high risk in second trimester 2. 19 weeks gestation of 3. Fall, initial encounter - Discussed importance of monitoring during initial 4 hours after a fall - Support provided - Precautions reviewed with patient - RTO this week for already scheduled anatomy US Camilla Aguilera APRN.CNM documented in this encounter [facility] 06-23-2024 Instructions Markell Peterson MA - 06/23/2024 2:47 PM EST SEQUENTIAL SCREENINGS The [facility] offers sequential screenings for women who are interested in screenings for chromosomal abnormalities and certain defects during a . The sequential screen combines ultrasound and blood tests to determine the risk of chromosomal abnormalities, including Down's Syndrome (Trisomy 21) and Trisomy 18, as well as open neural tube defects including spina bifida. Ultrasound examination is performed between 11 weeks and 13 weeks gestational age. Blood tests are drawn after the ultrasound and again later in the between 15 and 21 weeks gestational age. Please let your physician know if you are interested in this testing. It will require an appointment with our cath lab radiology technician. This is not an ultrasound performed by a physician in our office during a routine visit. SIGNS AND SYMPTOMS OF LABOR 1. Contractions every 10 minutes or more often 2. Clear, pink, or brownish fluid (water) leaking from vagina 3. Feeling that baby is pushing down, pressure 4. Low, dull backache 5. Cramps that feel like a period 6. Cramps with or without diarrhea If you notice any of the above symptoms, contact our office at [phone] and ask to speak with a nurse. After hours, you can call doctors registry at [phone] OR call [facility] at [phone] and ask to have the doctor instructional design specialist paged. If you consider this an emergency, dial 01-26- or go to your nearest emergency department. NEED HELP? Are you dealing with a violent or abusive relationship? Are you a victim of rape or sexual assult? Call [facility] ([place]) 24 hour Crisis Hotline: 380.433.5820 or 275-171-5679. MANUAL Your Guide to a Healthy manual is now on-line. Visit [email or web address] to download your free copy documented in this encounter [facility] 06-23-2024 Telephone encounter Note Patient called and notified of below. Patient states the right side of her abdomen is sore today and she does believe she hit her abdomen when she fell. Appointment given per request. Heather Roche RN [facility] 06-23-2024 Miscellaneous Notes Patient called and notified of below. Patient states the right side of her abdomen is sore today and she does believe she hit her abdomen when she fell. Appointment given per request. Heather Roche RN If thinks she hit her abdomen we can see her but if not ok to wait till appointment on 06/27. If increased pain, bleeding or discomfort to come for visit. Sylwia Moore APRN.CNM 19w6d Patient tripped fell on Sunday in a parking lot while in [place], [place]. Her right hand and knee took the brunt of the fall. States it happened so quick she wasn't sure if her abdomen was impacted. Had a VÁSQUEZ afterwards. Having some mild discomfort around her umbilicus, but no cramping, bleeding, or leaking of fluid. Her sister is a Family Med physician and went over things with her. Patient has an anatomy on 06/27 and wanted to make sure that we didn't need to see her sooner. Yany Montejo RN documented in this encounter [facility] 06-23-2024 Telephone encounter Note If thinks she hit her abdomen we can see her but if not ok to wait till appointment on 06/27. If increased pain, bleeding or discomfort to come for visit. Sylwia Moore APRN.CNM [facility] Work Phone: 06-23-2024 Telephone encounter Note 19w6d Patient tripped fell on Sunday in a parking lot while in [place], [place]. Her right hand and knee took the brunt of the fall. States it happened so quick she wasn't sure if her abdomen was impacted. Had a VÁSQUEZ afterwards. Having some mild discomfort around her umbilicus, but no cramping, bleeding, or leaking of fluid. Her sister is a Family Med physician and went over things with her. Patient has an anatomy on 06/27 and wanted to make sure that we didn't need to see her sooner. Yany Montejo RN [facility] 05-30-2024 Telephone encounter Note PA requested for patients Aspirin, submitted and received response from patients insurance that PA was denied. Guillaume Conteh MA [facility] 05-30-2024 Miscellaneous Notes PA requested for patients Aspirin, submitted and received response from patients insurance that PA was denied. Guillaume Conteh MA documented in this encounter [facility] 05-29-2024 Progress note Formatting of t his note might be different from the original. EH - S: Vega is a 28 year old female who presents at 16w2d for a routine visit. Feeling movement. Denies headache, visual changes, chest pain, shortness of breath, vaginal bleeding, leakage of fluid, or dysuria. Feeling well, no complaints. O: See flow sheet Gen: No apparent distress Abd: Gravid, nontender ASSESSMENT/PLAN: 1. Supervision of high risk in second trimester - ICD9: V23.9, ICD10: O09.92 (primary diagnosis) - Discussed LDA - Flu vaccine received - COVID vaccine received 2. 16 weeks gestation of - ICD9: V22.2, ICD10: Z3A.16 - Anatomy ultrasound next visit 3. Hypothyroidism affecting in second trimester - ICD9: 648.13, 244.9, - - Managed by PCP - TSH levels checked 05/12/24 - Continue Synthroid 4. Obesity affecting in second trimester, unspecified obesity type - ICD9: 649.13, ICD10: O99.212 - Pre BMI 30 PTL precautions reviewed. RTO in 4 weeks or sooner as needed. Helen Perez APRN.PAPERHANGER ASSISTANT [facility] 05-29-2024 Miscellaneous Notes EH - S: Vega is a 28 year old female who presents at 16w2d for a routine visit. Feeling movement. Denies headache, visual changes, chest pain, shortness of breath, vaginal bleeding, leakage of fluid, or dysuria. Feeling well, no complaints. O: See flow sheet Gen: No apparent distress Abd: Gravid, nontender ASSESSMENT/PLAN: 1. Supervision of high risk in second trimester - ICD9: V23.9, ICD10: O09.92 (primary diagnosis) - Discussed LDA - Flu vaccine received - COVID vaccine received 2. 16 weeks gestation of - ICD9: V22.2, ICD10: Z3A.16 - Anatomy ultrasound next visit 3. Hypothyroidism affecting in second trimester - ICD9: 648.13, 244.9, - - Managed by PCP - TSH levels checked 05/12/24 - Continue Synthroid 4. Obesity affecting in second trimester, unspecified obesity type - ICD9: 649.13, ICD10: O99.212 - Pre BMI 30 PTL precautions reviewed. RTO in 4 weeks or sooner as needed. Helen Perez APRN.PAPERHANGER ASSISTANT documented in this encounter [facility] 05-29-2024 Instructions Karen Cartwright MA - 05/29/2024 8:45 AM EST SEQUENTIAL SCREENINGS The [facility] offers sequential screenings for women who are interested in screenings for chromosomal abnormalities and certain defects during a . The sequential screen combines ultrasound and blood tests to determine the risk of chromosomal abnormalities, including Down's Syndrome (Trisomy 21) and Trisomy 18, as well as open neural tube defects including spina bifida. Ultrasound examination is performed between 11 weeks and 13 weeks gestational age. Blood tests are drawn after the ultrasound and again later in the between 15 and 21 weeks gestational age. Please let your physician know if you are interested in this testing. It will require an appointment with our cath lab radiology technician. This is not an ultrasound performed by a physician in our office during a routine visit. SIGNS AND SYMPTOMS OF LABOR 1. Contractions every 10 minutes or more often 2. Clear, pink, or brownish fluid (water) leaking from vagina 3. Feeling that baby is pushing down, pressure 4. Low, dull backache 5. Cramps that feel like a period 6. Cramps with or without diarrhea If you notice any of the above symptoms, contact our office at [phone] and ask to speak with a nurse. After hours, you can call doctors registry at [phone] OR call [facility] at [phone] and ask to have the doctor instructional design specialist paged. If you consider this an emergency, dial 9-1-7 or go to your nearest emergency department. NEED HELP? Are you dealing with a violent or abusive relationship? Are you a victim of rape or sexual assult? Call [facility] ([facility] 24 hour Crisis Hotline: 507.771.5711 or 928-068-1394. MANUAL Your Guide to a Healthy manual is now on-line. Visit [email or web address] to download your free copy documented in this encounter [facility] 05-13-2024 Telephone encounter Note Pt informed via message Juliet Lanier MA [facility] 05-13-2024 Miscellaneous Notes Pt informed via message Juliet Lanier MA Please let her know that her Tsh level is at the higher end of normal and I would like to increase her levothyroxine a little bit. Then continue with our normal monthly checks. She'll continue with the levothyroxine 112mg pills, but I would like her to take 1 pill 5 days/week and 1.5 pills 2 days/week. The following approved medication requests have been transmitted electronically. Requested Prescriptions Signed Prescriptions Disp Refills levothyroxine (SYNTHROID) 112 mcg tablet 34 tablet 0 Sig: Take 1 tablet by mouth 5 days per week, take 1.5 tablets 2 days per week Authorizing Provider: JAYCE SHIPLEY APRN.PAPERHANGER ASSISTANT documented in this encounter [facility] 05-13-2024 Telephone encounter Note Please let her know that her Tsh level is at the higher end of normal and I would like to increase her levothyroxine a little bit. Then continue with our normal monthly checks. She'll continue with the levothyroxine 112mg pills, but I would like her to take 1 pill 5 days/week and 1.5 pills 2 days/week. The following approved medication requests have been transmitted electronically. Requested Prescriptions Signed Prescriptions Disp Refills levothyroxine (SYNTHROID) 112 mcg tablet 34 tablet 0 Sig: Take 1 tablet by mouth 5 days per week, take 1.5 tablets 2 days per week Authorizing Provider: JAYCE SHIPLEY APRN.PAPERHANGER ASSISTANT [facility] 04-30-2024 Progress note Formatting of t his note might be different from the original. S: Vega Sinclair is a 28 year old female who presents at 12 weeks gestation. Just completed NT US. Desires sequential screening. Denies headache, visual changes, chest pain, shortness of breath, vaginal bleeding, leakage of fluid, or dysuria. Feeling well, no complaints. O: See flow sheet Gen: No apparent distress Abd: Gravid, nontender ASSESSMENT/PLAN: 1. Acquired hypothyroidism - ICD9: 244.9, ICD10: E03.9 (primary diagnosis) 2. Supervision of high risk in second trimester - ICD9: V23.9, ICD10: O09.92 3. History of depression - ICD9: V13.29, V11.8, ICD10: Z87.59, Z86.59 4. 12 weeks gestation of - ICD9: V22.2, ICD10: Z3A.12 Sequential screening labs Thyroid levels RTO 4 weeks Camilla Aguilera APRN.CNM [facility] 04-30-2024 Miscellaneous Notes S: Vega Sinclair is a 28 year old female who presents at 12 weeks gestation. Just completed NT US. Desires sequential screening. Denies headache, visual changes, chest pain, shortness of breath, vaginal bleeding, leakage of fluid, or dysuria. Feeling well, no complaints. O: See flow sheet Gen: No apparent distress Abd: Gravid, nontender ASSESSMENT/PLAN: 1. Acquired hypothyroidism - ICD9: 244.9, ICD10: E03.9 (primary diagnosis) 2. Supervision of high risk in second trimester - ICD9: V23.9, ICD10: O09.92 3. History of depression - ICD9: V13.29, V11.8, ICD10: Z87.59, Z86.59 4. 12 weeks gestation of - ICD9: V22.2, ICD10: Z3A.12 Sequential screening labs Thyroid levels RTO 4 weeks Camilla Aguilera APRN.CNM documented in this encounter [facility] 04-30-2024 Instructions Guillaume Conteh MA - 04/30/2024 10:51 AM EST SEQUENTIAL SCREENINGS The [facility] offers sequential screenings for women who are interested in screenings for chromosomal abnormalities and certain defects during a . The sequential screen combines ultrasound and blood tests to determine the risk of chromosomal abnormalities, including Down's Syndrome (Trisomy 21) and Trisomy 18, as well as open neural tube defects including spina bifida. Ultrasound examination is performed between 11 weeks and 13 weeks gestational age. Blood tests are drawn after the ultrasound and again later in the between 15 and 21 weeks gestational age. Please let your physician know if you are interested in this testing. It will require an appointment with our cath lab radiology technician. This is not an ultrasound performed by a physician in our office during a routine visit. SIGNS AND SYMPTOMS OF LABOR 1. Contractions every 10 minutes or more often 2. Clear, pink, or brownish fluid (water) leaking from vagina 3. Feeling that baby is pushing down, pressure 4. Low, dull backache 5. Cramps that feel like a period 6. Cramps with or without diarrhea If you notice any of the above symptoms, contact our office at [phone] and ask to speak with a nurse. After hours, you can call doctors registry at [phone] OR call [facility] at [phone] and ask to have the doctor instructional design specialist paged. If you consider this an emergency, dial [phone] or go to your nearest emergency department. NEED HELP? Are you dealing with a violent or abusive relationship? Are you a victim of rape or sexual assult? Call [facility] ([facility] 24 hour Crisis Hotline: 583.483.6472 or 910-164-0672. MANUAL Your Guide to a Healthy manual is now on-line. Visit [email or web address] to download your free copy documented in this encounter [facility] 04-17-2024 Telephone encounter Note The patient has been identified by name and date of : Yes Caregiver verified no other encounters exist for this prescription request: Yes Caregiver confirmed with patient/requestor that no other refills are due, in the near future, with this provider at this time: Yes The last office visit in the department: 03/27/2024 Does the patient have a future office visit with this provider/department: No Requested Prescriptions Pending Prescriptions Disp Refills levothyroxine (SYNTHROID) 112 mcg tablet 30 tablet 2 Sig: Take 1 tablet by mouth once daily. Shobha Payton RN April 17, 2024 1:01 PM [facility] 04-17-2024 Miscellaneous Notes The patient has been identified by name and date of : Yes Caregiver verified no other encounters exist for this prescription request: Yes Caregiver confirmed with patient/requestor that no other refills are due, in the near future, with this provider at this time: Yes The last office visit in the department: 03/27/2024 Does the patient have a future office visit with this provider/department: No Requested Prescriptions Pending Prescriptions Disp Refills levothyroxine (SYNTHROID) 112 mcg tablet 30 tablet 2 Sig: Take 1 tablet by mouth once daily. Shobha Payton RN April 17, 2024 1:01 PM documented in this encounter [facility] 04-02-2024 Progress note Formatting of t his note might be different from the original. Patient seen for NOB. See progress note. Camilla Aguilera APRN.CNM [facility] 04-02-2024 Miscellaneous Notes Patient seen for NOB. See progress note. Camilla gAuilera APRN.CNM documented in this encounter [facility] 04-02-2024 Instructions Bina Kurtz LPN - 04/02/2024 8:27 AM EST Please select the following link to access the [facility] Your Guide to a Healthy . [email or web address] documented in this encounter [facility] 04-02-2024 Note HNO ID: [id number] Author: CAMILLA AGUILERA APRN.CNM Service: ? Author Type: Shade Matcher Type: Progress Notes Filed: 04/02/2024 09:29 Note Text: Patient declined personalized living assistant. INITIAL OB ASSESSMENT HPI: Vega is a 28 year old White here to establish Obstetrical Care. Patient's last menstrual period was 02/05/2024 (exact date). from OB Dating Form. was planned Complaints: c/o fatigue, nausea, vomiting. OB History T2 L2 SAB1 IAB0 Ectopic0 Multiple0 Live Births2 Previous history: Prior : never History of 4th degree laceration: No History of shoulder dystocia: No History of Hypertensive disorders including pre-eclampsia or gestational hypertension: No History of gestational diabetes: No Patient's Risk Screening for delivery: Have you had a prior weaver between 20w and 36w6d? No How many pregnancies have you had before? 3, with 2 live births Did you have a previous baby with a GBS Infection? No Please select all that apply for any prior : N/A MEDICAL/PSYCHOSOCIAL HISTORY: History of hemorrhage or bleeding concerns: No Thyroid Disease: Yes, Hypothyroidism History of chronic hypertension: No History of pre-existing diabetes: No ABO/RH(D) Date Value Ref Range Status 10/04/2018 O POSITIVE Final No weight on file for this encounter. Last Pap: 06/06/2021 History of abnormal pap: No Prior treatment for cervical dysplasia: none. Last HPV: History of STDs: None Partner History of STDs: None Did you have a partner with Herpes? No Tobacco use: No E-Cigarette/Vaping Use: No Caffeine use: Yes, tea Drug use: No Alcohol use: No Multivitamin with Folic acid: Yes Would refuse blood transfusion if medically necessary: No Social Needs: How often does this describe you? I don't have enough money to pay my bills: Never Within the past 12 months, have you worried that your food would run out before you had money to buy more? Never In the past 12 months, has lack of reliable transportation kept you from going to medical appointments or work, or from getting things needed for daily living? Never In the past 12 months, have you had any concerns about having a place to live, or about the condition or quality of your housing? Never Would you like more information on any of the following (please check all that apply)? Centering (group care classes) Social History: Do you have any history of depression, anxiety, PTSD, or other mood problems? Yes Do you have a history of abuse or trauma that may impact your experience? 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 OB Depression and Anxiety Screening- This Encounter (since 04/01/2024) None Genetic Screening: Partner present: Yes Patient verbalized knowledge of partner family health history: Yes Do you or your partner have any personal or family history of defects not previously discussed: No Do you have history of a complicated by anomaly, genetic condition, or demise: No Preeclampsia Risk Screening: Screening for prevention of preeclampsia: High risk factors: None Moderate risk ractors: None OB Risk Screening: Completed, no positive findings documented. Marital Status: Partner: Name: Jordin Age: 29 Occupation: [employer] Gender: Male PAST MEDICAL HISTORY Diagnosis Date Anal fissure Anemia Bulimia Gallstone Hypothyroidism Mental disorder depression PAST SURGICAL HISTORY Procedure Laterality Date NAIL REMOVAL PROCEDURE (W NOTE) PAST SURGICAL HISTORY OF wisdom teeth SPHINCTEROTOMY 12/2022 TONSILLECTOMY AND ADENOIDECTOMY HX childhood Current Outpatient Medications Medication Sig Dispense Refill Lactobacillus acidophilus (PROBIOTIC ACIDOPHILUS ORAL) Take by mouth. levothyroxine (SYNTHROID) 112 mcg tablet Take 1 tablet by mouth five days per week. Take 1/2 tablet by mouth 2 days per week. (Patient taking differently: Take 1 tablet by mouth five days per week. Take 1/2 tablet by mouth 2 days per week.) 14 tablet 0 MAGNESIUM ORAL Take by mouth. fluticasone (FLONASE) 50 mcg/actuation nasal spray Use 2 Sprays in each nostril once daily. Rinse mouth after use. 1 Each 0 prental multivitamin 27 mg iron- 800 mcg tablet Take 1 tablet by mouth once daily. polyethylene glycol 3350 (MIRALAX ORAL) Take by mouth once daily. docusate sodium (STOOL SOFTENER ORAL) Take by mouth. loratadine (CLARITIN ORAL) Take by mouth. No current facility-administered medications for this visit. Allergies As of Date: 04/02/2024 Allergen Noted Reaction AMOXICILLIN 11/15/2017 Hives KEFLEX [CEPHALEXIN] 11/15/2017 Vomiting SEASONAL ALLERGIES 11/15/2017 Itching Fully Assessed 03/27/2024 Does patient have penicillin allergy: Yes, plan for allergy testing. REVIEW O (more content not included)... [facility] 04-02-2024 History of Presen t illness Narrative Patient declined personalized living assistant. INITIAL OB ASSESSMENT HPI: Vega is a 28 year old White here to establish Obstetrical Care. Patient's last menstrual period was 02/05/2024 (exact date). from OB Dating Form. was planned Complaints: c/o fatigue, nausea, vomiting. OB History T2 L2 SAB1 IAB0 Ectopic0 Multiple0 Live Births2 Previous history: Prior : never History of 4th degree laceration: No History of shoulder dystocia: No History of Hypertensive disorders including pre-eclampsia or gestational hypertension: No History of gestational diabetes: No Patient's Risk Screening for delivery: Have you had a prior weaver between 20w and 36w6d? No How many pregnancies have you had before? 3, with 2 live births Did you have a previous baby with a GBS Infection? No Please select all that apply for any prior : N/A MEDICAL/PSYCHOSOCIAL HISTORY: History of hemorrhage or bleeding concerns: No Thyroid Disease: Yes, Hypothyroidism History of chronic hypertension: No History of pre-existing diabetes: No ABO/RH(D) Date Value Ref Range Status 10/04/2018 O POSITIVE Final No weight on file for this encounter. Last Pap: 06/06/2021 History of abnormal pap: No Prior treatment for cervical dysplasia: none. Last HPV: History of STDs: None Partner History of STDs: None Did you have a partner with Herpes? No Tobacco use: No E-Cigarette/Vaping Use: No Caffeine use: Yes, tea Drug use: No Alcohol use: No Multivitamin with Folic acid: Yes Would refuse blood transfusion if medically necessary: No Social Needs: How often does this describe you? I don't have enough money to pay my bills: Never Within the past 12 months, have you worried that your food would run out before you had money to buy more? Never In the past 12 months, has lack of reliable transportation kept you from going to medical appointments or work, or from getting things needed for daily living? Never In the past 12 months, have you had any concerns about having a place to live, or about the condition or quality of your housing? Never Would you like more information on any of the following (please check all that apply)? Centering (group care classes) Social History: Do you have any history of depression, anxiety, PTSD, or other mood problems? Yes Do you have a history of abuse or trauma that may impact your experience? 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 OB Depression and Anxiety Screening- This Encounter (since 04/01/2024) None Genetic Screening: Partner present: Yes Patient verbalized knowledge of partner family health history: Yes Do you or your partner have any personal or family history of defects not previously discussed: No Do you have history of a complicated by anomaly, genetic condition, or demise: No Preeclampsia Risk Screening: Screening for prevention of preeclampsia: High risk factors: None Moderate risk ractors: None OB Risk Screening: Completed, no positive findings documented. Marital Status: Partner: Name: Jordin Age: 29 Occupation: [employer] Gender: Male PAST MEDICAL HISTORY Diagnosis Date Anal fissure Anemia Bulimia Gallstone Hypothyroidism Mental disorder depression PAST SURGICAL HISTORY Procedure Laterality Date NAIL REMOVAL PROCEDURE (W NOTE) PAST SURGICAL HISTORY OF wisdom teeth SPHINCTEROTOMY 12/2022 TONSILLECTOMY AND ADENOIDECTOMY HX childhood Current Outpatient Medications Medication Sig Dispense Refill Lactobacillus acidophilus (PROBIOTIC ACIDOPHILUS ORAL) Take by mouth. levothyroxine (SYNTHROID) 112 mcg tablet Take 1 tablet by mouth five days per week. Take 1/2 tablet by mouth 2 days per week. (Patient taking differently: Take 1 tablet by mouth five days per week. Take 1/2 tablet by mouth 2 days per week.) 14 tablet 0 MAGNESIUM ORAL Take by mouth. fluticasone (FLONASE) 50 mcg/actuation nasal spray Use 2 Sprays in each nostril once daily. Rinse mouth after use. 1 Each 0 prental multivitamin 27 mg iron- 800 mcg tablet Take 1 tablet by mouth once daily. polyethylene glycol 3350 (MIRALAX ORAL) Take by mouth once daily. docusate sodium (STOOL SOFTENER ORAL) Take by mouth. loratadine (CLARITIN ORAL) Take by mouth. No current facility-administered medications for this visit. Allergies As of Date: 04/02/2024 Allergen Noted Reaction AMOXICILLIN 11/15/2017 Hives KEFLEX [CEPHALEXIN] 11/15/2017 Vomiting SEASONAL ALLERGIES 11/15/2017 Itching Fully Assessed 03/27/2024 Does patient have penicillin allergy: Yes, plan for allergy testing. REVIEW OF SYSTEMS: GENERAL: Negative for: Fever or Chills and Positive for: Fatigue HEENT: Negative for: Headache, Impaired Vision, Ringing in Ears, Nosebleeds NECK: Negative for: Swelling, Pain, Stiffness RESPIRATORY: Negative for: Cough, Shortness of breath, Wheezing GASTROINTESTINAL: Negative for: Heartburn, Constipation, Diarrhea, Blood in stool, Vomiting and positive for N/V- acid MUSCULOSKELETAL: Negative for: Muscle or joint pain, stiffness, Joint swelling NEUROLOGIC/PSYCHIATRIC: Negative for: Weakness, Paralysis, Numbness, Tingling, Tremor, Anxiety, Depression, Memory loss SKIN: Negative for: Rash, Itching GENITOURINARY: Negative for: vaginal itching, vaginal discharge, hematuria or dysuria and Positive for: urinary frequency SENSITIVE EXAM: The sensitive examination was discussed with the Patient or Patient's Authorized 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 Strategist. As applicable, any other physician, advance practice provider, medical student, or other health professional student that will be observing or involved in the sensitive examination for educational or training purposes was discussed with the Patient or Authorized 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 Strategist. The Patient or Authorized 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 Strategist has agreed to proceed with the sensitive examination. (Sensitive examination includes inspection and/or palpation of the breasts, pelvis, prostate and anorectal regions). PHYSICAL EXAM: LMP 02/05/2024 GENERAL: pleasant in no apparent distress DERMATOLOGY: Normal, without lesions, non-icteric, and non-hirsute NECK: Supple and full range of motion CHEST: Normal inspiratory effort BREAST: soft, non-tender, symmetric, no dominant mass, normal nipple-areolar complex, no lymphadenopathy, and no nipple discharge ABDOMEN: soft, non-tender, and no masses NEURO: alert and oriented x3,exam grossly non-focal PELVIS: External genitalia normal without lesions. Perineal body intact. No vaginal or cervical lesions. Cervix closed. Clinical Pelvimetry: Pelvimetry clinically assessed as adequate Limited OB ultrasound exam: single intrauterine , positive cardiac activity, and crown-rump length 8.0 weeks ASSESSMENT/PLAN: 1. with uncertain dates in first trimester - ICD9: V22.1, ICD10: Z34.91 (primary diagnosis) 2. 8 weeks gestation of - ICD9: V22.2, ICD10: Z3A.08 3. History of thyroid disorder - ICD9: V12.29, ICD10: Z86.39 4. related exhaustion and fatigue, first trimester - ICD9: 646.83, 780.79, ICD10: O26.811 5. Acquired hypothyroidism - ICD9: 244.9, ICD10: E03.9 6. Supervision of high risk in first trimester - ICD9: V23.9, ICD10: O09.91 7. History of depression - ICD9: V13.29, V11.8, ICD10: Z87.59, Z86.59 PLAN: 1) Patient oriented to practice. Patient given new OB orientation folder. Discussed nutrition, folic acid supplementation, dietary guidelines, exercise, smoking, alcohol, caffeine, and drug use. Reviewed midwifery and outdoor power equipment mechanic services that are available. 2) Screening: Hemoglobin A1C: declined Baby Aspirin: The patient has been counseled about the potential benefits of low dose aspirin in and our recommendation that this be offered to all patients, regardless of whether they meet the high risk criteria specified above. She Declines Aneuploidy Screening: Discussed aneuploidy screening, nuchal translucency/first trimester early anatomy ultrasound and NIPT. The risks/benefits and limitations of NIPT/aneuploidy screening were reviewed including the potential for false negative and false positive results. The availability of genetic counseling was reviewed. Information on aneuploidy screening was provided. The patient chooses to proceed with First trimester early anatomy ultrasound (12-13w6d) Myriad Carrier Screening: Discussed myriad carrier screening. We discussed the availability of professional-society guided carrier screening and reviewed the conditions screened and limitations of screening. The availability of genetic counseling was reviewed. Information on carrier screening was provided. The patient Declines 3) Patient offered option of Virtual Visits. Patient prefers in person visits. 4) Thyroid Disease: TSH ordered Follow up in 3 weeks for NT US or sooner prn. Camilla Aguilera APRN.CNM documented in this encounter [facility] 03-27-2024 Note HNO ID: [id number] Author: JAYCE SHIPLEY APRN.CNP Service: ? Author Type: Nurse Practitioner Type: Progress Notes Filed: 04/03/2024 08:01 Note Text: Chief Complaint Patient presents with: Physical: Bon ear pain, sinus/allergies, early , check thyroid. Taking levo 1 tab daily started 03/15 HPI Vega Sinclair is a 28 year old female who presents here today for Above Complaints. New -this will be her 3rd child, is due in October. Is very fatigued. Had her IUD removed in January-not 100% sure of LMP d/t IUD present-was a little bit of a surprise that it happened so quickly. Bilateral chronic ear pain. Mother has hx of needing to have her sinuses cleared out. Claritin D does help. Gets intermittent pain like an ear infection but is more just adjustment of the fluid in her ears. Claritin does help a little bit. Has never had tubes in her ears before, but as a child had chronic strep and ear infections. Past medical history, appointments, medications, allergies reviewed. Previous Medical History PAST MEDICAL HISTORY Diagnosis Date Anal fissure Anemia Bulimia Gallstone Hypothyroidism Mental disorder depression Previous Surgical History PAST SURGICAL HISTORY Procedure Laterality Date NAIL REMOVAL PROCEDURE (W NOTE) PAST SURGICAL HISTORY OF wisdom teeth SPHINCTEROTOMY 12/2022 TONSILLECTOMY AND ADENOIDECTOMY HX childhood Family History FAMILY HISTORY Problem Relation Age of Onset Migraines Mother Anxiety disorder Mother anxiety/depression Hypertension Father Anxiety disorder Sister anxiety depression Anxiety disorder Sister anxiety /depression No Known Problems Maternal Grandmother Prostate Cancer Maternal Grandfather Thyroid Paternal Grandmother No Known Problems Paternal Grandfather other (digeorge) Other No Known Problems Daughter Patient Allergies ALLERGIES Allergen Reactions Amoxicillin Hives Keflex [Cephalexin] Vomiting Seasonal Allergies Itching Current Medications Current Outpatient Medications on File Prior to Visit Medication Sig Lactobacillus acidophilus (PROBIOTIC ACIDOPHILUS ORAL) Take by mouth. levothyroxine (SYNTHROID) 112 mcg tablet Take 1 tablet by mouth five days per week. Take 1/2 tablet by mouth 2 days per week. (Patient taking differently: Take 1 tablet by mouth five days per week. Take 1/2 tablet by mouth 2 days per week.) MAGNESIUM ORAL Take by mouth. fluticasone (FLONASE) 50 mcg/actuation nasal spray Use 2 Sprays in each nostril once daily. Rinse mouth after use. prental multivitamin 27 mg iron- 800 mcg tablet Take 1 tablet by mouth once daily. polyethylene glycol 3350 (MIRALAX ORAL) Take by mouth once daily. docusate sodium (STOOL SOFTENER ORAL) Take by mouth. loratadine (CLARITIN ORAL) Take by mouth. No current facility-administered medications on file prior to visit. Social History Social History Tobacco Use Smoking status: Never Smokeless tobacco: Never Vaping Use Vaping status: Never Used Substance Use Topics Alcohol use: Not Currently Comment: Socially Drug use: No Review of Symptoms REVIEW OF SYSTEMS See HPI, otherwise negative EXAM: BP 118/78 (BP Site: Left Arm, BP Position: Sitting, BP Cuff Size: Regular Adult) Pulse 64 Resp 16 Ht 160.5 cm (5' 3.19) Wt 79.4 kg (175 lb 0.7 oz) LMP 02/05/2024 (Exact Date) SpO2 100% BMI 30.82 kg/m? General Appearance: Well appearing, alert, in no acute distress, well-hydrated, well nourished.. Ears: clear fluid bubbles posterior to bilateral TMs. Neck: Supple, no adenopathy; thyroid symmetric, normal size, no bruits. Lungs: Lungs clear to auscultation. No wheezing, rhonchi, rales.. Heart: RRR without murmur, gallop, or rubs. No ectopy. Psychiatric: pleasant, cooperative. Health Maintenance List Depression Screening Never done Anxiety Screening Never done Hepatitis B Vaccine(1 of 3 - 19+ 3-dose series) Never done Influenza Vaccine(1) due on 01/27/2024 Covid-19 Vaccine(4 - 2024-25 season) due on 01/27/2024 Cervical Cancer Screening due on 06/01/2024 Annual PCP Team Chronic Disease Visit due on 03/27/2025 DTaP,Tdap,Td Vaccine(4 - Td or Tdap) due on 07/27/2032 Hepatitis C Screening Completed HIV Screening Completed HPV Vaccine Aged Out Data reviewed Previous records, office notes ASSESSMENT/PLAN: 1. Early stage of - ICD9: V22.2, ICD10: Z34.90 (primary diagnosis) Will monitor her thyroid on a monthly basis throughout . - HCG QUANTITATIVE - THYROID STIMULATING HORMONE - T4 FREE/FREE THYROXINE 2. Acquired hypothyroidism - ICD9: 244.9, ICD10: E03.9 Will monitor her thyroid on a monthly basis throughout . - THYROID STIMULATING HORMONE - T4 FREE/FREE THYROXINE 3. Bilateral chronic serous otitis media - ICD9: 381.10, ICD10: H65.23 - CONSULT TO ENT 4. Ear pressure, bilateral - ICD9: 388.8, ICD10: H93.8X3 - CONSULT TO ENT 5. Enco (more content not included)... [facility] 03-27-2024 History of Presen t illness Narrative Chief Complaint Patient presents with: Physical: Bon ear pain, sinus/allergies, early , check thyroid. Taking levo 1 tab daily started 03/15 HPI Vega Sinclair is a 28 year old female who presents here today for Above Complaints. New -this will be her 3rd child, is due in October. Is very fatigued. Had her IUD removed in January-not 100% sure of LMP d/t IUD present-was a little bit of a surprise that it happened so quickly. Bilateral chronic ear pain. Mother has hx of needing to have her sinuses cleared out. Claritin D does help. Gets intermittent pain like an ear infection but is more just adjustment of the fluid in her ears. Claritin does help a little bit. Has never had tubes in her ears before, but as a child had chronic strep and ear infections. Past medical history, appointments, medications, allergies reviewed. Previous Medical History PAST MEDICAL HISTORY Diagnosis Date Anal fissure Anemia Bulimia Gallstone Hypothyroidism Mental disorder depression Previous Surgical History PAST SURGICAL HISTORY Procedure Laterality Date NAIL REMOVAL PROCEDURE (W NOTE) PAST SURGICAL HISTORY OF wisdom teeth SPHINCTEROTOMY 12/2022 TONSILLECTOMY AND ADENOIDECTOMY HX childhood Family History FAMILY HISTORY Problem Relation Age of Onset Migraines Mother Anxiety disorder Mother anxiety/depression Hypertension Father Anxiety disorder Sister anxiety depression Anxiety disorder Sister anxiety /depression No Known Problems Maternal Grandmother Prostate Cancer Maternal Grandfather Thyroid Paternal Grandmother No Known Problems Paternal Grandfather other (digeorge) Other No Known Problems Daughter Patient Allergies ALLERGIES Allergen Reactions Amoxicillin Hives Keflex [Cephalexin] Vomiting Seasonal Allergies Itching Current Medications Current Outpatient Medications on File Prior to Visit Medication Sig Lactobacillus acidophilus (PROBIOTIC ACIDOPHILUS ORAL) Take by mouth. levothyroxine (SYNTHROID) 112 mcg tablet Take 1 tablet by mouth five days per week. Take 1/2 tablet by mouth 2 days per week. (Patient taking differently: Take 1 tablet by mouth five days per week. Take 1/2 tablet by mouth 2 days per week.) MAGNESIUM ORAL Take by mouth. fluticasone (FLONASE) 50 mcg/actuation nasal spray Use 2 Sprays in each nostril once daily. Rinse mouth after use. prental multivitamin 27 mg iron- 800 mcg tablet Take 1 tablet by mouth once daily. polyethylene glycol 3350 (MIRALAX ORAL) Take by mouth once daily. docusate sodium (STOOL SOFTENER ORAL) Take by mouth. loratadine (CLARITIN ORAL) Take by mouth. No current facility-administered medications on file prior to visit. Social History Social History Tobacco Use Smoking status: Never Smokeless tobacco: Never Vaping Use Vaping status: Never Used Substance Use Topics Alcohol use: Not Currently Comment: Socially Drug use: No Review of Symptoms REVIEW OF SYSTEMS See HPI, otherwise negative EXAM: BP 118/78 (BP Site: Left Arm, BP Position: Sitting, BP Cuff Size: Regular Adult) Pulse 64 Resp 16 Ht 160.5 cm (5' 3.19) Wt 79.4 kg (175 lb 0.7 oz) LMP 02/05/2024 (Exact Date) SpO2 100% BMI 30.82 kg/m General Appearance: Well appearing, alert, in no acute distress, well-hydrated, well nourished.. Ears: clear fluid bubbles posterior to bilateral TMs. Neck: Supple, no adenopathy; thyroid symmetric, normal size, no bruits. Lungs: Lungs clear to auscultation. No wheezing, rhonchi, rales.. Heart: RRR without murmur, gallop, or rubs. No ectopy. Psychiatric: pleasant, cooperative. Health Maintenance List Depression Screening Never done Anxiety Screening Never done Hepatitis B Vaccine(1 of 3 - 19+ 3-dose series) Never done Influenza Vaccine(1) due on 01/27/2024 Covid-19 Vaccine(4 - 2023- season) due on 01/27/2024 Cervical Cancer Screening due on 06/01/2024 Annual PCP Team Chronic Disease Visit due on 03/27/2025 DTaP,Tdap,Td Vaccine(4 - Td or Tdap) due on 07/27/2032 Hepatitis C Screening Completed HIV Screening Completed HPV Vaccine Aged Out Data reviewed Previous records, office notes ASSESSMENT/PLAN: 1. Early stage of - ICD9: V22.2, ICD10: Z34.90 (primary diagnosis) Will monitor her thyroid on a monthly basis throughout . - HCG QUANTITATIVE - THYROID STIMULATING HORMONE - T4 FREE/FREE THYROXINE 2. Acquired hypothyroidism - ICD9: 244.9, ICD10: E03.9 Will monitor her thyroid on a monthly basis throughout . - THYROID STIMULATING HORMONE - T4 FREE/FREE THYROXINE 3. Bilateral chronic serous otitis media - ICD9: 381.10, ICD10: H65.23 - CONSULT TO ENT 4. Ear pressure, bilateral - ICD9: 388.8, ICD10: H93.8X3 - CONSULT TO ENT 5. Encounter for screening examination for other mental health and behavioral disorders - ICD9: V79.8, ICD10: Z13.39 - ANXIETY SCREENING 6. Screening for depression - ICD9: V79.0, ICD10: Z13.31 - DEPRESSION SCREENING 7. Encounter for immunization - ICD9: V03.89, ICD10: Z23 - INFLUENZA VACCINE, AGE 6MO-64YR, TRIVALENT (AFLURIA, FLULAVAL, FLUVIRIN, FLUZONE) - [employer] COVID-19 VACCINE AGE 12+ YR (COMIRNATY) Jayce Shipley APRN.PAPERHANGER ASSISTANT documented in this encounter [facility] 03-15-2024 Telephone encounter Note Called Dr Yordy Arnett and let her know Pts situations she gave the verbal order to call in Synthroid 112 mcg Take 1 tablet by mouth five days per week. Take 1/2 tablet by mouth 2 days per week. She said to call in 30 tablets with no refills. Called Marianne at [facility] and gave her providers verbal orders for Synthroid. Called and let Pt know that medication was called in. [facility] 03-15-[address] Yordy Arnett and let her know Pts situations she gave the verbal order to call in Synthroid 112 mcg Take 1 tablet by mouth five days per week. Take 1/2 tablet by mouth 2 days per week. She said to call in 30 tablets with no refills. Called Marianne at [facility] [place] and gave her providers verbal orders for Synthroid. Called and let Pt know that medication was called in. Pt called in and reports she was supposed to see Jayce Shipley NP on 03/06/24. Her appointment was moved to 03/27/24. Pt was given a weeks worth of Synthroid to get her through until appointment, but now is out. Pt states she is and doesn't want to be out in her early . Pt is asking for another 2 weeks of Synthroid be sent in for her. Pt just got her labs done today, so couldn't make adjustments. Please call and advise. documented in this encounter [facility] 03-15-2024 Telephone encounter Note Pt called in and reports she was supposed to see Jayce Shipley NP on 03/06/24. Her appointment was moved to 03/27/24. Pt was given a weeks worth of Synthroid to get her through until appointment, but now is out. Pt states she is and doesn't want to be out in her early . Pt is asking for another 2 weeks of Synthroid be sent in for her. Pt just got her labs done today, so couldn't make adjustments. Please call and advise. [facility] 02-26-2024 Telephone encounter Note Patient scheduled physical with provider on 03/06/2024. Patient asking about labs done prior to appointment? Patient asking for enough levothyroxine to get her to appointment. The patient has been identified by name and date of : Yes Caregiver verified no other encounters exist for this prescription request: Yes Caregiver confirmed with patient/requestor that no other refills are due, in the near future, with this provider at this time: Yes The last office visit in the department: 09/05/2023 Does the patient have a future office visit with this provider/department: Yes 03/06/2024 Requested Prescriptions Pending Prescriptions Disp Refills levothyroxine (SYNTHROID) 112 mcg tablet 30 tablet 2 Sig: Take 1 tablet by mouth five days per week. Take 1/2 tablet by mouth 2 days per week. Shobha Payton RN February 26, 2024 4:33 PM [facility] 02-26-2024 Miscellaneous Notes Patient scheduled physical with provider on 03/06/2024. Patient asking about labs done prior to appointment? Patient asking for enough levothyroxine to get her to appointment. The patient has been identified by name and date of : Yes Caregiver verified no other encounters exist for this prescription request: Yes Caregiver confirmed with patient/requestor that no other refills are due, in the near future, with this provider at this time: Yes The last office visit in the department: 09/05/2023 Does the patient have a future office visit with this provider/department: Yes 03/06/2024 Requested Prescriptions Pending Prescriptions Disp Refills levothyroxine (SYNTHROID) 112 mcg tablet 30 tablet 2 Sig: Take 1 tablet by mouth five days per week. Take 1/2 tablet by mouth 2 days per week. Shobha Payton RN February 26, 2024 4:33 PM documented in this encounter [facility] 02-21-2024 Note HNO ID: [id number] Author: CAMILLA AGUILERA APRN.CNM Service: ? Author Type: Shade Matcher Type: Progress Notes Filed: 02/21/2024 16:33 Note Text: Algebra Teacher offered: Patient declinesChaparrita Ferrari is a 28 year old who presents for an annual gynecologic exam without complaints. Menses: cycles every month but very light. 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 PAST MEDICAL HISTORY Diagnosis Date Anal fissure Anemia Bulimia Gallstone Hypothyroidism Mental disorder depression PAST SURGICAL HISTORY Procedure Laterality Date PAST SURGICAL HISTORY OF wisdom teeth SPHINCTEROTOMY 12/2022 TONSILLECTOMY AND ADENOIDECTOMY HX childhood FAMILY HISTORY Problem Relation Age of Onset Migraines Mother Anxiety disorder Mother anxiety/depression Hypertension Father Anxiety disorder Sister anxiety depression Anxiety disorder Sister anxiety /depression No Known Problems Maternal Grandmother Prostate Cancer Maternal Grandfather Thyroid Paternal Grandmother No Known Problems Paternal Grandfather other (digeorge) Other No Known Problems Daughter SOCIAL HISTORY Social History Tobacco Use Smoking status: Never Smokeless tobacco: Never Vaping Use Vaping status: Never Used Substance Use Topics Alcohol use: Not Currently Comment: Socially Drug use: No REVIEW OF SYSTEMS Abdomen: No abdominal pain, nausea, vomiting, diarrhea, or constipation. No bloating, early satiety, indigestion, or increased flatulence. Bladder: No dysuria, gross hematuria, urinary frequency, urinary urgency, or incontinence. Breast: No breast lumps, nipple d/c, overlying skin changes, redness or skin retraction. Allergies and current medication updated:Yes SENSITIVE EXAM: The sensitive examination was discussed with the Patient or Patient's Authorized 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 Strategist. As applicable, any other physician, advance practice provider, medical student, or other health professional student that will be observing or involved in the sensitive examination for educational or training purposes was discussed with the Patient or Authorized 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 Strategist. The Patient or Authorized 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 Strategist has agreed to proceed with the sensitive examination. (Sensitive examination includes inspection and/or palpation of the breasts, pelvis, prostate and anorectal regions). EXAM: LMP 12/25/2022 GENERAL: pleasant, female in no apparent distress HEENT: Normocephalic, atraumatic, mucus membranes moist, and no lesions NECK: Supple and full range of motion DERMATOLOGY: Normal and without lesions BREAST: soft, non-tender, symmetric, no dominant mass, normal nipple-areolar complex, no lymphadenopathy, no nipple discharge, and fibrocystic changes CHEST: Normal inspiratory effort ABDOMEN: soft, non-tender, and no masses PELVIC: external genitalia normal, normal Bartholin's glands, urethra, [place]'s glands, no vulvar lesions, no cervical lesions, good vaginal support, physiologic discharge present, normal appearing perineal body and perianal region BIMANUAL: uterus normal size, shape and consistency, no adnexal masses, non-tender, and no cervical motion tenderness RECTOVAGINAL: deferred. NEURO: alert and oriented x3,exam grossly non-focal EXTREMITIES: normal ASSESSMENT/PLAN: 1) Health maintenance: Pap/HPV up to date. Nutrition, exercise and routine health maintenance exams reviewed. 2) Contraception: none. Desires Taking vitamin 3) STD screening: Declined STD check. 4) Follow up one year or sooner as needed Camilla Aguilera APRN.[facility] 02-21-2024 History of Presen t illness Narrative Algebra Teacher offered: Patient declines. Vega is a 28 year old who presents for an annual gynecologic exam without complaints. Menses: cycles every month but very light. 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 PAST MEDICAL HISTORY Diagnosis Date Anal fissure Anemia Bulimia Gallstone Hypothyroidism Mental disorder depression PAST SURGICAL HISTORY Procedure Laterality Date PAST SURGICAL HISTORY OF wisdom teeth SPHINCTEROTOMY 12/2022 TONSILLECTOMY AND ADENOIDECTOMY HX childhood FAMILY HISTORY Problem Relation Age of Onset Migraines Mother Anxiety disorder Mother anxiety/depression Hypertension Father Anxiety disorder Sister anxiety depression Anxiety disorder Sister anxiety /depression No Known Problems Maternal Grandmother Prostate Cancer Maternal Grandfather Thyroid Paternal Grandmother No Known Problems Paternal Grandfather other (digeorge) Other No Known Problems Daughter SOCIAL HISTORY Social History Tobacco Use Smoking status: Never Smokeless tobacco: Never Vaping Use Vaping status: Never Used Substance Use Topics Alcohol use: Not Currently Comment: Socially Drug use: No REVIEW OF SYSTEMS Abdomen: No abdominal pain, nausea, vomiting, diarrhea, or constipation. No bloating, early satiety, indigestion, or increased flatulence. Bladder: No dysuria, gross hematuria, urinary frequency, urinary urgency, or incontinence. Breast: No breast lumps, nipple d/c, overlying skin changes, redness or skin retraction. Allergies and current medication updated:Yes SENSITIVE EXAM: The sensitive examination was discussed with the Patient or Patient's Authorized 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 Strategist. As applicable, any other physician, advance practice provider, medical student, or other health professional student that will be observing or involved in the sensitive examination for educational or training purposes was discussed with the Patient or Authorized 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 Strategist. The Patient or Authorized 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 Strategist has agreed to proceed with the sensitive examination. (Sensitive examination includes inspection and/or palpation of the breasts, pelvis, prostate and anorectal regions). EXAM: LMP 12/25/2022 GENERAL: pleasant, female in no apparent distress HEENT: Normocephalic, atraumatic, mucus membranes moist, and no lesions NECK: Supple and full range of motion DERMATOLOGY: Normal and without lesions BREAST: soft, non-tender, symmetric, no dominant mass, normal nipple-areolar complex, no lymphadenopathy, no nipple discharge, and fibrocystic changes CHEST: Normal inspiratory effort ABDOMEN: soft, non-tender, and no masses PELVIC: external genitalia normal, normal Bartholin's glands, urethra, [place]'s glands, no vulvar lesions, no cervical lesions, good vaginal support, physiologic discharge present, normal appearing perineal body and perianal region BIMANUAL: uterus normal size, shape and consistency, no adnexal masses, non-tender, and no cervical motion tenderness RECTOVAGINAL: deferred. NEURO: alert and oriented x3,exam grossly non-focal EXTREMITIES: normal ASSESSMENT/PLAN: 1) Health maintenance: Pap/HPV up to date. Nutrition, exercise and routine health maintenance exams reviewed. 2) Contraception: none. Desires Taking vitamin 3) STD screening: Declined STD check. 4) Follow up one year or sooner as needed Camilla Aguilera APRN.CNM documented in this encounter [facility] 02-12-2024 Note HNO ID: [id number] Author: JORDIN ISAAC, ? Service: ? Author Type: Physician Type: Progress Notes Filed: 02/12/2024 19:06 Note Text: FOLLOW UP PODIATRIC OFFICE VISIT Chief Complaint: This 28 year old who presents for follow up:b/l hallux ingrowing toenail Patient presents to clinic for follow-up b/l hallux ingrowing toenail. She complains of pain to medial and lateral nail border of b/l hallux. She is interested in doing a procedure to b/l hallux medial and lateral nail border PAIN EVALUATION No data found in the last 1 encounters. No results found for: HBA1C PCP: Jayce Shipley APRN.PAPERHANGER ASSISTANT PAST MEDICAL HISTORY Diagnosis Date Anal fissure Anemia Bulimia Gallstone Hypothyroidism Mental disorder depression Current Outpatient Medications Medication Sig levothyroxine (SYNTHROID) 112 mcg tablet Take 1 tablet by mouth five days per week. Take 1/2 tablet by mouth 2 days per week. doxycycline hyclate (VIBRAMYCIN) 100 mg capsule Take 1 capsule by mouth two times a day. (Patient not taking: Reported on 10/09/2023) levonorgestrel (MIRENA) 21 mcg/24 hours (8 yrs) 52 mg IUD 1 Each by INTRAUTERINE route as directed. lidocaine (CPD) 1 application by RECTAL route three times daily as needed. Comments for compounding pharmacy: Compound Nifedipine 0.2%, Diltiazem 2%, and Lidocaine 5% (Patient not taking: Reported on 03/12/2023) fluticasone (FLONASE) 50 mcg/actuation nasal spray Use 2 Sprays in each nostril once daily. Rinse mouth after use. prental multivitamin 27 mg iron- 800 mcg tablet Take 1 tablet by mouth once daily. polyethylene glycol 3350 (MIRALAX ORAL) Take by mouth once daily. docusate sodium (STOOL SOFTENER ORAL) Take by mouth. loratadine (CLARITIN ORAL) Take by mouth. No current facility-administered medications for this visit. ALLERGIES Allergen Reactions Amoxicillin Hives Keflex [Cephalexin] Vomiting Seasonal Allergies Itching PAST SURGICAL HISTORY Procedure Laterality Date PAST SURGICAL HISTORY OF wisdom teeth SPHINCTEROTOMY 12/2022 TONSILLECTOMY AND ADENOIDECTOMY HX childhood Physical Exam: OBJECTIVE: Constitutional: Pt is a well developed 28 year old female who is alert, oriented, cooperative and in no apparent distress. Eyes: Following during examination. No redness or drainage. Respiratory: RR normal and nonlabored. Even breathing. No evidence of distress. Psychology: Patient is engaged during conversation. Normal affect and mood. Does not appear depressed or anxious. Vascular: DP and PT pulses are palpable to b/l lower extremity. CFT is is immediate. No signs of infection are present. Dermatological: B/l hallux medial and lateral nail borders has ingrowing tendency There is pain to b/l hallux No signs of infection Musculoskeletal/Orthopaedic: Patient has pain to palpation of b/l hallux nail L>R ASSESSMENT: (L60.0) Ingrowing toenail (primary encounter diagnosis) PLAN: Discussed ingrowing toenail of b/l hallux She has ingrowing tendency to b/l hallux medial and lateral nail border No signs of infection currently Discussed options not limited to monitoring, proper trimming of the nail vs doing partial nail matrixectomy to b/l hallux medial and lateral nail border. This patient has elected to partial nail matrixectomy of b/l hallux medial and lateral nail border Discussed risks of toenail procedure not limited to infection, pain, swelling, bleeding, painful scarring, recurrence, need for revised procedure. Patient consented to proceed. Patient was properly identified by name and procedure. The left hallux was then injected with 3 cc of 1% lidocaine plain. The toe was then prepped and draped in the usual aseptic technique. A digital tournicot was applied to the toe. The medial and lateral nail was then freed and removed. Careful inspection was performed to assure no remaining spicule present. 3 applications of phenol was applied to b/l borders of left hallux followed by saline rinse. Sterile dressing was then applied consisting of amerigel, guaze, raphael and coban. Tournicot was removed and hyperemic response was noted. Patient tolerated well. Discussed risks of toenail procedure not limited to infection, pain, swelling, bleeding, painful scarring, recurrence, need for revised procedure. Patient consented to proceed. Patient was properly identified by name and procedure. The right hallux was then injected with 3 cc of 1% lidocaine plain. An additional 2 cc of 1% lidocaine plain was required. The toe was then prepped and draped in the usual aseptic technique. A digital tournicot was applied to the toe. The medial lateral nail was then freed and removed. Careful inspection was performed to assure no remaining spicule present. 3 applications of phenol was applied to b/l borders of left hallux followed by saline rinse. Sterile dressing was then applied consisting of amerigel, guaze, raphael and (more content not included)... [facility] 02-12-2024 History of Presen t illness Narrative FOLLOW UP PODIATRIC OFFICE VISIT Chief Complaint: This 28 year old who presents for follow up:b/l hallux ingrowing toenail Patient presents to clinic for follow-up b/l hallux ingrowing toenail. She complains of pain to medial and lateral nail border of b/l hallux. She is interested in doing a procedure to b/l hallux medial and lateral nail border PAIN EVALUATION No data found in the last 1 encounters. No results found for: HBA1C PCP: Jayce Shipley APRN.PAPERHANGER ASSISTANT PAST MEDICAL HISTORY Diagnosis Date Anal fissure Anemia Bulimia Gallstone Hypothyroidism Mental disorder depression Current Outpatient Medications Medication Sig levothyroxine (SYNTHROID) 112 mcg tablet Take 1 tablet by mouth five days per week. Take 1/2 tablet by mouth 2 days per week. doxycycline hyclate (VIBRAMYCIN) 100 mg capsule Take 1 capsule by mouth two times a day. (Patient not taking: Reported on 10/09/2023) levonorgestrel (MIRENA) 21 mcg/24 hours (8 yrs) 52 mg IUD 1 Each by INTRAUTERINE route as directed. lidocaine (CPD) 1 application by RECTAL route three times daily as needed. Comments for compounding pharmacy: Compound Nifedipine 0.2%, Diltiazem 2%, and Lidocaine 5% (Patient not taking: Reported on 03/12/2023) fluticasone (FLONASE) 50 mcg/actuation nasal spray Use 2 Sprays in each nostril once daily. Rinse mouth after use. prental multivitamin 27 mg iron- 800 mcg tablet Take 1 tablet by mouth once daily. polyethylene glycol 3350 (MIRALAX ORAL) Take by mouth once daily. docusate sodium (STOOL SOFTENER ORAL) Take by mouth. loratadine (CLARITIN ORAL) Take by mouth. No current facility-administered medications for this visit. ALLERGIES Allergen Reactions Amoxicillin Hives Keflex [Cephalexin] Vomiting Seasonal Allergies Itching PAST SURGICAL HISTORY Procedure Laterality Date PAST SURGICAL HISTORY OF wisdom teeth SPHINCTEROTOMY 12/2022 TONSILLECTOMY AND ADENOIDECTOMY HX childhood Physical Exam: OBJECTIVE: Constitutional: Pt is a well developed 28 year old female who is alert, oriented, cooperative and in no apparent distress. Eyes: Following during examination. No redness or drainage. Respiratory: RR normal and nonlabored. Even breathing. No evidence of distress. Psychology: Patient is engaged during conversation. Normal affect and mood. Does not appear depressed or anxious. Vascular: DP and PT pulses are palpable to b/l lower extremity. CFT is is immediate. No signs of infection are present. Dermatological: B/l hallux medial and lateral nail borders has ingrowing tendency There is pain to b/l hallux No signs of infection Musculoskeletal/Orthopaedic: Patient has pain to palpation of b/l hallux nail L>R ASSESSMENT: (L60.0) Ingrowing toenail (primary encounter diagnosis) PLAN: Discussed ingrowing toenail of b/l hallux She has ingrowing tendency to b/l hallux medial and lateral nail border No signs of infection currently Discussed options not limited to monitoring, proper trimming of the nail vs doing partial nail matrixectomy to b/l hallux medial and lateral nail border. This patient has elected to partial nail matrixectomy of b/l hallux medial and lateral nail border Discussed risks of toenail procedure not limited to infection, pain, swelling, bleeding, painful scarring, recurrence, need for revised procedure. Patient consented to proceed. Patient was properly identified by name and procedure. The left hallux was then injected with 3 cc of 1% lidocaine plain. The toe was then prepped and draped in the usual aseptic technique. A digital tournicot was applied to the toe. The medial and lateral nail was then freed and removed. Careful inspection was performed to assure no remaining spicule present. 3 applications of phenol was applied to b/l borders of left hallux followed by saline rinse. Sterile dressing was then applied consisting of amerigel, guaze, raphael and coban. Tournicot was removed and hyperemic response was noted. Patient tolerated well. Discussed risks of toenail procedure not limited to infection, pain, swelling, bleeding, painful scarring, recurrence, need for revised procedure. Patient consented to proceed. Patient was properly identified by name and procedure. The right hallux was then injected with 3 cc of 1% lidocaine plain. An additional 2 cc of 1% lidocaine plain was required. The toe was then prepped and draped in the usual aseptic technique. A digital tournicot was applied to the toe. The medial lateral nail was then freed and removed. Careful inspection was performed to assure no remaining spicule present. 3 applications of phenol was applied to b/l borders of left hallux followed by saline rinse. Sterile dressing was then applied consisting of amerigel, guaze, raphael and coban. Tournicot was removed and hyperemic response was noted. Patient tolerated well. Jordin Isaac DPM UNIVERSAL PROTOCOL / SAFETY CHECKLIST Procedure to be Performed: Partial nail chemical matrixectomy of bilateral hallux medial and lateral nail border Sign In: A Moment of CARE was completed. Personnel directly involved with the procedure wore the appropriate PPE (Personal Protective Equipment). Special equipment: nail kit Patient/Surrogate Stated/Verified: PATIENT VERIFIED(optional for EMERGENT procedures): Patient name, Date of , Relevant allergies, and The intended procedure Time Out Communication: Intended patient and procedure match the source documents. Consent documented and matches the intended procedure. No relevant labs, photos, and/or imaging studies were applicable for review. Correct side/site marked and visible. Medications required for procedure verified. No fire risk assessment and interventions applicable. No implant(s) inserted. Sign Out: SIGN OUT (optional for EMERGENT procedures): No specimen collected. All instruments, equipment, possible retained foreign bodies accounted for. Post-procedure follow-up management communicated and Plan of Care Visit completed when applicable. Naima Haro RN AMB ROOMING INTAKE FLOWSHEET DATA Patient presents with: Left Foot - Established Patient, Follow Up, Ingrown Toenail Right Foot - Established Patient, Follow Up, Ingrown Toenail Radha Alvarez LPN documented in this encounter [facility] 02-12-2024 Note HNO ID: [id number] Author: NAIMA HARO RN Service: ? Author Type: Registered Nurse Type: Progress Notes Filed: 02/12/2024 19:06 Note Text: UNIVERSAL PROTOCOL / SAFETY CHECKLIST Procedure to be Performed: Partial nail chemical matrixectomy of bilateral hallux medial and lateral nail border Sign In: A Moment of CARE was completed. Personnel directly involved with the procedure wore the appropriate PPE (Personal Protective Equipment). Special equipment: nail kit Patient/Surrogate Stated/Verified: PATIENT VERIFIED(optional for EMERGENT procedures): Patient name, Date of , Relevant allergies, and The intended procedure Time Out Communication: Intended patient and procedure match the source documents. Consent documented and matches the intended procedure. No relevant labs, photos, and/or imaging studies were applicable for review. Correct side/site marked and visible. Medications required for procedure verified. No fire risk assessment and interventions applicable. No implant(s) inserted. Sign Out: SIGN OUT (optional for EMERGENT procedures): No specimen collected. All instruments, equipment, possible retained foreign bodies accounted for. Post-procedure follow-up management communicated and Plan of Care Visit completed when applicable. Naima Haro RN [facility] 02-12-2024 Instructions Radha Alvarez LPN - 02/12/2024 4:33 PM EDT Post-Op Nail Instructions Minimize activity until the anesthesia wears off (about 2-8 hours). Increase activity to tolerance Remove bandage tomorrow Soak affected toe/foot in epsom salts for 15-20 minutes twice daily After soaking, apply antibiotic ointment (OTC Neosporin) to affected toe and re bandage OTC Ibuprofen if having pain, provided you have no allergies or intolerance to NSAIDS Mild drainage, redness, and blood is expected, but if you expeirence severe pain, increase in drainage, swelling, or red streaking please contact our office immediately Feel free to contact office as well if you have any questions/concerns [phone], ask for Podiatry Nurse documented in this encounter [facility] 02-12-2024 Note HNO ID: [id number] Author: RADHA ALVAREZ LPN Service: ? Author Type: LICENSED NURSE Type: Progress Notes Filed: 02/12/2024 19:06 Note Text: AMB ROOMING INTAKE FLOWSHEET DATA Patient presents with: Left Foot - Established Patient, Follow Up, Ingrown Toenail Right Foot - Established Patient, Follow Up, Ingrown Toenail Radha Alvarez LPN [facility] 02-08-2024 Note HNO ID: [id number] Author: BENTON CARCAMO MD Service: ? Author Type: Physician Type: Progress Notes Filed: 02/08/2024 16:17 Note Text: Vega presents for removal of IUD due to desire for . UNIVERSAL PROTOCOL / SAFETY CHECKLIST Procedure to be Performed: IUD removal Sign In: A Moment of CARE was completed. Personnel directly involved with the procedure wore the appropriate PPE (Personal Protective Equipment). Patient/Surrogate Stated/Verified: PATIENT VERIFIED(optional for EMERGENT procedures): Patient name, Date of , Relevant allergies, and The intended procedure Time Out Communication: Intended patient and procedure match the source documents. Consent documented and matches the intended procedure. Sign Out: SIGN OUT (optional for EMERGENT procedures): No specimen collected. All instruments, equipment, possible retained foreign bodies accounted for. Post-procedure follow-up management communicated and Plan of Care Visit completed when applicable. Benton Carcamo MD PROCEDURE: Speculum placed in vagina, IUD string visualized and grasped with ring forceps. ASSESSMENT/PLAN: IUD removed without difficulty, intact, and patient tolerated procedure well. Contraception plans: none Reviewed pre-conception guidelines including folic acid supplementation. Benton Carcamo MD [facility] 02-08-2024 History of Presen t illness Narrative Vega presents for removal of IUD due to desire for . UNIVERSAL PROTOCOL / SAFETY CHECKLIST Procedure to be Performed: IUD removal Sign In: A Moment of CARE was completed. Personnel directly involved with the procedure wore the appropriate PPE (Personal Protective Equipment). Patient/Surrogate Stated/Verified: PATIENT VERIFIED(optional for EMERGENT procedures): Patient name, Date of , Relevant allergies, and The intended procedure Time Out Communication: Intended patient and procedure match the source documents. Consent documented and matches the intended procedure. Sign Out: SIGN OUT (optional for EMERGENT procedures): No specimen collected. All instruments, equipment, possible retained foreign bodies accounted for. Post-procedure follow-up management communicated and Plan of Care Visit completed when applicable. Benton Carcamo MD PROCEDURE: Speculum placed in vagina, IUD string visualized and grasped with ring forceps. ASSESSMENT/PLAN: IUD removed without difficulty, intact, and patient tolerated procedure well. Contraception plans: none Reviewed pre-conception guidelines including folic acid supplementation. Benton Carcamo MD documented in this encounter [facility] 02-04-2024 Telephone encounter Note Left message for patient to call office or check mychart message. Marcia Mccord RN [facility] 02-04-2024 Miscellaneous Notes Left message for patient to call office or check mychart message. Marcia Mccord RN Order placed! Thank you. Cmailla Aguilera APRN.CNM Please file order so she can schedule. Marcia Mccord RN Patient scheduled for annual with CP 02/21/24. She also wants her IUD removed to try to conceive again. Asking if you can do at her annual appt or if this needs to be separate? Please file order. Marcia Mccord RN documented in this encounter [facility] 02-04-2024 Telephone encounter Note Order placed! Thank you. Camilla Aguilera APRN.CNM [facility] Work Phone: 02-04-2024 Telephone encounter Note Please file order so she can schedule. Marcia Mccord RN [facility] 02-04-2024 Telephone encounter Note Patient scheduled for annual with CP 02/21/24. She also wants her IUD removed to try to conceive again. Asking if you can do at her annual appt or if this needs to be separate? Please file order. Marcia Mccord RN [facility] 11-08-2023 Telephone encounter Note PDMP website checked and validated. All prescriptions have been APPROPRIATELY filled. No suspicious activity was identified. 11/08/2023 by Breana Argueta APRN.CNP The following approved medication requests have been transmitted electronically. Requested Prescriptions Signed Prescriptions Disp Refills Phentermine HCl 37.5 mg tablet 30 tablet 1 Sig: Take 1 tablet by mouth once daily for 60 days. BMI 31.83 Authorizing Provider: BREANA ARGUETA APRN.CNP [facility] 11-08-2023 Miscellaneous Notes PDMP website checked and validated. All prescriptions have been APPROPRIATELY filled. No suspicious activity was identified. 11/08/2023 by Breana Argueta APRN.CNP The following approved medication requests have been transmitted electronically. Requested Prescriptions Signed Prescriptions Disp Refills Phentermine HCl 37.5 mg tablet 30 tablet 1 Sig: Take 1 tablet by mouth once daily for 60 days. BMI 31.83 Authorizing Provider: BREANA ARGUETA APRN.CNP Prescription Refill Information The patient has been identified by name and date of : Yes Caregiver verified no other encounters exist for this prescription request: Yes Caregiver confirmed with patient/requestor that no other refills are due, in the near future, with this provider at this time: Yes The last office visit in the department: 09/05/2023 Does the patient have a future office visit with this provider/department: No Requested Prescriptions Pending Prescriptions Disp Refills Phentermine HCl 37.5 mg tablet 30 tablet 1 Sig: Take 1 tablet by mouth once daily for 30 days. BMI 31.83 Juliet Lanier MA November 08, 2023 9:15 AM documented in this encounter [facility] 11-08-2023 Telephone encounter Note Patient has been identified by name and date of : Yes, Provider Violetta Lynn 11/08/2023 Time 1044am Patient phones for refill(s): Requested Prescriptions Pending Prescriptions Disp Refills levothyroxine (SYNTHROID) 112 mcg tablet 30 tablet 2 Sig: Take 1 tablet by mouth five days per week. Take 1/2 tablet by mouth 2 days per week. Date of last office visit in primary care: 09/05/2023 Date of next office visit in primary care: Visit date not found Please advise. Thank you. Juliet Lanier MA. [facility] 11-08-2023 Miscellaneous Notes Patient has been identified by name and date of : Yes, Provider [facility] Date 11/08/2023 Time 1044am Patient phones for refill(s): Requested Prescriptions Pending Prescriptions Disp Refills levothyroxine (SYNTHROID) 112 mcg tablet 30 tablet 2 Sig: Take 1 tablet by mouth five days per week. Take 1/2 tablet by mouth 2 days per week. Date of last office visit in primary care: 09/05/2023 Date of next office visit in primary care: Visit date not found Please advise. Thank you. Juliet Lanier MA. documented in this encounter [facility] 11-08-2023 Telephone encounter Note Prescription Refill Information The patient has been identified by name and date of : Yes Caregiver verified no other encounters exist for this prescription request: Yes Caregiver confirmed with patient/requestor that no other refills are due, in the near future, with this provider at this time: Yes The last office visit in the department: 09/05/2023 Does the patient have a future office visit with this provider/department: No Requested Prescriptions Pending Prescriptions Disp Refills Phentermine HCl 37.5 mg tablet 30 tablet 1 Sig: Take 1 tablet by mouth once daily for 30 days. BMI 31.83 Juliet Lanier MA November 08, 2023 9:15 AM [facility] 10-16-2023 History of Presen t illness Narrative Telemedicine Visit - Distance Health Virtual Visit Note Patient seen on [employer] Video Visit platform. Location of patient: [place] I have communicated my name and active licensure. The patient's identity and physical location were verified at the time of this visit. Either the patient or their legal medical claims representative has been informed of the risks and benefits of -- and alternatives to -- treatment through a remote evaluation and consents to proceed with the evaluation remotely. History of Present Illness Vega Sinclair is a 28 year old old female with a history of UTI symptoms for 1 day. Urinary symptoms ROS: Positive for Dysuria, Increase in frequency of urination, Urgency, and Blood in urine, Negative for Sense of incomplete void, Fevers, Vomiting, Diarrhea, Abdominal pain , Back/Flank pain, and Vaginal itch or discharge Chance of : No Last intercourse: NA Any self-treatment attempted: Yes Number of previous UTI's in last 6 months:0 Number of previous UTI's in last 12 months: 0 Aggravating Factors: voiding Alleviating Factors include Increasing fluids and OTC supplement with no relief in symptoms. PAST MEDICAL HISTORY Diagnosis Date Anal fissure Anemia Bulimia Gallstone Hypothyroidism Mental disorder depression PAST SURGICAL HISTORY Procedure Laterality Date PAST SURGICAL HISTORY OF wisdom teeth SPHINCTEROTOMY 12/2022 TONSILLECTOMY AND ADENOIDECTOMY HX childhood FAMILY HISTORY Problem Relation Age of Onset Migraines Mother Anxiety disorder Mother anxiety/depression Hypertension Father Anxiety disorder Sister anxiety depression Anxiety disorder Sister anxiety /depression No Known Problems Maternal Grandmother Prostate Cancer Maternal Grandfather Thyroid Paternal Grandmother No Known Problems Paternal Grandfather other (digeorge) Other No Known Problems Daughter Social History Tobacco Use Smoking status: Never Smokeless tobacco: Never Vaping Use Vaping Use: Never used Substance Use Topics Alcohol use: Not Currently Comment: Socially Drug use: No ALLERGIES Allergen Reactions Amoxicillin Hives Keflex [Cephalexin] Vomiting Seasonal Allergies Itching Current Outpatient Medications Medication Sig nitrofurantoin monohydrate and macrocrystal (MACROBID) 100 mg capsule Take 1 capsule by mouth two times a day for 5 days. Phentermine HCl 37.5 mg tablet Take 1 tablet by mouth once daily for 30 days. BMI 31.83 doxycycline hyclate (VIBRAMYCIN) 100 mg capsule Take 1 capsule by mouth two times a day. (Patient not taking: Reported on 10/09/2023) levothyroxine (SYNTHROID) 112 mcg tablet Take 1 tablet by mouth five days per week. Take 1/2 tablet by mouth 2 days per week. levonorgestrel (MIRENA) 21 mcg/24 hours (8 yrs) 52 mg IUD 1 Each by INTRAUTERINE route as directed. lidocaine (CPD) 1 application by RECTAL route three times daily as needed. Comments for compounding pharmacy: Compound Nifedipine 0.2%, Diltiazem 2%, and Lidocaine 5% (Patient not taking: Reported on 03/12/2023) fluticasone (FLONASE) 50 mcg/actuation nasal spray Use 2 Sprays in each nostril once daily. Rinse mouth after use. prental multivitamin 27 mg iron- 800 mcg tablet Take 1 tablet by mouth once daily. polyethylene glycol 3350 (MIRALAX ORAL) Take by mouth once daily. docusate sodium (STOOL SOFTENER ORAL) Take by mouth. loratadine (CLARITIN ORAL) Take by mouth. No current facility-administered medications for this visit. Video Exam (Examination performed via Video enabled technology) General Appearance: 28 year old yo female in NAD; not ill or toxic appearing Abdomen: non-tender by self palpation CVA Tenderness: non-tender bilaterally by self palpation ASSESSMENT/PLAN: 1. Acute cystitis with hematuria - ICD9: 595.0, ICD10: N30.01 1. Symptoms consistent with UTI 2. Antibiotic: Macrobid 3 Patient instructed to increase fluid intake through out the day. 4. May use UroStat (pyridium) over the counter for bladder spasm/discomfort. 5. Express Care if symptoms not resolved or markedly improved within 2-3 days 6. Go to EMERGENCY ROOM if fever, chills, or flank pain develop. - All questions answered The following approved medication requests have been transmitted electronically. Requested Prescriptions Signed Prescriptions Disp Refills nitrofurantoin monohydrate and macrocrystal (MACROBID) 100 mg capsule 10 capsule 0 Sig: Take 1 capsule by mouth two times a day for 5 days. Tristian Kirk APRN.PHI If you let us know who your primary care provider is, we will send them a notification of today s visit through our electronic medical records system. Since not all providers have access to our notifications, we strongly encourage you to share the following record of today s visit with your primary care provider at your next visit. This will help in providing you the best care. If you do not have an established Primary Care physician and would like to continue care with a [facility] Virtual Primary Care physician, please ask your provider to place a Establish Primary Care order. Use [employer] to manage your care, wherever you are, 18/12, on your mobile device or computer. [employer] connects you to [employer] so you can access all your health information in one place and also schedule and request virtual appointments with primary care providers. documented in this encounter [facility] 10-09-2023 Telephone encounter Note The following approved medication requests have been transmitted electronically. Requested Prescriptions Signed Prescriptions Disp Refills Phentermine HCl 37.5 mg tablet 30 tablet 1 Sig: Take 1 tablet by mouth once daily for 30 days. BMI 31.83 Authorizing Provider: JAYCE SHIPLEY APRN.CNP PDMP website checked and validated. All prescriptions have been APPROPRIATELY filled. No suspicious activity was identified. 10/09/2023 by Jayce Shipley CNP. [facility] 10-09-2023 Miscellaneous Notes The following approved medication requests have been transmitted electronically. Requested Prescriptions Signed Prescriptions Disp Refills Phentermine HCl 37.5 mg tablet 30 tablet 1 Sig: Take 1 tablet by mouth once daily for 30 days. BMI 31.83 Authorizing Provider: JAYCE SHIPLEY APRN.CNP PDMP website checked and validated. All prescriptions have been APPROPRIATELY filled. No suspicious activity was identified. 10/09/2023 by Jayce Shipley CNP. Patient has been identified by name and date of : Patient phones for refill(s): Requested Prescriptions Pending Prescriptions Disp Refills Phentermine HCl 37.5 mg tablet 30 tablet 2 Sig: Take 1 tablet by mouth once daily for 30 days. BMI 31.83 Date of last office visit in primary care: 09/05/2023 Date of next office visit in primary care: None Please advise. Thank you. Shobha Payton RN. documented in this encounter [facility] 10-09-2023 Instructions Jordin Isaac - 10/09/2023 11:26 AM EDT Your wound is healing Continue with local wound care until the toe is healed Call if any issues arise. Would give consideration into permanent procedure if this is a chronic problem documented in this encounter [facility] 10-09-2023 History of Presen t illness Narrative Per Dr. Isaac Vega was provided with Gel Powerstep Inserts, size 7-8.5 Womens, and instructed/educated in its application, wear, and care. All questions were answered, and patient was able to demonstrate competence with the necessary skills to utilize the above equipment. Naima Haro RN FOLLOW UP PODIATRIC OFFICE VISIT Chief Complaint: This 28 year old who presents for follow up:left hallux lateral nail border avulsion. Patient has no pain. Patient doing great. No pain with neuroma of left 3rd interspace. PAIN EVALUATION No data found in the last 1 encounters. No results found for: HBA1C PCP: Jayce Shipley APRN.PAPERHANGER ASSISTANT PAST MEDICAL HISTORY Diagnosis Date Anal fissure Anemia Bulimia Gallstone Hypothyroidism Mental disorder depression Current Outpatient Medications Medication Sig levothyroxine (SYNTHROID) 112 mcg tablet Take 1 tablet by mouth five days per week. Take 1/2 tablet by mouth 2 days per week. levonorgestrel (MIRENA) 21 mcg/24 hours (8 yrs) 52 mg IUD 1 Each by INTRAUTERINE route as directed. fluticasone (FLONASE) 50 mcg/actuation nasal spray Use 2 Sprays in each nostril once daily. Rinse mouth after use. prental multivitamin 27 mg iron- 800 mcg tablet Take 1 tablet by mouth once daily. polyethylene glycol 3350 (MIRALAX ORAL) Take by mouth once daily. docusate sodium (STOOL SOFTENER ORAL) Take by mouth. loratadine (CLARITIN ORAL) Take by mouth. doxycycline hyclate (VIBRAMYCIN) 100 mg capsule Take 1 capsule by mouth two times a day. (Patient not taking: Reported on 10/09/2023) lidocaine (CPD) 1 application by RECTAL route three times daily as needed. Comments for compounding pharmacy: Compound Nifedipine 0.2%, Diltiazem 2%, and Lidocaine 5% (Patient not taking: Reported on 03/12/2023) No current facility-administered medications for this visit. ALLERGIES Allergen Reactions Amoxicillin Hives Keflex [Cephalexin] Vomiting Seasonal Allergies Itching PAST SURGICAL HISTORY Procedure Laterality Date PAST SURGICAL HISTORY OF wisdom teeth SPHINCTEROTOMY 12/2022 TONSILLECTOMY AND ADENOIDECTOMY HX childhood Physical Exam: OBJECTIVE: Constitutional: Pt is a well developed 28 year old female who is alert, oriented, cooperative and in no apparent distress. Eyes: Following during examination. No redness or drainage. Respiratory: RR normal and nonlabored. Even breathing. No evidence of distress. Psychology: Patient is engaged during conversation. Normal affect and mood. Does not appear depressed or anxious. NVSI unchanged from previous visit. Dermatological: Left hallux lateral nail border appears to be healing without signs of infection. Moderate Staphylococcus lugdunensis Abnormal Rare Aeromonas hydrophila Abnormal No further workup Few skin su This test was developed and its performance characteristics determined by the [facility] [place] ([facility] It has not been cleared or approved by the FDA. -[facility] is regulated under CLIA as qualified to perform high-complexity testing. This test is used for clinical purposes. It should not be regarded as investigational or for research. Smear Result Abnormal Rare Gram positive cocci No Polymorphonuclear Leukocytes Resulting Agency: [facility] Susceptibility Staphylococcus lugdunensis (1) Antibiotic Interpretation Method Status Oxacillin Susceptible MINIMUM INHIBITORY CONCENTRATION(VITEK) Final Oxacillin-susceptible staphylococci are susceptible to other penicilllinase-stable penicillins, beta-lactam/beta-lactamase inhibitor combinations, anti-staphylococcal cephems, and carbapenems. Erythromycin Resistant MINIMUM INHIBITORY CONCENTRATION(VITEK) Final Clindamycin Resistant MINIMUM INHIBITORY CONCENTRATION(VITEK) Final Trimeth sulfameth Susceptible MINIMUM INHIBITORY CONCENTRATION(VITEK) Final Vancomycin Susceptible MINIMUM INHIBITORY CONCENTRATION(VITEK) Final Rifampin Susceptible MINIMUM INHIBITORY CONCENTRATION(VITEK) Final Rifampin should not be used alone for antimicrobial therapy. Tetracycline Susceptible MINIMUM INHIBITORY CONCENTRATION(VITEK) Final Doxycycline Susceptible MINIMUM INHIBITORY CONCENTRATION(VITEK) Final Musculoskeletal/Orthopaedic: Patient has no pain to palpation of left foot ASSESSMENT: (S91.109A) Open wound of toe, initial encounter (primary encounter diagnosis) (D36.10) Neuroma PLAN: Discussed appearance of left hallux. Nail bed appears to be healing without signs of infection. Continue with local wound care until the toe is completely healed. Discussed risk of recurrent ingrown. Would plan for matrixectomy in future once nail returns. Discussed neuroma of left foot. No pain. Continue with inserts Jordin Isaac DPM Patient presents with: Left Foot - Established Patient, Follow Up, Post Op Patient presents for 2 week follow up L Lateral hallux partial nail avulsion. 09/25/23 documented in this encounter [facility] 10-09-2023 Telephone encounter Note Patient has been identified by name and date of : Patient phones for refill(s): Requested Prescriptions Pending Prescriptions Disp Refills Phentermine HCl 37.5 mg tablet 30 tablet 2 Sig: Take 1 tablet by mouth once daily for 30 days. BMI 31.83 Date of last office visit in primary care: 09/05/2023 Date of next office visit in primary care: None Please advise. Thank you. Shobha Payton RN. [facility] 09-25-2023 History of Presen t illness Narrative Radiology Service Progress Note PATIENT NAME: Vega Sinclair DATE OF SERVICE: September 25, 2023 TIME: 10:17 AM PATIENT IDENTITY VERIFICATION COMPLETED USING TWO (2) IDENTIFIERS: Name and Date of confirmed by patient verbally. FALL SCREENING: Has the patient had 2 falls in the last year or 1 fall with injury or currently using an Ambulatory Assistive Device (Walker, Cane, Wheelchair, Crutches, etc.)? No PATIENT GENDER DATA: Female. status: : No status: NO. PATIENT RELEVANT IMPLANT DATA REVIEWED: Yes PATIENT PRESENTS WITH AN IMPLANTABLE OR ATTACHED MAID CLEANING COOKING: No RADIOLOGY DEPARTMENT: General X-ray: Exam(s) Completed: Lower Extremity X-Ray(s): Toes, Left Great toe PERIPHERAL IV DATA: Not applicable SIGNED BY: RT Unique(R) September 25, 2023 10:17 AM documented in this encounter [facility] 09-25-2023 Instructions Jordin Isaac - 09/25/2023 9:53 AM EDT Post-Op Nail Instructions Minimize activity until the anesthesia wears off (about 2-8 hours). Increase activity to tolerance Remove bandage tomorrow Soak affected toe/foot in epsom salts for 15-20 minutes twice daily After soaking, apply antibiotic ointment (OTC Neosporin) to affected toe and re bandage OTC Ibuprofen if having pain, provided you have no allergies or intolerance to NSAIDS Mild drainage, redness, and blood is expected, but if you expeirence severe pain, increase in drainage, swelling, or red streaking please contact our office immediately Feel free to contact office as well if you have any questions/concerns [phone], ask for Podiatry Nurse Powerstep Original Full length. Can purchase at [employer] and boots,shoes and more here in [place], [employer] in [place] or [place]. Also can find in [place] in [facility]. Powersteps can also be purchased online, starting around $45.00 If you have a metatarsal or dancer pad for your feet apply the pad directly to the insole so you can interchange between your shoes. Find a shoe with a removable insole and take this out and replace with your powerstep insole. Always bring powersteps with you when shopping for shoes so that you can make sure that everything fits well together Recommend lisa velasquez or jeniffer documented in this encounter [facility] 09-25-2023 History of Presen t illness Narrative UNIVERSAL PROTOCOL / SAFETY CHECKLIST Procedure to be Performed: Partial nail avulsion, L lateral hallux Sign In: A Moment of CARE was completed. Personnel directly involved with the procedure wore the appropriate PPE (Personal Protective Equipment). No special equipment needed. Patient/Surrogate Stated/Verified: PATIENT VERIFIED(optional for EMERGENT procedures): Patient name, Date of , Relevant allergies, and The intended procedure Time Out Communication: Intended patient and procedure match the source documents. Consent documented and matches the intended procedure. No relevant labs, photos, and/or imaging studies were applicable for review. Correct side/site marked and visible. Medications required for procedure verified. No fire risk assessment and interventions applicable. No implant(s) inserted. Sign Out: SIGN OUT (optional for EMERGENT procedures): All specimen containers correctly labeled. All instruments, equipment, possible retained foreign bodies accounted for. Post-procedure follow-up management communicated and Plan of Care Visit completed when applicable. Adeline Enrique RN Consultation requested by Dr. Shipley for an opinion regarding left foot pain. My final recommendations will be communicated back to the requesting physician by way of shared Medical record or letter to requesting physician via US mail. Initial Podiatric Office Visit: Chief Complaint: This 28 year old female who presents with chief complaint:left foot pain and ingrowing toenail HPI Patient presents to clinic with complaint of pain to the ball of her left foot. Saw Violetta who referred patient here [place] that she hasd pinched nerve The pain has resolved Does have chronic ingrowing toenail to the left great toe lateral nail border PAIN EVALUATION 09/25/2023 0839 Pain Level: 2 Pain Location: Toe Description: Sore Duration Units: Months Frequency: Intermittent Intervention/Comfort measure: Relaxation;Reposition;Medication No results found for: HBA1C PCP: Jayce Shipley APRN.CNP PAST MEDICAL HISTORY Diagnosis Date Anal fissure Anemia Bulimia Gallstone Hypothyroidism Mental disorder depression Current Outpatient Medications Medication Sig levothyroxine (SYNTHROID) 112 mcg tablet Take 1 tablet by mouth five days per week. Take 1/2 tablet by mouth 2 days per week. levonorgestrel (MIRENA) 21 mcg/24 hours (8 yrs) 52 mg IUD 1 Each by INTRAUTERINE route as directed. fluticasone (FLONASE) 50 mcg/actuation nasal spray Use 2 Sprays in each nostril once daily. Rinse mouth after use. prental multivitamin 27 mg iron- 800 mcg tablet Take 1 tablet by mouth once daily. polyethylene glycol 3350 (MIRALAX ORAL) Take by mouth once daily. docusate sodium (STOOL SOFTENER ORAL) Take by mouth. loratadine (CLARITIN ORAL) Take by mouth. lidocaine (CPD) 1 application by RECTAL route three times daily as needed. Comments for compounding pharmacy: Compound Nifedipine 0.2%, Diltiazem 2%, and Lidocaine 5% (Patient not taking: Reported on 03/12/2023) No current facility-administered medications for this visit. ALLERGIES Allergen Reactions Amoxicillin Hives Keflex [Cephalexin] Vomiting Seasonal Allergies Itching PAST SURGICAL HISTORY Procedure Laterality Date PAST SURGICAL HISTORY OF wisdom teeth SPHINCTEROTOMY 12/2022 TONSILLECTOMY AND ADENOIDECTOMY HX childhood FAMILY HISTORY Problem Relation Age of Onset Migraines Mother Anxiety disorder Mother anxiety/depression Hypertension Father Anxiety disorder Sister anxiety depression Anxiety disorder Sister anxiety /depression No Known Problems Maternal Grandmother Prostate Cancer Maternal Grandfather Thyroid Paternal Grandmother No Known Problems Paternal Grandfather other (digeorge) Other No Known Problems Daughter Social History Tobacco Use Smoking status: Never Smokeless tobacco: Never Vaping Use Vaping Use: Never used Substance Use Topics Alcohol use: Not Currently Comment: Socially Drug use: No REVIEW OF SYSTEMS GENERAL: Negative for Malaise, significant weight loss, fever RESPIRATORY: Negative for cough, wheezing and shortness of breath CARDIOVASCULAR: Negative for chest pain, leg swelling and palpitations GI: Negative for abdominal discomfort, blood in stools or black stools and change in bowel habits : Negative for dysuria, frequency and incontinence MUSCULOSKELETAL: Negative for joint pain or swelling, back pain, and muscle pain. SKIN: Negative for lesions, rash, and itching. HEMATOLOGY/LYMPHOLOGY Negative for prolonged bleeding, bruising easily, and swollen nodes. ENDOCRINE: Negative for cold or heat intolerance, polyuria, polydipsia and goiter. NEURO: negative Physical Exam: Constitutional: Pt is a well developed 28 year old female who is alert, oriented and cooperative Eyes: Following during examination. No redness or drainage. Respiratory: RR normal and nonlabored. Even breathing. No evidence of distress or shortness of breath. Psychology: Patient is engaged during conversation. Normal affect and mood. Does not appear depressed or anxious during encounter. Vascular: Dorsalis pedis and posterior tibial pulses palpable as b/l Capillary Fill time < 5 seconds to digits 1-5 b/l Skin temperature warm to warm proximal to distal b/l Hair growth present to digits Neurological: intact light touch/epicritic sensation + adeola sign of left 3rd interspace. intact protective sensation no significant neurological deficits Dermatological: Left hallux lateral nail border is ingrowing with pain, redness, drainage. Musculoskeletal/Orthopaedic: Patient has pain to palpation of left hallux lateral nail border No pain to left 3rd interspace Foot type is neutral structurally AJ ROM is full with knee extended and flexed 1st MPJ is full when loaded and no pain or crepitus are noted with ROM. MTJ, STJ are full and free of pain and crepitus. +5/5 muscle strength dorsiflexion, plantarflexion, inversion, eversion b/l Radiographs: 3 views left foot reviewed September 25, 2023: I have personally reviewed and interpreted these XR myself: no acute fracture. No destructive lesions of left hallux ASSESSMENT: (D36.10) Neuroma (primary encounter diagnosis) (M79.672) Foot pain, left (L60.0) Ingrowing toenail PLAN: 1. History and physical examination performed. 2. XR reviewed with patient and interpreted today 3. Discussed pain in left foot. She has + adeola sign and appears to have had pain in left 3rd interspace. I suspect she has neuroma of left 3rd interspace. No pain currently. Would have her continue with good supporitve shoes and can use powerstep insert. If pain were to become more chronic, could consider steroid injection. 4. Discussed ingrowing toenail of left hallux lateral nail border. This has been a chronic issue for several weeks. Will get xray of toe just to make sure no osteomyelitis. Will place patient on antibiotic. In addition to antibiotic, discussed partial nail avulsion of left hallux lateral nail border. Patient agrees to proceed with partial nail avulsion. Discussed risks of toenail procedure not limited to infection, pain, swelling, bleeding, painful scarring, recurrence, need for revised procedure. Patient consented to proceed. Patient was properly identified by name and procedure. The left hallux was then injected with 3 cc of 1% lidocaine plain. The toe was then prepped and draped in the usual aseptic technique. A digital tournicot was applied to the toe. The lateral nail was then freed and removed. Careful inspection was performed to assure no remaining spicule present. Avulsion was performed. Wound culture performed. Sterile dressing was then applied consisting of amerigel, guaze, raphael and coban. Tournicot was removed and hyperemic response was noted. Patient tolerated well. Jordin Isaac DPM Podiatry [address] [facility] [address] Dept: [phone] Dept AMB ROOMING INTAKE FLOWSHEET DATA Pain Pain Level: 2 Pain Location: Toe Description: Sore Duration Units: Months Frequency: Intermittent Intervention/Comfort measure: Relaxation, Reposition, Medication Patient presents with: Left Great Toe - New Patient, Ingrown Nail Patient c/o Ingrown toenail to L hallux. Off and on since May. Was seen at PCP's office on 09/03 and instructed to soak in Epsom salt. Patient has kept infection at bay with epsom salt soaks. Was also seen for L foot pain but that has since resolved with Naproxen. documented in this encounter [facility] 09-05-2023 History of Presen t illness Narrative Radiology Service Progress Note PATIENT NAME: Vega Sinclair DATE OF SERVICE: September 05, 2023 TIME: 1:01 PM PATIENT IDENTITY VERIFICATION COMPLETED USING TWO (2) IDENTIFIERS: Name and Date of confirmed by patient verbally. FALL SCREENING: Has the patient had 2 falls in the last year or 1 fall with injury or currently using an Ambulatory Assistive Device (Walker, Cane, Wheelchair, Crutches, etc.)? No PATIENT GENDER DATA: Female. status: : No status: NO. PATIENT RELEVANT IMPLANT DATA REVIEWED: Yes PATIENT PRESENTS WITH AN IMPLANTABLE OR ATTACHED MAID CLEANING COOKING: No RADIOLOGY DEPARTMENT: General X-ray: Exam(s) Completed: Lower Extremity X-Ray(s): Foot, Bilateral and Wt. Bearing PERIPHERAL IV DATA: Not applicable SIGNED BY: RT Venancio(R) September 05, 2023 1:01 PM documented in this encounter [facility] 09-05-2023 Instructions Jayce Shipley APRN.PHI - 09/05/2023 12:46 PM EDT Take the naproxen (antiinflammatory) twice daily for 14 days regardless of pain. With some food. Ice and elevate as much as you can. Keep up with soaking your toenail, at least twice daily, alternate epsom salts and Dreft. Have your feet xrays completed. Schedule with Dr. Isaac (podiatry). documented in this encounter [facility] 09-05-2023 History of Presen t illness Narrative Chief Complaint Patient presents with: Pain (foot): Left foot pain started yesterday after cracking toes HPI Vega Sinclair is a 28 year old female who presents here today for Above Complaints. Yesterday turned her left food/ankle inward and cracked her toes and felt an immediate hot sharp shooting pain to her left foot, in the ball of her foot. Doesn't hurt just sitting still but putting any pressure on it causes pain. Can walk on the side of her foot and no pain at all. Has been trying to monitor how much she has been on her foot. Has not tried icing it. Since waking up this morning can't put any pressure on it. Did take the day off school. Did injure a ligament/tendon on the outside of her left ankle, lower leg when she was in highschool, playing field hockey. Occasionally with bother her but it is pretty much fleeting. Ingrown toenail for several weeks. Has been using home remedies and does seem to be impoving. Past medical history, appointments, medications, allergies reviewed. Previous Medical History PAST MEDICAL HISTORY Diagnosis Date Anal fissure Anemia Bulimia Gallstone Hypothyroidism Mental disorder depression Previous Surgical History PAST SURGICAL HISTORY Procedure Laterality Date PAST SURGICAL HISTORY OF wisdom teeth SPHINCTEROTOMY 12/2022 TONSILLECTOMY AND ADENOIDECTOMY HX childhood Family History FAMILY HISTORY Problem Relation Age of Onset Migraines Mother Anxiety disorder Mother anxiety/depression Hypertension Father Anxiety disorder Sister anxiety depression Anxiety disorder Sister anxiety /depression No Known Problems Maternal Grandmother Prostate Cancer Maternal Grandfather Thyroid Paternal Grandmother No Known Problems Paternal Grandfather other (digeorge) Other No Known Problems Daughter Patient Allergies ALLERGIES Allergen Reactions Amoxicillin Hives Keflex [Cephalexin] Vomiting Seasonal Allergies Itching Current Medications Current Outpatient Medications on File Prior to Visit Medication Sig levothyroxine (SYNTHROID) 112 mcg tablet Take 1 tablet by mouth five days per week. Take 1/2 tablet by mouth 2 days per week. levonorgestrel (MIRENA) 21 mcg/24 hours (8 yrs) 52 mg IUD 1 Each by INTRAUTERINE route as directed. fluticasone (FLONASE) 50 mcg/actuation nasal spray Use 2 Sprays in each nostril once daily. Rinse mouth after use. prental multivitamin 27 mg iron- 800 mcg tablet Take 1 tablet by mouth once daily. polyethylene glycol 3350 (MIRALAX ORAL) Take by mouth once daily. docusate sodium (STOOL SOFTENER ORAL) Take by mouth. loratadine (CLARITIN ORAL) Take by mouth. lidocaine (CPD) 1 application by RECTAL route three times daily as needed. Comments for compounding pharmacy: Compound Nifedipine 0.2%, Diltiazem 2%, and Lidocaine 5% (Patient not taking: Reported on 03/12/2023) No current facility-administered medications on file prior to visit. Social History Social History Tobacco Use Smoking status: Never Smokeless tobacco: Never Vaping Use Vaping Use: Never used Substance Use Topics Alcohol use: Not Currently Comment: Socially Drug use: No Review of Symptoms REVIEW OF SYSTEMS See HPI, otherwise negative EXAM: BP 110/80 (BP Site: Left Arm, BP Position: Sitting, BP Cuff Size: Regular Adult) Pulse 78 Resp 16 Wt 78.9 kg (174 lb) LMP 12/25/2022 (Approximate) SpO2 100% No BMI 31.83 kg/m General Appearance: Well appearing, alert, in no acute distress, well-hydrated, well nourished.. Musculoskeletal: no pain with manipulation of left foot, ankle. + pain with palpation of mid pad of left foot. No deformities or abnormalities appreciated. Neurologic: Gait normal. Reflexes normal and symmetric. Sensation grossly intact.. Psychiatric: pleasant, cooperative. Health Maintenance List Hepatitis B Vaccine(1 of 3 - 19+ 3-dose series) Never done Behavioral Health Screening Never done Covid-19 Vaccine( season) due on 02/08/2024 Influenza Vaccine(Season Ended) due on 01/27/2024 Annual PCP Team Chronic Disease Visit due on 05/30/2024 Pap Testing due on 06/01/2024 DTaP,Tdap,Td Vaccine(4 - Td or Tdap) due on 07/27/2032 Hepatitis C Screening Completed HIV Screening Completed HPV Vaccine Aged Out Data reviewed Previous records, office notes ASSESSMENT/PLAN: 1. Foot pain, left - ICD9: 729.5, ICD10: M79.672 (primary diagnosis) RICE. Epsom salt and Dreft soaks at least twice daily. - NAPROXEN 500 MG TABLET - CONSULT TO PODIATRY - XR FOOT GENERAL 3V AP/LAT/OBL BILATERAL 2. Metatarsalgia of left foot - ICD9: 726.70, ICD10: M77.42 RICE. Epsom salt and Dreft soaks at least twice daily. - NAPROXEN 500 MG TABLET - CONSULT TO PODIATRY - XR FOOT GENERAL 3V AP/LAT/OBL BILATERAL 3. Ingrown toenail - ICD9: 703.0, ICD10: L60.0 RICE. Epsom salt and Dreft soaks at least twice daily. - NAPROXEN 500 MG TABLET - CONSULT TO PODIATRY - XR FOOT GENERAL 3V AP/LAT/OBL BILATERAL Jaycestuart Shipley APRN.CNP documented in this encounter [facility] 08-02-2023 Miscellaneous Notes PDMP website checked and validated. All prescriptions have been APPROPRIATELY filled. No suspicious activity was identified. 08/02/2023 by Breana Argueta APRN.CNP The following approved medication requests have been transmitted electronically. Requested Prescriptions Signed Prescriptions Disp Refills Phentermine HCl 37.5 mg tablet 30 tablet 2 Sig: Take 1 tablet by mouth once daily for 30 days. BMI 34.28 Authorizing Provider: BREANA ARGUETA APRN.CNP Patient has been identified by name and date of : Yes, Provider Dr. Arnett Date 08/02/23 Time 8:06 Patient phones for refill(s): Requested Prescriptions Pending Prescriptions Disp Refills Phentermine HCl 37.5 mg tablet 30 tablet 2 Sig: Take 1 tablet by mouth once daily for 30 days. BMI 34.28 Date of last office visit in primary care: 05/30/2023 Date of next office visit in primary care: 08/02/2023 Please advise. Thank you. [place] LPN. documented in this encounter [facility] 08-02-2023 Miscellaneous Notes Patient has been identified by name and date of : Yes, Provider Jayce Shipley CNP Date 08/02/23 Time 8:07 Patient phones for refill(s): Requested Prescriptions Pending Prescriptions Disp Refills levothyroxine (SYNTHROID) 112 mcg tablet 30 tablet 2 Sig: Take 1 tablet by mouth five days per week. Take 1/2 tablet by mouth 2 days per week. Date of last office visit in primary care: 05/30/2023 Date of next office visit in primary care: Visit date not found Please advise. Thank you. [place] LPN. documented in this encounter [facility] 07-04-2023 Miscellaneous Notes The following approved medication requests have been transmitted electronically. Requested Prescriptions Signed Prescriptions Disp Refills Phentermine HCl 37.5 mg tablet 30 tablet 2 Sig: Take 1 tablet by mouth once daily for 30 days. BMI 34.28 Authorizing Provider: JAYCE SHIPLEY APRN.CNP PDMP website checked and validated. All prescriptions have been APPROPRIATELY filled. No suspicious activity was identified. 07/04/2023 by Jayce Shipley CNP. Patient has been identified by name and date of : Yes, Patient phones for refill(s): Requested Prescriptions Pending Prescriptions Disp Refills Phentermine HCl 37.5 mg tablet 30 tablet 2 Sig: Take 1 tablet by mouth once daily for 30 days. BMI 34.28 Date of last office visit in primary care: 05/30/2023 Date of next office visit in primary care: Visit date not found Please advise. Thank you. Shital Kaur LPN. documented in this encounter [facility] 06-29-2023 Miscellaneous Notes WIN-05/30/23 Labs-02/07/23 NOV-none Martha Wilson LPN documented in this encounter [facility] 04-18-2023 Miscellaneous Notes [facility] All prescriptions have been APPROPRIATELY filled. No suspicious activity was identified. 04/18/2023 by Breana Argueta APRN.PHI The following approved medication requests have been transmitted electronically. Requested Prescriptions Signed Prescriptions Disp Refills Phentermine HCl 37.5 mg tablet 30 tablet 0 Sig: Take 1 tablet by mouth once daily for 30 days. Authorizing Provider: BREANA ARGUETA APRN.PAPERHANGER ASSISTANT Patient has been identified by name and date of : Yes, Provider Celine Shipley CNP Date 04/17/23 Time 9:20 am Pharmacy phones for refill(s): Requested Prescriptions Pending Prescriptions Disp Refills Phentermine HCl 37.5 mg tablet [Pharmacy Med Name: PHENTERMINE 37.5 MG TABLET] 30 tablet Sig: Take 1 tablet by mouth once daily. Date of last office visit in primary care: 02/07/2023 Date of next office visit in primary care: Visit date not found Last 2 Encounter Wt Readings: Date: Wt: 03/12/2023 90.9 kg (200 lb 6.4 oz) 02/07/2023 90.1 kg (198 lb 9.6 oz) Previous labs/tests for medication: Not applicable Thank you. Katie Kurtz LPN. documented in this encounter [facility] 03-19-2023 Miscellaneous Notes Rx listed as med update WIN 02/07/23 NOV none scheduled Ankush Silverman LPN documented in this encounter [facility] 03-13-2023 Miscellaneous Notes See mychart message documented in this encounter [facility] 03-12-2023 History of Presen t illness Narrative This note was created using [employer]. Subjective Vega Sinclair is a 27 year old female. 27 year old female with PMH thyroid presents for illness. Acute onset 3 days ago + nasal congestion +sore throat Denies cough Denies N/V/D Denies fever or chills. Denies skin rash or lesions. Denies using homeopathic or OTC medications PRACTICE MANAGERS Her daughter recently tested positive for strep. States she works as a non categorical preschool teacher. The history is provided by the patient. No event crew technician was used. Sore Throat This is a new problem. The current episode started in the past 7 days. The problem has been unchanged. Neither side of throat is experiencing more pain than the other. There has been no fever. The pain is at a severity of 3/10. The pain is mild. Associated symptoms include congestion. Pertinent negatives include no abdominal pain, coughing, diarrhea, drooling, ear discharge, ear pain, headaches, hoarse voice, plugged ear sensation, neck pain, shortness of breath, stridor, swollen glands, trouble swallowing or vomiting. She has had exposure to strep. She has tried nothing for the symptoms. The treatment provided no relief. PAST MEDICAL HISTORY Diagnosis Date Anal fissure Anemia Bulimia Gallstone Hypothyroidism Mental disorder depression PAST SURGICAL HISTORY Procedure Laterality Date PAST SURGICAL HISTORY OF wisdom teeth TONSILLECTOMY AND ADENOIDECTOMY HX childhood ALLERGIES Amoxicillin, Keflex [Cephalexin], and Seasonal Allergies MEDICATIONS docusate sodium (STOOL SOFTENER ORAL) Take by mouth. fluticasone (FLONASE) 50 mcg/actuation nasal spray Use 2 Sprays in each nostril once daily. Rinse mouth after use. levonorgestrel (MIRENA) 21 mcg/24 hours (8 yrs) 52 mg IUD 1 Each by INTRAUTERINE route as directed. levothyroxine (SYNTHROID) 112 mcg tablet Take 1 tablet by mouth five days per week. Take 1/2 tablet by mouth 2 days per week. lidocaine (CPD) 1 application by RECTAL route three times daily as needed. Comments for compounding pharmacy: Compound Nifedipine 0.2%, Diltiazem 2%, and Lidocaine 5% (Patient not taking: Reported on 03/12/2023) loratadine (CLARITIN ORAL) Take by mouth. polyethylene glycol 3350 (MIRALAX ORAL) Take by mouth once daily. prental multivitamin 27 mg iron- 800 mcg tablet Take 1 tablet by mouth once daily. FAMILY HISTORY Problem Relation Age of Onset Migraines Mother Anxiety disorder Mother anxiety/depression Hypertension Father Anxiety disorder Sister anxiety depression Anxiety disorder Sister anxiety /depression No Known Problems Maternal Grandmother Prostate Cancer Maternal Grandfather Thyroid Paternal Grandmother No Known Problems Paternal Grandfather other (digeorge) Other No Known Problems Daughter Social History Tobacco Use Smoking status: Never Smokeless tobacco: Never Vaping Use Vaping Use: Never used Substance Use Topics Alcohol use: Not Currently Comment: Socially Drug use: No Review of Systems Constitutional: Negative for activity change, appetite change, chills, diaphoresis and fatigue. HENT: Positive for congestion and sore throat. Negative for drooling, ear discharge, ear pain, hoarse voice, rhinorrhea, sinus pressure, sinus pain and trouble swallowing. Eyes: Negative for pain, discharge, redness and itching. Respiratory: Negative for apnea, cough, chest tightness, shortness of breath and stridor. Cardiovascular: Negative for chest pain, palpitations and leg swelling. Gastrointestinal: Negative for abdominal pain, diarrhea and vomiting. Musculoskeletal: Negative for neck pain. Skin: Negative for color change, pallor, rash and wound. Allergic/Immunologic: Negative for environmental allergies, food allergies and immunocompromised state. Neurological: Negative for headaches. Hematological: Negative for adenopathy. Does not bruise/bleed easily. Psychiatric/Behavioral: Negative for agitation and behavioral problems. Objective BP 96/60 Pulse 70 Temp 36.6 C (97.8 F) Resp 21 Wt 90.9 kg (200 lb 6.4 oz) LMP 12/25/2022 (Approximate) SpO2 98% BMI 36.65 kg/m Physical Exam Vitals and nursing note reviewed. Constitutional: General: She is not in acute distress. Appearance: Normal appearance. She is normal weight. She is not ill-appearing, toxic-appearing or diaphoretic. HENT: Head: Normocephalic and atraumatic. Right Ear: Ear canal and external ear normal. Left Ear: Ear canal and external ear normal. Nose: Nose normal. No congestion or rhinorrhea. Mouth/Throat: Mouth: Mucous membranes are moist. Pharynx: Posterior oropharyngeal erythema present. No oropharyngeal exudate. Eyes: General: Right eye: No discharge. Left eye: No discharge. Extraocular Movements: Extraocular movements intact. Conjunctiva/sclera: Conjunctivae normal. Pupils: Pupils are equal, round, and reactive to light. Cardiovascular: Rate and Rhythm: Normal rate and regular rhythm. Pulses: Normal pulses. Heart sounds: Normal heart sounds. No murmur heard. No friction rub. Pulmonary: Effort: Pulmonary effort is normal. No respiratory distress. Breath sounds: Normal breath sounds. No stridor. No wheezing, rhonchi or rales. Chest: Chest wall: No tenderness. Abdominal: General: Abdomen is flat. There is no distension. Palpations: Abdomen is soft. There is no mass. Tenderness: There is no abdominal tenderness. There is no right CVA tenderness, left CVA tenderness, guarding or rebound. Hernia: No hernia is present. Musculoskeletal: General: No swelling, tenderness, deformity or signs of injury. Normal range of motion. Cervical back: Normal range of motion and neck supple. No rigidity. Right lower leg: No edema. Left lower leg: No edema. Lymphadenopathy: Cervical: No cervical adenopathy. Skin: General: Skin is warm and dry. Capillary Refill: Capillary refill takes less than 2 seconds. Coloration: Skin is not jaundiced or pale. Findings: No bruising, erythema, lesion or rash. Neurological: General: No focal deficit present. Mental Status: She is alert and oriented to person, place, and time. Cranial Nerves: No cranial nerve deficit. Sensory: No sensory deficit. Motor: No weakness. Coordination: Coordination normal. Gait: Gait normal. Psychiatric: Mood and Affect: Mood normal. Behavior: Behavior normal. Thought Content: Thought content normal. Judgment: Judgment normal. Assessment and Plan ASSESSMENT/PLAN: 1. 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 - Follow up in 3-5 days if symptoms persist or sooner if worsening of symptoms - STREP A MOLECULAR (POC) Sylwia William APRN.PAPERHANGER ASSISTANT documented in this encounter [facility] 02-08-2023 Miscellaneous Notes Pt notified and voiced understanding. Delfina Evans Ma Please let Vega know I received her lab results. Her TSH is low and free T4 high, which means we should cut back on her thyroid medication a little bit. I would like her to continue the levothyroxine 112mcg, 5 days per week and take a half pill 2 days per week. Recheck labs again in 3 months. No other concerns. The following approved medication requests have been transmitted electronically. Requested Prescriptions Signed Prescriptions Disp Refills levothyroxine (SYNTHROID) 112 mcg tablet Sig: Take 1 tablet by mouth five days per week. Take 1/2 tablet by mouth 2 days per week. Authorizing Provider: JAYCE SHIPLEY APRN.CNP documented in this encounter [facility] 12-21-2022 History and physical note HISTORY AND PHYSICAL EXAMINATION SERVICE DATE: 12/21/2022 SERVICE TIME: 10:30 AM PRIMARY CARE PHYSICIAN: Jayce Shipley APRN.CNP This is a virtual visit using [employer] video visit. It required patient-provider interaction for the medical decision making as documented below. I have communicated my name and active licensure. The patient's identity and physical location were verified at the time of this visit. Either the patient or their legal medical claims representative has been informed of the risks and benefits of and alternatives to treatment through a remote evaluation and consents to proceed with the evaluation remotely This is a virtual visit using [employer] video visit. It required patient-provider interaction for the medical decision making as documented below. REASON FOR VISIT: Vega Sinclair is a 27 year old female who is scheduled for Procedure(s): SPHINCTEROTOMY ANAL (N/A) at the request of Dr. Jamar Malin for consultation. My final recommendation will be communicated back to the requesting physician by way of shared medical record or letter. Subjective The patient has the following: ACTIVE PROBLEM LIST Hypothyroidism History of Thyroid Disorder History of Depression Family History of Genetic Disease Patient Request for Diagnostic Testing History of Depression History of Bulimia History of Anal Fissures Pre-Op Evaluation Obese COVID-19 Immunization Status Overdue - COVID-19 VACCINE (4 - Pfizer series) Overdue since 06/30/2021 05/05/2021 Imm Admin: COVID-19 original vaccine, age 12+ yr, monovalent (PFIZER-BIONTECH - PURPLE TOP) 08/12/2020 Imm Admin: COVID-19 original vaccine, age 12+ yr, monovalent (PFIZER-BIONTECH - PURPLE TOP) 07/22/2020 Imm Admin: COVID-19 original vaccine, age 12+ yr, monovalent (PFIZER-BIONTECH - PURPLE TOP) Patient reports being fully vaccinated against COVID-19. CHIEF COMPLAINT: Pre-operative evaluation HPI: Vega Sinclair presents with a chronic and recurrent anal fissures. Endorses rectal pain and bleeding with BM's. Conservative measures including medication have failed to improve symptoms. Reports a mild cold with sore throat and congestion. No other symptoms. REVIEW OF SYSTEMS: General: Negative for: unintentional weight change and fever. Neurological: Negative for: headaches, seizures, TIA and strokes. Respiratory: Positive for: URI < 2 weeks. Negative for: asthma, COPD, current cough, dyspnea, home oxygen, pneumonia within 6 weeks and obstructive sleep apnea. Cardiovascular: Negative for: AICD/PPM, arrhythmia, atrial fibrillation, CAD, chest pain, CHF, DVT/PE, hyperlipidemia, hypertension, recent ND, murmur/valvular heart disease and open heart surgery. GI: Negative for: abdominal pain, GERD, GI bleed <30 days, hepatitis, liver disease, nausea and vomiting. : Negative for: dysuria, frequent urination, hematuria, urgency and urinary tract infection. 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 Endocrine: Positive for: hypothyroidism. Negative for: diabetes mellitus and hyperthyroidism. Hematology: Negative for: anemia, bruises/bleeds easily, factor V Leiden, hemophilia, thrombocytopenia, von Willebrand disease and chronic anti-coagulation/platelet meds. Oncology: No history of CA metastasis, chemo within 30 days, or radiotherapy within 90 days. No history of oncological symptoms or problems. Psych: Positive for: anxiety and depression. Musculoskeletal: Negative for: back pain, joint pain and swelling. Skin: Negative for lesions, rash and itching. PAST MEDICAL HISTORY Diagnosis Date Anal fissure Anemia Bulimia Gallstone Hypothyroidism Mental disorder depression PAST SURGICAL HISTORY Procedure Laterality Date PAST SURGICAL HISTORY OF wisdom teeth TONSILLECTOMY AND ADENOIDECTOMY HX childhood FAMILY HISTORY Problem Relation Age of Onset Migraines Mother Anxiety disorder Mother anxiety/depression Hypertension Father Anxiety disorder Sister anxiety depression Anxiety disorder Sister anxiety /depression No Known Problems Maternal Grandmother Prostate Cancer Maternal Grandfather Thyroid Paternal Grandmother No Known Problems Paternal Grandfather other (digeorge) Other No Known Problems Daughter Social History Tobacco Use Smoking status: Never Smokeless tobacco: Never Vaping Use Vaping Use: Never used Substance Use Topics Alcohol use: Not Currently Comment: Socially Drug use: No Prior to Admission medications as of 12/21/22 1034 Medication Sig Last Dose Taking levonorgestrel (MIRENA) 21 mcg/24 hours (8 yrs) 52 mg IUD 1 Each by INTRAUTERINE route as directed. Taking Yes levothyroxine (SYNTHROID) 112 mcg tablet Take 1 tablet by mouth once daily. Taking Yes lidocaine (CPD) 1 application by RECTAL route three times daily as needed. Comments for compounding pharmacy: Compound Nifedipine 0.2%, Diltiazem 2%, and Lidocaine 5% Taking Yes fluticasone (FLONASE) 50 mcg/actuation nasal spray Use 2 Sprays in each nostril once daily. Rinse mouth after use. Taking Yes prental multivitamin 27 mg iron- 800 mcg tablet Take 1 tablet by mouth once daily. Taking Yes polyethylene glycol 3350 (MIRALAX ORAL) Take by mouth once daily. Taking Yes docusate sodium (STOOL SOFTENER ORAL) Take by mouth. Taking Yes loratadine (CLARITIN ORAL) Take by mouth. Taking Yes No medication comments found. ALLERGIES Allergen Reactions Amoxicillin Hives Keflex [Cephalexin] Vomiting Seasonal Allergies Itching Objective PHYSICAL EXAM: (if completed, exam performed via video enabled technology) General: healthy appearance. Pertinent negatives noted - not alert or oriented and not distressed. Skin: normal color, no rash or lesions. HEENT: pupils equal round. Cardiovascular: Patient unable to palpate pulse, pulse 57 on apple watch. Respiratory: Breathing unlabored, chest rise equal and no audible wheezing. Abdomen: Unable to examine. Extremities: Pertinent negatives noted - no deformity. Neurological: Normal cognition and gait. PAIN ASSESSMENT: VITALS: Ht 5' 2 (1.58m) Wt 195 lb (88.5kg) LMP 01/10/2022 BMI 35.66 kg/(m^2). Diagnostic tests reviewed for today's visit: Lab Value Units Date High Low HB 11.4 g/dL 07/27/2022 15.5 11.5 HCT 32.5 % 07/27/2022 46.0 36.0 WBC 11.87 k/uL 07/27/2022 11.00 3.70 PLT 171 k/uL 07/27/2022 400 150 NA No results within date range. K No results within date range. GLUC No results within date range. BUN No results within date range. CREAT No results within date range. PTSEC No results within date range. INR No results within date range. APTT No results within date range. ALT No results within date range. AST No results within date range. TBILI No results within date range. TSH 0.157 mIU/L 11/09/2022 4.200 0.270 Lab Value Units Date High Low HCGQT No results within date range. UHCG No results within date range. HCG, BODY* No results within date range. Lab Value Units Date High Low ABORHD No results within date range. ABSCREEN No results within date range. No results found for: HBA1C No results found for this or any previous visit (from the past 8760 hour(s)). No results found for this or any previous visit (from the past 76360 hour(s)). Assessment Patient has the following medical conditions which may affect giuliano-operative course: Pre-op evaluation Assessment: Procedure as scheduled above. Hypothyroidism Assessment: Clinically, euthyroid, on levothyroxine. Follows with endocrinology. TSH Date Value 11/09/2022 0.157 mIU/L 09/28/2022 1.930 mIU/L 05/04/2021 4.670 uU/mL 03/13/2020 3.600 uU/mL History of depression Assessment: Mood stable not currently taking medications. Obese Assessment: Body mass index is 35.67 kg/m . Ordonez Activity Status Index: METS: Climb a flight of stairs or walk up a hill (5.50 METs) DASI Score: 5.5 Patient denies any chest pain or undue shortness of breath with the above physical activity. Clinical Frailty Scale: 2. Well STOP-Bang Score: BMI greater than 35 kg/m^2 Denies snoring loudly Denies feeling tired, fatigued, or sleepy during the daytime Has not been observed to stop breathing or choking/gasping during sleep Denies having high blood pressure Patient 50 years old or younger Does not have a large neck Non-male patient STOP-Bang Score: 1 [id number] Score: [id number] Score: 0 ASA Class: 2 ANESTHESIA FINDINGS: Intubation History: No history of difficult intubation. No abnormal airway history Significant Anesthesia Considerations: none Airway History: No history of difficult airway No abnormal airway history I - PHYSICAL EVALUATION AIRWAY Patient intubated: No. Tracheostomy tube not present Mallampati: I. TM distance: >3 FB. Neck ROM: full ROM without neurological symptoms. Mouth opening: adequate. Short neck: no. Thick neck: no Microretrognathia/Micronagthia/R ecessed Chin: No DENTAL Dental findings: teeth intact. II - ANESTHESIA PLAN ASA Score: 2 Anesthetic Plan: MAC Beta Mily Monitoring Plan Post Procedure Analgesic Plan Prepared for Surgery: optimally prepared for surgery, pending day of surgery. CONSULTS: Patient does not require consults for optimization at this time Planned Anesthetic: MAC The Following Tests/Procedures Have Been Initiated: No orders of the defined types were placed in this encounter. Instructions Given to Patient: Instructions located in the after visit summary. Patient given verbal and written preop instructions and voices comprehension and compliance. SIGNATURE: CHARLEE Sánchez PATIENT NAME: Vega Sinclair DATE: December 21, 2022 TIME: 10:30 AM PAGER/CONTACT #: documented in this encounter [facility] 12-21-2022 Instructions Joann Pabon PA - 12/21/2022 10:26 AM EDT PATIENT PREOPERATIVE INSTRUCTIONS Jamar Malin MD has scheduled you for your procedure at this surgery center: [facility]: [phone] --[id number] [place] [address]. Please read below carefully for your personalized instructions. Dietary Restrictions: - No solid food after midnight. - You may have 12 ounces of clear liquids (water, clear juices such as apple juice or gatorade, carbonated beverages, clear tea, black coffee, jello) until 2 hours before scheduled arrival at facility. - Do not drink any alcohol after midnight the night before your surgery. Is Patient Diabetic:No Medications: Unless instructed differently below, stay on all of your medications until your surgery. Approved medications to take the morning of surgery with a sip of water: levothyroxine (synthroid) If you start any new medications after today's visit, please contact the surgeon's office. Blood Thinning Medications: - Stop NSAIDS (Ibuprofen, Advil, Aleve, Motrin, Celebrex, Mobic, etc.) 7 days before surgery, as directed by your surgeon. - Stop Aspirin 7 days before surgery, as directed by your surgeon. - Stop Vitamin E, ALL multi-vitamins, herbals and dietary supplements 14 days before surgery. - You may take Tylenol (Acetaminophen) or any of your pain medications that do not contain aspirin or NSAIDS as needed. Important Reminders: - Candy, mints, and tobacco products are NOT permitted the morning of surgery. - Hearing aids, dentures and glasses may be worn the morning of surgery. - NO jewelry, body piercings, makeup, hairpins or contacts are to be worn the day of surgery. If you develop symptoms such as a fever, cold, or flu, or have other changes to your health within TWO DAYS of scheduled surgery or the morning of surgery, please contact the surgery center above. Personal Belongings: -Please have photo ID and insurance cards. -If you do not have a copy of advance directives on file with us, please bring a copy with you on the day of surgery. - Leave ALL valuables and money at home or with family members. For Outpatient Procedures: - YOU MUST HAVE A RESPONSIBLE LICENSED DISPENSING OPTICIAN TAKE YOU HOME. A FOREST NURSERY WORKER OR CHIEF ELECTRICIAN CANNOT BE MADE A RESPONSIBLE LICENSED DISPENSING OPTICIAN. - We recommend that a responsible person stays with you overnight to take care of you. - You cannot stay in a hotel alone after outpatient surgery. You will not be permitted to have your surgery, if you do not have someone to take care of you. Arrival Time for Surgery: - The Surgery Center or hospital where you are having surgery will call the afternoon before surgery (or Sunday for Sunday surgery) with a scheduled arrival time. - If you have not heard by 4 pm, please contact the surgery center above. Please be aware that emergency situations arise, which may delay or change your surgical time. If this happens, we will notify you as soon as possible and regret any inconvenience. If you already have an Advance Directive, please fax a copy to [phone] or email to for it to be added to your chart. If you do not have an Advance Directive, you can find the appropriate form and more information at [email or web address]. We recommend that you complete the Advance Directive form found on the website and bring it with you the day of your surgery. It can be witnessed and scanned into your chart that day. Joann Pabon PA-C documented in this encounter [facility] 12-14-2022 History of Presen t illness Narrative HPI Vega Sinclair is a 27 year old female here today for follow up anal fissure Previously seen 07/2019- Anterior and posterior anal fissure with sentinel tag noted on exam; has been on nifedipine from PCP She was scheduled for EUA, botox in October 2019 but had cancelled due to healing PAtient is known to me for her fissure presentation following the of her first child. She now is 8 weeks post from her 2nd vaginal delivery. No tear from this delivery and only a small tear from her 1st vaginal delivery. No issues with incontinence. She states that her fissure returned at the end of this and she did go back on topical therapy, she thinks is nifedipine again. This has not been helpful. She has pain with every bowel movement. She has considered weaning her child off breast feeding thinking that and her hypothyroidism may be contributing. She also sees blood with BMs. PHYSICAL EXAM BP 116/77 Pulse 65 Resp 16 Ht 5' 2 (1.58m) Wt 195 lb (88.5kg) LMP 01/10/2022 BMI 35.66 kg/(m^2). 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 - after discussing the risks and benefits of lateral internal sphincterotomy, she would like to proceed with surgery. - will schedule next available. Jamar Malin MD documented in this encounter [facility] 12-11-2022 History of Presen t illness Narrative ENDOCRINOLOGY - THYROID DISORDER LAST SEEN 04-08-2021 CC: hypothyroid FOR VIRTUAL VISITS: I have communicated my name and licensure. The patient's identity and location were verified. Either the patient or their legal medical claims representative has been informed of the risks, benefits, and alternatives based on a remote evaluation, and consents to proceed remotely per [place] law. HPI: Vega Loja is a 27 year old female who initially presented 08-27-2018 in referral for my expert opinion regarding hypothyroid. At the time of her initial presentation, she noted that she had had hypothyroid for a number of years, had a miscarriage a year ago and it was thought that the hypothyroid may have contributed. - she noted that she has also had hair loss - at the time of conception, thyroid replacement had been increased. At the time of her initial visit: Severity, modifying factors, context and associated signs and symptoms are as follows: Thyroid pain: none Mass effect: none Energy: ok Sleep: ok Temperature Intolerance: none GI: mild constipation Weight: up a little Eye changes: none Memory: ok Diaphoresis: neg Skin: dry Neuro/Cognitive: intact Radiological imaging with contrast dyes within the last 3 months? none History of radiation exposure to head or neck area? none The remainder of the ROS is negative FOLLOW UP) VISIT 12-11-2022 VIRTUALLY: Labs as noted below were actually ordered nearly a year ago. She just had a baby. She states she is doing well. Notes another anal fissure. OB managed her thyroid med during the ; now is biochem hyper-- Previously on 75 mcg last year; then to 112mcg and then to 125mcg that she is currently taking - energy is ok; sleep is hard to come by with two little ones, otherwise feeling well. PAST MEDICAL HISTORY Diagnosis Date Anal fissure Anemia Bulimia Gallstone Hypothyroidism Mental disorder depression PAST SURGICAL HISTORY Procedure Laterality Date TONSILLECTOMY AND ADENOIDECTOMY HX childhood FAMILY HISTORY Problem Relation Age of Onset Migraines Mother Anxiety disorder Mother anxiety/depression Hypertension Father Anxiety disorder Sister anxiety depression Anxiety disorder Sister anxiety /depression No Known Problems Maternal Grandmother Prostate Cancer Maternal Grandfather Thyroid Paternal Grandmother No Known Problems Paternal Grandfather other (digeorge) Other No Known Problems Daughter Social History Tobacco Use Smoking status: Never Smokeless tobacco: Never Vaping Use Vaping Use: Never used Substance Use Topics Alcohol use: Not Currently Comment: Socially Drug use: No Current Outpatient Medications on File Prior to Visit Medication Sig levonorgestrel (MIRENA) 21 mcg/24 hours (8 yrs) 52 mg IUD 1 Each by INTRAUTERINE route as directed. levothyroxine (SYNTHROID) 125 mcg tablet Take 1 tablet by mouth once daily. lidocaine (CPD) 1 application by RECTAL route three times daily as needed. Comments for compounding pharmacy: Compound Nifedipine 0.2%, Diltiazem 2%, and Lidocaine 5% fluticasone (FLONASE) 50 mcg/actuation nasal spray Use 2 Sprays in each nostril once daily. Rinse mouth after use. prental multivitamin 27 mg iron- 800 mcg tablet Take 1 tablet by mouth once daily. polyethylene glycol 3350 (MIRALAX ORAL) Take by mouth once daily. docusate sodium (STOOL SOFTENER ORAL) Take by mouth. loratadine (CLARITIN ORAL) Take by mouth. No current facility-administered medications on file prior to visit. LABS - Component Latest Ref Rng & Units 07/27/2022 09/28/2022 11/09/2022 TSH 0.270 - 4.200 mIU/L 1.870 1.930 0.157 (L) Free T4 0.9 - 1.7 ng/dL 1.2 1.2 1.8 (H) HISTORICALLY Component Latest Ref Rng & Units 07/18/2018 08/06/2018 08/27/2018 10/04/2018 11/14/2018 01/24/2019 05/26/2019 TSH 0.270 - 4.200 uU/mL 3.480 7.790 (H) 2.570 1.820 2.620 2.350 Free T4 0.9 - 1.7 ng/dL 1.6 1.4 1.6 1.4 1.4 Free T3 2.3 - 4.1 pg/mL 2.7 Microsomal Antibody <5.6 IU/mL 52.7 (H) 38.9 (H) PHYSICAL EXAM: VIRTUALLY: General appearance: Well appearing, alert, in no acute distress, ASSESSMENT & PLAN 1. Acquired hypothyroidism - ICD9: 244.9, ICD10: E03.9 (primary diagnosis) - clinically euthyroid at today's visit - biochem modestly hyper - levothyroxine back to 112 mcg and recheck in 6 weeks - TSH BLD - T4 FREE/FREE THYROX Annual follow up I thank you for the opportunity to participate in the care of Vega Loja. Please do not hesitate to contact me if you have further concerns or questions. Fatimah Do MS, RD, MD, CCD, FACN, FACP, FACE Diplomate, [place] Board [employer] Diplomate, National Board of Physician Nutrition Specialists Endocrinology / / [facility] [id number] Any part of this document that has been added/copied & pasted from other documents has been reviewed for accuracy and updated as appropriate at the time of the patient encounter documented in this encounter [facility] 12-11-2022 Instructions Wanda Lim Ma - 12/11/2022 11:36 AM EDT POST IUD INSTRUCTIONS You may have irregular bleeding during the first 3 months of use. You may have mild-severe cramping for the next 48 hours. You may use over the counter medication (Motrin, Tylenol) as needed. Your IUD must be removed or replaced based on the following table: IUD Type Removed or replaced within: Emilie 3 years Kyleena 5 years Mirena 8 years Paragard 10 years Call my office for signs/symptoms of infection such as severe cramping, fever, or unusual bleeding. Check for string placement as instructed by your doctor. If you have any additional questions, please contact the office. documented in this encounter [facility] 12-11-2022 History of Presen t illness Narrative Vega presents today for IUD insertion for contraception. Patient's last menstrual period was 01/10/2022 (exact date). GC/chlamydia: Not done: no risk factors and/or patient declines screening test: negative Side effects including irregular bleeding were discussed with the patient. The patient understands that it should be removed in 8 years or sooner if the patient desires a . IUD source: office provided IUD lot #: [id number] Exp date: 10/24/2024 UNIVERSAL PROTOCOL / SAFETY CHECKLIST Procedure to be Performed: Mirena insertion Sign In: A Moment of CARE was completed. Personnel directly involved with the procedure wore the appropriate PPE (Personal Protective Equipment). Patient/Surrogate Stated/Verified: PATIENT VERIFIED(optional for EMERGENT procedures): Patient name, Date of , Relevant allergies, and The intended procedure Time Out Communication: Intended patient and procedure match the source documents. Consent documented and matches the intended procedure. Sign Out: SIGN OUT (optional for EMERGENT procedures): No specimen collected. No instruments, equipment or retained foreign bodies applicable. Post-procedure follow-up management communicated and Plan of Care Visit completed when applicable. Madison Reyes CNP The cervix was prepped with betadine. The uterus sounded to 9 cm and the uterus is Anteverted.. Using sterile technique, the Mirena IUD was inserted without difficulty and the string was cut to 3cm from the external os of the cervix. Patient tolerated procedure well. PLAN: Patient was advised to observe for signs and symptoms of infection including but not limited to fever, malodorous vaginal discharge and/or pain. The patient was told to check the string monthly for accurate placement. Bleeding expectations were reviewed. Follow up for next annual exam or sooner as needed. Madison Reyes APRN.CNP documented in this encounter [facility] 11-24-2022 History of Presen t illness Narrative VISIT Vega Sinclair is a 27 year old year old here for 6 week visit. Feeling good but anal fissure is starting to bleed and become bothersome. She is currently trying to get into see Dr. Malin earlier than scheduled appointment in December. Delivery Summary: 10/13/22 RR- intact ROS/ Recovery: Feeding: Breast feeding problems: Pumping to increase supply Menses since delivery: none Menstrual pattern prior to : Regular periods Hadar since delivery: Not resumed Depression: denies symptoms of depression. OB Depression and Anxiety Screening- This Encounter (since 11/23/2022) None Emotional support: Yes Bowel symptoms: Constipation, anal fissure, and change in bowel habits Abdomen: N/A Bladder symptoms: No dysuria, gross hematuria, urinary frequency, urinary urgency, or incontinence Other issues: None Last Pap: 2021 normal HPV: negative PAST MEDICAL HISTORY Diagnosis Date Anal fissure Anemia Bulimia Gallstone Hypothyroidism Mental disorder depression PAST SURGICAL HISTORY Procedure Laterality Date TONSILLECTOMY AND ADENOIDECTOMY HX childhood FAMILY HISTORY Problem Relation Age of Onset Migraines Mother Anxiety disorder Mother anxiety/depression Hypertension Father Anxiety disorder Sister anxiety depression Anxiety disorder Sister anxiety /depression No Known Problems Maternal Grandmother Prostate Cancer Maternal Grandfather Thyroid Paternal Grandmother No Known Problems Paternal Grandfather other (digeorge) Other No Known Problems Daughter Social History Tobacco Use Smoking status: Never Smokeless tobacco: Never Vaping Use Vaping Use: Never used Substance Use Topics Alcohol use: Not Currently Comment: Socially Drug use: No PHYSICAL EXAMINATION: BP 104/62 Ht 5' 2 (1.58m) Wt 194 lb (88.0kg) LMP 01/10/2022 BMI 35.47 kg/(m^2). GENERAL: pleasant, female in no apparent distress HEENT: Normocephalic and atraumatic NECK: Supple and full range of motion DERMATOLOGY: Normal and without lesions BREAST: soft, non-tender, symmetric, no dominant mass, normal nipple-areolar complex, no lymphadenopathy, and no nipple discharge CHEST: Normal inspiratory effort ABDOMEN: soft, non-tender, and no masses. INCISION: N/A PELVIC: external genitalia normal, normal Bartholin's glands, urethra, [place]'s glands, no vulvar lesions, no cervical lesions, good vaginal support, physiologic discharge present, normal appearing perineal body and perianal region BIMANUAL: uterus normal size, shape and consistency, no adnexal masses, non-tender, and no cervical motion tenderness NEURO: alert and oriented x3,exam grossly non-focal EXTREMITIES: normal ASSESSMENT AND PLAN: 27 year old status post with course complicated by anal fissures. Recommended patient schedule with first available anal/rectal surgeon available. Patient upset that fissures have returned despite her diligence on strict diet, increasing fiber and fluid intake, medications etc. Was supposed to have surgery in the past but during Covid no elective surgeries completed. Contraception plan: IUD - Mirena- order placed Follow up: RTC for insertion of IUD Camilla Aguilera APRN.CNM documented in this encounter [facility] 11-10-2022 History of Presen t illness Narrative Obstetric History T2 L2 SAB1 IAB0 Ectopic0 Multiple0 Live Births2 Name of Baby 1: Not recorded Date: 2017 GA: Not recorded Delivery: Not recorded Apgar1: Not recorded Apgar5: Not recorded Living: Not recorded Name of Baby 2: Elidia Date: 04/12/19 GA: 40w1d Delivery: Vaginal, Spontaneous Apgar1: 8 Apgar5: 9 Living: Living Name of Baby 3: Wicho Date: 10/13/22 GA: 39w3d Delivery: Vaginal, Spontaneous Apgar1: 9 Apgar5: 9 Living: Living Vega Sinclair is a 27 year old female who presents for problem visit . HPI: Patient presents with anal fissures. She reports having them after her last and they were severe. Patient states this time they are not severe yet & she would like to prevent that. She is hydrating, eating fiber and taking stool softeners & laxatives. 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 PAST MEDICAL HISTORY Diagnosis Date Anal fissure Anemia Bulimia Gallstone Hypothyroidism Mental disorder depression PAST SURGICAL HISTORY Procedure Laterality Date TONSILLECTOMY AND ADENOIDECTOMY HX childhood FAMILY HISTORY Problem Relation Age of Onset Migraines Mother Anxiety disorder Mother anxiety/depression Hypertension Father Anxiety disorder Sister anxiety depression Anxiety disorder Sister anxiety /depression No Known Problems Maternal Grandmother Prostate Cancer Maternal Grandfather Thyroid Paternal Grandmother No Known Problems Paternal Grandfather other (digeorge) Other No Known Problems Daughter Social History Tobacco Use Smoking status: Never Smokeless tobacco: Never Vaping Use Vaping Use: Never used Substance Use Topics Alcohol use: Not Currently Comment: Socially Drug use: No Current Outpatient Medications Medication Sig levothyroxine (SYNTHROID) 125 mcg tablet take 1 tablet by mouth once daily fluticasone (FLONASE) 50 mcg/actuation nasal spray Use 2 Sprays in each nostril once daily. Rinse mouth after use. prental multivitamin 27 mg iron- 800 mcg tablet Take 1 tablet by mouth once daily. polyethylene glycol 3350 (MIRALAX ORAL) Take by mouth once daily. docusate sodium (STOOL SOFTENER ORAL) Take by mouth. loratadine (CLARITIN ORAL) Take by mouth. No current facility-administered medications for this visit. Allergies As of Date: 11/10/2022 Allergen Noted Reaction AMOXICILLIN 11/15/2017 Hives KEFLEX [CEPHALEXIN] 11/15/2017 Vomiting SEASONAL ALLERGIES 11/15/2017 Itching Fully Assessed 11/10/2022 Allergies and current medication updated:Yes EXAM: BP 98/72 Wt 191 lb 11.2 oz (87.0kg) LMP 01/10/2022 GENERAL: pleasant, female in no apparent distress PELVIC: external genitalia normal, normal appearing perineal body and perianal region ASSESSMENT AND PLAN: 27yo female with anal fissures Discussed hydration, fiber, stool softeners & laxatives. Compounded ointment sent to [facility] (same as prescribed by in 2019) Patient scheduled with Medical Decision Making: Problems: Low: Acute, uncomplicated illness or injury Risk: Moderate: Drug management Medical Decision Making Level: 3 - Low Benton Carcamo MD documented in this encounter [facility] 11-10-2022 Miscellaneous Notes Patient notified and voiced understanding. Patient asking for 1 time refill until she is seen by PCP. Order pended. Heather Roche RN Please have patient contact primary care for further management. We were prescribing during but recommend follow up management with Primary care. If needing refill till appointment I can do this. Thanks, Sylwia Moore APRN.CNM Refill request received via Chattyt for patients Synthroid Rx. Last seen 10/27/22 for exam. Heather Roche RN documented in this encounter [facility] 11-10-2022 Miscellaneous Notes Second call placed to patient - returning call. No answer, Left detailed message and direct office contact. Call returned to patient. No answer. Left message with direct office number for return call. PT calling in stating she was seen by you in July of 2019 for a anal fissure, pt just had a baby 10-13-22 and the anal fissure has came back states it is not a new tear they are the initial tears from her first daughter, please advise and assist. documented in this encounter [facility] 10-27-2022 Instructions Sylwia Moore APRN.CNM - 10/27/2022 2:26 PM EDT https://www.[employer]/ip/MaryR cfl-p-Bgzylly-Flfkbh-Ojstzniey-X fbkng-Kbonb-12-Zmqnkivn-3-qt-oz- Digestive-Supplement/[id number] https://Rep/pro ducts/cqze-mhqjybucm-cfvmu https://www.[employer]/BioGaia-P soylmqri-Ujrcinchoh-Kogtvmbyyagu -Digestive/dp/N083B9MV11/ref=asc _df_[email or web address]/?tag=hyprod-20&li nkCode=df0&axblld=[id number]&h vpos=&hvnetw=g&iupioy=[id number]&hvpone=&hvptwo=&hvqmt= &hvdev=c&hvdvcmdl=&hvlocint=&hvl xptww=[id number]&hvtargid=catrachito-99485 2119763&psc=1&tag=&ref=&adgrpid= [id number]&hvpone=&hvptwo=&hvad pf=[id number]&hvpos=&hvnetw=g& onidpy=[id number]&hvqmt =&hvdev=c&hvdvcmdl=&hvlocint=&hv pvgyqo=[id number]&hvtargid=catrachito-3667 [id number] documented in this encounter [facility] 10-27-2022 History of Presen t illness Narrative EARLY VISIT Vega Sinclair is a 27 year old for a 2 week virtual virtual visit using Chat[employer]t video visit. It required patient-provider interaction for the medical decision making as documented below. I have communicated my name and active licensure. The patient's identity and physical location were verified at the time of this visit. Either the patient or their legal medical claims representative has been informed of the risks and benefits of -- and alternatives to -- treatment through a remote evaluation and consents to proceed with the evaluation remotely. Delivery Summary: Patient delivered via by Dr. Vazquez on 10/13/22 at [facility]. ROS: General: Denies any fever or chills Hypertension Screening: Headache? No. Visual Changes? No Epigastric Pain? No Increased Swelling? No Taking any BP medications at home? No If applicable, monitoring BP at home? (If Yes, include results) NA Mood: normal Depression: denies symptoms of depression. OB Depression and Anxiety Screening- This Encounter (since 10/26/2022) Over the past 2 weeks have you felt down, depressed, or hopeless? Negative Over the past two weeks, have you felt little interest or pleasure in doing things? Negative Feeling nervous, anxious or on edge 0-Not at all Not being able to stop or control worrying 0-Not al all Anxiety Pre-Screening Total (If >/= 3 additional questions will be reviewed) 0 Feeding: Breast and bottle feeding problems: Seeing senior solutions workflow consultant, baby poor weight gain.Tongue tie revision with laser. Bladder: No dysuria, gross hematuria, urinary frequency, urinary urgency, or incontinence Bowel symptoms: Negative for abdominal discomfort, blood in stools or black stools and change in bowel habits Abdomen: N/A Bleeding: spotting Bottom and Perineum: No issues Sleep: no sleep concerns, feels rested Hadar since delivery: Not resumed Emotional support: Yes Exercise: N/A Other issues: None PAST MEDICAL HISTORY Diagnosis Date Anal fissure Anemia Bulimia Gallstone Hypothyroidism Mental disorder depression PAST SURGICAL HISTORY Procedure Laterality Date TONSILLECTOMY AND ADENOIDECTOMY HX childhood FAMILY HISTORY Problem Relation Age of Onset Migraines Mother Anxiety disorder Mother anxiety/depression Hypertension Father Anxiety disorder Sister anxiety depression Anxiety disorder Sister anxiety /depression No Known Problems Maternal Grandmother Prostate Cancer Maternal Grandfather Thyroid Paternal Grandmother No Known Problems Paternal Grandfather other (digeorge) Other No Known Problems Daughter Social History Tobacco Use Smoking status: Never Smokeless tobacco: Never Vaping Use Vaping Use: Never used Substance Use Topics Alcohol use: Not Currently Comment: Socially Drug use: No ALLERGIES Allergen Reactions Amoxicillin Hives Keflex [Cephalexin] Vomiting Seasonal Allergies Itching Current Outpatient Medications Medication Sig levothyroxine (SYNTHROID) 125 mcg tablet take 1 tablet by mouth once daily fluticasone (FLONASE) 50 mcg/actuation nasal spray Use 2 Sprays in each nostril once daily. Rinse mouth after use. prental multivitamin 27 mg iron- 800 mcg tablet Take 1 tablet by mouth once daily. polyethylene glycol 3350 (MIRALAX ORAL) Take by mouth once daily. docusate sodium (STOOL SOFTENER ORAL) Take by mouth. loratadine (CLARITIN ORAL) Take by mouth. No current facility-administered medications for this visit. PHYSICAL EXAMINATION: General: pleasant,female in no apparent distress, A&O x 3. Incision: N/A ASSESSMENT AND PLAN: 27 year old status post with normal course. Reinforced 6-week pelvic rest. Encouraged condom usage should patient deviate. Education: resources provided - see MA/RN note Follow up: Return to Clinic for 6 week visit and as needed Sylwia Moore APRN.CNM documented in this encounter [facility] 10-14-2022 Note [facility] Medical Records Department [address] [place] [id number] Discharge Summary 10/14/22 1254 MR#: [id number] Acct: [id number] Name: VEGA SINCLAIR Rep #: [id number] : 1995 27 From: Sylwia Moore CNM PCP: Care Physician,No Primary Status:ADM IN Location: [id number] Providers Date of Admission: 10/13/22 Primary Care Physician: No Primary Care Phys Reason For Visit: VAG DELIVERY Diagnosis Discharge Diagnosis (1) (spontaneous vaginal delivery): Status: Acute Code(s): O80 - Encounter for full-term uncomplicated delivery Plan 1) PPD#1 2) Vitals stable 3) 4) D/C home today 5) Follow up in 2 weeks and 6 weeks Medications at Discharge Home Medications levothyroxine 75 mcg tablet 125 mcg PO DAILY hypothryoidism 03/20/19 vits,calcium no.78-iron fumarate-folic acid 29 mg-1 mg tablet 1 tab PO DAILY 03/20/19 fluticasone propionate 50 mcg/actuation nasal spray,suspension 1 spray NASAL DAILY seasonal allergies 04/11/19 acetaminophen 500 mg tablet 1,000 mg PO Q6H PRN PRN Pain 1-10 Or Fever #0 tabs 10/14/22 ibuprofen 600 mg tablet 600 mg PO Q6H PRN PRN Pain Score 1-3 #0 tabs 10/14/22 Weight / BMI Weight Weight: 204 lb 2 oz Body Mass Index (BMI) 37.3 ABG / Lab / Microbiology Data Result Diagrams: 10/13/22 07:41 Meaningful Use Info Meaningful Use Diagnoses (Choose all that apply): None applicable Discharge Plan Admission Admit Date/Time: 10/13/22 07:05 Primary Reason for Your Visit: Vaginal Delivery Attending Provider: Celine Vazquez Primary Care Provider: Care Physician,Deedee Primary Discharge Orders/Prescriptions Prescriptions: New acetaminophen 500 mg Tablet 1,000 mg PO Q6H PRN PRN (Reason: Pain 1-10 Or Fever) Qty: 0 0RF ibuprofen 600 mg Tablet 600 mg PO Q6H PRN PRN (Reason: Pain Score 1-3) Qty: 0 0RF Continued fluticasone propionate 1 SPRAY spray,suspension 1 spray NASAL DAILY levothyroxine 75 MCG tablet 125 mcg PO DAILY vit,jhtf00-kgth-xrfbq 1 TABLET tablet 1 tab PO DAILY Discontinued polyethylene glycol 3350 [Miralax] 17 gram/dose Powder 17 g PO DAILY Referrals / Follow Up: Care Physician,No Primary [Primary Care Provider] - Disposition Disposition (needs filled in before D/C Order can be placed): Home, Self Care 10/14/22 1257 Cosigner Signature (if applicable): CC: MARIA LUISA Moore; No Primary Care Physician Signed [facility] 10-09-2022 Miscellaneous Notes DM- Pt doing well today. Denies Vaginal Bleeding, Leaking fluid, or contractions. Pt reports good movement. IOL set up this week Sunday. Membranes swept today per patient request. RTO prn. Kick counts and labor reviewed. Ester Schultz MD documented in this encounter [facility] 10-09-2022 Instructions Ashley Simmons Ma - 10/09/2022 4:18 PM EDT SEQUENTIAL SCREENINGS The [facility] offers sequential screenings for women who are interested in screenings for chromosomal abnormalities and certain defects during a . The sequential screen combines ultrasound and blood tests to determine the risk of chromosomal abnormalities, including Down's Syndrome (Trisomy 21) and Trisomy 18, as well as open neural tube defects including spina bifida. Ultrasound examination is performed between 11 weeks and 13 weeks gestational age. Blood tests are drawn after the ultrasound and again later in the between 15 and 21 weeks gestational age. Please let your physician know if you are interested in this testing. It will require an appointment with our cath lab radiology technician. This is not an ultrasound performed by a physician in our office during a routine visit. SIGNS AND SYMPTOMS OF LABOR 1. Contractions every 10 minutes or more often 2. Clear, pink, or brownish fluid (water) leaking from vagina 3. Feeling that baby is pushing down, pressure 4. Low, dull backache 5. Cramps that feel like a period 6. Cramps with or without diarrhea If you notice any of the above symptoms, contact our office at [phone] and ask to speak with a nurse. After hours, you can call doctors registry at [phone] OR call [facility] at [phone] and ask to have the doctor instructional design specialist paged. If you consider this an emergency, dial 9-1-8 or go to your nearest emergency department. NEED HELP? Are you dealing with a violent or abusive relationship? Are you a victim of rape or sexual assult? Call [facility] ([place]) 24 hour Crisis Hotline: 337.657.6746 or 265-449-6762. MANUAL Your Guide to a Healthy manual is now on-line. Visit [email or web address] ancyGuide to download your free copy documented in this encounter [facility] 10-05-2022 Miscellaneous Notes RR- VB No. LOF No. CTXS No. Movement: present. Other c/o: No. Medication list reviewed. Physical Exam See Flow Sheet Abd: soft, nontender, gravid Ext: edema: Trace A/P 38w2d Estimated Date of Delivery: 10/17/22 declines cervical exam today f/u in 1 week or prn desires induction of labor, elective. Celine Vazquez M.D. documented in this encounter [facility] 10-05-2022 Instructions Evelia Paz Ma - 10/05/2022 4:21 PM EDT SEQUENTIAL SCREENINGS The [facility] offers sequential screenings for women who are interested in screenings for chromosomal abnormalities and certain defects during a . The sequential screen combines ultrasound and blood tests to determine the risk of chromosomal abnormalities, including Down's Syndrome (Trisomy 21) and Trisomy 18, as well as open neural tube defects including spina bifida. Ultrasound examination is performed between 11 weeks and 13 weeks gestational age. Blood tests are drawn after the ultrasound and again later in the between 15 and 21 weeks gestational age. Please let your physician know if you are interested in this testing. It will require an appointment with our cath lab radiology technician. This is not an ultrasound performed by a physician in our office during a routine visit. SIGNS AND SYMPTOMS OF LABOR 1. Contractions every 10 minutes or more often 2. Clear, pink, or brownish fluid (water) leaking from vagina 3. Feeling that baby is pushing down, pressure 4. Low, dull backache 5. Cramps that feel like a period 6. Cramps with or without diarrhea If you notice any of the above symptoms, contact our office at [phone] and ask to speak with a nurse. After hours, you can call doctors registry at [phone] OR call [facility] at [phone] and ask to have the doctor instructional design specialist paged. If you consider this an emergency, dial or go to your nearest emergency department. NEED HELP? Are you dealing with a violent or abusive relationship? Are you a victim of rape or sexual assult? Call [facility] ([place]) 24 hour Crisis Hotline: 616.979.7267 or 841-675-6382. MANUAL Your Guide to a Healthy manual is now on-line. Visit [email or web address] ancyGuide to download your free copy documented in this encounter [facility] 09-28-2022 Miscellaneous Notes KJ - Denies VB/LOF. Reports some LBP, irregular ctxs & good FM. A&P: LBP - advised on conservative measures Reviewed labor & FM precautions Discussed plan for leave & patient requests starting October 09 Benton Carcamo MD documented in this encounter [facility] 09-28-2022 Boris Lim Ma - 09/28/2022 4:08 PM EDT SEQUENTIAL SCREENINGS The [facility] offers sequential screenings for women who are interested in screenings for chromosomal abnormalities and certain defects during a . The sequential screen combines ultrasound and blood tests to determine the risk of chromosomal abnormalities, including Down's Syndrome (Trisomy 21) and Trisomy 18, as well as open neural tube defects including spina bifida. Ultrasound examination is performed between 11 weeks and 13 weeks gestational age. Blood tests are drawn after the ultrasound and again later in the between 15 and 21 weeks gestational age. Please let your physician know if you are interested in this testing. It will require an appointment with our cath lab radiology technician. This is not an ultrasound performed by a physician in our office during a routine visit. SIGNS AND SYMPTOMS OF LABOR 1. Contractions every 10 minutes or more often 2. Clear, pink, or brownish fluid (water) leaking from vagina 3. Feeling that baby is pushing down, pressure 4. Low, dull backache 5. Cramps that feel like a period 6. Cramps with or without diarrhea If you notice any of the above symptoms, contact our office at [phone] and ask to speak with a nurse. After hours, you can call doctors registry at [phone] OR call [facility] at [phone] and ask to have the doctor instructional design specialist paged. If you consider this an emergency, dial 9-- or go to your nearest emergency department. NEED HELP? Are you dealing with a violent or abusive relationship? Are you a victim of rape or sexual assult? Call [facility] ([place]) 24 hour Crisis Hotline: 507.369.1285 or 036-597-7017. MANUAL Your Guide to a Healthy manual is now on-line. Visit [email or web address] ancyGuide to download your free copy documented in this encounter [facility] 09-25-2022 Miscellaneous Notes FMLA completed, faxed to employer, scanned into EMR and filed in [employer] suite. Brooklynn Barone LPN FMLA paperwork completed and placed on providers desk for signature. Brooklynn Barone LPN documented in this encounter [facility] 09-20-2022 Miscellaneous Notes RR- No VB/LOF. Good FM. NO regular ctxs. Some pressure. GBS done. Brief US confirms vtx. F/u in 1 week or prn. documented in this encounter [facility] 09-20-2022 Instructions Wanda Lim Ma - 09/20/2022 4:17 PM EDT SEQUENTIAL SCREENINGS The [facility] offers sequential screenings for women who are interested in screenings for chromosomal abnormalities and certain defects during a . The sequential screen combines ultrasound and blood tests to determine the risk of chromosomal abnormalities, including Down's Syndrome (Trisomy 21) and Trisomy 18, as well as open neural tube defects including spina bifida. Ultrasound examination is performed between 11 weeks and 13 weeks gestational age. Blood tests are drawn after the ultrasound and again later in the between 15 and 21 weeks gestational age. Please let your physician know if you are interested in this testing. It will require an appointment with our cath lab radiology technician. This is not an ultrasound performed by a physician in our office during a routine visit. SIGNS AND SYMPTOMS OF LABOR 1. Contractions every 10 minutes or more often 2. Clear, pink, or brownish fluid (water) leaking from vagina 3. Feeling that baby is pushing down, pressure 4. Low, dull backache 5. Cramps that feel like a period 6. Cramps with or without diarrhea If you notice any of the above symptoms, contact our office at [phone] and ask to speak with a nurse. After hours, you can call doctors registry at [phone] OR call [facility] at [phone] and ask to have the doctor instructional design specialist paged. If you consider this an emergency, dial 9-6-9 or go to your nearest emergency department. NEED HELP? Are you dealing with a violent or abusive relationship? Are you a victim of rape or sexual assult? Call [facility] ([place]) 24 hour Crisis Hotline: 762.802.7328 or 723-838-9775. MANUAL Your Guide to a Healthy manual is now on-line. Visit [email or web address] ancyGuide to download your free copy documented in this encounter [facility] 09-07-2022 Miscellaneous Notes Addended by: CAMILLA AGUILERA on: 09/07/2022 05:21 PM Modules accepted: Orders Vega Sinclair is a 27 year old female who presents at 34w2d for a routine visit. Good movement. Denies headache, chest pain, shortness of breath, vaginal bleeding, leakage of fluid, or dysuria. Increased swelling in feet yesterday. Reported some blurred vision this past Sunday for around 20 minutes- no headache. Thinks it was related to minimal food intake. She ate and felt better. Recommended compression stockings while on feet all day. Size equal to dates. 20 lbs TWG. PTL precautions reviewed. RTC in 2 weeks for JONI with GBS. Camilla Aguilera APRN.CNM documented in this encounter [facility] 08-25-2022 Miscellaneous Notes Faxed Breast pump order received from [employer]. To RR to sign. Marcia Mccord RN documented in this encounter [facility] 08-14-2022 History of Presen t illness Narrative Images from the original note were not included. Chief Complaint Patient presents with: Ear Pain: Right ear x March 2022- Flonase & zyrtec HPI Vega Sinclair is a 26 year old female who presents here today for Above Complaints. Per [employer] message on 08/10: Vega Sinclair to P [facility] My Chart Rx Pool (supporting Jayce Shipley APRN.CNP) RB 4:21 PM I m right now and sleeping on my side a lot, since March I ve been waking up with very intense ear pain. I can t take my Claritin D and have been trying to dry out with Flonase and Zyrtec but it feels like all the fluid is pressing on my ear and causing pain. Today: March is when sinus infection and went to urgent care, started flonase and zyrtec and that helped with the nasal congestion but not the ear. This has been a frequent issue but always takes claritin-D but can't due to right now. Pain worse in right ear and always worse at night, it's very positional and usually drains switching sides but becoming hard to do so with . No fevers. Takes tylenol as needed. Past medical history, appointments, medications, allergies reviewed. Previous Medical History PAST MEDICAL HISTORY Diagnosis Date Anal fissure Anemia Bulimia Gallstone Hypothyroidism Mental disorder depression Previous Surgical History PAST SURGICAL HISTORY Procedure Laterality Date TONSILLECTOMY AND ADENOIDECTOMY HX childhood Family History FAMILY HISTORY Problem Relation Age of Onset Migraines Mother Anxiety disorder Mother anxiety/depression Hypertension Father Anxiety disorder Sister anxiety depression Anxiety disorder Sister anxiety /depression No Known Problems Maternal Grandmother Prostate Cancer Maternal Grandfather Thyroid Paternal Grandmother No Known Problems Paternal Grandfather other (digeorge) Other No Known Problems Daughter Patient Allergies ALLERGIES Allergen Reactions Amoxicillin Hives Keflex [Cephalexin] Vomiting Seasonal Allergies Itching Current Medications Current Outpatient Medications on File Prior to Visit Medication Sig levothyroxine (SYNTHROID) 125 mcg tablet take 1 tablet by mouth once daily fluticasone (FLONASE) 50 mcg/actuation nasal spray Use 2 Sprays in each nostril once daily. Rinse mouth after use. prental multivitamin 27 mg iron- 800 mcg tablet Take 1 tablet by mouth once daily. polyethylene glycol 3350 (MIRALAX ORAL) Take by mouth once daily. docusate sodium (STOOL SOFTENER ORAL) Take by mouth. loratadine (CLARITIN ORAL) Take by mouth. No current facility-administered medications on file prior to visit. Social History Social History Tobacco Use Smoking status: Never Smokeless tobacco: Never Vaping Use Vaping Use: Never used Substance Use Topics Alcohol use: Not Currently Comment: Socially Drug use: No Review of Symptoms REVIEW OF SYSTEMS See HPI, otherwise negative EXAM: BP 110/64 (BP Site: Left Arm, BP Position: Sitting, BP Cuff Size: Regular Adult) Pulse 92 Temp 36.4 C (97.6 F) Resp 16 Wt 91.3 kg (201 lb 3.2 oz) LMP 01/10/2022 (Exact Date) SpO2 99% BMI 36.80 kg/m General Appearance: Well appearing, alert, in no acute distress, well-hydrated, well nourished.. Ears: impacted cerumen to bilateral external ear canals, ears flushed but remain with some cerumen. Lungs: Lungs clear to auscultation. No wheezing, rhonchi, rales.. Heart: RRR without murmur, gallop, or rubs. No ectopy. Health Maintenance List HEPATITIS B(1 of 3 - 3-dose series) Never done ANNUAL PCP TEAM CHRONIC DISEASE VISIT due on 06/25/2020 COVID-19 VACCINE(4 - Booster for Pfizer series) due on 06/30/2021 DEPRESSION ASSESSMENT Never done PAP TESTING due on 06/01/2024 DTAP,TDAP,TD(3 - Td or Tdap) due on 07/27/2032 INFLUENZA Completed HEPATITIS C SCREENING Completed HIV SCREENING Completed Data reviewed Previous records, office notes ASSESSMENT/PLAN: 1. Otalgia of both ears - ICD9: 388.70, ICD10: H92.03 (primary diagnosis) With impacted cerumen bilaterally, nasal congestion, and prolonged ear pain, will tx with Zpak. Recommend occasional Debrox. Follow up in 5-7 days if no improvement. Consider ENT consult. - AZITHROMYCIN 250 MG TABLET 2. Bilateral impacted cerumen - ICD9: 380.4, ICD10: H61.23 With impacted cerumen bilaterally, nasal congestion, and prolonged ear pain, will tx with Zpak. Recommend occasional Debrox. Follow up in 5-7 days if no improvement. Consider ENT consult. - AZITHROMYCIN 250 MG TABLET Jayce Shipley APRN.CNP documented in this encounter [facility] 08-11-2022 Miscellaneous Notes Agree with below. Jacye Shipley APRN.PAPERHANGER ASSISTANT Advised to schedule appt Juliet Lanier documented in this encounter [facility] 08-10-2022 Miscellaneous Notes DM- Pt doing well today. Denies Vaginal Bleeding, Leaking fluid, or contractions. Pt reports good movement. Growth us ordered 32 weeks. Kick counts reviewed. RTO 2 wks. Ester Schultz MD documented in this encounter [facility] 08-10-2022 Instructions Naima Otero MA - 08/10/2022 3:57 PM EDT SEQUENTIAL SCREENINGS The [facility] offers sequential screenings for women who are interested in screenings for chromosomal abnormalities and certain defects during a . The sequential screen combines ultrasound and blood tests to determine the risk of chromosomal abnormalities, including Down's Syndrome (Trisomy 21) and Trisomy 18, as well as open neural tube defects including spina bifida. Ultrasound examination is performed between 11 weeks and 13 weeks gestational age. Blood tests are drawn after the ultrasound and again later in the between 15 and 21 weeks gestational age. Please let your physician know if you are interested in this testing. It will require an appointment with our cath lab radiology technician. This is not an ultrasound performed by a physician in our office during a routine visit. SIGNS AND SYMPTOMS OF LABOR 1. Contractions every 10 minutes or more often 2. Clear, pink, or brownish fluid (water) leaking from vagina 3. Feeling that baby is pushing down, pressure 4. Low, dull backache 5. Cramps that feel like a period 6. Cramps with or without diarrhea If you notice any of the above symptoms, contact our office at [phone] and ask to speak with a nurse. After hours, you can call doctors registry at [phone] OR call [facility] at [phone] and ask to have the doctor instructional design specialist paged. If you consider this an emergency, dial 9-6-7 or go to your nearest emergency department. NEED HELP? Are you dealing with a violent or abusive relationship? Are you a victim of rape or sexual assult? Call [facility] ([place]) 24 hour Crisis Hotline: 999.528.4197 or 150-706-0044. MANUAL Your Guide to a Healthy manual is now on-line. Visit [email or web address] ancyGuide to download your free copy documented in this encounter [facility] 08-07-2022 Miscellaneous Notes Ob patient is 29w6d requesting refill of levothyroxine documented in this encounter [facility] 07-27-2022 Miscellaneous Notes RR- No VB/LOF. Good FM. No ctxs or edema yet. Some heartburn intermittently. No constipation and take miralax prophylactically. F/u in 2 weeks or prn. plan worksheet given. TDAP today. Growth scan at 32 weeks ordered. LARC reviewed. Declines at delivery but plans mirena after 6 weeks. Celine Vazquez MD documented in this encounter [facility] 07-27-2022 History of Presen t illness Narrative Patient identified by name and date of . Vega Sinclair presents today for a vaccination of Tdap. Patient denies an allergy to latex: yes Patient denies a severe (life-threatening) allergy to a previous dose of Tdap, DTP, DTaP, DT or Td vaccine. Yes Patient denies history of epilepsy or neurological problems: Yes Patient is afebrile and denies being moderately or severely ill: Yes Patient denies history of Guillain-Triangle Syndrome (a severe paralytic illness): Yes Tdap Adacel injection was given without incident. See immunizations for details of immunizations administered today. VIS sheet provided: Yes Provider Dr Vazquez was present in office at time of injection. Wanda Lim Ma documented in this encounter [facility] 07-27-2022 Instructions Wanda Lim Ma - 07/27/2022 9:14 AM EST SEQUENTIAL SCREENINGS The [facility] offers sequential screenings for women who are interested in screenings for chromosomal abnormalities and certain defects during a . The sequential screen combines ultrasound and blood tests to determine the risk of chromosomal abnormalities, including Down's Syndrome (Trisomy 21) and Trisomy 18, as well as open neural tube defects including spina bifida. Ultrasound examination is performed between 11 weeks and 13 weeks gestational age. Blood tests are drawn after the ultrasound and again later in the between 15 and 21 weeks gestational age. Please let your physician know if you are interested in this testing. It will require an appointment with our cath lab radiology technician. This is not an ultrasound performed by a physician in our office during a routine visit. SIGNS AND SYMPTOMS OF LABOR 1. Contractions every 10 minutes or more often 2. Clear, pink, or brownish fluid (water) leaking from vagina 3. Feeling that baby is pushing down, pressure 4. Low, dull backache 5. Cramps that feel like a period 6. Cramps with or without diarrhea If you notice any of the above symptoms, contact our office at [phone] and ask to speak with a nurse. After hours, you can call doctors registry at [phone] OR call [facility] at [phone] and ask to have the doctor instructional design specialist paged. If you consider this an emergency, dial 1-5-5 or go to your nearest emergency department. NEED HELP? Are you dealing with a violent or abusive relationship? Are you a victim of rape or sexual assult? Call [facility] ([place]) 24 hour Crisis Hotline: 151.451.7604 or 770-076-1372. MANUAL Your Guide to a Healthy manual is now on-line. Visit [email or web address] ancyGuide to download your free copy documented in this encounter [facility] 07-08-2022 Note [facility] Medical Records Department [address] [place] [address] Discharge Summary 07/08/22 1120 MR#: [id number] Acct: [id number] Name: VEGA SINCLAIR ZEKE Rep #: [id number] : 1995 26 From: Sylwia Moore CNM PCP: Care Physician,No Primary Status:DEP CLI Location: [facility] Providers Primary Care Physician: No Primary Care Phys Reason For Visit: DEHYDRATION Medications at Discharge Home Medications levothyroxine 75 mcg tablet 125 mcg PO DAILY hypothryoidism 03/20/19 vits,calcium no.78-iron fumarate-folic acid 29 mg-1 mg tablet 1 tab PO DAILY 03/20/19 fluticasone propionate 50 mcg/actuation nasal spray,suspension 1 spray NASAL DAILY seasonal allergies 04/11/19 cetirizine 10 mg tablet 10 mg PO DAILY Check with primary doctor 07/08/22 ondansetron 4 mg disintegrating tablet 4 mg PO Q8H PRN PRN Nausea #30 tabs 07/08/22 Weight / BMI Weight Weight: 191 lb 12.835 oz Body Mass Index (BMI) 35.0 ABG / Lab / Microbiology Data Result Diagrams: 07/08/22 09:25 07/08/22 09:25 Laboratory: Laboratory Results - last 24 hr 07/08/22 09:25: WBC 15.0 H, RBC 4.21, Hgb 12.5, Hct 37.0, MCV 87.9, MCH 29.7, MCHC 33.8, RDW Std Deviation 42.3, RDW Coeff of Silvana 13.2, Plt Count 199, MPV 10.6, Immature Gran % (Auto) 0.700, Neut % (Auto) 93.0 H, Lymph % (Auto) 3.2 L, [place] % (Auto) 2.9, Eos % (Auto) 0.1, Baso % (Auto) 0.1, Absolute Neuts (auto) 13.9 H, Absolute Lymphs (auto) 0.48 L, Nucleated RBC % 0, Differential Comment SCANNED 07/08/22 09:25: Sodium 136, Potassium 3.5, Chloride 105, Carbon Dioxide 22.0, Anion Gap 9, BUN 10, Creatinine 0.55, Estim Creat Clear Calc 121.52, Est GFR (MDRD) Af Amer 169, Est GFR (MDRD) Non-Af 140, BUN/Creatinine Ratio 18.1, Glucose 117 H, Calcium 9.1, Total Bilirubin 0.60, AST 14 L, ALT 17, Alkaline Phosphatase 71, Total Protein 7.3, Albumin 3.0 L, Globulin 4.3 H, Albumin/Globulin Ratio 0.7 L 07/08/22 10:15: Urine Color Yellow, Urine Clarity Clear, Urine pH 6.0, Ur Specific Seymour 1.025, Urine Protein 30 H, Urine Glucose (UA) Normal, Urine Ketones 150 A*, Urine Occult Blood Negative, Urine Nitrite Negative, Urine Bilirubin Negative, Urine Urobilinogen Normal, Ur Leukocyte Esterase 25 H, Urine RBC 0 SEEN, Urine WBC 0-5 SEEN, Ur Squamous Epith Cells 5-10 SEEN, Urine Bacteria 1+, Urine Mucus 0 SEEN Meaningful Use Info Meaningful Use Diagnoses (Choose all that apply): None applicable Discharge Plan Admission Reason For Visit: DEHYDRATION Attending Provider: Sylwia Moore Primary Care Provider: Galindo Physician,Deedee Primary Discharge Date/Time: 07/08/22 11:50 Instructions Patient Instructions: Kick Counts, ED False Labor, OB Triage: Return to Hospital or Notify Physician if you Experience: Discharge Orders/Prescriptions Prescriptions: New ondansetron 4 mg Tablet,Disintegrating 4 mg PO Q8H PRN PRN (Reason: Nausea) Qty: 30 0RF No Action fluticasone propionate 1 SPRAY spray,suspension 1 spray NASAL DAILY levothyroxine 75 MCG tablet 125 mcg PO DAILY vit,[id number] 1 TABLET tablet 1 tab PO DAILY cetirizine 10 mg Tablet 10 mg PO DAILY Referrals / Follow Up: Care Physician,No Primary [Primary Care Provider] - Disposition Patient Disposition: Home, Self Care 07/09/22 0955 Cosigner Signature (if applicable): CC: MARIA LUISA Moore; Deedee Primary Care Physician Signed [facility] 06-23-2022 Miscellaneous Notes Vega Sinclair is a 26 year old female who presents at 23w3d for a routine visit. Good movement. Continues to exercise- walking on treadmill and some weights. Has noticed increase in cramping at times during exercise. Discussed decreasing intensity and increasing hydration prior to exercise and during. Some lower back pain. 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 Denies headache, visual changes, chest pain, shortness of breath, vaginal bleeding, leakage of fluid, or dysuria. Feeling well, no complaints. Size equal to dates. 17 lbsTWG. PTL precautions reviewed. RTC in 4 weeks for JONI with GCT. Camilla Aguilera APRN.CNM documented in this encounter [facility] 06-23-2022 Instructions Guillaume Conteh Cma - 06/23/2022 1:03 PM EST SEQUENTIAL SCREENINGS The [facility] offers sequential screenings for women who are interested in screenings for chromosomal abnormalities and certain defects during a . The sequential screen combines ultrasound and blood tests to determine the risk of chromosomal abnormalities, including Down's Syndrome (Trisomy 21) and Trisomy 18, as well as open neural tube defects including spina bifida. Ultrasound examination is performed between 11 weeks and 13 weeks gestational age. Blood tests are drawn after the ultrasound and again later in the between 15 and 21 weeks gestational age. Please let your physician know if you are interested in this testing. It will require an appointment with our cath lab radiology technician. This is not an ultrasound performed by a physician in our office during a routine visit. SIGNS AND SYMPTOMS OF LABOR 1. Contractions every 10 minutes or more often 2. Clear, pink, or brownish fluid (water) leaking from vagina 3. Feeling that baby is pushing down, pressure 4. Low, dull backache 5. Cramps that feel like a period 6. Cramps with or without diarrhea If you notice any of the above symptoms, contact our office at [phone] and ask to speak with a nurse. After hours, you can call doctors registry at [phone] OR call [facility] at [phone] and ask to have the doctor instructional design specialist paged. If you consider this an emergency, dial 9-3-7 or go to your nearest emergency department. NEED HELP? Are you dealing with a violent or abusive relationship? Are you a victim of rape or sexual assult? Call [facility] ([facility] 24 hour Crisis Hotline: 536.337.6637 or 300-242-9065. MANUAL Your Guide to a Healthy manual is now on-line. Visit [email or web address] ancyGuide to download your free copy documented in this encounter [facility] 05-25-2022 Miscellaneous Notes KJ - No VB/LOF/ctxs. Reports FM. She still has sinus congestion and is using OTC meds. A&P: Anatomy US today Sinus congestion & ear pressure - recommend pcp evaluation Benton Carcamo MD documented in this encounter [facility] 05-25-2022 Instructions Evelia Paz Ma - 05/25/2022 2:55 PM EST SEQUENTIAL SCREENINGS The [facility] offers sequential screenings for women who are interested in screenings for chromosomal abnormalities and certain defects during a . The sequential screen combines ultrasound and blood tests to determine the risk of chromosomal abnormalities, including Down's Syndrome (Trisomy 21) and Trisomy 18, as well as open neural tube defects including spina bifida. Ultrasound examination is performed between 11 weeks and 13 weeks gestational age. Blood tests are drawn after the ultrasound and again later in the between 15 and 21 weeks gestational age. Please let your physician know if you are interested in this testing. It will require an appointment with our cath lab radiology technician. This is not an ultrasound performed by a physician in our office during a routine visit. SIGNS AND SYMPTOMS OF LABOR 1. Contractions every 10 minutes or more often 2. Clear, pink, or brownish fluid (water) leaking from vagina 3. Feeling that baby is pushing down, pressure 4. Low, dull backache 5. Cramps that feel like a period 6. Cramps with or without diarrhea If you notice any of the above symptoms, contact our office at [phone] and ask to speak with a nurse. After hours, you can call doctors registry at [phone] OR call [facility] at [phone] and ask to have the doctor instructional design specialist paged. If you consider this an emergency, dial 9-7-9 or go to your nearest emergency department. NEED HELP? Are you dealing with a violent or abusive relationship? Are you a victim of rape or sexual assult? Call [facility] ([place]) 24 hour Crisis Hotline: 659.682.1335 or 376-187-0043. MANUAL Your Guide to a Healthy manual is now on-line. Visit [email or web address] ancyGuide to download your free copy documented in this encounter [facility] 05-12-2022 Miscellaneous Notes Can use overt the counter Lice treatment. Here is the [facility] website where she can get more information as well. RID Lice Treatment Complete: Shampoo: Pyrethrins 0.33% and piperonyl butoxide 4% Sylwia Moore APRN.CNM 17w3d Daughter has lice and patient questioning what treatment she can use on herself too. Please advise. Marcia Mccord RN documented in this encounter [facility] 05-12-2022 Miscellaneous Notes Patient has been on Synthroid 112 mcg daily. Aware that a new RX with increased dosage sent to her pharmacy and will need repeat TSH in 4 weeks. Still waiting on response to patient's question regarding lice treatment. Yany Montejo RN Please check that pt was taking Synthroid 112 mcg one daily. That was listed in her meds, but in an encounter it said she was taking it 2 tablets PO 3 days out of the week. Recent TSH reviewed and would like to increase dose, so new rx sent in for Synthroid 125 mcg once daily if she was taking the 112 mcg once daily. Will need repeat TSH in 4 weeks See refill request in the other encounter. documented in this encounter [facility] 04-27-2022 Miscellaneous Notes SW- Has had congestion for several weeks. H/o seasonal allergies. Went to urgent care and was prescribed an antibiotic but told not to take it unless symptoms worsen or persist per pt. She denies fevers, chills, SOB, cough, ear pain, sinus pressure/pain, VÁSQUEZ. Discussed safe medications in and recommend adding humidifier and saline nasal sprays to allergy medication. Check thyroid and 2nd tri blood work next week - paper given to pt to take to the lab. Schedule anatomy US. RTO 4 wks. Leticia Dove DO documented in this encounter [facility] 04-27-2022 Instructions Naima Otero MA - 04/27/2022 4:15 PM EST SEQUENTIAL SCREENINGS The [facility] offers sequential screenings for women who are interested in screenings for chromosomal abnormalities and certain defects during a . The sequential screen combines ultrasound and blood tests to determine the risk of chromosomal abnormalities, including Down's Syndrome (Trisomy 21) and Trisomy 18, as well as open neural tube defects including spina bifida. Ultrasound examination is performed between 11 weeks and 13 weeks gestational age. Blood tests are drawn after the ultrasound and again later in the between 15 and 21 weeks gestational age. Please let your physician know if you are interested in this testing. It will require an appointment with our cath lab radiology technician. This is not an ultrasound performed by a physician in our office during a routine visit. SIGNS AND SYMPTOMS OF LABOR 1. Contractions every 10 minutes or more often 2. Clear, pink, or brownish fluid (water) leaking from vagina 3. Feeling that baby is pushing down, pressure 4. Low, dull backache 5. Cramps that feel like a period 6. Cramps with or without diarrhea If you notice any of the above symptoms, contact our office at [phone] and ask to speak with a nurse. After hours, you can call doctors registry at [phone] OR call [facility] at [phone] and ask to have the doctor instructional design specialist paged. If you consider this an emergency, dial or go to your nearest emergency department. NEED HELP? Are you dealing with a violent or abusive relationship? Are you a victim of rape or sexual assult? Call [facility] House ([facility] 24 hour Crisis Hotline: [phone] or [phone]. MANUAL Your Guide to a Healthy manual is now on-line. Visit [email or web address] to download your free copy documented in this encounter [facility] 03-31-2022 Miscellaneous Notes Patient called and identified by name and date of . Vega Sinclair was informed of negative Sequential screen first trimester. Vega Sinclair was informed of her risk assessment for Trisomy 21 and 18. Based on these results Dr. Laguna s recommendation is for patient to follow-up with Sequential second trimester screening (04/29/22-05/13/22) and level II anatomy scan after 18wks. Patient verbalized understanding . Aracely Leslie MA documented in this encounter [facility] 03-30-2022 Miscellaneous Notes SW- Pt doing well. N/V has improved. No pain, vb, lof. NT today. Blood work today. RTO 4 wks. Leticia Dove DO documented in this encounter [facility] 03-30-2022 History of Presen t illness Narrative Patient here for First Trimester Screening. See ultrasound report for details. Options for genetic screening and diagnosis discussed with the patient. Patient opts for first trimester screening and the sequential screening protocol. Limitations of screening tests discussed with the patient. Leticia Dove MD documented in this encounter [facility] 03-30-2022 Instructions Yany Montejo RN - 03/30/2022 8:39 AM EDT SEQUENTIAL SCREENINGS The [facility] offers sequential screenings for women who are interested in screenings for chromosomal abnormalities and certain defects during a . The sequential screen combines ultrasound and blood tests to determine the risk of chromosomal abnormalities, including Down's Syndrome (Trisomy 21) and Trisomy 18, as well as open neural tube defects including spina bifida. Ultrasound examination is performed between 11 weeks and 13 weeks gestational age. Blood tests are drawn after the ultrasound and again later in the between 15 and 21 weeks gestational age. Please let your physician know if you are interested in this testing. It will require an appointment with our cath lab radiology technician. This is not an ultrasound performed by a physician in our office during a routine visit. SIGNS AND SYMPTOMS OF LABOR 1. Contractions every 10 minutes or more often 2. Clear, pink, or brownish fluid (water) leaking from vagina 3. Feeling that baby is pushing down, pressure 4. Low, dull backache 5. Cramps that feel like a period 6. Cramps with or without diarrhea If you notice any of the above symptoms, contact our office at [phone] and ask to speak with a nurse. After hours, you can call doctors registry at [phone] OR call [facility] at [phone] and ask to have the doctor instructional design specialist paged. If you consider this an emergency, dial 3-5-2 or go to your nearest emergency department. NEED HELP? Are you dealing with a violent or abusive relationship? Are you a victim of rape or sexual assult? Call [facility] ([place]) 24 hour Crisis Hotline: 905.179.5435 or 281-793-8285. MANUAL Your Guide to a Healthy manual is now on-line. Visit [email or web address] to download your free copy SEQUENTIAL TESTING PROCESS Sequential Screen First Trimester Today you are currently: 11w2d weeks 03/30/2022: Ultrasound and blood test. Sequential Screen Second Trimester (16-17 Weeks Gestation) When you are called with your results, the nurse will give the optimal draw dates for the Sequential screen second trimester. Blood testing can be done at any [facility] lab. Please report to the any intellectual property paralegal office front counter attendant for the Sequential Part 2 requisition and order before reporting to the lab. Your weight will need to be documented for testing. Please note: -No appointment is need for your second blood draw. -Office hours are 8 am to 4:30 pm. -Please have testing done prior to 12 noon on [facility] -Once the sequential testing is started, in the first trimester the only follow-up will be for the sequential screen second trimester. Please don't have a Quad screen ordered by another provider. If you or your Provider have any questions please call your maternal medicine office, for east side please call [phone] or for the West side call [phone] and ask for the the nurse. Thank you. documented in this encounter [facility] 03-03-2022 Miscellaneous Notes Patient called and was at her Obgyn appt yesterday 03/02/2022. She is being monitored every 4 weeks with her labs from her OB due to pregnacy. Please review thyroid labs. OB asked if while during patient's pregnacy if Dr. Do would like her to monitor thyroid and medication? Please advise Nancy Vazquez Test Case Developer II [facility] documented in this encounter [facility] 03-02-2022 History of Presen t illness Narrative Algebra Teacher offered: Patient declines. INITIAL OB ASSESSMENT OB Provider: Leticia Dove DO HPI: Vega Sinclair is a 26 year old female here to establish Obstetrical Care. Patient's last menstrual period was 01/10/2022 (exact date). from OB Dating Form. Cycle length: 28-29 days Complaints: cramping was planned. OB History T1 L1 SAB1 IAB0 Ectopic0 Multiple0 Live Births1 Prior : never History of 4th degree laceration: No Patient's Risk Screening for delivery: History of abnormal pap: No Prior treatment for cervical dysplasia: none. 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 levothyroxine (SYNTHROID) 75 mcg tablet Take one tablet daily; take two tablets on Mondays, Wednesdays and Fridays polyethylene glycol 3350 (MIRALAX ORAL) Take by mouth. docusate sodium (STOOL SOFTENER ORAL) Take by mouth. loratadine (CLARITIN ORAL) Take by mouth. No current facility-administered medications on file prior to visit. Review of Systems: GENERAL: Negative for: Fever or Chills HEENT: Negative for: Headache, Impaired Vision, Ringing in Ears, Nosebleeds NECK: Negative for: Swelling, Pain, Stiffness RESPIRATORY: Negative for: Cough, Shortness of breath, Wheezing GASTROINTESTINAL: Negative for: Heartburn, Constipation, Diarrhea, Blood in stool, Vomiting MUSCULOSKELETAL: Negative for: Muscle or joint pain, stiffness, Joint swelling NEUROLOGIC/PSYCHIATRIC: Negative for: Weakness, Paralysis, Numbness, Tingling, Tremor, Anxiety, Depression, Memory loss SKIN: Negative for: Rash, Itching GENITOURINARY: Negative for: vaginal itching, vaginal discharge, hematuria or dysuria PHYSICAL EXAM: BP 102/62 Ht 5' 2 (1.58m) Wt 183 lb 3.2 oz (83.1kg) LMP 01/10/2022 BMI 33.50 kg/(m^2). GENERAL: pleasant female in no apparent distress DERMATOLOGY: Normal, without lesions, non-icteric, and non-hirsute NECK: Supple, full range of motion, no adenopathy, and thyroid normal CHEST: Normal inspiratory effort BREAST: soft, non-tender, symmetric, no dominant mass, normal nipple-areolar complex, no lymphadenopathy, and no nipple discharge ABDOMEN: soft, non-tender, and no masses NEURO: exam grossly non-focal PELVIS: External genitalia normal without lesions. Perineal body intact. No vaginal or cervical lesions. Cervix closed. Uterus 7 week size. No adnexal masses or tenderness. Clinical Pelvimetry: Pelvimetry clinically assessed as adequate Limited OB ultrasound exam: single intrauterine and positive cardiac activity with CRL measuring 7w2d OB Risk Screening: Completed, no positive findings documented. ASSESSMENT: 26 year old at 7 wks gestational age PLAN: 1) Patient oriented to practice. Discussed nutrition, folic acid supplementation, dietary guidelines, exercise, smoking, alcohol, caffeine, and drug use. Discussed routine OB labs including STD/HIV.screening and nuchal translucency. Discussed aneuploidy screening options and patient desires sequential screen. NT ordered. Carrier screening discussed and declined. Follow up in 4 weeks or sooner prn. Leticia Dove DO documented in this encounter [facility] 03-02-2022 Instructions Naima Otero MA - 03/02/2022 2:58 PM EDT Please select the following link to access the [facility] Your Guide to a Healthy . [email or web address] documented in this encounter [facility] 02-23-2022 Miscellaneous Notes Patient notified. Leave open for 02/24/22 hcg quant result. Marcia Mccord RN HCG level order placed. Please have instructional design specialist provider follow up with patient once results back. Thank you. Camilla Aguilera APRN.CNM Patient had telephone Pre new OB appointment. 6w2d by dates. New OB appointment 03/02 She is 3 para 1 with a history of a miscarriage. She has noted some pelvic pain that she rates a 1 on the pain scale for the most part but she does have occasional sharp pains that she rates a 5 on the pain scale for 12 days. These sharp pains come once every 5 days. Denies any bleeding. She had a quant hCG done on [address] 17 of 1055. Patient requesting quantitative hCG. Do you want to do a quantitative hCG or do you want to order an ultrasound.? There are 2 openings tomorrow for ultrasounds and some openings 02/28. Patient states she is super stressed at work and worrying about .Miscarriage precautions discussed documented in this encounter [facility] 02-23-2022 History of Presen t illness Narrative # 1 - Date: 2017, Sex: None, Weight: None, GA: None, Delivery: None, Apgar1: None, Apgar5: None, Living: None, Comments: None # 2 - Date: 04/12/19, Sex: Female, Weight: 6 lb 15 oz (3.147 kg), GA: 40w1d, Delivery: Vaginal, Spontaneous, Apgar1: 8, Apgar5: 9, Living: Living, Comments: elective uction, SROM, loose nuchal x1, 1st degree vaginal laceration, EBL 400cc # 3 - Date: None, Sex: None, Weight: None, GA: None, Delivery: None, Apgar1: None, Apgar5: None, Living: None, Comments: None documented in this encounter [facility] 02-23-2022 Miscellaneous Notes DISTANCE HEALTH VISIT This Team Access Model visit is a phone encounter. It required patient-provider interaction for the medical decision making as documented below. Patient has a history of hypothyroidism treated by Dr. Do. Dr. Do has increased her thyroid medication as of February 07. Last TSH was drawn February 11. Pt has a history of depression/anxiety diagnosed as a teenager. She states she has never taken any medication to treat it. She does admit that she had depression with suicidal thoughts. She states she is currently seeing a therapist. Discussed increased risks of depression during and and importance of reporting the development or worsening of symptoms should they occur. She states she last had suicidal thoughts about 2 weeks ago. States she never had a plan. Patient states she had bulimia in high school. She states she is is currently seeing a therapist since the delivery of her last child. Patient states she had a anal fissure. Patient desires aneuploidy screening. She is given contact information for [facility] to check on insurance coverage. Considering genetic carrier screening testing. Contact information for [facility] given to patient to check on insurance coverage.Chioma Giles RN documented in this encounter [facility] 02-08-2022 Miscellaneous Notes filed 4w0d asking for serum quant. Order pending. documented in this encounter [facility] 11-23-2021 History of Presen t illness Narrative VIRTUAL VISIT PROGRESS NOTE This is a virtual visit using [employer] video visit. It required patient-provider interaction for the medical decision making as documented below. Vega Sinclair is a 26 year old female seen for questions regarding the [place] v. Rubin reversal and what that would mean for . She is currently trying for . Her questions were answered and she verbalized understanding. HISTORY REVIEWED (electronic chart updated): PAST MEDICAL HISTORY Diagnosis Date Anemia Gallstone Hypothyroidism Mental disorder PAST SURGICAL HISTORY Procedure Laterality Date TONSILLECTOMY AND ADENOIDECTOMY HX childhood FAMILY HISTORY Problem Relation Age of Onset Migraines Mother Anxiety disorder Mother anxiety/depression Hypertension Father Anxiety disorder Sister anxiety depression No Known Problems Maternal Grandmother No Known Problems Maternal Grandfather Thyroid Paternal Grandmother No Known Problems Paternal Grandfather Anxiety disorder Sister anxiety /depression other (digeorge) Other Social History Tobacco Use Smoking status: Never Smoker Smokeless tobacco: Never Used Vaping Use Vaping Use: Never used Substance Use Topics Alcohol use: Not Currently Comment: Socially Drug use: No Current Outpatient Medications Medication Sig fluticasone (FLONASE) 50 mcg/actuation nasal spray Use 1 Compton in each nostril daily at bedtime. sodium chloride (SALINE NASAL) 0.65 % nasal spray Use 2 Sprays in the nose as needed for cold/allergy symptoms. polyethylene glycol 3350 (MIRALAX ORAL) Take by mouth. levothyroxine (SYNTHROID) 75 mcg tablet Take 1 tablet by mouth once daily. docusate sodium (STOOL SOFTENER ORAL) Take by mouth. loratadine (CLARITIN ORAL) Take by mouth. No current facility-administered medications for this visit. ALLERGIES Allergen Reactions Amoxicillin Hives Keflex [Cephalexin] Vomiting Seasonal Allergies Itching REVIEW OF SYSTEMS: GENERAL: doing well PHYSICAL EXAMINATION: VIDEO EXAM: (if completed, performed via video enabled technology) No exam performed ASSESSMENT/PLAN: 1. Encounter for contraceptive management, unspecified type - ICD9: V25.9, ICD10: Z30.9 I spent a total of 20 minutes on the date of the service which included preparing to see the patient, [id number] patient care, completing clinical documentation, obtaining and/or reviewing separately obtained history and counseling and educating the patient/family/caregiver Madison Reyes APRN.PHI documented in this encounter [facility] 10-12-2021 History of Presen t illness Narrative This is an Express Care eVisit note for Vega Sinclair eVisit/Questionnaire reviewed The chief complaint for the visit - Patient presents with: Sinus Problem Recommendations/Treatment plan - Rx as below plus self care. See My Chart Message to patient. Recommendation for follow up - PRN The following approved medication requests have been transmitted electronically. Signed Prescriptions Disp Refills fluticasone (FLONASE) 50 mcg/actuation nasal spray 15.8 mL 0 Sig: Use 1 Compton in each nostril daily at bedtime. sodium chloride (SALINE NASAL) 0.65 % nasal spray 50 mL 0 Sig: Use 2 Sprays in the nose as needed for cold/allergy symptoms. doxycycline monohydrate (MONODOX) 100 mg capsule 14 capsule 0 Sig: Take 1 capsule by mouth twice daily for 7 days. Meet Mayorga APRN.PHI I spent 5-10 minutes on this eVisit in chart review and coordination of care. documented in this encounter [facility] 09-08-2021 History of Presen t illness Narrative Vega presents for removal of IUD due to desire for . UNIVERSAL PROTOCOL / SAFETY CHECKLIST Procedure to be Performed: Mirena removal Sign In: A Moment of CARE was completed. Personnel directly involved with the procedure wore the appropriate PPE (Personal Protective Equipment). Patient/Surrogate Stated/Verified: PATIENT VERIFIED(optional for EMERGENT procedures): Patient name, Date of , Relevant allergies and The intended procedure Time Out Communication: Intended patient and procedure match the source documents. Consent documented and matches the intended procedure. Sign Out: SIGN OUT (optional for EMERGENT procedures): No specimen collected. All instruments, equipment, possible retained foreign bodies accounted for. Madison Reyes CNP PROCEDURE: Speculum placed in vagina, IUD string visualized and grasped with ring forceps. ASSESSMENT/PLAN: IUD removed without difficulty, intact, and patient tolerated procedure well. Contraception plans: none Reviewed pre-conception guidelines including folic acid supplementation, optimal timing of intercourse, avoidance of smoking, alcohol, exposure to environmental chemicals and need for evaluation if not within 12 months. Madison Reyes APRN.PHI documented in this encounter [facility] 08-22-2018 History of Past i llness Narrative Problem Noted Date Resolved Date size inconsistent with dates 08/22/2018 10/16/2018 Overview: 08/22/2018 Pt certain of LMP and US at [facility] inconsistent with LMP. Measuring 6 wks. Formal dating US ordered to be completed in 1-2 wks. SW Current in first t rimester with history of spontaneous during prior 08/08/2018 10/16/2018 Overview: 08/08/2018FOB and patient are engaged to be in October.This is a surprise . Patient took Plan B. Patient called in for spotting after intercourse last week. Denies having any spotting since the. Had 1 quantitative hcg drawn on 08/06:4401. Plans on repeat quant today. TKRN Patient request for diagnostic testing 9 10/16/2018 Overview: 08/22/2018 Order NT after dating US completed. SW 08/08/2018Patient desires nuchal ultrasound. Considering CF carrier screening testing. TKRN documented as of this encounter (statuses as of 09/08/2021) [facility] History of Past illness Narrative* Problem Noted Date Resolved Date size inconsistent with dates 08/22/2018 10/16/2018 Overview: 08/22/2018 Pt certain of LMP and US at [facility] inconsistent with LMP. Measuring 6 wks. Formal dating US ordered to be completed in 1-2 wks. SW Current in first t rimester with history of spontaneous during prior 08/08/2018 10/16/2018 Overview: 08/08/2018FOB and patient are engaged to be in October.This is a surprise . Patient took Plan B. Patient called in for spotting after intercourse last week. Denies having any spotting since the. Had 1 quantitative hcg drawn on 12:4401. Plans on repeat quant today. TKRN Patient request for diagnostic testing 9 10/16/2018 Overview: 08/22/2018 Order NT after dating US completed. 08/08/2018Patient desires nuchal ultrasound. Considering CF carrier screening testing. TKRN documented as of this encounter (statuses as of 10/12/2021) [facility] History of Past illness Narrative* Problem Noted Date Resolved Date size inconsistent with dates 08/22/2018 10/16/2018 Overview: 08/22/2018 Pt certain of LMP and US at NOB inconsistent with LMP. Measuring 6 wks. Formal dating US ordered to be completed in 1-2 wks. SW Current in first t rimester with history of spontaneous during prior 08/08/2018 10/16/2018 Overview: 08/08/2018FOB and patient are engaged to be in October.This is a surprise . Patient took Plan B. Patient called in for spotting after intercourse last week. Denies having any spotting since the. Had 1 quantitative hcg drawn on 0312:4401. Plans on repeat quant today. TKRN Patient request for diagnostic testing 9 10/16/2018 Overview: 08/22/2018 Order NT after dating US completed. 08/08/2018Patient desires nuchal ultrasound. Considering CF carrier screening testing. TKRN documented as of this encounter (statuses as of 11/23/2021) [facility] History of Past illness Narrative* Problem Noted Date Resolved Date size inconsistent with dates 08/22/2018 10/16/2018 Overview: 08/22/2018 Pt certain of LMP and US at [facility] inconsistent with LMP. Measuring 6 wks. Formal dating US ordered to be completed in 1-2 wks. Current in first [facility] with history of spontaneous during prior 08/08/2018 10/16/2018 Overview: 08/08/2018FOB and patient are engaged to be in October.This is a surprise . Patient took Plan B. Patient called in for spotting after intercourse last week. Denies having any spotting since the. Had 1 quantitative hcg drawn on 03/12:4401. Plans on repeat quant today. TKRN Patient request for diagnostic testing 9 10/16/2018 Overview: 08/22/2018 Order NT after dating US completed. 08/08/2018Patient desires nuchal ultrasound. Considering CF carrier screening testing. TKRN documented as of this encounter (statuses as of 02/07/2022) [facility] History of Past illness Narrative* Problem Noted Date Resolved Date size inconsistent with dates 08/22/2018 10/16/2018 Overview: 08/22/2018 Pt certain of LMP and US at [facility] inconsistent with LMP. Measuring 6 wks. Formal dating US ordered to be completed in 1-2 wks. SW [facility] of [facility] during prior 08/08/2018 10/16/2018 Overview: 08/08/2018FOB and patient are engaged to be in October.This is a surprise . Patient took Plan B. Patient called in for spotting after intercourse last week. Denies having any spotting since the. Had 1 quantitative hcg drawn on 0312:4401. Plans on repeat quant today. TKRN Patient request for diagnostic testing 9 10/16/2018 Overview: 08/22/2018 Order NT after dating US completed. 08/08/2018Patient desires nuchal ultrasound. Considering CF carrier screening testing. TKRN documented as of this encounter (statuses as of 02/08/2022) [facility] History of Past illness Narrative* Problem Noted Date Resolved Date size inconsistent with dates 08/22/2018 10/16/2018 Overview: 08/22/2018 Pt certain of LMP and US at [facility] inconsistent with LMP. Measuring 6 wks. Formal dating US ordered to be completed in 1-2 wks. SW [facility] of spontaneous during prior 08/08/2018 10/16/2018 Overview: 08/08/2018FOB and patient are engaged to be in October.This is a surprise . Patient took Plan B. Patient called in for spotting after intercourse last week. Denies having any spotting since the. Had 1 quantitative hcg drawn on 0312:4401. Plans on repeat quant today. TKRN documented as of this encounter (statuses as of 02/23/2022) [facility] History of Past illness Narrative* Problem Noted Date Resolved Date size inconsistent with dates 08/22/2018 10/16/2018 Overview: 08/22/2018 Pt certain of LMP and US at NO[facility] inconsistent with LMP. Measuring 6 wks. Formal dating US ordered to be completed in 1-2 wks. SW Current in first t rimester with history of spontaneous during prior 08/08/2018 10/16/2018 Overview: 08/08/2018FOB and patient are engaged to be in October.This is a surprise . Patient took Plan B. Patient called in for spotting after intercourse last week. Denies having any spotting since the. Had 1 quantitative hcg drawn on 0312:4401. Plans on repeat quant today. TKRN documented as of this encounter (statuses as of 02/23/2022) [facility] History of Past illness Narrative* Problem Noted Date Resolved Date size inconsistent with dates 08/22/2018 10/16/2018 Overview: 08/22/2018 Pt certain of LMP and US at [facility]B inconsistent with LMP. Measuring 6 wks. Formal dating US ordered to be completed in 1-2 wks. SW Current in first [facility] with history of spontaneous during prior 08/08/2018 10/16/2018 Overview: 08/08/2018FOB and patient are engaged to be in October.This is a surprise . Patient took Plan B. Patient called in for spotting after intercourse last week. Denies having any spotting since the. Had 1 quantitative hcg drawn on 03/12:4401. Plans on repeat quant today. TKRN documented as of this encounter (statuses as of 03/03/2022) [facility] History of Past illness Narrative* Problem Noted Date Resolved Date size inconsistent with dates 08/22/2018 10/16/2018 Overview: 08/22/2018 Pt certain of LMP and US at [facility] inconsistent with LMP. Measuring 6 wks. Formal dating US ordered to be completed in 1-2 wks. SW [facility] history of spontaneous during prior 08/08/2018 10/16/2018 Overview: 08/08/2018FOB and patient are engaged to be in October.This is a surprise . Patient took Plan B. Patient called in for spotting after intercourse last week. Denies having any spotting since the. Had 1 quantitative hcg drawn on 12:4401. Plans on repeat quant today. TKRN documented as of this encounter (statuses as of 03/03/2022) [facility]03-[facility]-2019 History of Past illness Narrative* Problem Noted Date Resolved Date size inconsistent with dates 08/22/2018 10/16/2018 Overview: 08/22/2018 Pt certain of LMP and US at [facility] inconsistent with LMP. Measuring 6 wks. Formal dating US ordered to be completed in 1-2 wks. SW Current in first t rimester with history of spontaneous during prior 08/08/2018 10/16/2018 Overview: 08/08/2018FOB and patient are engaged to be in October.This is a surprise . Patient took Plan B. Patient called in for spotting after intercourse last week. Denies having any spotting since the. Had 1 quantitative hcg drawn on 12:4401. Plans on repeat quant today. TKRN documented as of this encounter (statuses as of 03/03/2022) [facility]03[facility]2019 History of Past illness Narrative* Problem Noted Date Resolved Date size inconsistent with dates 08/22/2018 10/16/2018 Overview: 08/22/2018 Pt certain of LMP and US at [facility] inconsistent with LMP. Measuring 6 wks. Formal dating US ordered to be completed in 1-2 wks. SW Current in first t rimester with history of spontaneous during prior 08/08/2018 10/16/2018 Overview: 08/08/2018FOB and patient are engaged to be in October.This is a surprise . Patient took Plan B. Patient called in for spotting after intercourse last week. Denies having any spotting since the. Had 1 quantitative hcg drawn on 0312:4401. Plans on repeat quant today. TKRN documented as of this encounter (statuses as of 03/09/2022) [facility]2019 History of Past illness Narrative* Problem Noted Date Resolved Date size inconsistent with dates 08/22/2018 10/16/2018 Overview: 08/22/2018 Pt certain of LMP and US at [facility] inconsistent with LMP. Measuring 6 wks. Formal dating US ordered to be completed in 1-2 wks. SW Current in first t rimester with history of spontaneous during prior 08/08/2018 10/16/2018 Overview: 08/08/2018FOB and patient are engaged to be in October.This is a surprise . Patient took Plan B. Patient called in for spotting after intercourse last week. Denies having any spotting since the. Had 1 quantitative hcg drawn on 0312:4401. Plans on repeat quant today. TKRN documented as of this encounter (statuses as of 03/30/2022) [facility]2019 History of Past illness Narrative* Problem Noted Date Resolved Date size inconsistent with dates 08/22/2018 10/16/2018 Overview: 08/22/2018 Pt certain of LMP and US at [facility] inconsistent with LMP. Measuring 6 wks. Formal dating US ordered to be completed in 1-2 wks. SW Current in first t rimester with history of spontaneous during prior 08/08/2018 10/16/2018 Overview: 08/08/2018FOB and patient are engaged to be in October.This is a surprise . Patient took Plan B. Patient called in for spotting after intercourse last week. Denies having any spotting since the. Had 1 quantitative hcg drawn on 0312:4401. Plans on repeat quant today. TKRN documented as of this encounter (statuses as of 03/30/2022) [facility]2019 History of Past illness Narrative* Problem Noted Date Resolved Date size inconsistent with dates 08/22/2018 10/16/2018 Overview: 08/22/2018 Pt certain of LMP and US at [facility] inconsistent with LMP. Measuring 6 wks. Formal dating US ordered to be completed in 1-2 wks. SW Current in first t rimester with history of spontaneous during prior 08/08/2018 10/16/2018 Overview: 08/08/2018FOB and patient are engaged to be in October.This is a surprise . Patient took Plan B. Patient called in for spotting after intercourse last week. Denies having any spotting since the. Had 1 quantitative hcg drawn on 0312:4401. Plans on repeat quant today. TKRN documented as of this encounter (statuses as of 03/31/2022) [facility] History of Past illness Narrative* Problem Noted Date Resolved Date size inconsistent with dates 08/22/2018 10/16/2018 Overview: 08/22/2018 Pt certain of LMP and US at [facility] inconsistent with LMP. Measuring 6 wks. Formal dating US ordered to be completed in 1-2 wks. SW Current in first t rimester with history of spontaneous during prior 08/08/2018 10/16/2018 Overview: 08/08/2018FOB and patient are engaged to be in October.This is a surprise . Patient took Plan B. Patient called in for spotting after intercourse last week. Denies having any spotting since the. Had 1 quantitative hcg drawn on 0312:4401. Plans on repeat quant today. TKRN documented as of this encounter (statuses as of 04/28/2022) [facility]2019 History of Past illness Narrative* Problem Noted Date Resolved Date size inconsistent with dates 08/22/2018 10/16/2018 Overview: 08/22/2018 Pt certain of LMP and US at [facility] inconsistent with LMP. Measuring 6 wks. Formal dating US ordered to be completed in 1-2 wks. SW Current in first t rimester with history of spontaneous during prior 08/08/2018 10/16/2018 Overview: 08/08/2018FOB and patient are engaged to be in October.This is a surprise . Patient took Plan B. Patient called in for spotting after intercourse last week. Denies having any spotting since the. Had 1 quantitative hcg drawn on 08/06:4401. Plans on repeat quant today. TKRN documented as of this encounter (statuses as of 05/12/2022) [facility] History of Past illness Narrative* Problem Noted Date Resolved Date size inconsistent with dates 08/22/2018 10/16/2018 Overview: 08/22/2018 Pt certain of LMP and US at [facility] inconsistent with LMP. Measuring 6 wks. Formal dating US ordered to be completed in 1-2 wks. SW Current in first t rimester with history of spontaneous during prior 08/08/2018 10/16/2018 Overview: 08/08/2018FOB and patient are engaged to be in October.This is a surprise . Patient took Plan B. Patient called in for spotting after intercourse last week. Denies having any spotting since the. Had 1 quantitative hcg drawn on 08/06:4401. Plans on repeat quant today. TKRN documented as of this encounter (statuses as of 05/12/2022) [facility] History of Past illness Narrative* Problem Noted Date Resolved Date size inconsistent with dates 08/22/2018 10/16/2018 Overview: 08/22/2018 Pt certain of LMP and US at [facility] inconsistent with LMP. Measuring 6 wks. Formal dating US ordered to be completed in 1-2 wks. SW Current in first t rimester with history of spontaneous during prior 08/08/2018 10/16/2018 Overview: 08/08/2018FOB and patient are engaged to be in October.This is a surprise . Patient took Plan B. Patient called in for spotting after intercourse last week. Denies having any spotting since the. Had 1 quantitative hcg drawn on 12:4401. Plans on repeat quant today. TKRN documented as of this encounter (statuses as of 05/31/2022) [facility] History of Past illness Narrative* Problem Noted Date Resolved Date size inconsistent with dates 08/22/2018 10/16/2018 Overview: 08/22/2018 Pt certain of LMP and US at [facility] inconsistent with LMP. Measuring 6 wks. Formal dating US ordered to be completed in 1-2 wks. SW Current in first t rimester with history of spontaneous during prior 08/08/2018 10/16/2018 Overview: 08/08/2018FOB and patient are engaged to be in October.This is a surprise . Patient took Plan B. Patient called in for spotting after intercourse last week. Denies having any spotting since the. Had 1 quantitative hcg drawn on 0312:4401. Plans on repeat quant today. TKRN documented as of this encounter (statuses as of 05/31/2022) [facility]2019 History of Past illness Narrative* Problem Noted Date Resolved Date size inconsistent with dates 08/22/2018 10/16/2018 Overview: 08/22/2018 Pt certain of LMP and US at [facility] inconsistent with LMP. Measuring 6 wks. Formal dating US ordered to be completed in 1-2 wks. SW Current in first t rimester with history of spontaneous during prior 08/08/2018 10/16/2018 Overview: 08/08/2018FOB and patient are engaged to be in October.This is a surprise . Patient took Plan B. Patient called in for spotting after intercourse last week. Denies having any spotting since the. Had 1 quantitative hcg drawn on 0312:4401. Plans on repeat quant today. TKRN documented as of this encounter (statuses as of 06/23/2022) [facility] History of Past illness Narrative* Problem Noted Date Resolved Date size inconsistent with dates 08/22/2018 10/16/2018 Overview: 08/22/2018 Pt certain of LMP and US at [facility] inconsistent with LMP. Measuring 6 wks. Formal dating US ordered to be completed in 1-2 wks. SW Current in first t rimester with history of spontaneous during prior 08/08/2018 10/16/2018 Overview: 08/08/2018FOB and patient are engaged to be in October.This is a surprise . Patient took Plan B. Patient called in for spotting after intercourse last week. Denies having any spotting since the. Had 1 quantitative hcg drawn on 0312:4401. Plans on repeat quant today. TKRN documented as of this encounter (statuses as of 07/31/2022) [facility] History of Past illness Narrative* Problem Noted Date Resolved Date size inconsistent with dates 08/22/2018 10/16/2018 Overview: 08/22/2018 Pt certain of LMP and US at [facility] inconsistent with LMP. Measuring 6 wks. Formal dating US ordered to be completed in 1-2 wks. SW Current in first t rimester with history of spontaneous during prior 08/08/2018 10/16/2018 Overview: 08/08/2018FOB and patient are engaged to be in October.This is a surprise . Patient took Plan B. Patient called in for spotting after intercourse last week. Denies having any spotting since the. Had 1 quantitative hcg drawn on 0312:4401. Plans on repeat quant today. TKRN documented as of this encounter (statuses as of 08/07/2022) [facility] History of Past illness Narrative* Problem Noted Date Resolved Date size inconsistent with dates 08/22/2018 10/16/2018 Overview: 08/22/2018 Pt certain of LMP and US at [facility] inconsistent with LMP. Measuring 6 wks. Formal dating US ordered to be completed in 1-2 wks. SW Current in first t rimester with history of spontaneous during prior 08/08/2018 10/16/2018 Overview: 08/08/2018FOB and patient are engaged to be in October.This is a surprise . Patient took Plan B. Patient called in for spotting after intercourse last week. Denies having any spotting since the. Had 1 quantitative hcg drawn on 08/06:4401. Plans on repeat quant today. TKRN documented as of this encounter (statuses as of 08/10/2022) [facility] History of Past illness Narrative* Problem Noted Date Resolved Date size inconsistent with dates 08/22/2018 10/16/2018 Overview: 08/22/2018 Pt certain of LMP and US at [facility] inconsistent with LMP. Measuring 6 wks. Formal dating US ordered to be completed in 1-2 wks. SW Current in first t rimester with history of spontaneous during prior 08/08/2018 10/16/2018 Overview: 08/08/2018FOB and patient are engaged to be in October.This is a surprise . Patient took Plan B. Patient called in for spotting after intercourse last week. Denies having any spotting since the. Had 1 quantitative hcg drawn on 12:4401. Plans on repeat quant today. TKRN documented as of this encounter (statuses as of 08/11/2022) [facility]2019 History of Past illness Narrative* Problem Noted Date Resolved Date size inconsistent with dates 08/22/2018 10/16/2018 Overview: 08/22/2018 Pt certain of LMP and US at [facility] inconsistent with LMP. Measuring 6 wks. Formal dating US ordered to be completed in 1-2 wks. SW Current in first t rimester with history of spontaneous during prior 08/08/2018 10/16/2018 Overview: 08/08/2018FOB and patient are engaged to be in October.This is a surprise . Patient took Plan B. Patient called in for spotting after intercourse last week. Denies having any spotting since the. Had 1 quantitative hcg drawn on 08/06:4401. Plans on repeat quant today. TKRN documented as of this encounter (statuses as of 08/14/2022) [facility] History of Past illness Narrative* Problem Noted Date Resolved Date size inconsistent with dates 08/22/2018 10/16/2018 Overview: 08/22/2018 Pt certain of LMP and US at [facility] inconsistent with LMP. Measuring 6 wks. Formal dating US ordered to be completed in 1-2 wks. SW Current in first t rimester with history of spontaneous during prior 08/08/2018 10/16/2018 Overview: 08/08/2018FOB and patient are engaged to be in October.This is a surprise . Patient took Plan B. Patient called in for spotting after intercourse last week. Denies having any spotting since the. Had 1 quantitative hcg drawn on 08/06:4401. Plans on repeat quant today. TKRN documented as of this encounter (statuses as of 08/24/2022) [facility] History of Past illness Narrative* Problem Noted Date Resolved Date size inconsistent with dates 08/22/2018 10/16/2018 Overview: 08/22/2018 Pt certain of LMP and US at [facility] inconsistent with LMP. Measuring 6 wks. Formal dating US ordered to be completed in 1-2 wks. SW Current in first t rim with history of spontaneous during prior 08/08/2018 10/16/2018 Overview: 08/08/2018FOB and patient are engaged to be in October.This is a surprise . Patient took Plan B. Patient called in for spotting after intercourse last week. Denies having any spotting since the. Had 1 quantitative hcg drawn on 08/06:4401. Plans on repeat quant today. TKRN documented as of this encounter (statuses as of 08/26/2022) [facility] History of Past illness Narrative* Problem Noted Date Resolved Date size inconsistent with dates 08/22/2018 10/16/2018 Overview: 08/22/2018 Pt certain of LMP and US at [facility] inconsistent with LMP. Measuring 6 wks. Formal dating US ordered to be completed in 1-2 wks. SW Current in first t rimester with history of spontaneous during prior 08/08/2018 10/16/2018 Overview: 08/08/2018FOB and patient are engaged to be in October.This is a surprise . Patient took Plan B. Patient called in for spotting after intercourse last week. Denies having any spotting since the. Had 1 quantitative hcg drawn on 12:4401. Plans on repeat quant today. TKRN documented as of this encounter (statuses as of 09/08/2022) [facility] History of Past illness Narrative* Problem Noted Date Resolved Date size inconsistent with dates 08/22/2018 10/16/2018 Overview: 08/22/2018 Pt certain of LMP and US at [facility] inconsistent with LMP. Measuring 6 wks. Formal dating US ordered to be completed in 1-2 wks. SW Current in first t rimester with history of spontaneous during prior 08/08/2018 10/16/2018 Overview: 08/08/2018FOB and patient are engaged to be in October.This is a surprise . Patient took Plan B. Patient called in for spotting after intercourse last week. Denies having any spotting since the. Had 1 quantitative hcg drawn on 0312:4401. Plans on repeat quant today. TKRN documented as of this encounter (statuses as of 09/21/2022) [facility] History of Past illness Narrative* Problem Noted Date Resolved Date size inconsistent with dates 08/22/2018 10/16/2018 Overview: 08/22/2018 Pt certain of LMP and US at [facility] inconsistent with LMP. Measuring 6 wks. Formal dating US ordered to be completed in 1-2 wks. SW Current in first t rimester with history of spontaneous during prior 08/08/2018 10/16/2018 Overview: 08/08/2018FOB and patient are engaged to be in October.This is a surprise . Patient took Plan B. Patient called in for spotting after intercourse last week. Denies having any spotting since the. Had 1 quantitative hcg drawn on 0312:4401. Plans on repeat quant today. TKRN documented as of this encounter (statuses as of 09/25/2022) [facility] History of Past illness Narrative* Problem Noted Date Resolved Date size inconsistent with dates 08/22/2018 10/16/2018 Overview: 08/22/2018 Pt certain of LMP and US at [facility] inconsistent with LMP. Measuring 6 wks. Formal dating US ordered to be completed in 1-2 wks. SW Current in first t rimester with history of spontaneous during prior 08/08/2018 10/16/2018 Overview: 08/08/2018FOB and patient are engaged to be in October.This is a surprise . Patient took Plan B. Patient called in for spotting after intercourse last week. Denies having any spotting since the. Had 1 quantitative hcg drawn on 03/12:4401. Plans on repeat quant today. TKRN documented as of this encounter (statuses as of 09/29/2022) [facility] History of Past illness Narrative* Problem Noted Date Resolved Date size inconsistent with dates 08/22/2018 10/16/2018 Overview: 08/22/2018 Pt certain of LMP and US at [facility] inconsistent with LMP. Measuring 6 wks. Formal dating US ordered to be completed in 1-2 wks. SW Current in first t rimester with history of spontaneous during prior 08/08/2018 10/16/2018 Overview: 08/08/2018FOB and patient are engaged to be in October.This is a surprise . Patient took Plan B. Patient called in for spotting after intercourse last week. Denies having any spotting since the. Had 1 quantitative hcg drawn on 12:4401. Plans on repeat quant today. TKRN documented as of this encounter (statuses as of 10/06/2022) [facility] History of Past illness Narrative* Problem Noted Date Resolved Date size inconsistent with dates 08/22/2018 10/16/2018 Overview: 08/22/2018 Pt certain of LMP and US at [facility] inconsistent with LMP. Measuring 6 wks. Formal dating US ordered to be completed in 1-2 wks. SW Current in first t rim with history of spontaneous during prior 08/08/2018 10/16/2018 Overview: 08/08/2018FOB and patient are engaged to be in October.This is a surprise . Patient took Plan B. Patient called in for spotting after intercourse last week. Denies having any spotting since the. Had 1 quantitative hcg drawn on 12:4401. Plans on repeat quant today. TKRN documented as of this encounter (statuses as of 10/10/2022) [facility] History of Past illness Narrative* Problem Noted Date Resolved Date size inconsistent with dates 08/22/2018 10/16/2018 Overview: 08/22/2018 Pt certain of LMP and US at [facility] inconsistent with LMP. Measuring 6 wks. Formal dating US ordered to be completed in 1-2 wks. SW Current in first t rimester with history of spontaneous during prior 08/08/2018 10/16/2018 Overview: 08/08/2018FOB and patient are engaged to be in October.This is a surprise . Patient took Plan B. Patient called in for spotting after intercourse last week. Denies having any spotting since the. Had 1 quantitative hcg drawn on 0312:4401. Plans on repeat quant today. TKRN documented as of this encounter (statuses as of 10/27/2022) [facility] History of Past illness Narrative* Problem Noted Date Resolved Date size inconsistent with dates 08/22/2018 10/16/2018 Overview: 08/22/2018 Pt certain of LMP and US at [facility] inconsistent with LMP. Measuring 6 wks. Formal dating US ordered to be completed in 1-2 wks. SW Current in first t rimester with history of spontaneous during prior 08/08/2018 10/16/2018 Overview: 08/08/2018FOB and patient are engaged to be in October.This is a surprise . Patient took Plan B. Patient called in for spotting after intercourse last week. Denies having any spotting since the. Had 1 quantitative hcg drawn on 0312:4401. Plans on repeat quant today. TKRN documented as of this encounter (statuses as of 11/10/2022) [facility] History of Past illness Narrative* Problem Noted Date Resolved Date size inconsistent with dates 08/22/2018 10/16/2018 Overview: 08/22/2018 Pt certain of LMP and US at [facility] inconsistent with LMP. Measuring 6 wks. Formal dating US ordered to be completed in 1-2 wks. SW Current in first t rimester with history of spontaneous during prior 08/08/2018 10/16/2018 Overview: 08/08/2018FOB and patient are engaged to be in October.This is a surprise . Patient took Plan B. Patient called in for spotting after intercourse last week. Denies having any spotting since the. Had 1 quantitative hcg drawn on 0312:4401. Plans on repeat quant today. TKRN documented as of this encounter (statuses as of 11/10/2022) [facility] History of Past illness Narrative* Problem Noted Date Resolved Date size inconsistent with dates 08/22/2018 10/16/2018 Overview: 08/22/2018 Pt certain of LMP and US at [facility] inconsistent with LMP. Measuring 6 wks. Formal dating US ordered to be completed in 1-2 wks. SW Current in first t rimester with history of spontaneous during prior 08/08/2018 10/16/2018 Overview: 08/08/2018FOB and patient are engaged to be in October.This is a surprise . Patient took Plan B. Patient called in for spotting after intercourse last week. Denies having any spotting since the. Had 1 quantitative hcg drawn on 12:4401. Plans on repeat quant today. TKRN documented as of this encounter (statuses as of 11/11/2022) [facility] History of Past illness Narrative* Problem Noted Date Resolved Date size inconsistent with dates 08/22/2018 10/16/2018 Overview: 08/22/2018 Pt certain of LMP and US at [facility] inconsistent with LMP. Measuring 6 wks. Formal dating US ordered to be completed in 1-2 wks. SW Current in first t rimester with history of spontaneous during prior 08/08/2018 10/16/2018 Overview: 08/08/2018FOB and patient are engaged to be in October.This is a surprise . Patient took Plan B. Patient called in for spotting after intercourse last week. Denies having any spotting since the. Had 1 quantitative hcg drawn on 03/12:4401. Plans on repeat quant today. TKRN documented as of this encounter (statuses as of 11/24/2022) [facility] History of Past illness Narrative* Problem Noted Date Diagnosed Date Resolved Date size inconsistent with dates 08/22/2018 10/16/2018 Overview: 08/22/2018 Pt certain of LMP and US at [facility] inconsistent with LMP. Measuring 6 wks. Formal dating US ordered to be completed in 1-2 wks. SW Current in first t rimester with history of spontaneous during prior 08/08/2018 10/16/2018 Overview: 08/08/2018FOB and patient are engaged to be in October.This is a surprise . Patient took Plan B. Patient called in for spotting after intercourse last week. Denies having any spotting since the. Had 1 quantitative hcg drawn on 08/06:4401. Plans on repeat quant today. TKRN documented as of this encounter (statuses as of 12/07/2022) [facility] History of Past illness Narrative* Problem Noted Date Diagnosed Date Resolved Date size inconsistent with dates 08/22/2018 10/16/2018 Overview: 08/22/2018 Pt certain of LMP and US at [facility] inconsistent with LMP. Measuring 6 wks. Formal dating US ordered to be completed in 1-2 wks. SW Current in first t rimester with history of spontaneous during prior 08/08/2018 10/16/2018 Overview: 08/08/2018FOB and patient are engaged to be in October.This is a surprise . Patient took Plan B. Patient called in for spotting after intercourse last week. Denies having any spotting since the. Had 1 quantitative hcg drawn on 08/06:4401. Plans on repeat quant today. TKRN documented as of this encounter (statuses as of 12/11/2022) [facility] History of Past illness Narrative* Problem Noted Date Diagnosed Date Resolved Date size inconsistent with dates 08/22/2018 10/16/2018 Overview: 08/22/2018 Pt certain of LMP and US at [facility] inconsistent with LMP. Measuring 6 wks. Formal dating US ordered to be completed in 1-2 wks. SW Current in first t rimester with history of spontaneous during prior 08/08/2018 10/16/2018 Overview: 08/08/2018FOB and patient are engaged to be in October.This is a surprise . Patient took Plan B. Patient called in for spotting after intercourse last week. Denies having any spotting since the. Had 1 quantitative hcg drawn on 12:4401. Plans on repeat quant today. TKRN documented as of this encounter (statuses as of 12/12/2022) [facility] History of Past illness Narrative* Problem Noted Date Diagnosed Date Resolved Date size inconsistent with dates 08/22/2018 10/16/2018 Overview: 08/22/2018 Pt certain of LMP and US at [facility] inconsistent with LMP. Measuring 6 wks. Formal dating US ordered to be completed in 1-2 wks. SW Current in first t rimester with history of spontaneous during prior 08/08/2018 10/16/2018 Overview: 08/08/2018FOB and patient are engaged to be in October.This is a surprise . Patient took Plan B. Patient called in for spotting after intercourse last week. Denies having any spotting since the. Had 1 quantitative hcg drawn on 0312:4401. Plans on repeat quant today. TKRN documented as of this encounter (statuses as of 12/14/2022) [facility]2019 History of Past illness Narrative* Problem Noted Date Diagnosed Date Resolved Date size inconsistent with dates 08/22/2018 10/16/2018 Overview: 08/22/2018 Pt certain of LMP and US at [facility] inconsistent with LMP. Measuring 6 wks. Formal dating US ordered to be completed in 1-2 wks. SW Current in first t rimester with history of spontaneous during prior 08/08/2018 10/16/2018 Overview: 08/08/2018FOB and patient are engaged to be in October.This is a surprise . Patient took Plan B. Patient called in for spotting after intercourse last week. Denies having any spotting since the. Had 1 quantitative hcg drawn on 0312:4401. Plans on repeat quant today. TKRN documented as of this encounter (statuses as of 12/15/2022) [facility] History of Past illness Narrative* Problem Noted Date Diagnosed Date Resolved Date size inconsistent with dates 08/22/2018 10/16/2018 Overview: 08/22/2018 Pt certain of LMP and US at [facility] inconsistent with LMP. Measuring 6 wks. Formal dating US ordered to be completed in 1-2 wks. SW Current in first t rimester with history of spontaneous during prior 08/08/2018 10/16/2018 Overview: 08/08/2018FOB and patient are engaged to be in October.This is a surprise . Patient took Plan B. Patient called in for spotting after intercourse last week. Denies having any spotting since the. Had 1 quantitative hcg drawn on 0312:4401. Plans on repeat quant today. TKRN documented as of this encounter (statuses as of 12/21/2022) [facility] History of Past illness Narrative* Problem Noted Date Diagnosed Date Resolved Date size inconsistent with dates 08/22/2018 10/16/2018 Overview: 08/22/2018 Pt certain of LMP and US at [facility] inconsistent with LMP. Measuring 6 wks. Formal dating US ordered to be completed in 1-2 wks. SW Current in first t rimester with history of spontaneous during prior 08/08/2018 10/16/2018 Overview: 08/08/2018FOB and patient are engaged to be in October.This is a surprise . Patient took Plan B. Patient called in for spotting after intercourse last week. Denies having any spotting since the. Had 1 quantitative hcg drawn on 0312:4401. Plans on repeat quant today. TKRN documented as of this encounter (statuses as of 02/09/2023) [facility] History of Past illness Narrative* Problem Noted Date Diagnosed Date Resolved Date size inconsistent with dates 08/22/2018 10/16/2018 Overview: 08/22/2018 Pt certain of LMP and US at [facility] inconsistent with LMP. Measuring 6 wks. Formal dating US ordered to be completed in 1-2 wks. SW Current in first t rimester with history of spontaneous during prior 08/08/2018 10/16/2018 Overview: 08/08/2018FOB and patient are engaged to be in October.This is a surprise . Patient took Plan B. Patient called in for spotting after intercourse last week. Denies having any spotting since the. Had 1 quantitative hcg drawn on 0312:4401. Plans on repeat quant today. TKRN documented as of this encounter (statuses as of 03/12/2023) [facility] History of Past illness Narrative* Problem Noted Date Diagnosed Date Resolved Date size inconsistent with dates 08/22/2018 10/16/2018 Overview: 08/22/2018 Pt certain of LMP and US at [facility] inconsistent with LMP. Measuring 6 wks. Formal dating US ordered to be completed in 1-2 wks. SW Current in first t with history of spontaneous during prior 08/08/2018 10/16/2018 Overview: 08/08/2018FOB and patient are engaged to be in October.This is a surprise . Patient took Plan B. Patient called in for spotting after intercourse last week. Denies having any spotting since the. Had 1 quantitative hcg drawn on 0312:4401. Plans on repeat quant today. TKRN documented as of this encounter (statuses as of 03/13/2023) [facility] History of Past illness Narrative* Problem Noted Date Diagnosed Date Resolved Date size inconsistent with dates 08/22/2018 10/16/2018 Overview: 08/22/2018 Pt certain of LMP and US at [facility] inconsistent with LMP. Measuring 6 wks. Formal dating US ordered to be completed in 1-2 wks. SW Current in first t rimester with history of spontaneous during prior 08/08/2018 10/16/2018 Overview: 08/08/2018FOB and patient are engaged to be in October.This is a surprise . Patient took Plan B. Patient called in for spotting after intercourse last week. Denies having any spotting since the. Had 1 quantitative hcg drawn on 12:4401. Plans on repeat quant today. TKRN documented as of this encounter (statuses as of 03/20/2023) [facility] History of Past illness Narrative* Problem Noted Date Diagnosed Date Resolved Date size inconsistent with dates 08/22/2018 10/16/2018 Overview: 08/22/2018 Pt certain of LMP and US at [facility] inconsistent with LMP. Measuring 6 wks. Formal dating US ordered to be completed in 1-2 wks. SW Current in first t rimester with history of spontaneous during prior 08/08/2018 10/16/2018 Overview: 08/08/2018FOB and patient are engaged to be in October.This is a surprise . Patient took Plan B. Patient called in for spotting after intercourse last week. Denies having any spotting since the. Had 1 quantitative hcg drawn on 12:4401. Plans on repeat quant today. TKRN documented as of this encounter (statuses as of 04/18/2023) [facility] History of Past illness Narrative* Problem Noted Date Diagnosed Date Resolved Date size inconsistent with dates 08/22/2018 10/16/2018 Overview: 08/22/2018 Pt certain of LMP and US at [facility] inconsistent with LMP. Measuring 6 wks. Formal dating US ordered to be completed in 1-2 wks. SW Current in first t rimester with history of spontaneous during prior 08/08/2018 10/16/2018 Overview: 08/08/2018FOB and patient are engaged to be in October.This is a surprise . Patient took Plan B. Patient called in for spotting after intercourse last week. Denies having any spotting since the. Had 1 quantitative hcg drawn on 0312:4401. Plans on repeat quant today. TKRN documented as of this encounter (statuses as of 06/29/2023) [facility] History of Past illness Narrative* Problem Noted Date Diagnosed Date Resolved Date size inconsistent with dates 08/22/2018 10/16/2018 Overview: 08/22/2018 Pt certain of LMP and US at [facility] inconsistent with LMP. Measuring 6 wks. Formal dating US ordered to be completed in 1-2 wks. SW Current in first t rimester with history of spontaneous during prior 08/08/2018 10/16/2018 Overview: 08/08/2018FOB and patient are engaged to be in October.This is a surprise . Patient took Plan B. Patient called in for spotting after intercourse last week. Denies having any spotting since the. Had 1 quantitative hcg drawn on 0312:4401. Plans on repeat quant today. TKRN documented as of this encounter (statuses as of 07/04/2023) [facility] History of Past illness Narrative* Problem Noted Date Diagnosed Date Resolved Date size inconsistent with dates 08/22/2018 10/16/2018 Overview: 08/22/2018 Pt certain of LMP and US at [facility] inconsistent with LMP. Measuring 6 wks. Formal dating US ordered to be completed in 1-2 wks. SW Current in first t rimester with history of spontaneous during prior 08/08/2018 10/16/2018 Overview: 08/08/2018FOB and patient are engaged to be in October.This is a surprise . Patient took Plan B. Patient called in for spotting after intercourse last week. Denies having any spotting since the. Had 1 quantitative hcg drawn on 0312:4401. Plans on repeat quant today. TKRN documented as of this encounter (statuses as of 08/02/2023) [facility] History of Past illness Narrative* Problem Noted Date Diagnosed Date Resolved Date size inconsistent with dates 08/22/2018 10/16/2018 Overview: 08/22/2018 Pt certain of LMP and US at [facility] inconsistent with LMP. Measuring 6 wks. Formal dating US ordered to be completed in 1-2 wks. SW Current in first t rimester with history of spontaneous during prior 08/08/2018 10/16/2018 Overview: 08/08/2018FOB and patient are engaged to be in October.This is a surprise . Patient took Plan B. Patient called in for spotting after intercourse last week. Denies having any spotting since the. Had 1 quantitative hcg drawn on 12:4401. Plans on repeat quant today. TKRN documented as of this encounter (statuses as of 08/02/2023) [facility] History of Past illness Narrative* Problem Noted Date Diagnosed Date Resolved Date size inconsistent with dates 08/22/2018 10/16/2018 Overview: 08/22/2018 Pt certain of LMP and US at [facility] inconsistent with LMP. Measuring 6 wks. Formal dating US ordered to be completed in 1-2 wks. SW Current in first t rimester with history of spontaneous during prior 08/08/2018 10/16/2018 Overview: 08/08/2018FOB and patient are engaged to be in October.This is a surprise . Patient took Plan B. Patient called in for spotting after intercourse last week. Denies having any spotting since the. Had 1 quantitative hcg drawn on 0312:4401. Plans on repeat quant today. TKRN documented as of this encounter (statuses as of 09/06/2023) [facility] Encounter for IUD removal- Primary Encounter for removal of intrauterine contraceptive device [facility] Diagnosis Acute non-recurrent sinusitis of other sinus- Primary [facility]* Diagnosis Encounter for contraceptive management, unspecified type- Primary [facility]* Diagnosis Acquired hypothyroidism- Primary Unspecified hypothyroidism [facility]* Diagnosis Missed menses- Primary Absence of menstruation [facility] History of miscarriage, currently - Primary with history of Pelvic pain during documented in this encounter [facility] note* Diagnosis Supervision of high risk , antepartum- Primary History of thyroid disorder History of depression Personal history of other mental disorder History of depression History of bulimia Personal history of other mental disorder History of anal fissures Personal history of other diseases of digestive system Patient request for diagnostic testing Other specified examination documented in this encounter [facility] note* Diagnosis Acquired hypothyroidism- Primary Unspecified hypothyroidism documented in this encounter [facility] note* Diagnosis Acquired hypothyroidism Unspecified hypothyroidism documented in this encounter [facility] note* Diagnosis Acquired hypothyroidism- Primary Unspecified hypothyroidism documented in this encounter [facility] note* Diagnosis 7 weeks gestation of - Primary state, incidental History of miscarriage, currently with history of Need for influenza vaccination Need for prophylactic vaccination and inoculation against influenza Encounter for supervision of other normal in first trimester documented in this encounter [facility] note* Diagnosis 11 weeks gestation of - Primary state, incidental History of miscarriage, currently with history of Encounter for screening for nuchal translucency Acquired hypothyroidism Unspecified hypothyroidism documented in this encounter [facility] note* Diagnosis Encounter for (NT) nuchal translucency scan- Primary Other specified screening History of miscarriage, currently with history of 11 weeks gestation of state, incidental documented in this encounter [facility] note* Diagnosis 15 weeks gestation of - Primary state, incidental History of miscarriage, currently with history of [facility] Diagnosis 17 weeks gestation of - Primary state, incidental Hypothyroidism, unspecified type [facility]* Diagnosis Encounter for supervision of other normal in second trimester- Primary 19 weeks gestation of state, incidental [facility]* Diagnosis Encounter for anatomic survey- Primary History of miscarriage, currently with history of 7 weeks gestation of state, incidental Obesity complicating , second trimester documented in this encounter [facility] note* Diagnosis 23 weeks gestation of - Primary state, incidental documented in this encounter [facility] noteNo assessment information availableWMercy [facility] Work Phone: Evaluation note* Diagnosis 28 weeks gestation of - Primary state, incidental Encounter for supervision of other normal in third trimester Need for vaccination Need for prophylactic vaccination and inoculation against unspecified single disease [facility] Diagnosis 17 weeks gestation of state, incidental Hypothyroidism, unspecified type [facility] Diagnosis Encounter for supervision of other normal in third trimester- Primary Obesity in Obesity complicating , childbirth, or the puerperium, unspecified as to episode of care or not applicable 30 weeks gestation of state, incidental [facility] Diagnosis Otalgia of both ears- Primary Otalgia, unspecified Bilateral impacted cerumen Impacted cerumen [facility] Diagnosis Obesity in - Primary Obesity complicating , childbirth, or the puerperium, unspecified as to episode of care or not applicable 32 weeks gestation of state, incidental [facility] Diagnosis 34 weeks gestation of - Primary state, incidental Obesity complicating , third trimester [facility] Diagnosis 36 weeks gestation of - Primary state, incidental Obesity complicating , third trimester Encounter for supervision of other normal , third trimester [facility] Diagnosis 37 weeks gestation of - Primary state, incidental Encounter for supervision of other normal , third trimester [facility] Diagnosis Encounter for supervision of other normal in third trimester- Primary 38 weeks gestation of state, incidental [facility] Diagnosis Encounter for supervision of other normal in third trimester- Primary 38 weeks gestation of state, incidental [facility] Diagnosis Encounter for screening for maternal depression- Primary Lactating mother care and examination of lactating mother [facility] Diagnosis 17 weeks gestation of state, incidental Hypothyroidism, unspecified type [facility] Diagnosis Anal fissure- Primary [facility] Diagnosis care and examination- Primary Routine follow-up Encounter for IUD insertion Encounter for insertion of intrauterine contraceptive device care and examination of lactating mother Anal fissure documented in this encounter [facility] note* Diagnosis 17 weeks gestation of state, incidental Hypothyroidism, unspecified type documented in this encounter [facility] note* Diagnosis Encounter for IUD insertion- Primary Encounter for insertion of intrauterine contraceptive device documented in this encounter [facility] note* Diagnosis Acquired hypothyroidism- Primary Unspecified hypothyroidism documented in this encounter [facility] note* Diagnosis Anal fissure- Primary documented in this encounter [facility] note* Diagnosis Pre-op evaluation- Primary Preoperative examination, unspecified Acquired hypothyroidism Unspecified hypothyroidism History of depression Personal history of other mental disorder Obesity, unspecified classification, unspecified obesity type, unspecified whether serious comorbidity present Anal fissure documented in this encounter [facility] note* Diagnosis Acquired hypothyroidism- Primary Unspecified hypothyroidism documented in this encounter [facility] note* Diagnosis URI, acute- Primary Acute upper respiratory infections of unspecified site documented in this encounter [facility] note* Diagnosis Acquired hypothyroidism Unspecified hypothyroidism documented in this encounter [facility] note* Diagnosis Obesity, Class II, BMI 35-39.9 Obesity, unspecified Acquired hypothyroidism Unspecified hypothyroidism documented in this encounter [facility] note* Diagnosis Acquired hypothyroidism Unspecified hypothyroidism documented in this encounter [facility] note* Diagnosis Obesity, Class II, BMI 35-39.9 Obesity, unspecified Acquired hypothyroidism Unspecified hypothyroidism documented in this encounter [facility] note* Diagnosis Obesity, Class II, BMI 35-39.9 Obesity, unspecified Acquired hypothyroidism Unspecified hypothyroidism documented in this encounter [facility] note* Diagnosis Foot pain, left- Primary Pain in limb Metatarsalgia of left foot Enthesopathy of ankle and tarsus, unspecified Ingrown toenail Ingrowing nail documented in this encounter [facility] note* Diagnosis Ingrowing toenail Ingrowing nail documented in this encounter [facility] note* Diagnosis Neuroma- Primary Other benign neoplasm of connective and other soft tissue of unspecified site Foot pain, left Pain in limb Ingrowing toenail Ingrowing nail Ingrowing toenail Ingrowing nail documented in this encounter [facility] note* Diagnosis Obesity, Class II, BMI 35-39.9 Obesity, unspecified Acquired hypothyroidism Unspecified hypothyroidism documented in this encounter [facility] note* Diagnosis Open wound of toe, initial encounter- Primary Neuroma Other benign neoplasm of connective and other soft tissue of unspecified site documented in this encounter [facility] note* Diagnosis Acute cystitis with hematuria- Primary Acute cystitis documented in this encounter [facility] note* Diagnosis Acquired hypothyroidism Unspecified hypothyroidism documented in this encounter [facility] note* Diagnosis Obesity, Class II, BMI 35-39.9 Obesity, unspecified Acquired hypothyroidism Unspecified hypothyroidism documented in this encounter [facility] note* Diagnosis Pre-op evaluation- Primary Preoperative examination, unspecified Acquired hypothyroidism Unspecified hypothyroidism History of depression Personal history of other mental disorder Obesity, unspecified classification, unspecified obesity type, unspecified whether serious comorbidity present Encounter for IUD removal- Primary Encounter for removal of intrauterine contraceptive device documented in this encounter [facility] note* Diagnosis Pre-op evaluation- Primary Preoperative examination, unspecified Acquired hypothyroidism Unspecified hypothyroidism History of depression Personal history of other mental disorder Obesity, unspecified classification, unspecified obesity type, unspecified whether serious comorbidity present Foot pain, left Pain in limb documented in this encounter [facility] note* Diagnosis Pre-op evaluation- Primary Preoperative examination, unspecified Acquired hypothyroidism Unspecified hypothyroidism History of depression Personal history of other mental disorder Obesity, unspecified classification, unspecified obesity type, unspecified whether serious comorbidity present Encounter for IUD removal- Primary Encounter for removal of intrauterine contraceptive device documented in this encounter [facility] note* Diagnosis Pre-op evaluation- Primary Preoperative examination, unspecified Acquired hypothyroidism Unspecified hypothyroidism History of depression Personal history of other mental disorder Obesity, unspecified classification, unspecified obesity type, unspecified whether serious comorbidity present Ingrowing toenail- Primary Ingrowing nail documented in this encounter [facility] note* Diagnosis Pre-op evaluation- Primary Preoperative examination, unspecified Acquired hypothyroidism Unspecified hypothyroidism History of depression Personal history of other mental disorder Obesity, unspecified classification, unspecified obesity type, unspecified whether serious comorbidity present Encounter for gynecological examination (general) (routine) without abnormal findings- Primary documented in this encounter [facility] note* Diagnosis Pre-op evaluation- Primary Preoperative examination, unspecified Acquired hypothyroidism Unspecified hypothyroidism History of depression Personal history of other mental disorder Obesity, unspecified classification, unspecified obesity type, unspecified whether serious comorbidity present Acquired hypothyroidism Unspecified hypothyroidism documented in this encounter [facility] note* Diagnosis Pre-op evaluation- Primary Preoperative examination, unspecified Acquired hypothyroidism Unspecified hypothyroidism History of depression Personal history of other mental disorder Obesity, unspecified classification, unspecified obesity type, unspecified whether serious comorbidity present Well adult exam- Primary Routine general medical examination at a health care facility Acquired hypothyroidism Unspecified hypothyroidism documented in this encounter [facility] note* Diagnosis Pre-op evaluation- Primary Preoperative examination, unspecified Acquired hypothyroidism Unspecified hypothyroidism History of depression Personal history of other mental disorder Obesity, unspecified classification, unspecified obesity type, unspecified whether serious comorbidity present Acquired hypothyroidism Unspecified hypothyroidism documented in this encounter [facility] note* Diagnosis Pre-op evaluation- Primary Preoperative examination, unspecified Acquired hypothyroidism Unspecified hypothyroidism History of depression Personal history of other mental disorder Obesity, unspecified classification, unspecified obesity type, unspecified whether serious comorbidity present with uncertain dates in first trimester- Primary 8 weeks gestation of state, incidental History of thyroid disorder related exhaustion and fatigue, first trimester Acquired hypothyroidism Unspecified hypothyroidism Supervision of high risk in first trimester Unspecified high-risk History of depression documented in this encounter [facility] note* Diagnosis Pre-op evaluation- Primary Preoperative examination, unspecified Acquired hypothyroidism Unspecified hypothyroidism History of depression Personal history of other mental disorder Obesity, unspecified classification, unspecified obesity type, unspecified whether serious comorbidity present Early stage of - Primary state, incidental Acquired hypothyroidism Unspecified hypothyroidism Bilateral chronic serous otitis media Simple or unspecified chronic serous otitis media Ear pressure, bilateral Encounter for screening examination for other mental health and behavioral disorders Screening for depression Encounter for immunization Need for other specified prophylactic vaccination against single bacterial disease documented in this encounter [facility] note* Diagnosis Pre-op evaluation- Primary Preoperative examination, unspecified Acquired hypothyroidism Unspecified hypothyroidism History of depression Personal history of other mental disorder Obesity, unspecified classification, unspecified obesity type, unspecified whether serious comorbidity present Acquired hypothyroidism Unspecified hypothyroidism documented in this encounter [facility] note* Diagnosis Pre-op evaluation- Primary Preoperative examination, unspecified Acquired hypothyroidism Unspecified hypothyroidism History of depression Personal history of other mental disorder Obesity, unspecified classification, unspecified obesity type, unspecified whether serious comorbidity present Acquired hypothyroidism- Primary Unspecified hypothyroidism Supervision of high risk in second trimester Unspecified high-risk 12 weeks gestation of state, incidental documented in this encounter [facility] note* Diagnosis Pre-op evaluation- Primary Preoperative examination, unspecified Acquired hypothyroidism Unspecified hypothyroidism History of depression Personal history of other mental disorder Obesity, unspecified classification, unspecified obesity type, unspecified whether serious comorbidity present Encounter for screening for malformation using ultrasound- Primary Encounter for (NT) nuchal translucency scan Other specified screening 12 weeks gestation of state, incidental documented in this encounter [facility] note* Diagnosis Pre-op evaluation- Primary Preoperative examination, unspecified Acquired hypothyroidism Unspecified hypothyroidism History of depression Personal history of other mental disorder Obesity, unspecified classification, unspecified obesity type, unspecified whether serious comorbidity present Acquired hypothyroidism Unspecified hypothyroidism documented in this encounter [facility] note* Diagnosis Pre-op evaluation- Primary Preoperative examination, unspecified Acquired hypothyroidism Unspecified hypothyroidism History of depression Personal history of other mental disorder Obesity, unspecified classification, unspecified obesity type, unspecified whether serious comorbidity present Supervision of high risk in second trimester- Primary Unspecified high-risk 16 weeks gestation of state, incidental Hypothyroidism affecting in second trimester Obesity affecting in second trimester, unspecified obesity type documented in this encounter [facility] note* Diagnosis Pre-op evaluation- Primary Preoperative examination, unspecified Acquired hypothyroidism Unspecified hypothyroidism History of depression Personal history of other mental disorder Obesity, unspecified classification, unspecified obesity type, unspecified whether serious comorbidity present Supervision of high risk in second trimester- Primary Unspecified high-risk 19 weeks gestation of state, incidental Fall, initial encounter documented in this encounter [facility] note* Diagnosis Pre-op evaluation- Primary Preoperative examination, unspecified Acquired hypothyroidism Unspecified hypothyroidism History of depression Personal history of other mental disorder Obesity, unspecified classification, unspecified obesity type, unspecified whether serious comorbidity present Encounter for anatomic survey- Primary 20 weeks gestation of state, incidental Obesity affecting in second trimester, unspecified obesity type documented in this encounter [facility] note* Diagnosis Pre-op evaluation- Primary Preoperative examination, unspecified Acquired hypothyroidism Unspecified hypothyroidism History of depression Personal history of other mental disorder Obesity, unspecified classification, unspecified obesity type, unspecified whether serious comorbidity present Supervision of high risk in second trimester- Primary Unspecified high-risk 20 weeks gestation of state, incidental Obesity affecting in second trimester, unspecified obesity type Hypothyroidism, unspecified type documented in this encounter [facility] note* Diagnosis Pre-op evaluation- Primary Preoperative examination, unspecified Acquired hypothyroidism Unspecified hypothyroidism History of depression Personal history of other mental disorder Obesity, unspecified classification, unspecified obesity type, unspecified whether serious comorbidity present Influenza A- Primary Influenza with other respiratory manifestations Influenza-like illness Influenza with other respiratory manifestations 22 weeks gestation of state, incidental documented in this encounter [facility] note* Diagnosis Pre-op evaluation- Primary Preoperative examination, unspecified Acquired hypothyroidism Unspecified hypothyroidism History of depression Personal history of other mental disorder Obesity, unspecified classification, unspecified obesity type, unspecified whether serious comorbidity present Acquired hypothyroidism Unspecified hypothyroidism documented in this encounter [facility] note* Diagnosis Pre-op evaluation- Primary Preoperative examination, unspecified Acquired hypothyroidism Unspecified hypothyroidism History of depression Personal history of other mental disorder Obesity, unspecified classification, unspecified obesity type, unspecified whether serious comorbidity present Supervision of high risk in second trimester- Primary Unspecified high-risk 24 weeks gestation of state, incidental Hypothyroidism, unspecified type Obesity affecting in second trimester, unspecified obesity type documented in this encounter [facility] note* Diagnosis Pre-op evaluation- Primary Preoperative examination, unspecified Acquired hypothyroidism Unspecified hypothyroidism History of depression Personal history of other mental disorder Obesity, unspecified classification, unspecified obesity type, unspecified whether serious comorbidity present Acquired hypothyroidism Unspecified hypothyroidism documented in this encounter [facility] note* Diagnosis Pre-op evaluation- Primary Preoperative examination, unspecified Acquired hypothyroidism Unspecified hypothyroidism History of depression Personal history of other mental disorder Obesity, unspecified classification, unspecified obesity type, unspecified whether serious comorbidity present Irritation of both eyes- Primary Other ill-defined disorder of eye Other conjunctivitis of both eyes documented in this encounter [facility] note* Diagnosis Pre-op evaluation- Primary Preoperative examination, unspecified Acquired hypothyroidism Unspecified hypothyroidism History of depression Personal history of other mental disorder Obesity, unspecified classification, unspecified obesity type, unspecified whether serious comorbidity present Supervision of high risk in third trimester (HCC)- Primary Unspecified high-risk Need for vaccination Need for prophylactic vaccination and inoculation against unspecified single disease Hypothyroidism, unspecified type 28 weeks gestation of (HCC) state, incidental documented in this encounter [facility] note* Diagnosis Pre-op evaluation- Primary Preoperative examination, unspecified Acquired hypothyroidism Unspecified hypothyroidism History of depression Personal history of other mental disorder Obesity, unspecified classification, unspecified obesity type, unspecified whether serious comorbidity present Supervision of high risk in third trimester (HCC)- Primary Unspecified high-risk 30 weeks gestation of (HCC) state, incidental Hypothyroidism, unspecified type Obesity affecting in third trimester, unspecified obesity type (HCC) History of depression Personal history of other mental disorder documented in this encounter [facility] note* Diagnosis Pre-op evaluation- Primary Preoperative examination, unspecified Acquired hypothyroidism Unspecified hypothyroidism History of depression Personal history of other mental disorder Obesity, unspecified classification, unspecified obesity type, unspecified whether serious comorbidity present Acquired hypothyroidism Unspecified hypothyroidism documented in this encounter [facility] note* Diagnosis Pre-op evaluation- Primary Preoperative examination, unspecified Acquired hypothyroidism Unspecified hypothyroidism History of depression Personal history of other mental disorder Obesity, unspecified classification, unspecified obesity type, unspecified whether serious comorbidity present 32 weeks gestation of (HCC)- Primary state, incidental Supervision of high risk in third trimester ([facility]) Unspecified high-risk Obesity affecting in third trimester, unspecified obesity type ([facility]) documented in this encounter [facility] note* Diagnosis Pre-op evaluation- Primary Preoperative examination, unspecified Acquired hypothyroidism Unspecified hypothyroidism History of depression Personal history of other mental disorder Obesity, unspecified classification, unspecified obesity type, unspecified whether serious comorbidity present 34 weeks gestation of (HCC)- Primary state, incidental Supervision of high risk in third trimester (HCC) Unspecified high-risk Hypothyroidism, unspecified type documented in this encounter [facility] note* Diagnosis Pre-op evaluation- Primary Preoperative examination, unspecified Acquired hypothyroidism Unspecified hypothyroidism History of depression Personal history of other mental disorder Obesity, unspecified classification, unspecified obesity type, unspecified whether serious comorbidity present Acquired hypothyroidism Unspecified hypothyroidism documented in this encounter [facility] note* Diagnosis Pre-op evaluation- Primary Preoperative examination, unspecified Acquired hypothyroidism Unspecified hypothyroidism History of depression Personal history of other mental disorder Obesity, unspecified classification, unspecified obesity type, unspecified whether serious comorbidity present Supervision of high risk in third trimester (HCC)- Primary Unspecified high-risk Hypothyroidism, unspecified type Obesity affecting in third trimester, unspecified obesity type (HCC) 37 weeks gestation of (HCC) state, incidental * Assessment & Plan Note - Celine Vazquez MD - 10/22/2024 4:44 PM EDT Associated Problem(s): Hypothyroidism Orders: URINE OB DIP B/O documented in this encounter [facility] note* Diagnosis Pre-op evaluation- Primary Preoperative examination, unspecified Acquired hypothyroidism Unspecified hypothyroidism History of depression Personal history of other mental disorder Obesity, unspecified classification, unspecified obesity type, unspecified whether serious comorbidity present Supervision of high risk in third trimester (HCC)- Primary Unspecified high-risk Hypothyroidism, unspecified type Obesity affecting in third trimester, unspecified obesity type (HCC) 37 weeks gestation of (HCC) state, incidental Supervision of high risk in third trimester (HCC)- Primary Unspecified high-risk Hypothyroidism, unspecified type Obesity affecting in third trimester, unspecified obesity type (HCC) 38 weeks gestation of (HCC) state, incidental * Assessment & Plan Note - Ester Valencia MD - 10/29/2024 4:39 PM EDT Associated Problem(s): Hypothyroidism Orders: URINE OB DIP B/O documented in this encounter [facility] for referral (narrative)* Diagnostic Procedure Only (Routine) - Authorized Specialty Diagnoses / Procedures Referred By Contac t Referred To Contact [facility] Diagnoses History of miscarriage, currently 7 weeks gestation of Procedures NUCHAL TRANSLUCENCY WHI US NUCHAL TRANSLUCENCY 1ST GESTATION Leticia Dove MD [address] [place] [address] [facility] [address] [place] [id number] Referral ID Status Reason Start Date Expiration Date Visits Requested Visits Authorized [id number] Authorized Auto-Generat ed Referral 03/02/2022 03/02/2023 1 1 * Diagnostic Procedure Only (Routine) - Pending Review Specialty Diagnoses / Procedures Referred By Contac t Referred To Contact [facility] Diagnoses History of miscarriage, currently 7 weeks gestation of Procedures OBSTETRIC ULTRASOUND WHI US PREG UTERUS AFTER 1ST TRIMEST GESTATION Leticia Dove MD [address] [place] [address] [address] Referral ID Status Reason Start Date Expiration Date Visits Requested Visits Authorized [id number] Pending Review Auto-Generat ed Referral 03/02/2022 03/02/2023 [address] [facility] for referral (narrative)* Diagnostic Procedure Only (Routine) - Pending Review Specialty Diagnoses / Procedures Referred By Contac t Referred To Contact [facility] Diagnoses 28 weeks gestation of Procedures OBSTETRIC ULTRASOUND WHI US PREG UTERUS AFTER 1ST TRIMEST GESTATION Celine Vazquez MD [address] [place] [address] [facility] [address] [place] [address] Referral ID Status Reason Start Date Expiration Date Visits Requested Visits Authorized [id number] Pending Review Auto-Generat ed Referral 07/27/2022 07/27/2023 [address] [facility] for referral (narrative)* Diagnostic Procedure Only (Routine) - Authorized Specialty Diagnoses / Procedures Referred By Contac t Referred To Contact [facility] Diagnoses 30 weeks gestation of Encounter for supervision of other normal in third trimester Obesity in Procedures OBSTETRIC ULTRASOUND WHI US PREG UTERUS AFTER 1ST TRIMEST GESTATION Ester Valencia MD [address] [place] [address] [facility] [address] [place] [address] Referral ID Status Reason Start Date Expiration Date Visits Requested Visits Authorized [id number] Authorized Auto-Generat ed Referral 08/10/2022 08/10/2023 [address] [facility] for referral (narrative)* Outpatient Procedure (Routine) - Pending Review Specialty Diagnoses / Procedures Referred By Contac t Referred To Contact [facility] Diagnoses care and examination Encounter for IUD insertion care and examination of lactating mother Procedures INSERT INTRAUTERINE DEVICE INSERT INTRAUTERINE DEVICE Camilla Aguilera APRN.CNM [address] [place] [address] [facility] [address] [place] [address] Referral ID Status Reason Start Date Expiration Date Visits Requested Visits Authorized [id number] Pending Review Auto-Generat ed Referral 11/24/2022 11/24/2023 [address] [facility] for referral (narrative)* Diagnostic Procedure Only (Urgent) - Closed Specialty Diagnoses / Procedures Referred By Aquilesac t Referred To Contact XR IMAGING Diagnoses Foot pain, left Procedures XR FOOT GENERAL 3V AP/LAT/OBL BILATERAL RADEX FOOT COMPLETE MINIMUM 3 VIEWS Jayce Shipley APRN.CNP [address] [place] [address] [place] [address] Referral ID Status Reason Start Date Expiration Date V isits Requested Visits Authorized [id number] Closed Auto-Generate d Referral 09/05/2023 10/04/2024 1 1 * Consult, Test, Treat (Routine) - Authorized Specialty Diagnoses / Procedures Referred By Contac t Referred To Contact Podiatry Diagnoses Foot pain, left Procedures CONSULT TO PODIATRY OFFICE/OUTPATIENT [facility] 60 MINUTES Jayce Shipley APRN.CNP [address] [place] [address] Referral ID Status Reason Start Date Expiration Date Visits Requested Visits Authorized [id number] Authorized PCP Requested Referral 09/05/2023 09/04/2024 [address] [facility] for referral (narrative)* Diagnostic Procedure Only (Routine) - Closed Specialty Diagnoses / Procedures Referred By Contac t Referred To Contact XR IMAGING Diagnoses Ingrowing toenail Procedures XR TOE AP/LAT/OBL LEFT RADEX TOE MINIMUM 2 VIEWS Jordin Isaac [address] [place] [address] [place] [address] Referral ID Status Reason Start Date Expiration Date V isits Requested Visits Authorized [id number] Closed Auto-Generate d Referral 09/25/2023 10/24/2024 [address] [facility] for referral (narrative)* Outpatient Procedure (Routine) - New Request Specialty Diagnoses / Procedures Referred By Contac t Referred To Contact [facility] Diagnoses Encounter for IUD removal Procedures REMOVE INTRAUTERINE DEVICE REMOVE INTRAUTERINE DEVICE Camilla Aguilera APRN.CNM [address] [place] [address] [facility] [address] [place] [address] Referral ID Status Reason Start Date Expiration Date Visits Requested Visits Authorized [id number] New Request Auto-Generat ed Referral 02/04/2024 02/03/2025 [address] [facility] for referral (narrative)* Diagnostic Procedure Only (Urgent) - Closed Specialty Diagnoses / Procedures Referred By Contac t Referred To Contact XR IMAGING Diagnoses Foot pain, left Procedures XR FOOT GENERAL 3V AP/LAT/OBL BILATERAL RADEX FOOT COMPLETE MINIMUM 3 VIEWS Jayce Shipley APRN.PAPERHANGER ASSISTANT [address] [place] [address] [place] [address] Referral ID Status Reason Start Date Expiration Date V isits Requested Visits Authorized [id number] Closed Auto-Generate d Referral 09/05/2023 10/04/2024 [address] [facility] for referral (narrative)* Diagnostic Procedure Only (Routine) - Authorized Specialty Diagnoses / Procedures Referred By Contac t Referred To Contact [facility] Diagnoses with uncertain dates in first trimester Procedures NUCHAL TRANSLUCENCY WHI US NUCHAL TRANSLUCENCY 1ST GESTATION Camilla Aguilera APRN.CNM [address] [place] [address] [facility] [address] [place] [address] Referral ID Status Reason Start Date Expiration Date Visits Requested Visits Authorized [id number] Authorized Auto-Generat ed Referral 04/02/2024 04/02/2025 [address] [facility] for visit Narrative* Diagnostic Procedure Only (Routine) - Closed Specialty Diagnoses / Procedures Referred By Contac t Referred To Contact XR IMAGING Diagnoses Ingrowing toenail Procedures XR TOE AP/LAT/OBL LEFT RADEX TOE MINIMUM 2 VIEWS Jordin Isaac [address] [place] [address] [place] [address] Referral ID Status Reason Start Date Expiration Date V isits Requested Visits Authorized [id number] Closed Auto-Generate d Referral 09/25/2023 10/24/2024 [address] [facility] for visit Narrative* Diagnostic Procedure Only (Urgent) - Closed Specialty Diagnoses / Procedures Referred By Contac t Referred To Contact XR IMAGING Diagnoses Foot pain, left Procedures XR FOOT GENERAL 3V AP/LAT/OBL BILATERAL RADEX FOOT COMPLETE MINIMUM 3 VIEWS Jayce Shipley APRN.CNP [address] [place] [address] [place] [address] Referral ID Status Reason Start Date Expiration Date V isits Requested Visits Authorized [id number] Closed Auto-Generate d Referral 09/05/2023 10/04/2024 1 1 [facility] Advance Directives No Advanced Directives Records FoundDocuments on File Type Date Recorded Patient 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 anation Advance Directive(s) 09/30/2019 5:34 PM Advance Directive Response Recorded Date/ Time Living Will No April 11, 2 019 4:25pm Power of Learning And Development Assistant No April 11, 2019 4:25pm Health Concerns Problem Noted Date OB Reminders 03/02/2022 Problem Noted Date OB Reminders 03/02/2022 Problem Noted Date OB Reminders 03/02/2022 Problem Noted Date OB Reminders 03/02/2022 Problem Noted Date OB Reminders 03/02/2022 Problem Noted Date OB Reminders 03/02/2022 Problem Noted Date OB Reminders 03/02/2022 Problem Noted Date OB Reminders 03/02/2022 Problem Noted Date OB Reminders 03/02/2022 Problem Noted Date OB Reminders 03/02/2022 Problem Noted Date OB Reminders 03/02/2022 Problem Noted Date OB Reminders 03/02/2022 Problem Noted Date OB Reminders 03/02/2022 Problem Noted Date OB Reminders 03/02/2022 Problem Noted Date OB Reminders 03/02/2022 Problem Noted Date Diagnosed Date OB Reminders 03/02/2022 Problem Noted Date Diagnosed Date OB Reminders 03/02/2022 Problem Noted Date Diagnosed Date OB Reminders 03/02/2022 Problem Noted Date Diagnosed Date OB Reminders 03/02/2022 Problem Noted Date Diagnosed Date OB Reminders 03/02/2022 Problem Noted Date Diagnosed Date OB Reminders 03/02/2022 Problem Noted Date Diagnosed Date OB Reminders 03/02/2022 Problem Noted Date Diagnosed Date OB Reminders 03/02/2022 Chief Complaint and Reason for Visit Chief Complaint DEHYDRATION Medications Administered Section Inactive Administered Medications - up to 3 most recent administrations Medication Order MAR Action Action Date Dose Rate Site levonorgestrel 21 mcg/24 hours (8 yrs) 52 mg 1 Each intrauterine device (MIRENA) 1 Each, INTRAUTERINE, ONCE (UP TO 30 DAYS AMB), 1 dose, On Sun12/11/22 at 1230, Hazardous Potential Reproductive Risk Drug: Use appropriate PPE. Given 12/11/2022 12:16 PM EDT 1 Each Summary Purpose Family History No Family History Records FoundNo Family History Records Found Reason for Referral Specialty Diagnoses / Procedures Referred By Norberto villegas Referred To Contact Ent - Otolaryngology Diagnoses Bilateral chronic serous otitis media Ear pressure, bilateral Procedures CONSULT TO ENT OFFICE/OUTPATIENT NEW HIGH MDM 60 MINUTES Jayce Shipley APRN.PAPERHANGER ASSISTANT [address] [place] [address] Referral ID Status Reason Start Date Expiration Date Visits Requested Visits Authorized [id number] Authorized PCP Requested Referral 4 03/27/2025 1 1 Specialty Diagnoses / Procedures Referred By Norberto villegas Referred To Contact Diagnoses Supervision of high risk in second trimester 16 weeks gestation of Hypothyroidism affecting in second trimester Obesity affecting in second trimester, unspecified obesity type Helen Perez APRN.CNP [address] [place] [address] Referral ID Status Reason Start Date Expiration Date V isits Requested Visits Authorized [id number] Pending Review 1 1 Specialty Diagnoses / Procedures Referred By Norberto villegas Referred To Contact [facility] Diagnoses Supervision of high risk in second trimester 16 weeks gestation of Procedures OBSTETRIC ULTRASOUND WHI US PREG UTERUS AFTER 1ST TRIMEST GESTATION Helen Perez APRN.CNP [address] [place] [address] [facility] [address] [place] [address] Referral ID Status Reason Start Date Expiration Date Visits Requested Visits Authorized [id number] Authorized Auto-Generat ed Referral 05/29/2024 05/29/2025 1 1 Additional Source Comments Source Comments (unrecognize d section and content) In the event this informatio n is protected by the Federal Confidentiality of Alcohol and Drug Abuse Patient Records regulations: The Federal rules restrict any use of the information to criminally investigate or prosecute any alcohol or drug abuse patient.[facility] the event this information is protected by the Federal Confidentiality of Alcohol and Drug Abuse Patient Records regulations: The Federal rules restrict any use of the information to criminally investigate or prosecute any alcohol or drug abuse patient.[facility] HospitalIn the event this information is protected by the Federal Confidentiality of Alcohol and Drug Abuse Patient Records regulations: The Federal rules restrict any use of the information to criminally investigate or prosecute any alcohol or drug abuse patient.[facility] HospitalIn the event this information is protected by the Federal Confidentiality of Alcohol and Drug Abuse Patient Records regulations: The Federal rules restrict any use of the information to criminally investigate or prosecute any alcohol or drug abuse patient.[facility] HospitalIn the event this information is protected by the Federal Confidentiality of Alcohol and Drug Abuse Patient Records regulations: The Federal rules restrict any use of the information to criminally investigate or prosecute any alcohol or drug abuse patient.[facility] HospitalIn the event this information is protected by the Federal Confidentiality of Alcohol and Drug Abuse Patient Records regulations: The Federal rules restrict any use of the information to criminally investigate or prosecute any alcohol or drug abuse patient.[facility] HospitalIn the event this information is protected by the Federal Confidentiality of Alcohol and Drug Abuse Patient Records regulations: The Federal rules restrict any use of the information to criminally investigate or prosecute any alcohol or drug abuse patient.[facility] HospitalIn the event this information is protected by the Federal Confidentiality of Alcohol and Drug Abuse Patient Records regulations: The Federal rules restrict any use of the information to criminally investigate or prosecute any alcohol or drug abuse patient.[facility] HospitalIn the event this information is protected by the Federal Confidentiality of Alcohol and Drug Abuse Patient Records regulations: The Federal rules restrict any use of the information to criminally investigate or prosecute any alcohol or drug abuse patient.[facility] HospitalIn the event this information is protected by the Federal Confidentiality of Alcohol and Drug Abuse Patient Records regulations: The Federal rules restrict any use of the information to criminally investigate or prosecute any alcohol or drug abuse patient.[facility] HospitalIn the event this information is protected by the Federal Confidentiality of Alcohol and Drug Abuse Patient Records regulations: The Federal rules restrict any use of the information to criminally investigate or prosecute any alcohol or drug abuse patient.[facility] HospitalIn the event this information is protected by the Federal Confidentiality of Alcohol and Drug Abuse Patient Records regulations: The Federal rules restrict any use of the information to criminally investigate or prosecute any alcohol or drug abuse patient.[facility] ClinicIn the event this information is protected by the Federal Confidentiality of Alcohol and Drug Abuse Patient Records regulations: The Federal rules restrict any use of the information to criminally investigate or prosecute any alcohol or drug abuse patient.[facility] HospitalIn the event this information is protected by the Federal Confidentiality of Alcohol and Drug Abuse Patient Records regulations: The Federal rules restrict any use of the information to criminally investigate or prosecute any alcohol or drug abuse patient.[facility] HospitalIn the event this information is protected by the Federal Confidentiality of Alcohol and Drug Abuse Patient Records regulations: The Federal rules restrict any use of the information to criminally investigate or prosecute any alcohol or drug abuse patient.[facility] HospitalIn the event this information is protected by the Federal Confidentiality of Alcohol and Drug Abuse Patient Records regulations: The Federal rules restrict any use of the information to criminally investigate or prosecute any alcohol or drug abuse patient.[facility] HospitalIn the event this information is protected by the Federal Confidentiality of Alcohol and Drug Abuse Patient Records regulations: The Federal rules restrict any use of the information to criminally investigate or prosecute any alcohol or drug abuse patient.[facility] HospitalIn the event this information is protected by the Federal Confidentiality of Alcohol and Drug Abuse Patient Records regulations: The Federal rules restrict any use of the information to criminally investigate or prosecute any alcohol or drug abuse patient.[facility] HospitalIn the event this information is protected by the Federal Confidentiality of Alcohol and Drug Abuse Patient Records regulations: The Federal rules restrict any use of the information to criminally investigate or prosecute any alcohol or drug abuse patient.[facility] HospitalIn the event this information is protected by the Federal Confidentiality of Alcohol and Drug Abuse Patient Records regulations: The Federal rules restrict any use of the information to criminally investigate or prosecute any alcohol or drug abuse patient.[facility] HospitalIn the event this information is protected by the Federal Confidentiality of Alcohol and Drug Abuse Patient Records regulations: The Federal rules restrict any use of the information to criminally investigate or prosecute any alcohol or drug abuse patient.[facility] HospitalIn the event this information is protected by the Federal Confidentiality of Alcohol and Drug Abuse Patient Records regulations: The Federal rules restrict any use of the information to criminally investigate or prosecute any alcohol or drug abuse patient.[facility] HospitalIn the event this information is protected by the Federal Confidentiality of Alcohol and Drug Abuse Patient Records regulations: The Federal rules restrict any use of the information to criminally investigate or prosecute any alcohol or drug abuse patient.[facility] HospitalIn the event this information is protected by the Federal Confidentiality of Alcohol and Drug Abuse Patient Records regulations: The Federal rules restrict any use of the information to criminally investigate or prosecute any alcohol or drug abuse patient.[facility] HospitalIn the event this information is protected by the Federal Confidentiality of Alcohol and Drug Abuse Patient Records regulations: The Federal rules restrict any use of the information to criminally investigate or prosecute any alcohol or drug abuse patient.[facility] HospitalIn the event this information is protected by the Federal Confidentiality of Alcohol and Drug Abuse Patient Records regulations: The Federal rules restrict any use of the information to criminally investigate or prosecute any alcohol or drug abuse patient.[facility] HospitalIn the event this information is protected by the Federal Confidentiality of Alcohol and Drug Abuse Patient Records regulations: The Federal rules restrict any use of the information to criminally investigate or prosecute any alcohol or drug abuse patient.[facility] HospitalIn the event this information is protected by the Federal Confidentiality of Alcohol and Drug Abuse Patient Records regulations: The Federal rules restrict any use of the information to criminally investigate or prosecute any alcohol or drug abuse patient.[facility] HospitalIn the event this information is protected by the Federal Confidentiality of Alcohol and Drug Abuse Patient Records regulations: The Federal rules restrict any use of the information to criminally investigate or prosecute any alcohol or drug abuse patient.[facility] HospitalIn the event this information is protected by the Federal Confidentiality of Alcohol and Drug Abuse Patient Records regulations: The Federal rules restrict any use of the information to criminally investigate or prosecute any alcohol or drug abuse patient.[facility] HospitalIn the event this information is protected by the Federal Confidentiality of Alcohol and Drug Abuse Patient Records regulations: The Federal rules restrict any use of the information to criminally investigate or prosecute any alcohol or drug abuse patient.[facility] HospitalIn the event this information is protected by the Federal Confidentiality of Alcohol and Drug Abuse Patient Records regulations: The Federal rules restrict any use of the information to criminally investigate or prosecute any alcohol or drug abuse patient.[facility] HospitalIn the event this information is protected by the Federal Confidentiality of Alcohol and Drug Abuse Patient Records regulations: The Federal rules restrict any use of the information to criminally investigate or prosecute any alcohol or drug abuse patient.[facility] HospitalIn the event this information is protected by the Federal Confidentiality of Alcohol and Drug Abuse Patient Records regulations: The Federal rules restrict any use of the information to criminally investigate or prosecute any alcohol or drug abuse patient.[facility] HospitalIn the event this information is protected by the Federal Confidentiality of Alcohol and Drug Abuse Patient Records regulations: The Federal rules restrict any use of the information to criminally investigate or prosecute any alcohol or drug abuse patient.[facility] HospitalIn the event this information is protected by the Federal Confidentiality of Alcohol and Drug Abuse Patient Records regulations: The Federal rules restrict any use of the information to criminally investigate or prosecute any alcohol or drug abuse patient.[facility] HospitalIn the event this information is protected by the Federal Confidentiality of Alcohol and Drug Abuse Patient Records regulations: The Federal rules restrict any use of the information to criminally investigate or prosecute any alcohol or drug abuse patient.[facility] HospitalIn the event this information is protected by the Federal Confidentiality of Alcohol and Drug Abuse Patient Records regulations: The Federal rules restrict any use of the information to criminally investigate or prosecute any alcohol or drug abuse patient.[facility] HospitalIn the event this information is protected by the Federal Confidentiality of Alcohol and Drug Abuse Patient Records regulations: The Federal rules restrict any use of the information to criminally investigate or prosecute any alcohol or drug abuse patient.[facility] HospitalIn the event this information is protected by the Federal Confidentiality of Alcohol and Drug Abuse Patient Records regulations: The Federal rules restrict any use of the information to criminally investigate or prosecute any alcohol or drug abuse patient.[facility] HospitalIn the event this information is protected by the Federal Confidentiality of Alcohol and Drug Abuse Patient Records regulations: The Federal rules restrict any use of the information to criminally investigate or prosecute any alcohol or drug abuse patient.[facility] HospitalIn the event this information is protected by the Federal Confidentiality of Alcohol and Drug Abuse Patient Records regulations: The Federal rules restrict any use of the information to criminally investigate or prosecute any alcohol or drug abuse patient.[facility] HospitalIn the event this information is protected by the Federal Confidentiality of Alcohol and Drug Abuse Patient Records regulations: The Federal rules restrict any use of the information to criminally investigate or prosecute any alcohol or drug abuse patient.[facility] HospitalIn the event this information is protected by the Federal Confidentiality of Alcohol and Drug Abuse Patient Records regulations: The Federal rules restrict any use of the information to criminally investigate or prosecute any alcohol or drug abuse patient.[facility] HospitalIn the event this information is protected by the Federal Confidentiality of Alcohol and Drug Abuse Patient Records regulations: The Federal rules restrict any use of the information to criminally investigate or prosecute any alcohol or drug abuse patient.[facility] HospitalIn the event this information is protected by the Federal Confidentiality of Alcohol and Drug Abuse Patient Records regulations: The Federal rules restrict any use of the information to criminally investigate or prosecute any alcohol or drug abuse patient.[facility] HospitalIn the event this information is protected by the Federal Confidentiality of Alcohol and Drug Abuse Patient Records regulations: The Federal rules restrict any use of the information to criminally investigate or prosecute any alcohol or drug abuse patient.[facility] HospitalIn the event this information is protected by the Federal Confidentiality of Alcohol and Drug Abuse Patient Records regulations: The Federal rules restrict any use of the information to criminally investigate or prosecute any alcohol or drug abuse patient.[facility] HospitalIn the event this information is protected by the Federal Confidentiality of Alcohol and Drug Abuse Patient Records regulations: The Federal rules restrict any use of the information to criminally investigate or prosecute any alcohol or drug abuse patient.[facility] HospitalIn the event this information is protected by the Federal Confidentiality of Alcohol and Drug Abuse Patient Records regulations: The Federal rules restrict any use of the information to criminally investigate or prosecute any alcohol or drug abuse patient.[facility] HospitalIn the event this information is protected by the Federal Confidentiality of Alcohol and Drug Abuse Patient Records regulations: The Federal rules restrict any use of the information to criminally investigate or prosecute any alcohol or drug abuse patient.[facility] HospitalIn the event this information is protected by the Federal Confidentiality of Alcohol and Drug Abuse Patient Records regulations: The Federal rules restrict any use of the information to criminally investigate or prosecute any alcohol or drug abuse patient.[facility] HospitalIn the event this information is protected by the Federal Confidentiality of Alcohol and Drug Abuse Patient Records regulations: The Federal rules restrict any use of the information to criminally investigate or prosecute any alcohol or drug abuse patient.[facility] HospitalIn the event this information is protected by the Federal Confidentiality of Alcohol and Drug Abuse Patient Records regulations: The Federal rules restrict any use of the information to criminally investigate or prosecute any alcohol or drug abuse patient.[facility] HospitalIn the event this information is protected by the Federal Confidentiality of Alcohol and Drug Abuse Patient Records regulations: The Federal rules restrict any use of the information to criminally investigate or prosecute any alcohol or drug abuse patient.[facility] HospitalIn the event this information is protected by the Federal Confidentiality of Alcohol and Drug Abuse Patient Records regulations: The Federal rules restrict any use of the information to criminally investigate or prosecute any alcohol or drug abuse patient.[facility] HospitalIn the event this information is protected by the Federal Confidentiality of Alcohol and Drug Abuse Patient Records regulations: The Federal rules restrict any use of the information to criminally investigate or prosecute any alcohol or drug abuse patient.[facility] HospitalIn the event this information is protected by the Federal Confidentiality of Alcohol and Drug Abuse Patient Records regulations: The Federal rules restrict any use of the information to criminally investigate or prosecute any alcohol or drug abuse patient.[facility] HospitalIn the event this information is protected by the Federal Confidentiality of Alcohol and Drug Abuse Patient Records regulations: The Federal rules restrict any use of the information to criminally investigate or prosecute any alcohol or drug abuse patient.[facility] HospitalIn the event this information is protected by the Federal Confidentiality of Alcohol and Drug Abuse Patient Records regulations: The Federal rules restrict any use of the information to criminally investigate or prosecute any alcohol or drug abuse patient.[facility] HospitalIn the event this information is protected by the Federal Confidentiality of Alcohol and Drug Abuse Patient Records regulations: The Federal rules restrict any use of the information to criminally investigate or prosecute any alcohol or drug abuse patient.[facility] HospitalIn the event this information is protected by the Federal Confidentiality of Alcohol and Drug Abuse Patient Records regulations: The Federal rules restrict any use of the information to criminally investigate or prosecute any alcohol or drug abuse patient.[facility] ClinicIn the event this information is protected by the Federal Confidentiality of Alcohol and Drug Abuse Patient Records regulations: The Federal rules restrict any use of the information to criminally investigate or prosecute any alcohol or drug abuse patient.[facility] HospitalIn the event this information is protected by the Federal Confidentiality of Alcohol and Drug Abuse Patient Records regulations: The Federal rules restrict any use of the information to criminally investigate or prosecute any alcohol or drug abuse patient.[facility] HospitalIn the event this information is protected by the Federal Confidentiality of Alcohol and Drug Abuse Patient Records regulations: The Federal rules restrict any use of the information to criminally investigate or prosecute any alcohol or drug abuse patient.[facility] HospitalIn the event this information is protected by the Federal Confidentiality of Alcohol and Drug Abuse Patient Records regulations: The Federal rules restrict any use of the information to criminally investigate or prosecute any alcohol or drug abuse patient.[facility] HospitalIn the event this information is protected by the Federal Confidentiality of Alcohol and Drug Abuse Patient Records regulations: The Federal rules restrict any use of the information to criminally investigate or prosecute any alcohol or drug abuse patient.[facility] HospitalIn the event this information is protected by the Federal Confidentiality of Alcohol and Drug Abuse Patient Records regulations: The Federal rules restrict any use of the information to criminally investigate or prosecute any alcohol or drug abuse patient.[facility] HospitalIn the event this information is protected by the Federal Confidentiality of Alcohol and Drug Abuse Patient Records regulations: The Federal rules restrict any use of the information to criminally investigate or prosecute any alcohol or drug abuse patient.[facility] HospitalIn the event this information is protected by the Federal Confidentiality of Alcohol and Drug Abuse Patient Records regulations: The Federal rules restrict any use of the information to criminally investigate or prosecute any alcohol or drug abuse patient.[facility] HospitalIn the event this information is protected by the Federal Confidentiality of Alcohol and Drug Abuse Patient Records regulations: The Federal rules restrict any use of the information to criminally investigate or prosecute any alcohol or drug abuse patient.[facility] HospitalIn the event this information is protected by the Federal Confidentiality of Alcohol and Drug Abuse Patient Records regulations: The Federal rules restrict any use of the information to criminally investigate or prosecute any alcohol or drug abuse patient.[facility] HospitalIn the event this information is protected by the Federal Confidentiality of Alcohol and Drug Abuse Patient Records regulations: The Federal rules restrict any use of the information to criminally investigate or prosecute any alcohol or drug abuse patient.[facility] HospitalIn the event this information is protected by the Federal Confidentiality of Alcohol and Drug Abuse Patient Records regulations: The Federal rules restrict any use of the information to criminally investigate or prosecute any alcohol or drug abuse patient.[facility] HospitalIn the event this information is protected by the Federal Confidentiality of Alcohol and Drug Abuse Patient Records regulations: The Federal rules restrict any use of the information to criminally investigate or prosecute any alcohol or drug abuse patient.[facility] HospitalIn the event this information is protected by the Federal Confidentiality of Alcohol and Drug Abuse Patient Records regulations: The Federal rules restrict any use of the information to criminally investigate or prosecute any alcohol or drug abuse patient.[facility] HospitalIn the event this information is protected by the Federal Confidentiality of Alcohol and Drug Abuse Patient Records regulations: The Federal rules restrict any use of the information to criminally investigate or prosecute any alcohol or drug abuse patient.[facility] HospitalIn the event this information is protected by the Federal Confidentiality of Alcohol and Drug Abuse Patient Records regulations: The Federal rules restrict any use of the information to criminally investigate or prosecute any alcohol or drug abuse patient.[facility] HospitalIn the event this information is protected by the Federal Confidentiality of Alcohol and Drug Abuse Patient Records regulations: The Federal rules restrict any use of the information to criminally investigate or prosecute any alcohol or drug abuse patient.[facility] HospitalIn the event this information is protected by the Federal Confidentiality of Alcohol and Drug Abuse Patient Records regulations: The Federal rules restrict any use of the information to criminally investigate or prosecute any alcohol or drug abuse patient.[facility] HospitalIn the event this information is protected by the Federal Confidentiality of Alcohol and Drug Abuse Patient Records regulations: The Federal rules restrict any use of the information to criminally investigate or prosecute any alcohol or drug abuse patient.[facility] HospitalIn the event this information is protected by the Federal Confidentiality of Alcohol and Drug Abuse Patient Records regulations: The Federal rules restrict any use of the information to criminally investigate or prosecute any alcohol or drug abuse patient.[facility] HospitalIn the event this information is protected by the Federal Confidentiality of Alcohol and Drug Abuse Patient Records regulations: The Federal rules restrict any use of the information to criminally investigate or prosecute any alcohol or drug abuse patient.[facility] HospitalIn the event this information is protected by the Federal Confidentiality of Alcohol and Drug Abuse Patient Records regulations: The Federal rules restrict any use of the information to criminally investigate or prosecute any alcohol or drug abuse patient.[facility] HospitalIn the event this information is protected by the Federal Confidentiality of Alcohol and Drug Abuse Patient Records regulations: The Federal rules restrict any use of the information to criminally investigate or prosecute any alcohol or drug abuse patient.[facility] HospitalIn the event this information is protected by the Federal Confidentiality of Alcohol and Drug Abuse Patient Records regulations: The Federal rules restrict any use of the information to criminally investigate or prosecute any alcohol or drug abuse patient.[facility] HospitalIn the event this information is protected by the Federal Confidentiality of Alcohol and Drug Abuse Patient Records regulations: The Federal rules restrict any use of the information to criminally investigate or prosecute any alcohol or drug abuse patient.[facility] HospitalIn the event this information is protected by the Federal Confidentiality of Alcohol and Drug Abuse Patient Records regulations: The Federal rules restrict any use of the information to criminally investigate or prosecute any alcohol or drug abuse patient.[facility] HospitalIn the event this information is protected by the Federal Confidentiality of Alcohol and Drug Abuse Patient Records regulations: The Federal rules restrict any use of the information to criminally investigate or prosecute any alcohol or drug abuse patient.[facility] HospitalIn the event this information is protected by the Federal Confidentiality of Alcohol and Drug Abuse Patient Records regulations: The Federal rules restrict any use of the information to criminally investigate or prosecute any alcohol or drug abuse patient.[facility] HospitalIn the event this information is protected by the Federal Confidentiality of Alcohol and Drug Abuse Patient Records regulations: The Federal rules restrict any use of the information to criminally investigate or prosecute any alcohol or drug abuse patient.[facility] HospitalIn the event this information is protected by the Federal Confidentiality of Alcohol and Drug Abuse Patient Records regulations: The Federal rules restrict any use of the information to criminally investigate or prosecute any alcohol or drug abuse patient.[facility] HospitalIn the event this information is protected by the Federal Confidentiality of Alcohol and Drug Abuse Patient Records regulations: The Federal rules restrict any use of the information to criminally investigate or prosecute any alcohol or drug abuse patient.[facility] HospitalIn the event this information is protected by the Federal Confidentiality of Alcohol and Drug Abuse Patient Records regulations: The Federal rules restrict any use of the information to criminally investigate or prosecute any alcohol or drug abuse patient.[facility] HospitalIn the event this information is protected by the Federal Confidentiality of Alcohol and Drug Abuse Patient Records regulations: The Federal rules restrict any use of the information to criminally investigate or prosecute any alcohol or drug abuse patient.[facility] HospitalIn the event this information is protected by the Federal Confidentiality of Alcohol and Drug Abuse Patient Records regulations: The Federal rules restrict any use of the information to criminally investigate or prosecute any alcohol or drug abuse patient.[facility] HospitalIn the event this information is protected by the Federal Confidentiality of Alcohol and Drug Abuse Patient Records regulations: The Federal rules restrict any use of the information to criminally investigate or prosecute any alcohol or drug abuse patient.[facility] HospitalIn the event this information is protected by the Federal Confidentiality of Alcohol and Drug Abuse Patient Records regulations: The Federal rules restrict any use of the information to criminally investigate or prosecute any alcohol or drug abuse patient.[facility] Reason for Visit (unrecogniz ed section and content) Reason Comments IUD Removal Specialty Diagnoses / Procedures Referred By Contac t Referred To Contact [facility] Diagnoses Encounter for IUD removal Procedures REMOVE INTRAUTERINE DEVICE REMOVE INTRAUTERINE DEVICE Caimlla Aguilera APRN.[facility] [address] [place] [address] [facility] [address] [place] [address] Referral ID Status Reason Start Date Expiration Date V isits Requested Visits Authorized [id number] Closed Auto-Generate d Referral 02/04/2024 02/03/2025 1 1 Reason Comments Sinus Problem Reason Comments Discussion Reason Comments Patient Update Reason Comments Care Reason Comments Results, Lab Reason Onset Date Comments Care Immunizations 03/02/2022 Flu vaccination Reason Onset Date Comments Care 03/30/2022 Reason Comments US Specialty Diagnoses / Procedures Referred By Contac t Referred To Contact [facility] Diagnoses History of miscarriage, currently 7 weeks gestation of Procedures NUCHAL TRANSLUCENCY WHI US NUCHAL TRANSLUCENCY 1ST GESTATION Leticia Dove MD [address] [place] [address] [facility] [address] [place] [id number] Referral ID Status Reason Start Date Expiration Date V isits Requested Visits Authorized [id number] Closed Auto-Generate d Referral 03/02/2022 03/02/2023 1 1 Reason Comments First Seq Results Reason Onset Date Comments Care 04/27/2022 Reason Comments Question (OB Question) Reason Onset Date Comments Care 05/25/2022 Specialty Diagnoses / Procedures Referred By Contac t Referred To Contact [facility] Diagnoses History of miscarriage, currently 7 weeks gestation of Procedures OBSTETRIC ULTRASOUND WHI US PREG UTERUS AFTER 1ST TRIMEST GESTATION Leticia Dove MD [address] [facility] [place] [id number] [place] [phone] Referral ID Status Reason Start Date Expiration Date V isits Requested Visits Authorized [id number] Closed Auto-Generate d Referral 04/29/2022 05/27/2022 1 1 Reason Onset Date Comments Care 06/23/2022 Reason Onset Date Comments Care 07/27/2022 Reason Comments Refill Request Reason Onset Date Comments Care 08/10/2022 Reason Comments Ear Pain Right ear x March 2022- Flonase & zyrtec Specialty Diagnoses / Procedures Referred By Contac t Referred To Contact [facility] Diagnoses 30 weeks gestation of Encounter for supervision of other normal in third trimester Obesity in Procedures OBSTETRIC ULTRASOUND WHI US PREG UTERUS AFTER 1ST TRIMEST GESTATION Ester Valencia MD [address] [place] [address] [address] Referral ID Status Reason Start Date Expiration Date V isits Requested Visits Authorized [id number] Closed Auto-Generate d Referral 08/10/2022 08/10/2023 1 1 Reason Comments Breast Pump Reason Onset Date Comments Care 09/20/2022 Reason Comments FMLA Paperwork Reason Onset Date Comments Care 09/28/2022 Reason Onset Date Comments Care 10/05/2022 Reason Onset Date Comments Care 10/09/2022 Reason Comments Returning Patient's Call Reason Onset Date Comments Refill Request 11/09/2022 Reason Comments Care Reason Comments Routine Reason Onset Date Comments Insertion Of IUD 12/11/2022 Specialty Diagnoses / Procedures Referred By Contac t Referred To Contact [facility] Diagnoses care and examination Encounter for IUD insertion care and examination of lactating mother Procedures INSERT INTRAUTERINE DEVICE INSERT INTRAUTERINE DEVICE Camilla Aguilera APRN.CNM [address] [place] [address] [facility] [address] [place] [address] Referral ID Status Reason Start Date Expiration Date V isits Requested Visits Authorized [id number] Authorized 05/28/2022 05/27/2023 2 2 Reason Comments Thyroid Problem Reason Comments Consult Anal Fissure Reason Comments Anesthesia Consult Reason Comments Results Reason Comments Sore Throat Drainage x 3 days Reason Onset Date Comments Refill Request 03/19/2023 Reason Onset Date Comments Refill Request 06/29/2023 Reason Onset Date Comments Refill Request 07/02/2023 Reason Onset Date Comments Refill Request 08/02/2023 Reason Comments Pain (foot) Left foot pain start ed yesterday after cracking toes Reason Comments New Patient Ingrown Nail Specialty Diagnoses / Procedures Referred By Contac t Referred To Contact Podiatry Diagnoses Foot pain, left Procedures CONSULT TO PODIATRY OFFICE/OUTPATIENT NEW HIGH MDM 60 MINUTES Jayce Shipley APRN.[employer] [address] [place] [address] Referral ID Status Reason Start Date Expiration Date V isits Requested Visits Authorized [id number] Closed PCP Requested Referral 09/05/2023 09/04/2024 1 1 Reason Onset Date Comments Refill Request 10/09/2023 Reason Comments Established Patient Follow Up Post Op Reason Comments UTI Reason Onset Date Comments Refill Request 11/08/2023 Reason Comments Patient Question Reason Comments Established Patient Follow Up Ingrown Toenail Reason Comments Well Woman Reason Onset Date Comments Refill Request 02/25/2024 Reason Onset Date Comments Refill Request 02/26/2024 Lab Orders 02/26/2024 Reason Comments Medication Problem Reason Comments Physical Bon ear pain, sinus/ allergies, early , check thyroid. Taking levo 1 tab daily started 03/15 Reason Onset Date Comments Refill Request 04/17/2024 Reason Onset Date Comments Care 04/30/2024 Specialty Diagnoses / Procedures Referred By Contac t Referred To Contact [facility] Diagnoses with uncertain dates in first trimester Procedures NUCHAL TRANSLUCENCY WHI US NUCHAL TRANSLUCENCY 1ST GESTATION Camilla Aguilera APRN.CNM [address] [place] [address] [facility] [address] [place] [id number] Referral ID Status Reason Start Date Expiration Date V isits Requested Visits Authorized [id number] Closed Auto-Generate d Referral 04/02/2024 04/02/2025 1 1 Reason Onset Date Comments Care 05/29/2024 Reason Comments Insurance Authorization Reason Comments OB Fall Reason Comments Care Fall on Sunday - h it abdomen Specialty Diagnoses / Procedures Referred By Contac t Referred To Contact [facility] Diagnoses Supervision of high risk in second trimester 16 weeks gestation of Procedures OBSTETRIC ULTRASOUND WHI US PREG UTERUS AFTER 1ST TRIMEST GESTATION Helen Perez APRN.[employer] [address] [place] [address] [facility] [address] [place] [address] Referral ID Status Reason Start Date Expiration Date V isits Requested Visits Authorized [id number] Closed Auto-Generate d Referral 05/29/2024 05/29/2025 1 1 Reason Onset Date Comments Care 06/27/2024 Reason Comments Cough Cough, sinus, conges tion, cough, ST, [place] and chills x 3 days Reason Onset Date Comments Refill Request 07/14/2024 Reason Onset Date Comments Care 07/24/2024 Reason Comments Eye Problem Reason Onset Date Comments Care 08/22/2024 Reason Onset Date Comments Care 09/02/2024 Reason Onset Date Comments Care 09/16/2024 Reason Onset Date Comments Care 10/01/2024 Reason Onset Date Comments Care 10/22/2024 Reason Onset Date Comments Care 10/29/2024 Care Teams (unrecognized sec tion and content) Client Reporting Associate Relationship Specialty Start Date End Date Jayce Shipley APRN.[facility] [facility] [address] [place] [address] PCP - General Family Practice 08/14/19 Client Reporting Associate Relationship Specialty Start Date End Date Jayce Shipley, COST RECORDER.[employer]IST[employer] [address] [place] [address] PCP - General Family Practice 08/14/19 Client Reporting Associate Relationship Specialty Start Date End Date ViolettaJayce, COST RECORDER.[employer] ASSISTANT [address] [place] [address] PCP - General Family Practice 08/14/19 Client Reporting Associate Relationship Specialty Start Date End Date ViolettaJayce, COST RECORDER.P[employer]ERHANGER ASSISTANT [address] [place] [address] PCP - General Family Practice 08/14/19 Client Reporting Associate Relationship Specialty Start Date End Date ViolettaJayce, COST RECORDER.P[employer]ERHANGER ASSISTANT [address] [place] [address] PCP - General Family Medicine 08/14/19 Client Reporting Associate Relationship Specialty Start Date End Date ViolettaJayce, COST RECORDER.P[employer]ERHANGER ASSISTANT [address] [place] [address] PCP - General Family Medicine 08/14/19 Client Reporting Associate Relationship Specialty Start Date End Date ViolettaJayce, COST RECORDER.P[employer]ERHANGER ASSISTANT [address] [place] [address] PCP - General Family Medicine 08/14/19 Client Reporting Associate Relationship Specialty Start Date End Date Jayce Shipley, COST RECORDER.P[employer]ERHANGER ASSISTANT [address] [place] [address] PCP - General Family Medicine 08/14/19 Client Reporting Associate Relationship Specialty Start Date End Date Jayce Shipley, COST RECORDER.PAPERHANGER ASSISTANT [address] [place] [address] PCP - General Family Medicine 08/14/19 Client Reporting Associate Relationship Specialty Start Date End Date ViolettaJayce, COST RECORDER.P[employer]ERHANGER ASSISTANT [address] [place] [address] PCP - General Family Medicine 08/14/19 Client Reporting Associate Relationship Specialty Start Date End Date ViolettaJayce, COST RECORDER.P[employer]ERHANGER ASSISTANT [address] [place] [address] PCP - General Family Medicine 08/14/19 Client Reporting Associate Relationship Specialty Start Date End Date ViolettaJayce, COST RECORDER.P[employer]ERHANGER ASSISTANT [address] [place] [address] PCP - General Family Medicine 08/14/19 Client Reporting Associate Relationship Specialty Start Date End Date ViolettaJayce, COST RECORDER.P[employer]ERHANGER ASSISTANT [address] [place] [address] PCP - General Family Medicine 08/14/19 Client Reporting Associate Relationship Specialty Start Date End Date ViolettaJayce, COST RECORDER.P[employer]ERHANGER ASSISTANT [address] [place] [address] PCP - General Family Medicine 08/14/19 Team Status: Active Member Role Status Dates No Primary Care Physician Family Provider Active No Primary Care Physician Primary Care Provider Active Team Status: Inactive Member Role Status Dates No Primary Care Physician Primary Care Provider Active Sylwia Moore CNM Attending Provider Active Client Reporting Associate Relationship Specialty Start Date End Date ViolettaJayce, COST RECORDER.P[employer]ERHANGER ASSISTANT [address] [place] [address] PCP - General Family Medicine 08/14/19 Client Reporting Associate Relationship Specialty Start Date End Date ViolettaJayce, COST RECORDER.P[employer]ERHANGER ASSISTANT [address] [place] [address] PCP - General Family Medicine 08/14/19 Client Reporting Associate Relationship Specialty Start Date End Date Violetta, Jayce, COST RECORDER.PAPERHANGER ASSISTANT [address] [facility] [place] [address] PCP - General Family Medicine 08/14/19 Client Reporting Associate Relationship Specialty Start Date End Date Violetta, Jayce, COST RECORDER.PAPERHANGER ASSISTANT [address] [facility] [place] [address] PCP - General Family Medicine 08/14/19 Client Reporting Associate Relationship Specialty Start Date End Date Violetta, Jayce, COST RECORDER.PAPERHANGER ASSISTANT [address] [facility] [place] [address] PCP - General Family Medicine 08/14/19 Client Reporting Associate Relationship Specialty Start Date End Date Violetta, Jayce, COST RECORDER.PAPERHANGER ASSISTANT [address] [facility] [place] [address] PCP - General Family Medicine 08/14/19 Client Reporting Associate Relationship Specialty Start Date End Date Violetta, Jayce, COST RECORDER.PAPERHANGER ASSISTANT [address] [facility] [place] [address] PCP - General Family Medicine 08/14/19 Client Reporting Associate Relationship Specialty Start Date End Date Violetta, Jayce, COST RECORDER.PAPERHANGER ASSISTANT [address] [facility] [place] [address] PCP - General Family Medicine 08/14/19 Client Reporting Associate Relationship Specialty Start Date End Date Violetta, Jayce, COST RECORDER.PAPERHANGER ASSISTANT [address] [facility] [place] [address] PCP - General Family Medicine 08/14/19 Client Reporting Associate Relationship Specialty Start Date End Date Violetta, Jayce, COST RECORDER.PAPERHANGER ASSISTANT [address] [facility] [place] [address] PCP - General Family Medicine 08/14/19 Client Reporting Associate Relationship Specialty Start Date End Date [facility], COST RECORDER.PAPERHANGER ASSISTANT [address] [facility] [place] [address] PCP - General Family Medicine 08/14/19 Client Reporting Associate Relationship Specialty Start Date End Date [facility], COST RECORDER.PAPERHANGER ASSISTANT [address] [facility] [place] [address] PCP - General Family Medicine 08/14/19 Client Reporting Associate Relationship Specialty Start Date End Date [facility], COST RECORDER.PAPERHANGER ASSISTANT [address] [facility] [place] [address] PCP - General Family Medicine 08/14/19 Client Reporting Associate Relationship Specialty Start Date End Date [facility], COST RECORDER.PAPERHANGER ASSISTANT [address] [facility] [place] [address] PCP - General Family Medicine 08/14/19 Client Reporting Associate Relationship Specialty Start Date End Date [facility], COST RECORDER.PAPERHANGER ASSISTANT [address] [facility] [place] [address] PCP - General Family Medicine 08/14/19 Client Reporting Associate Relationship Specialty Start Date End Date [facility], COST RECORDER.PAPERHANGER ASSISTANT [address] [facility] [place] [address] PCP - General Family Medicine 08/14/19 Client Reporting Associate Relationship Specialty Start Date End Date [facility], COST RECORDER.PAPERHANGER ASSISTANT [address] [facility] [place] [address] PCP - General Family Medicine 08/14/19 Client Reporting Associate Relationship Specialty Start Date End Date ViolettaGailah, COST RECORDER.PAPERHANGER ASSISTANT [address] [facility] [place] [address] PCP - General Family Medicine 08/14/19 Client Reporting Associate Relationship Specialty Start Date End Date [facility] COST RECORDER.PAPERHANGER ASSISTANT [address] [facility] [place] [address] PCP - General Family Medicine 08/14/19 Client Reporting Associate Relationship Specialty Start Date End Date ViolettaJayce, COST RECORDER.PAPERHANGER ASSISTANT [address] [facility] [place] [address] PCP - General Family Medicine 08/14/19 Client Reporting Associate Relationship Specialty Start Date End Date ViolettaGailah, COST RECORDER.PAPERHANGER ASSISTANT [address] [facility] [place] [address] PCP - General Family Medicine 08/14/19 Client Reporting Associate Relationship Specialty Start Date End Date ViolettaJayce, COST RECORDER.PAPERHANGER ASSISTANT [address] [facility] [place] [address] PCP - General Family Medicine 08/14/19 Client Reporting Associate Relationship Specialty Start Date End Date Violetta, Jayce, COST RECORDER.PAPERHANGER ASSISTANT [address] [facility] [place] [address] PCP - General Family Medicine 08/14/19 Client Reporting Associate Relationship Specialty Start Date End Date ViolettaJayce, COST RECORDER.PAPERHANGER ASSISTANT [address] [facility] [place] [address] PCP - General Family Medicine 08/14/19 Client Reporting Associate Relationship Specialty Start Date End Date ViolettaJayce, COST RECORDER.PAPERHANGER ASSISTANT [address] [facility] [place] [address] PCP - General Family Medicine 08/14/19 Client Reporting Associate Relationship Specialty Start Date End Date [facility], COST RECORDER.PAPERHANGER ASSISTANT [address] [facility] [place] [address] PCP - General Family Medicine 08/14/19 Client Reporting Associate Relationship Specialty Start Date End Date [facility], COST RECORDER.PAPERHANGER ASSISTANT [address] [facility] [place] [address] PCP - General Family Medicine 08/14/19 Client Reporting Associate Relationship Specialty Start Date End Date [facility], COST RECORDER.PAPERHANGER ASSISTANT [address] [facility] [place] [address] PCP - General Family Medicine 08/14/19 Client Reporting Associate Relationship Specialty Start Date End Date [facility], COST RECORDER.PAPERHANGER ASSISTANT [address] [facility] [place] [address] PCP - General Family Medicine 08/14/19 Client Reporting Associate Relationship Specialty Start Date End Date [facility], COST RECORDER.PAPERHANGER ASSISTANT [address] [facility] [place] [address] PCP - General Family Medicine 08/14/19 Client Reporting Associate Relationship Specialty Start Date End Date [facility], COST RECORDER.PAPERHANGER ASSISTANT [address] [facility] [place] [address] PCP - General Family Medicine 08/14/19 Client Reporting Associate Relationship Specialty Start Date End Date [facility], COST RECORDER.PAPERHANGER ASSISTANT [address] [facility] [place] [address] PCP - General Family Medicine 08/14/19 Client Reporting Associate Relationship Specialty Start Date End Date Jayce Shipley, COST RECORDER.PAPERHANGER ASSISTANT [address] [place] [address] PCP - General Family Medicine 08/14/19 Breana Argueta, COST RECORDER.PAPERHANGER ASSISTANT [address] [place] [address] [employer] Family Medicine 05/05/24 Yordy Arnett DO [address] [facility] [place] [address] Captain/Check Airman Family Medicine 05/05/24 Client Reporting Associate Relationship Specialty Start Date End Date Jayce Shipley, COST RECORDER.PAPERHANGER ASSISTANT [address] [place] [address] PCP - General Family Medicine 08/14/19 Breana Argueta, COST RECORDER.PAPERHANGER ASSISTANT [address] [place] [address] Captain/Check [employer]man Family Medicine 05/05/24 Yordy Arnett DO [address] [place] [address] Captain/Check Airman Family Medicine 05/05/24 Client Reporting Associate Relationship Specialty Start Date End Date Jayce Shipley, COST RECORDER.PAPERHANGER ASSISTANT [address] [place] [address] PCP - General Family Medicine 08/14/19 Breana Argueta, COST RECORDER.PAPERHANGER ASSISTANT [address] [place] [address] [facility] 05/05/24 Yordy Arnett DO [address] [facility] [place] [address] [facility] 05/05/24 Client Reporting Associate Relationship Specialty Start Date End Date Jayce Shipley, COST RECORDER.PAPERHANGER ASSISTANT [address] [facility] [place] [address] PCP - General Family Medicine 08/14/19 Breana Argueta, COST RECORDER.PAPERHANGER ASSISTANT [address] [facility] [place] [address] [facility] 05/05/24 Yordy Arnett DO [address] [place] [address] [facility] 05/05/24 Client Reporting Associate Relationship Specialty Start Date End Date ViolettaJayce, COST RECORDER.PAPERHANGER ASSISTANT [address] [facility] [place] [address] PCP - General Family Medicine 08/14/19 Breana Argueta, COST RECORDER.PAPERHANGER ASSISTANT [address] [place] [address] [facility] 05/05/24 Yordy Arnett, [address] [place] [address] [facility] 05/05/24 Client Reporting Associate Relationship Specialty Start Date End Date Jayce Shipley, COST RECORDER.PAPERHANGER ASSISTANT [address] [place] [address] PCP - General Family Medicine 08/14/19 Breana Argueta, COST RECORDER.PAPERHANGER ASSISTANT [address] [facility] [place] [address] Captain/Check Airman Family Medicine 05/05/24 Yordy Arnett DO [address] [facility] [place] [address] Captain/Check Airman Family Medicine 05/05/24 Client Reporting Associate Relationship Specialty Start Date End Date Jayce Shipley, COST RECORDER.PAPERHANGER ASSISTANT [address] [facility] [place] [address] PCP - General Family Medicine 08/14/19 Breana Argueta, COST RECORDER.PAPERHANGER ASSISTANT [address] [facility] [place] [address] Captain/Check Airman Family Medicine 05/05/24 Yordy Arnett DO [address] [facility] [place] [address] Captain/Check Airman Family Medicine 05/05/24 Client Reporting Associate Relationship Specialty Start Date End Date Jayce Shipley, COST RECORDER.PAPERHANGER ASSISTANT [address] [place] [address] PCP - General Family Medicine 08/14/19 Breana Argueta, COST RECORDER.PAPERHANGER ASSISTANT [address] [facility] [place] [address] Captain/Check Airman Family Medicine 05/05/24 Yordy Arnett DO [address] [place] [address] Captain/Check Airman Family Medicine 05/05/24 Client Reporting Associate Relationship Specialty Start Date End Date Jayce Shipley, COST RECORDER.PAPERHANGER ASSISTANT [address] [place] [address] PCP - General Family Medicine 08/14/19 Breana Argueta, COST RECORDER.PAPERHANGER ASSISTANT [address] [place] [address] Captain/Check Airman Family Medicine 05/05/24 Yordy Arnett DO [address] [place] [address] Captain/Check Airman Family Medicine 05/05/24 Client Reporting Associate Relationship Specialty Start Date End Date ViolettaJayce, COST RECORDER.PAPERHANGER ASSISTANT [address] [place] [address] PCP - General Family Medicine 08/14/19 Breana Argueta, COST RECORDER.PAPERHANGER ASSISTANT [address] [place] [address] Captain/Check Airman Family Medicine 05/05/24 Yordy Arnett DO [address] [place] [address] Captain/Check Airman Family Medicine 05/05/24 Client Reporting Associate Relationship Specialty Start Date End Date ViolettaJayce, COST RECORDER.PAPERHANGER ASSISTANT [address] [place] [address] PCP - General Family Medicine 08/14/19 Breana Argueta, COST RECORDER.PAPERHANGER ASSISTANT [address] [place] [address] Captain/Check Airman Family Medicine 05/05/24 Yordy Arnett DO [address] [facility] [place] [address] Captain/Check Airman Family Medicine 05/05/24 Client Reporting Associate Relationship Specialty Start Date End Date Jayce Shipley, COST RECORDER.PAPERHANGER ASSISTANT [address] [place] [address] PCP - General Family Medicine 08/14/19 Breana Argueta, COST RECORDER.PAPERHANGER ASSISTANT [address] [place] [address] Captain/Check Airman Family Medicine 05/05/24 Yordy Arnett DO [address] [place] [address] [facility] Client Reporting Associate Relationship Specialty Start Date End Date Jayce Shipley, COST RECORDER.PAPERHANGER ASSISTANT [address] [place] [address] PCP - General Family Medicine 08/14/19 Breana Argueta, COST RECORDER.PAPERHANGER ASSISTANT [address] [place] [address] Captain/Check Airman Family Medicine 05/05/24 Yordy Arnett DO [address] [place] [address] Captain/Check Airman Family Medicine 05/05/24 Client Reporting Associate Relationship Specialty Start Date End Date Jayce Shipley, COST RECORDER.PAPERHANGER ASSISTANT [address] [place] [address] PCP - General Family Medicine 08/14/19 Breana Argueta, COST RECORDER.PAPERHANGER ASSISTANT [address] [place] [address] [facility] 05/05/24 Yordy Arnett DO Ros [address] [place] [address] [facility] 05/05/24 Goals (unrecognized section and content) Goals may be documented in a n alternate section INFORMATION SOURCE (unrecogn ized section and content) DATE CREATED AUTHOR 12/30/2022 [facility] DATE CREATED AUTHOR AUTHOR'S STEPHANIE SALVADOR 11/02/2024 [facility] FOR RECORDS PERTAINING TO PATIENTS WHO ARE OR HAVE BEEN ENROLLED IN A CHEMICAL DEPENDENCY/SUBSTANCEABUSE PROGRAM, SOME INFORMATION MAY BE OMITTED. This clinical summary was aggregated from multiple sources. Caution should be exercised in using it in the provision of clinical care. This summary normalizes information from multiple sources, and as a consequence, information in this document may materially change the coding, format and clinical context of patient data. In addition, data may be omitted in some cases. CLINICAL DECISIONS SHOULD BE BASED ON THE PRIMARY CLINICAL RECORDS. [employer] provides no warranty or guarantee of the accuracy or completeness of information in this document.
[2024-11-04] MEDS: Lactated Ringers 1,000 ML 50 ML IV (07:40)
[2024-11-04 07:56] LABS: Absolute Lymphocyte Count 1.95 X10^3/uL (0.83-4.51); Absolute Neutrophil Count 7.7 X10^3/uL (2.0-7.7); Basophil# 0.04 X10^3/uL; Basophil% 0.4 % (0-1); Hematocrit 37.5 % (37-47); Hemoglobin 12.9 g/dL (12.0-15.0); Lymphocyte # 1.95 X10^3/ul (0.83-4.51); Lymphocyte % 18.7 % (19-41); Mean Corp Hgb Conc 34.4 g/dL (32-36); Mean Corpuscular Hgb 28.7 pg (27.0-32.0); Mean Corpuscular Volume 83.3 fL (81-99); Mean Platelet Vol. 10.6 fl (6.2-12.0); Monocyte# 0.59 X10^3/uL; Monocyte% 5.7 % (0-10); NRBC Flagged by Analyzer 0 % (0-5); Neutrophil % 73.7 % (47-70); Platelet Count 200 K/mm3 (150-450); RBC Distribution Width CV 12.7 % (11.6-14.6); RBC Distribution Width SD 38.5 fl (35.1-43.9); White Blood Count 10.4 K/mm3 (4.4-11.0)
[2024-11-04] MEDS: Oxytocin 15 Units/NS 250ml 15 UNITS/250 ML IV.SOLN 2 UNITS IV (08:10)
[2024-11-04 08:33] LABS: Syphilis Antibodies Nonreactive (Nonreactive)
[2024-11-04] MEDS: 0.9% Normal Saline Single 100 ML IV.SOLN. INTRA-UTER (09:22)
--- NOTE | 2024-11-04 09:23 | HP.PCM.OB_ITS ---
HPI - General General Date of Admission: 11/04/24 HPI Narrative NORA GUTIERREZ, is a 29 F who presents Maternal Data Information HAYES Calculator Estimated Delivery Date Method Current WG Current Estimate 11/11/24 Manual 39w 0d PFSH PFS Medical History (Updated 11/04/24 @ 07:46 by Lenore Millan) Anxiety Impacted cerumen of both ears Encounter for screening for COVID-19 Thyroid disorder Depression Home Medications ?Medication ?Instructions ?Recorded ?Last Taken ?Type levothyroxine 75 mcg tablet 125 mcg PO DAILY hypothryo idism 03/20/19 10/13/22 06:00 History vits,calcium no.78-iron 1 tab PO DAILY pregna ncy 03/20/19 10/12/22 21:00 History fumarate-folic acid 29 mg-1 mg tablet fluticasone propionate 50 1 spray NASAL DAILY seasonal 04/11/19 07/07/22 21:00 History mcg/actuation nasal allergies spray,suspension Allergy/AdvReac Type Severity Reaction Status Date / Time animal dander Allergy Mild Unknown Verified 11/04/24 08:54 grass pollen Allergy Mild Unknown Verified 11/04/24 08:54 amoxicillin Allergy Hives Verified 11/04/24 08:54 cephalexin (From Keflex) Allergy Vomiting Verified 11/04/24 08:54 Surgical History (Updated 11/04/24 @ 07:46 by Lenore Millan) History of surgery Social History (Updated 10/11/18 @ 10:43 by Moe DESHPANDE, PA) Smoking Status: Never smoker History Elective abortions Hx Para 2 Spontaneous abortions Hx # Term Pregnancies Ectopic pregnancies Hx # Pregnancies Multiple births # of living children NST FHR Rate Baby A Baseline: 120 Variability:: Moderate Accelerations:: 15 x 15 Decelerations:: Variable Uterine Activity:: occasional Vital Signs Vital Signs Vital Signs: 11/04/24 07:33 11/04/24 07:33 11/04/24 07:33 Temperature Temperature Source Pulse Rate 54 L Respiratory Rate Blood Pressure 133/75 H BP Systolic 133 BP Diastolic 75 Pulse Ox 97 11/04/24 07:35 11/04/24 07:35 11/04/24 07:35 Temperature 97.1 F L Temperature Source Temporal Pulse Rate Respiratory Rate 16 Blood Pressure BP Systolic BP Diastolic Pulse Ox 11/04/24 08:38 11/04/24 08:38 11/04/24 08:38 Temperature Temperature Source Temporal Pulse Rate 60 Respiratory Rate Blood Pressure 121/76 H BP Systolic 121 BP Diastolic 76 Pulse Ox 11/04/24 08:38 11/04/24 08:38 Temperature 97.8 F Temperature Source Pulse Rate Respiratory Rate 16 Blood Pressure BP Systolic BP Diastolic Pulse Ox Weight Weight: 203 lb Body Mass Index (BMI) 37.1 Physical Exam external exam normal Narrative: cvx - 1/50/-2, intracervical méndez placed Labs Labs Labs: Blood Type O POSITIVE Antibody Screen NEGATIVE Hct 37.5 % (37-47) Hgb 12.9 g/dL (12.0-15.0) Syphilis Total Ab Nonreactive (Nonreactive) Rhogam given: No
[2024-11-04] MEDS: Lactated Ringers 1,000 ML 999 ML IV (10:55)
[2024-11-04] MEDS: fentaNYL-bupivacaine (epidural) 100 ML BAG EPIDURAL (12:37)
[2024-11-04] MEDS: Lactated Ringers 1,000 ML 200 ML IV (15:43)
[2024-11-04] MEDS: Ondansetron 4 MG/2 ML Vial IV (15:43)
--- NOTE | 2024-11-04 16:46 | OB.VAGDELI_ITS ---
Maternal Data Information HAYES Calculator Estimated Delivery Date Method Current WG Current Estimate 11/11/24 Manual 39w 0d Vaginal Delivery Maternal Presentation Maternal Presentation: Elective Induction Type of Induction: Pitocin, Daly Bulb and Amniotomy Vaginal Delivery Information Procedure Performed: Spontaneous Vaginal Delivery Surgeon/Practitioner: Dariel Barragan Date of Procedure: 11/04/24 Pre-Procedure Diagnosis: Elective induction at 39 weeks Post-Procedure Diagnosis: Same Type of anesthesia: Epidural Estimated Blood Loss: 200ml Findings Description of procedure: Called to room when patient C/C/+2. She was prepped & draped. Patient pushed well to deliver the head. head was gently guided to allow delivery of anterior and posterior shoulders. No excess traction placed on the head. The body delivered. 3VC clamped and cut in delayed fashion. Placenta delivered with gentle traction and good uterine tone obtained. 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
[2024-11-04] MEDS: Oxytocin 15 Units/NS 250ml 15 UNITS/250 ML IV.SOLN 83 UNITS IV (17:06)
[2024-11-04] MEDS: Ibuprofen 600 MG Tablet PO (17:46)
[2024-11-04] MEDS: Acetaminophen 500 MG Tablet 1000 MG PO (20:39)
[2024-11-05] VITALS (10 sets, daily range): BP systolic 104–112; BP diastolic 51–71; PULSE 49–75; RESP 16; TEMP 36.4–36.7; O2SAT 94–98
[2024-11-05] MEDS: Ibuprofen 600 MG Tablet PO ×3 (00:14→13:28)
[2024-11-05] MEDS: Acetaminophen 500 MG Tablet 1000 MG PO ×3 (02:42→17:01)
[2024-11-05] MEDS: Levothyroxine 125 MCG Tablet PO (07:18)
--- NOTE | 2024-11-05 08:14 | PCM.PN.OB ---
Subjective Subjective Doing well. Ambulating and voiding without difficulty. Mild lochia. Breast feeding. Objective Data Objective Data Vital Signs: Vital Signs Temp Pulse Resp BP Pulse Ox O2 Del Method 97.5 F L 56 L 16 104/51 L 98 Room Air 11/05/24 04:44 11/05/24 07:57 11/05/24 04:44 11/05/24 07:57 11/05/24 07:57 11/05/24 04:44 Oxygen Delivery Method Room Air Weight: 92.079 kg Body Mass Index (BMI) 37.1 Intake & Output: Intake and Output for Last 24 Hours 11/03/24 11/04/24 11/05/24 23:59 23:59 23:59 Intake Total 2892.08 / 2892.08 Output Total 800 / 800 Balance 2092.08 / 2092.08 Lab / Micro Data 11/04/24 07:40 Labs: Laboratory Results - last 24 hr 11/04/24 07:40: Syphilis Total Ab Nonreactive, Blood Type O POSITIVE, Antibody Screen NEGATIVE ROS Constitutional Constitutional: Denies headache(s) Cardiovascular Cardiovascular: Denies chest pain or dyspnea Gastrointestinal Gastrointestinal: Denies nausea or vomiting Genitourinary Genitourinary: Denies dysuria Physical Exam Const alert, oriented x3 and no apparent distress General Appearance: cooperative and comfortable Eyes PERRL and EOMs intact bilaterally Resp normal respiratory effort GI soft to palpation and non-tender Uterus Palpation: uterus fundus firm ( below umbilicus) Extremity normal to inspection and full ROM Neuro oriented x3 and CN's II-XII intact bilaterally Psych mental status grossly normal Assessment & Plan (1) (spontaneous vaginal delivery): PLAN: Plan Discharge home
--- NOTE | 2024-11-05 08:14 | PCM.DC.SUM ---
Providers Date of Admission: 11/04/24 Date of Discharge: 11/05/24 Primary Care Physician: Jasmina Rooney, TRIPLE VALVE TESTER-C Reason For Visit: VAGINAL Medications at Discharge Home Medications levothyroxine 75 mcg tablet 125 mcg PO DAILY hypothryoidism 03/20/19 vits,calcium no.78-iron fumarate-folic acid 29 mg-1 mg tablet 1 tab PO DAILY 03/20/19 fluticasone propionate 50 mcg/actuation nasal spray,suspension 1 spray NASAL DAILY seasonal allergies 04/11/19 Hospital Course Operations None Procedures None Summary of Care Provided Minutes Spent on Discharge: 20 Physical Exam Const alert and no apparent distress Narrative: Fundus firm, below umbilicus. Weight / BMI Weight Weight: 92.079 kg Body Mass Index (BMI) 37.1 ABG / Lab / Microbiology Data 11/04/24 07:40 Laboratory: Laboratory Results - last 24 hr 11/04/24 07:40: Blood Type O POSITIVE, Antibody Screen NEGATIVE D/C Instructions May resume sexual activity in: 6 weeks DC O2, CPAP, BIPAP Needs Home O2 Discharge instructions: No Please Follow Up With: Noemi Wood MD When: Follow up with our office in 1-2 and 6 weeks or as needed. [phone] Meaningful Use Info Meaningful Use Meaningful Use Diagnoses (Choose all that apply): None applicable Ischemic Stroke Statin Dosing Therapy Reference: STATIN DOSE THERAPY REFERENCE: * Patients > 75 years receive moderate or high dose statin therapy. * Patients 75 years or YOUNGER should receive HIGH intensity statin dose unless contraindicated. You will be required to document reason for non-treatment if statin daily dose does not meet guidelines. HIGH DOSE STATIN THERAPY DAILY Atorvastatin > than or = to 40 mg Rosuvastatin > than or = to 20 mg Amlodipine + Atorvastatin > than or = to 2.5/40 mg Ezetimibe + Simvastatin 10/80 mg Simvastatin 80mg Discharge Plan Admission Admit Date/Time: 11/04/24 07:21 Primary Reason for Your Visit: Attending Provider: Dariel Barragan Primary Care Provider: Jasmina Rooney TRIPLE VALVE TESTER Discharge Orders/Prescriptions Prescriptions: Continued fluticasone propionate 1 SPRAY spray,suspension 1 spray NASAL DAILY levothyroxine 75 MCG tablet 125 mcg PO DAILY vit,[id number] 1 TABLET tablet 1 tab PO DAILY Referrals / Follow Up: Jasmina Rooney TRIPLE VALVE TESTER, TRIPLE VALVE TESTER-C [Primary Care Provider] - Disposition Disposition (needs filled in before D/C Order can be placed): Home, Self Care
[2024-11-05] MEDS: Polyethylene Glycol 3350 17 GM PACKET PO (10:21)
[2024-11-05] MEDS: Senna/Docusate Sodium 1 Tablet PO (10:22)
--- NOTE | 2024-11-05 11:33 | CASEMGMT ---
Social Work Assessment Labor and Delivery Unit Patient Address: [address] [place], [place] [address] Phone number: [phone] Date of Referral: 11/04/24 Time of Referral:? 2257 Referred By: Dr. Barragan Date of Intervention: ?11/05/24? Time of Intervention:? 1030 Reason for Referral:? history of depression and PPD Sw completed chart review and acknowledges social work consult. Sw presented to bedside and introduced self to mother of baby (RODRIGO- Vega) and father of baby (FOGaetano- John). Sw explained reason for sw involvement and completed psychosocial assessment. History obtained from: medical records, MOB and FOB Household composition: Currently residing in the family home is SAGRARIO WALLACE, their two older children: Leetonia (5) and Wicho (2). baby to be included in residence when ready for discharge. Parents deny any housing concerns, stating that home is safe and secure. Patient's parent/guardian status:?RODRIGO states that she and SAGRARIO have been together for 10 years after meeting while both were attending [employer] together. No concerns reported of domestic violence or intimate partner violence. Richardson baby is third (and reportedly last) child for parents together. ? Medical History: ?RODRIGO is 29 year old female who is 4, para 2- now 3 following labor and delivery of . RODRIGO received routine care during with [facility]. RODRIGO presented to hospital and delivered baby via vaginal delivery on 11/04/24 at 39 weeks gestation. Baby boy, named Benny, was born weighing 7lb 2oz with apgars of 8 and 9 at one and five minutes of life, respectfully. RODRIGO states that she is breast feeding and baby will be followed by Dr. Aldana. Educational Status:? Both parents obtained college degrees, and deny problems with reading, learning or comprehension. Financial Status: Both parents are gainfully employed. 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 Infant Supplies:?All necessary baby supplies obtained, including: car seat, safe sleep space, clothes, diapers and wipes. ? Childcare/Caregiver(s):?RODRIGO reports that she will be the primary caregiver until she returns to work, when both parents are working they have an in-home transformation manager that they use. Transportation:?Both parents have obtained their drivers license and have reliable means of transportation, no barriers. Programs/Agencies Involved: ??Parents deny being connected to any community resources that provide them with financial assistance as they are over income. ? Children Services/Legal Issues:???No prior involvement with children's services, no issues or concerns warranting referral to be made at this time. Behavioral Health Issues: ??Mental Health History:?FOGaetano denies mental health history. RODRIGO reports that she was diagnosed with anxiety and depression shortly after her daughter was born. 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 MOB states at that time they were not allowing many visitors to come and see baby because they were worried about germs. MOB states that at that time she did get connected to a mental health counselor, and she found that support to be extremely helpful and just what she needed to get through the mental health issues that she was experiencing. MOB states that during that time she also had intrusive anxious thoughts about something horrible happening to her daughter. ?? Substance Use History:?Parents deny substance use history prior to and during .? Family History:??Parents deny family history of addiction or significant mental health diagnoses. ??? Drug Screens: ??No drug screens observed while completing chart review. Family/Social Stressors:? Parents deny any issues, concerns or stressors. Support Systems: RODRIGO reports that FOB, and both sets of grandparents are her biggest supports. Depression/Shaken Baby/Safe Sleeping:? Liza educated parents on signs and symptoms of baby blues and depression and anxiety. MOB states that she is not opposed to starting medication if recommended and knows that she can always get restarted with counseling. FOB states that if MOB were to struggle during this period he would be able to recognize what that looks like and would know how to help and support her. Liza educated parents on shaken baby prevention and ABCs of safe sleep. Parents express understanding. ASSESSMENT:? MOB and baby admitted following labor and delivery of . Also present at time of conversation were parents two older children. All family members were observed to love and hold baby lovingly and appropraitely. MOB and FOB both talkative and interactive with completion of psychosocial assessment. MOB intune with her mental health and knowing when she is reaching the point of needing to talk to someone. MOB states that she believes she is going to do well during this period as she only really struggled after the delivery of her first baby. MOB and FOB both made and maintained eye contact throughout conversation and were very engaging and talkative. PLAN:? No other services requested or indicated. MOB and baby to be discharged when medically ready. Parents were provided literature regarding: signs and symptoms of baby blues and mood and anxiety disorders, Help Me Grow, shaken baby prevention, ABCs of safe sleep and a list of county resources that are available for them should any needs present themselves. Trupti Perez, APPLIANCE TESTER, QUALITY REVIEW SPECIALIST
--- NOTE | 2024-11-12 16:36 | NURSING ---
Follow up phone call: Patient's phone rang but disconnected before letting CBS leave VM.
== END 2024-11-05 18:00 | disposition home or self-care (01) | DRG 807 ==
PROVIDERS: Admitting Provider Obstetrics & Gynecology; PCP Nurse Practitioner Family; Referring Provider Obstetrics & Gynecology; Visit Provider Obstetrics & Gynecology
DX: O76 Abnormality in fetal heart rate and rhythm complicating labor and delivery (principal); Z37.0 Single live birth; E03.9 Hypothyroidism, unspecified; O99.284 Endocrine, nutritional and metabolic diseases complicating childbirth; Z3A.39 39 weeks gestation of pregnancy; Z79.890 Hormone replacement therapy
CPT/HCPCS: 59025; 59050; 85025; 86780; 86850; 86900; 86901; 99221; G0378; J2405